=== PATIENT | male | born 1975 | race Caucasian/White ===

== ENCOUNTER 2018-05-11 08:17 | Emergency (ER) | payer MEDICAID, SELFPAY ==
[2018-05-11 08:19] VITALS: BP 164/88; PULSE 85; RESP 14; TEMP 36.4; O2SAT 98; BMI 68.9
--- NOTE | 2018-05-11 08:36 | RAD_ITS ---
STUDY: X-RAY CHEST REASON FOR EXAM: Male, 42 years old. History of pneumonia. TECHNIQUE: AP and lateral views of the chest. COMPARISON: Comparison is made with prior study dated September 08, 2016. FINDINGS: The lungs are clear and expanded. There is no demonstrated pleural abnormality. Normal size heart. Normal mediastinum and truong. Normal visualized pulmonary arteries. Normal visualized aortic arch and descending thoracic aorta. There are degenerative changes of the visualized thoracic spine. Normal visualized ribs, clavicles, and shoulders. There is no demonstrated abnormality of the visualized soft tissue structures of the upper abdomen. RAD/Chest PA and Lateral IMPRESSION: Normal x-ray examination of the chest. Electronically Signed: Parth Yoon, at 9:18 EST , Service support ,
[2018-05-11 08:42] VITALS: PULSE 67; RESP 16
[2018-05-11] MEDS: Ipratropium/Albuterol Sulfate 3 ML AMPUL.NEB INHALATION (08:42)
[2018-05-11 08:44] VITALS: BP 164/88; PULSE 85; RESP 14; TEMP 36.4; O2SAT 98
--- NOTE | 2018-05-11 09:15 | ED.VISSUMM ---
- ER Visit Summary Date of Service: 05/11/18 Chief Complaint: [Cough] History of Present Illness: The patient is a 42 M [presents to the emergency department with complaint of a cough that started 3 weeks ago. Patient states that initially he started with what he thought were flulike symptoms and that he had fever for about 36 hours as well as severe body aches. Patient had a mild cough at that time. Patient states that over the course of the last 3 weeks he is got progressive increase in cough. Patient feels somewhat short of breath with activity and some generalized fatigue. Patient states that the cough is occasionally productive of some clear phlegm currently. Patient's had some faint chills. Patient denies recent travel or surgery. Patient does have a history of pneumonia and he called the nurse line today and was advised to come to the emergency department to get evaluated. Patient does have a history of diabetes, hypertension, and sleep apnea. He does not have a history of asthma or COPD.] Physical Examination: [HEENT-PERRLA, EOMI. Cranial nerves II through XII grossly intact. TMs clear. Mucous membranes moist. No adenopathy. Cardiovascular-regular rate and rhythm without murmur or ectopy Lungs-slightly diminished breath sounds bilaterally. Patient does have some faint expiratory wheezes with cough. No accessory muscle use or retractions. Abdomen-normoactive bowel sounds, soft, nontender, no rebound or rigidity, no peritoneal signs. Extremities-intact ?4, normal range of motion, normal pulses, atraumatic] Test Results: [Chest x-ray of the chest was obtained which was read as normal by radiology.] Emergency Department Course and Treatment: [Patient was given a DuoNeb aerosol. Patient was given a dose of doxycycline.] Treatment Plan: [Patient will be given an inhaler of albuterol for home as well as a prescription for doxycycline and Tessalon Perles.] Disposition: [Discharged home in stable condition. Patient advised to return if increasing shortness of breath or condition should worsen anyway. Patient advised to follow-up with primary care physician within next 5-7 days.] Impression: [Asthmatic bronchitis] This note was generated with [employer] software. It may contain incorrect words, spelling, and punctuation that were not noted in review of the chart prior to signing ED Disposition - Plan for ED Patient: Referrals: Rocky Delgadillo MD [Primary Care Provider] -
--- NOTE | 2018-05-11 09:21 | ED.DEP ---
ED Disposition - Plan for ED Patient: Instructions: ED Bronchitis Asthmatic Prescriptions: Benzonatate [Tessalon Perle] 200 mg PO TID PRN PRN #20 cap PRN Reason: Cough Doxycycline 100 mg PO BID #20 cap Referrals: Rocky Delgadillo MD [Primary Care Provider] -
[2018-05-11] MEDS: Doxycycline 100 MG CAPSULE PO (09:34)
[2018-05-11 09:39] VITALS: O2SAT 98
== END 2018-05-11 09:42 | disposition home or self-care (01) ==
LOC: ED 09:10
PROVIDERS: Emergency Provider Emergency Medicine; Family Provider Family Medicine; PCP Family Medicine
DX: J44.9 Chronic obstructive pulmonary disease, unspecified (principal); E11.9 Type 2 diabetes mellitus without complications; I10 Essential (primary) hypertension; Z87.01 Personal history of pneumonia (recurrent)
CPT/HCPCS: 71046; 94640; 99281

== ENCOUNTER 2018-05-24 05:39 | Observation (INO) | payer MEDICAID, SELFPAY ==
[2018-05-24] VITALS (15 sets, daily range): BP systolic 134–183; BP diastolic 79–143; PULSE 67–79; RESP 18–24; TEMP 36.4–37.7; O2SAT 95–100; BMI 69.8
--- NOTE | 2018-05-24 05:42 | ED.RN ---
CALLED FOR EKG PER RN REQUEST, PULLED OLD EKGS FOR
--- NOTE | 2018-05-24 05:47 | RAD_ITS ---
STUDY: X-RAY CHEST REASON FOR EXAM: Male, 42 years old. Chest pain. TECHNIQUE: Single AP portable view of the chest. COMPARISON: May 11, 2018. FINDINGS: Cardiac monitoring leads are present. The lungs are expanded. There is mild prominence of bronchovascular markings. There is no demonstrated pleural abnormality. There is mild cardiac enlargement. Normal mediastinum and truong. Normal visualized pulmonary arteries. Normal visualized aortic arch and descending thoracic aorta. There are diffuse degenerative changes of the visualized thoracic spine. Normal visualized ribs, clavicles, and shoulders. There is no demonstrated abnormality of the visualized soft tissue structures of the upper abdomen. RAD/Chest 1 View (Portable) IMPRESSION: Mild cardiomegaly without evidence of acute cardiopulmonary disease. Electronically Signed: Jo Mendoza MD at 6:21 EDT , Service support ,
--- NOTE | 2018-05-24 05:47 | EKG12_ITS ---
Test Reason : CP Blood Pressure : / mmHG Vent. Rate : 075 BPM Atrial Rate : 075 BPM P-R Int : 188 ms QRS Dur : 104 ms QT Int : 402 ms P-R-T Axes : 043 047 035 degrees QTc Int : 448 ms Normal sinus rhythm Normal ECG Confirmed by ETIENNE MOELLER, TIARA ([id number]), assistant production editor ANDRESSA BEY ([id number]) on 05/26/2018 11:08:39 AM Referred By: Loree Villalpando Confirmed By:TIARA CLIFTON MD
[2018-05-24 06:03] LABS: Absolute Lymphocyte Count 3.04 X10^3/ul (0.83-4.51); Absolute Neutrophil Count 3.8 X10^3/uL (2.0-7.7); Basophil# 0.07 X10^3/uL; Basophil% 0.8 % (0-1); Eosinophil# 0.87 X10^3/uL; Eosinophils% 10.3 % (0-5); Hematocrit 39.8 % (40-54); Hemoglobin 13.1 g/dl (13.0-16.5); Lymphocyte # 3.04 X10^3/ul (4.0); Lymphocyte % 35.8 % (19-41); Mean Corp Hgb Conc 32.9 g/gl (32-36); Mean Corpuscular Hgb 28.7 pg (27.0-32.0); Mean Corpuscular Volume 87.3 fL (80-94); Mean Platelet Vol. 10.1 fl (6.2-12.0); Monocyte# 0.66 X10^3/uL; Monocyte% 7.8 % (0-10); Neutrophil # 3.81 X10^3/uL (2.7-7.7); Neutrophil % 44.9 % (47-70); Platelet Count 267 K/mm3 (150-450); RBC Distribution Width CV 13.5 % (11.6-14.6); RBC Distribution Width SD 41.8 fl (35.1-43.9); Red Blood Count 4.56 M/mm3 (4.6-6.2); White Blood Count 8.5 K/mm3 (4.4-11.0)
--- NOTE | 2018-05-24 06:05 | ED.VISSUMM ---
- ER Visit Summary Date of Service: 05/24/18 Chief Complaint: Chest pain History of Present Illness: The patient is a 42 M with approximately 3 weeks of chest pressure. Patient states he initially had bronchitis type symptoms associated with this. He was treated with antibiotics and his cough and congestion are better. He states he continues to have chest pressure, worse with exertion or movement, that continues to worsen. He does feel occasionally short of breath. Patient denies any known history of cardiac disease. He had a heart cath performed in June 2012 that did not reveal any blockages. Physical Examination: Blood pressure is 183/89, temperature 97.5, heart rate 75, respiratory rate 24, pulse ox 98% on room air. Patient is obese gentleman sitting upright in bed. He is in no acute distress. Head neck examination normal. Heart is regular rate and rhythm. Lungs sounds are clear. He has no reproducible chest wall tenderness. Abdomen is soft and nontender. Test Results: EKG is sinus at 75 with no sign of acute ischemia. Portable chest x-ray shows mild cardiomegaly without acute disease. CBC and chemistry studies significant only for glucose of 267. Troponin is 0.047. Emergency Department Course and Treatment: Patient was given aspirin on arrival. I did review patient's prior records. Patient was admitted here in 2015 with similar type story. He had atypical chest pain following an upper respiratory infection. He had mildly elevated troponins at that time that were stable. Patient underwent a heart cath in June 2012 which did not show any lesions. Discharge note from 2015 states possibility of hypertension leading to his symptoms. He was started on Imdur at that time but is no longer on Imdur. At this time I only have a single lab value which does not reveal a normal troponin. Patient will be admitted for observation for cycling of enzymes. Treatment Plan: [] Disposition: Admit Impression: 1. Atypical chest pain 2. Elevated troponin This note was generated with [employer] dictation software. It may contain incorrect words, spelling, and punctuation that were not noted in review of the chart prior to signing ED Disposition - Plan for ED Patient: Referrals: Rocky Delgadillo MD [Primary Care Provider] -
[2018-05-24] MEDS: 0.9% Normal Saline 1,000 ML 15 ML IV ×2 (06:18→12:00)
[2018-05-24] MEDS: Aspirin 81 MG TAB.CHEW 324 MG PO (06:18)
[2018-05-24 06:22] LABS: Anion Gap 10 (5-15); BUN 12 mg/dL (7-18); BUN/Creat Ratio 13.7 RATIO (10-20); Calcium,Total 8.6 mg/dL (8.5-10.1); Chloride 103 mmol/L (98-107); Creatinine, Serum 0.88 mg/dL (0.70-1.30); EST Glomerular Filtration Rate 100 mL/min (>60); Est Glom Filt Rate - Afr Amer 121 mL/min (>60); Estimated Creatinine Clearance 117.58 ml/min; Glucose 267 mg/dL (74-106); Potassium 3.9 mmol/L (3.5-5.1); Sodium Level 141 mmol/L (136-145)
[2018-05-24 06:45] LABS: POSITIVE COUNT NO; POSITIVE DIFFERENTIAL NO; POSITIVE MORPHOLOGY NO
[2018-05-24] MEDS: Lisinopril 10 MG Tablet PO (11:21)
[2018-05-24] MEDS: hydroCHLOROthiazide 25 MG Tablet PO (11:21)
[2018-05-24] MEDS: Pantoprazole Sodium 40 MG Tablet PO (11:21)
[2018-05-24] MEDS: Metoprolol(XL)Succ 200 MG Tablet PO (11:22)
[2018-05-24] MEDS: Enoxaparin 40 MG/0.4 ML Syringe SC (11:24)
[2018-05-24] MEDS: Acetaminophen 325 MG Tablet 650 MG PO ×2 (11:26→18:18)
[2018-05-24 13:15] LABS: Bedside Glucose 190 mg/dL (70-110)
[2018-05-24] MEDS: Insulin Lispro 100 UNIT/ML INSULN.PEN 32 UNIT SC ×2 (13:15→19:44)
--- NOTE | 2018-05-24 13:58 | PCM.HP.STD ---
History of Present Illness Date of Admission: 05/24/18 Chief Complaint: chest pain The patient is a 42 year old M with a PMH of hypertension, diabetes was admitted with a complaint of chest pain. Patient states he has had bronchitis for the past few weeks and had chest pain with it. Pain was sharp, episodic, mildly worsened by exertion or movement and states that it has not improved. It was not relieved by sitting up and was not worsened by laying down. He denied any fever or chills and states his cough and congestion had improved since he completed antibiotics. Review of systems otherwise negative. He came into the ED where initial troponin was 0.047. Vitals were otherwise stable apart from markedly elevated blood pressure around 183/89. She has had a heart cath performed in 2013 that was normal. EKG showed no acute ST changes. He is been admitted to be managed for chest pain to rule out ACS. [] Past Medical History Past Medical History (Chronic Problems): Chronic Problems Hypertension (Chronic) Type II diabetes mellitus (Chronic) Hyperlipidemia (Chronic) Depression (Chronic) Super obese (Chronic) Smoker (Chronic) MEGAN (obstructive sleep apnea) (Chronic) Allergies cefadroxil hydrate [From Duricef] Allergy (Verified 05/24/18 05:48) Itching piperacillin [From Zosyn] Allergy (Verified 05/24/18 05:48) Hives tazobactam [From Zosyn] Allergy (Verified 05/24/18 05:48) Hives erythromycin base Adverse Reaction (Verified 05/24/18 05:48) Vomiting Home Medications: Ambulatory Orders Medication Instructions Recorded Aspirin E.C. [Ecotrin] 81 mg PO DAILY@0800 02/28/15 Hydrochlorothiazide [Hctz] 25 mg PO DAILY 02/28/15 Lisinopril [Zestril] 10 mg PO DAILY 02/28/15 Metoprolol Succinate 200 mg PO DAILY 02/28/15 Omeprazole [Prilosec] 40 mg PO DAILY 02/28/15 Simvastatin [Zocor] 40 mg PO DAILY 02/28/15 Lorazepam [Ativan] 1 mg PO DAILY PRN PRN 06/24/15 Acetaminophen [Tylenol Tablet] 650 mg PO Q4H PRN PRN tablet 09/16/16 Gabapentin [Neurontin] 300 mg PO TIDCM #90 capsule 09/16/16 Insulin Aspart [Novolog Flexpen] 20 units SC TIDAC #120 09/16/16 Insulin Detemir [Levemir FlexPen] 50 units SC 1000 #60 09/16/16 Insulin Detemir [Levemir FlexPen] 50 units SC 2200 #60 09/16/16 Meloxicam [Mobic] 7.5 mg PO DAILY #30 tablet 09/16/16 Metformin HCl [Glucophage] 1,000 mg PO TID #120 09/16/16 Benzonatate [Tessalon Perle] 200 mg PO TID PRN PRN #20 cap 05/11/18 Surgical History: noncontributory, tonsillectomy, - - excision of tissue from the right breast....gynecomastia. Orthopedic surgery on the left forearm due to fracture when he was young. Psychiatric History: Depression Lives: With Family Smoking Status: Former smoker Tobacco Use: Cigars - *Family History Maternal History Items: Diabetes, No pertinent history, - - DM Paternal History Items: No pertinent history, - - He does not know his father or the paternal hx Sibling History Items: No pertinent history Offspring History Items: - - dtr has a hypercoagulable disorder Review of Systems Constitutional: Denies: Chills, Fever, Night Sweats, Weight Change Eyes: Denies: Blurred vision HEENT: Denies: Head Aches, Sinus Congestion, Sinus Drainage Cardiovascular: Reports: Chest Pain. Denies: Chest Pressure, Chest Tightness, Edema, Heaviness, Light Headedness, Orthopnea, Palpitations, Paroxysmal Noc. Dyspnea, Syncope Respiratory: Denies: Cough, Shortness of Breath, Shortness of breath at rest, Sputum production Gastrointestinal: Denies: Abdominal Pain, Nausea, Vomiting Genitourinary: Denies: Dysuria Musculoskeletal: Denies: Joint Pain, Joint Tenderness Skin: Denies: Rash, Wounds Neurological: Denies: Numbness, Tingling, Focal weakness Psychiatric: Denies: Anxiety, Depression, Homicidal Ideations, Suicidal Ideations Hematologic/ Lymphatic: Denies: Easy Bruising, Easy Bleeding VTE Information - Inpt Only VTE Present on Admission: No VTE Pharm Prophylaxis ordered?: Yes - Physical Exam General: Alert, Oriented x3, Cooperative, No apparent distress HEENT: Atraumatic, PERRLA, EOMI, Normocephalic Oral: Moist Mucosa Neck: Supple, No JVD, Negative Carotid Bruits Lungs: Clear to auscultation, Normal air movement Cardiovascular: Regular rate, Regular Rhythm, Normal S1, Normal S2, No murmurs Abdomen: Bowel Sounds Present, Soft, Non Tender, Non-Distended, No Hepato-splenomegaly Extremities: No clubbing, No cyanosis, No edema, Capillary Refill Less than 3 Seconds Skin: No rashes, No breakdown Musculoskeletal: No Tenderness to Palpation of Joints or Extremities Lymphatic: No Cervical, Supraclavicular, or Inguinal Adenopathy Neurological: Cranial nerves II-XII grossly intact, Neuro grossly intact, Motor Exam 5/5 strength throughout Psych/Mental Status: Normal Affect, Appropriate, Alert and oriented to time, place, person, mood and affect Vital Signs Temp Pulse Resp BP Pulse Ox 98.9 F 76 24 H 162/102 H 97 05/24/18 10:00 05/24/18 12:00 05/24/18 10:00 05/24/18 11:22 05/24/18 11:15 Oxygen Delivery Method Room Air Weight: 514 lb 12.47 oz Body Mass Index (BMI) 69.8 Finger Stick Blood Glucose 277 Intake and Output for Last 24 Hours 05/22/18 05/23/18 05/24/18 23:59 23:59 23:59 Intake Total 250 / 250 Balance 250 / 250 Laboratory Tests Past 24 Hrs 05/24/18 05/24/18 05/24/18 05:00 05:00 09:55 WBC 8.5 RBC 4.56 L Hgb 13.1 Hct 39.8 L MCV 87.3 MCH 28.7 MCHC 32.9 RDW 13.5 RDW Differential 41.8 Plt Count 267 MPV 10.1 Immature Gran % (Auto) 0.400 Neut % (Auto) 44.9 L Lymph % (Auto) 35.8 [place] % (Auto) 7.8 Eos % (Auto) 10.3 H Baso % (Auto) 0.8 Absolute Neuts (auto) 3.8 Absolute Lymphs (auto) 3.04 Total Counted Not Reportable Sodium 141 Potassium 3.9 Chloride 103 Carbon Dioxide 28.0 Anion Gap 10 BUN 12 Creatinine 0.88 Estim Creat Clear Calc 117.58 Est GFR (MDRD) Af Amer 121 Est GFR (MDRD) Non-Af 100 BUN/Creatinine Ratio 13.7 Glucose 267 H Calcium 8.6 Troponin I 0.047 H 0.057 H 05/24/18 12:05 WBC RBC Hgb Hct MCV MCH MCHC RDW RDW Differential Plt Count MPV Immature Gran % (Auto) Neut % (Auto) Lymph % (Auto) [place] % (Auto) Eos % (Auto) Baso % (Auto) Absolute Neuts (auto) Absolute Lymphs (auto) Total Counted Sodium Potassium Chloride Carbon Dioxide Anion Gap BUN Creatinine Estim Creat Clear Calc Est GFR (MDRD) Af Amer Est GFR (MDRD) Non-Af BUN/Creatinine Ratio Glucose Calcium Troponin I 0.051 H POC Glucose 05/24/18 13:07 POC Glucose 190 H Diagnostic Data Chest X-Ray 05/24/18 05:47 IMPRESSION: Mild cardiomegaly without evidence of acute cardiopulmonary disease. Electronically Signed: Jo Mendoza MD at 6:21 EDT , Service support , Assessment/Plan All Active Problems MSSA (methicillin susceptible Staphylococcus aureus) septicemia (Acute) Sepsis (Acute) Intertrigo (Acute) Hyponatremia (Acute) Radicular pain of right lower extremity (Acute) Atypical chest pain (Resolved) Indeterminate troponin (Resolved) 42 y/o admitted with a complaint of chest pain, to rule out ACS 1. Chest pain r/o ACS Initial troponin mildly elevated at 0.0471 up to 0.057 and came down to 0.051. EKG showed no acute ST changes. Had recent history of bronchitis which resolved with antibiotics. SL nitroglycerin as needed.. Aspirin 81 mg daily. 2. Hypertension: poorly controlled. BP was 183/89 on admission. On hydrochlorothiazide 25 mg daily and lisinopril 10 mg daily. Will monitor blood pressure and adjusted meds as needed 3. Diabetes mellitus: on Lantus 77 units nightly and insulin lispro 32 units 3 times daily with meals. Insulin sliding scale. Accuchecks AC at bedtime. DVT prophylaxis: lovenox Code Visit OBSV E&M: 72530 Initial observation care L3
--- NOTE | 2018-05-24 14:05 | HP.PCM_ITS ---
History of Present Illness Date of Admission: 05/24/18 Chief Complaint: chest pain The patient is a 42 year old M with a PMH of hypertension, diabetes was admitted with a complaint of chest pain. Patient states he has had bronchitis for the past few weeks and had chest pain with it. Pain was sharp, episodic, mildly worsened by exertion or movement and states that it has not improved. It was not relieved by sitting up and was not worsened by laying down. He denied any fever or chills and states his cough and congestion had improved since he completed antibiotics. Review of systems otherwise negative. He came into the ED where initial troponin was 0.047. Vitals were otherwise stable apart from ma rkedly elevated blood pressure around 183/89. She has had a heart cath performed in 2013 that was normal. EKG showed no acute ST changes. He is been admitted to be managed for chest pain to rule out ACS. [] Past Medical History Past Medical History (Chronic Problems): Chronic Problems Hypertension (Chronic) Type II diabetes mellitus (Chronic) Hyperlipidemia (Chronic) Depression (Chronic) Super obese (Chronic) Smoker (Chronic) MEGAN (obstructive sleep apnea) (Chronic) Allergies cefadroxil hydrate [From Duricef] Allergy (Verified 05/24/18 05:48) Itching piperacillin [From Zosyn] Allergy (Verified 05/24/18 05:48) Hives tazobactam [From Zosyn] Allergy (Verified 05/24/18 05:48) Hives erythromycin base Adverse Reaction (Verified 05/24/18 05:48) Vomiting Home Medications: Ambulatory Orders Medication Instructions Recorded Aspirin E.C. [Ecotrin] 81 mg PO DAILY@0800 02/28/15 Hydrochlorothiazide [Hctz] 25 mg PO DAILY 02/28/15 Lisinopril [Zestril] 10 mg PO DAILY 02/28/15 Metoprolol Succinate 200 mg PO DAILY 02/28/15 Omeprazole [Prilosec] 40 mg PO DAILY 02/28/15 Simvastatin [Zocor] 40 mg PO DAILY 02/28/15 Lorazepam [Ativan] 1 mg PO DAILY PRN PRN 06/24/15 Acetaminophen [Tylenol Tablet] 650 mg PO Q4H PRN PRN tablet 09/16/16 Gabapentin [Neurontin] 300 mg PO TIDCM #90 capsule 09/16/16 Insulin Aspart [Novolog Flexpen] 20 units SC TIDAC #120 09/16/16 Insulin Detemir [Levemir FlexPen] 50 units SC 1000 #60 09/16/16 Insulin Detemir [Levemir FlexPen] 50 units SC 2200 #60 09/16/16 Meloxicam [Mobic] 7.5 mg PO DAILY #30 tablet 09/16/16 Metformin HCl [Glucophage] 1,000 mg PO TID #120 09/16/16 Benzonatate [Tessalon Perle] 200 mg PO TID PRN PRN #20 cap 05/11/18 Surgical History: noncontributory, tonsillectomy, - - excision of tissue from the right breast....gynecomastia. Orthopedic surgery on the left forearm due to fracture when he was young. Psychiatric History: Depression Lives: With Family Smoking Status: Former smoker Tobacco Use: Cigars - *Family History Maternal History Items: Diabetes, No pertinent history, - - DM Paternal History Items: No pertinent history, - - He does not know his father or the paternal hx Sibling History Items: No pertinent history Offspring History Items: - - dtr has a hypercoagulable disorder Review of Systems Constitutional: Denies: Chills, Fever, Night Sweats, Weight Change Eyes: Denies: Blurred vision HEENT: Denies: Head Aches, Sinus Congestion, Sinus Drainage Cardiovascular: Reports: Chest Pain. Denies: Chest Pressure, Chest Tightness, Edema, Heaviness, Light Headedness, Orthopnea, Palpitations, Paroxysmal Noc. Dyspnea, Syncope Respiratory: Denies: Cough, Shortness of Breath, Shortness of breath at rest, Sputum production Gastrointestinal: Denies: Abdominal Pain, Nausea, Vomiting Genitourinary: Denies: Dysuria Musculoskeletal: Denies: Joint Pain, Joint Tenderness Skin: Denies: Rash, Wounds Neurological: Denies: Numbness, Tingling, Focal weakness Psychiatric: Denies: Anxiety, Depression, Homicidal Ideations, Suicidal Ideations Hematologic/ Lymphatic: Denies: Easy Bruising, Easy Bleeding VTE Information - Inpt Only VTE Present on Admission: No VTE Pharm Prophylaxis ordered?: Yes - Physical Exam General: Alert, Oriented x3, Cooperative, No apparent distress HEENT: Atraumatic, PERRLA, EOMI, Normocephalic Oral: Moist Mucosa Neck: Supple, No JVD, Negative Carotid Bruits Lungs: Clear to auscultation, Normal air movement Cardiovascular: Regular rate, Regular Rhythm, Normal S1, Normal S2, No murmurs Abdomen: Bowel Sounds Present, Soft, Non Tender, Non-Distended, No Hepato- splenomegaly Extremities: No clubbing, No cyanosis, No edema, Capillary Refill Less than 3 Seconds Skin: No rashes, No breakdown Musculoskeletal: No Tenderness to Palpation of Joints or Extremities Lymphatic: No Cervical, Supraclavicular, or Inguinal Adenopathy Neurological: Cranial nerves II-XII grossly intact, Neuro grossly intact, Motor Exam 5/5 strength throughout Psych/Mental Status: Normal Affect, Appropriate, Alert and oriented to time, place, person, mood and affect Vital Signs Temp Pulse Resp BP Pulse Ox 98.9 F 76 24 H 162/102 H 97 05/24/18 10:00 05/24/18 12:00 05/24/18 10:00 05/24/18 11:22 05/24/18 11:15 Oxygen Delivery Method Room Air Weight: 514 lb 12.47 oz Body Mass Index (BMI) 69.8 Finger Stick Blood Glucose 277 Intake and Output for Last 24 Hours 05/22/18 05/23/18 05/24/18 23:59 23:59 23:59 Intake Total 250 / 250 Balance 250 / 250 Laboratory Tests Past 24 Hrs 05/24/18 05/24/18 05/24/18 05:00 05:00 09:55 WBC 8.5 RBC 4.56 L Hgb 13.1 Hct 39.8 L MCV 87.3 MCH 28.7 MCHC 32.9 RDW 13.5 RDW Differential 41.8 Plt Count 267 MPV 10.1 Immature Gran % (Auto) 0.400 Neut % (Auto) 44.9 L Lymph % (Auto) 35.8 [place] % (Auto) 7.8 Eos % (Auto) 10.3 H Baso % (Auto) 0.8 Absolute Neuts (auto) 3.8 Absolute Lymphs (auto) 3.04 Total Counted Not Reportable Sodium 141 Potassium 3.9 Chloride 103 Carbon Dioxide 28.0 Anion Gap 10 BUN 12 Creatinine 0.88 Estim Creat Clear Calc 117.58 Est GFR (MDRD) Af Amer 121 Est GFR (MDRD) Non-Af 100 BUN/Creatinine Ratio 13.7 Glucose 267 H Calcium 8.6 Troponin I 0.047 H 0.057 H 05/24/18 12:05 WBC RBC Hgb Hct MCV MCH MCHC RDW RDW Differential Plt Count MPV Immature Gran % (Auto) Neut % (Auto) Lymph % (Auto) [place] % (Auto) Eos % (Auto) Baso % (Auto) Absolute Neuts (auto) Absolute Lymphs (auto) Total Counted Sodium Potassium Chloride Carbon Dioxide Anion Gap BUN Creatinine Estim Creat Clear Calc Est GFR (MDRD) Af Amer Est GFR (MDRD) Non-Af BUN/Creatinine Ratio Glucose Calcium Troponin I 0.051 H POC Glucose 05/24/18 13:07 POC Glucose 190 H Diagnostic Data Chest X-Ray 05/24/18 05:47 IMPRESSION: Mild cardiomegaly without evidence of acute cardiopulmonary disease. Electronically Signed: Jo Mendoza MD at 6:21 EDT , Service support , Assessment/Plan All Active Problems MSSA (methicillin susceptible Staphylococcus aureus) septicemia (Acute) Sepsis (Acute) Intertrigo (Acute) Hyponatremia (Acute) Radicular pain of right lower extremity (Acute) Atypical chest pain (Resolved) Indeterminate troponin (Resolved) 42 y/o admitted with a complaint of chest pain, to rule out ACS 1. Chest pain r/o ACS * Initial troponin mildly elevated at 0.0471 up to 0.057 and came down to 0.051. * EKG showed no acute ST changes. * Had recent history of bronchitis which resolved with antibiotics. * SL nitroglycerin as needed.. Aspirin 81 mg daily. * 2. Hypertension: * poorly controlled. BP was 183/89 on admission. * On hydrochlorothiazide 25 mg daily and lisinopril 10 mg daily. * Will monitor blood pressure and adjusted meds as needed * 3. Diabetes mellitus: * on Lantus 77 units nightly and insulin lispro 32 units 3 times daily with meals. Insulin sliding scale. * Accuchecks AC at bedtime. * DVT prophylaxis: lovenox Code Visit OBSV E&M: 73988 Initial observation care L3
[2018-05-24] MEDS: Morphine 2 MG/ML Syringe 1 MG IV (16:19)
--- NOTE | 2018-05-24 16:22 | CASEMGMT ---
WILLOW CM Note. Chart reviewed. Call to Hospitalist to review plan of care. Per physician plan is for stress test and she will enter order. Nurse Rema update. Introduced role of CM to patient in room. Pt is awake, alert and able to participate in assessment. Demographics reviewed. Pt is diabetic, states he has blood glucose monitoring equipment and checks his blood sugars at home. Is on Basaglar Kwikpen and Lispro Kwikpen. States [employer] covers all his diabetic medications. Wire Bender Hand consult is ordered. Presentation: Chest pain. Troponin peak 0.057. PCP: Dr. Delgadillo [facility]: [facility] Insurance: [employer] Prescription coverage: yes through [employer] Living Arrangements: Pt states he lives independently with his daughter and her fiance. States, though difficult due to weight, he is independent in bathing, dressing and other ADL. States he sometimes has difficulty putting his shoes on. Transportation: drives or family drives DME: none HHS: none DC PLAN: anticipate home on discharge. no needs identified @ this time. Bryant QUESADA RN ACM
[2018-05-24 19:10] LABS: Bedside Glucose 130 mg/dL (70-110)
--- NOTE | 2018-05-24 22:45 | NURSING ---
Pt to be transported via bed and on equipment monitor phototypesetting to room 121 on PCU. Pt aware and in agreement with plan of care.
[2018-05-24] MEDS: Atorvastatin Calcium 20 MG Tablet PO (22:50)
--- NOTE | 2018-05-24 22:59 | NURSING ---
Report called to WILLOW Garcia on PCU.
[2018-05-25] VITALS (10 sets, daily range): BP systolic 160–171; BP diastolic 87–110; PULSE 76–90; RESP 16–18; TEMP 36.7–36.9; O2SAT 94–99
[2018-05-25 05:44] LABS: Absolute Lymphocyte Count 2.02 X10^3/ul (0.83-4.51); Absolute Neutrophil Count 6.1 X10^3/uL (2.0-7.7); Basophil# 0.04 X10^3/uL; Basophil% 0.4 % (0-1); Eosinophil# 0.82 X10^3/uL; Eosinophils% 8.5 % (0-5); Hematocrit 38.3 % (40-54); Hemoglobin 12.8 g/dl (13.0-16.5); Lymphocyte # 2.02 X10^3/ul (4.0); Lymphocyte % 20.9 % (19-41); Mean Corp Hgb Conc 33.4 g/gl (32-36); Mean Corpuscular Hgb 29.1 pg (27.0-32.0); Mean Platelet Vol. 10.3 fl (6.2-12.0); Monocyte% 7.2 % (0-10); Neutrophil # 6.06 X10^3/uL (2.7-7.7); Neutrophil % 62.7 % (47-70); POSITIVE COUNT NO; POSITIVE DIFFERENTIAL NO; POSITIVE MORPHOLOGY NO; Platelet Count 254 K/mm3 (150-450); RBC Distribution Width CV 13.5 % (11.6-14.6); RBC Distribution Width SD 41.8 fl (35.1-43.9); White Blood Count 9.7 K/mm3 (4.4-11.0)
[2018-05-25 05:47] LABS: International Normalized Ratio 1.1; Prothrombin Time (Protime)PT. 13.8 SECONDS (11.7-14.9)
[2018-05-25] MEDS: Lisinopril 10 MG Tablet PO (05:47)
[2018-05-25] MEDS: Acetaminophen 325 MG Tablet 650 MG PO ×2 (05:47→14:41)
[2018-05-25] MEDS: Aspirin E.C. 81 MG Tablet PO (05:47)
[2018-05-25] MEDS: Pantoprazole Sodium 40 MG Tablet PO (05:47)
[2018-05-25 05:48] LABS: Anion Gap 8 (5-15); BUN 10 mg/dL (7-18); BUN/Creat Ratio 12.6 RATIO (10-20); Calcium,Total 8.8 mg/dL (8.5-10.1); Chloride 100 mmol/L (98-107); Creatinine, Serum 0.79 mg/dL (0.70-1.30); EST Glomerular Filtration Rate 113 mL/min (>60); Est Glom Filt Rate - Afr Amer 136 mL/min (>60); Estimated Creatinine Clearance 130.97 ml/min; Glucose 144 mg/dL (74-106); Partial Thromboplast Time 28.9 Seconds (24.1-36.2); Potassium 3.7 mmol/L (3.5-5.1); Sodium Level 140 mmol/L (136-145)
[2018-05-25] MEDS: Gabapentin 300 MG Capsule PO (05:48)
--- NOTE | 2018-05-25 05:55 | EKG12_ITS ---
Test Reason : AM EKG Blood Pressure : / mmHG Vent. Rate : 083 BPM Atrial Rate : 083 BPM P-R Int : 164 ms QRS Dur : 102 ms QT Int : 394 ms P-R-T Axes : 021 043 027 degrees QTc Int : 462 ms Normal sinus rhythm Normal ECG When compared with ECG of 24-MAY-2018 05:44, MANUAL COMPARISON REQUIRED, DATA IS UNCONFIRMED Confirmed by KALINA RAMIREZ ([id number]), rewrite editor AYLIN NEELY ([id number]) on 05/30/2018 5:12:50 PM Referred By: Loree Villalpando Confirmed By:KALINA RAMIREZ
[2018-05-25 06:55] LABS: Bedside Glucose 175 mg/dL (70-110)
--- NOTE | 2018-05-25 07:34 | STEWCON_ITS ---
Reason For Study: CHEST PAIN Stress Results Protocol: Dobutamine Maximum Predicted HR: 176 bpm Target HR: 150 bpm % Maximum Predicted HR: 84 % DurationHeart Rate Stage (mm:ss) (bpm) BP Dose Comment BASELINE 81 152/94 2 CC DEFINITY STAGE 1 4:01 94 168/7610.001 CC DEFINITY STAGE 2 3:00 133 162/7020.00INCREASED SOB STAGE 3 3:00 148 160/8430.00SOB STAGE 4 1:24 144 / 40.001 CC DEFINITY, 300 CC BILE EMESIS RECOVERY 100 138/88 1 CC DEFINITY Stress Duration: 11:25 mm:ss Maximum Stress HR: 148 bpm Baseline Echocardiogram Findings The estimated ejection fraction is 65 %. Stress Echo Wall motion Data Resting WM Intermediate WM Stress WM Resting Wall Motion Wall Motion Stress No regional wall motion No regional wall motion abnormalities noted. abnormalities noted. EKG Data Normal intervals are noted. The patient was titrated from 10 mcg to a maximum of 40 mcg of dobutamine during the stress. The maximum heart rate attained was 196 beats per minute. This was 111% of maximum predicted heart rate. During dobutamine infusion, there were no ST or T wave changes noted to suggest ischemia. No clinical angina was noted. Interpretation Summary The estimated ejection fraction is 65 %. Normal, adequate, dobutamine echocardiogram. Negative for ischemia by EKG and echocardiographic anterior. No anginal symptoms noted. Rare PVC noted. Appropriate blood pressure response to dobutamine. Final LVEF is 75%. Decreased sensitivity due to poor echo windows requiring Definity agent. Test terminated due to attainment of target heart rate. No complications. The study was technically difficult. Contrast injection was performed. Ordering Physician: Loree Villalpando Referring Physician: Loree Villalpando Performed By: Krystal Reynoso, MESERET
[2018-05-25] MEDS: Metoprolol(XL)Succ 200 MG Tablet PO (09:51)
[2018-05-25] MEDS: hydroCHLOROthiazide 25 MG Tablet PO (09:51)
[2018-05-25 12:11] LABS: Bedside Glucose 229 mg/dL (70-110)
[2018-05-25] MEDS: Insulin Lispro 100 UNIT/ML INSULN.PEN 32 UNIT SC (14:38)
--- NOTE | 2018-05-25 16:28 | PCM.DC.SUM ---
Discharge Date and Diagnosis Date of Admission: 05/24/18 Date of Discharge: 05/25/18 - Primary Discharge Diagnosis chest pain - Secondary Discharge Diagnosis Chronic Problems Hypertension (Chronic) Type II diabetes mellitus (Chronic) Hyperlipidemia (Chronic) Depression (Chronic) Super obese (Chronic) Smoker (Chronic) MEGAN (obstructive sleep apnea) (Chronic) Hospital Course and Treatment Imaging Results: 05/25/18 07:34 Stress Test Echo W/Contrast [ECHO] Routine Operations: None Procedures: None Summary of Care Provided: The patient is a 42 year old M with a PMH of hypertension and diabetes who was admitted with a complaint of chest pain. Patient stated he had bronchitis for the past few weeks and had chest pain with it. Pain was sharp, episodic, mildly worsened by exertion or movement and states that it has not improved. It was not relieved by sitting up and was not worsened by laying down. He denied any fever or chills and states his cough and congestion had improved since he completed antibiotics. Review of systems otherwise negative. He came into the ED where initial troponin was 0.047. Vitals were otherwise stable apart from markedly elevated blood pressure around 183/89. He has had a heart cath performed in 2012 that was normal. EKG showed no acute ST changes. He was admitted to be managed for chest pain to rule out ACS. Troponins x3 were negative. He had a stress echocardiogram on 06/11/2018 which was negative. Of note, patient's blood pressure remained poorly controlled also on admission and most of the chest pain may have contributed to this. He remained stable and was discharged home on 05/25/2018 with a prescription for sublingual nitroglycerin as needed. He was counseled to be compliant with his blood pressure medications and he is to follow-up with his primary care doctor in 1 week. He is also to check his blood pressure at home for adjustment to be made after he presents a log of his blood pressure checks to the PCP. Patient seen and examined prior to discharge. He had no complaints and felt well. Home medications reviewed and reconciled. Vital Signs Height 6 ft Weight: 500 lb 14.244 oz Weight in Pounds 500.9 lbs Pulse Ox 99 Temperature 98.1 F Pulse Rate 87 Respiratory Rate 16 Blood Pressure 166/90 Blood Pressure Position Semi-Fowlers General: Alert, Oriented x3, Cooperative, No apparent distress HEENT: Atraumatic, PERRLA, EOMI, Normocephalic Oral: Moist Mucosa Neck: Supple, No JVD, Negative Carotid Bruits Lungs: Clear to auscultation, Normal air movement Cardiovascular: Regular rate, Regular Rhythm, Normal S1, Normal S2, No murmurs Abdomen: Bowel Sounds Present, Soft, Non Tender, Non-Distended, No Hepato-splenomegaly Extremities: No clubbing, No cyanosis, No edema, Capillary Refill Less than 3 Seconds Skin: No rashes, No breakdown Musculoskeletal: No Tenderness to Palpation of Joints or Extremities Lymphatic: No Cervical, Supraclavicular, or Inguinal Adenopathy Neurological: Cranial nerves II-XII grossly intact, Neuro grossly intact, Motor Exam 5/5 strength throughout Psych/Mental Status: Normal Affect, Appropriate, Alert and oriented to time, place, person, mood and affect Plan as above. - Physical Exam Vital Signs Temp Pulse Resp BP Pulse Ox 98.1 F 87 16 166/90 H 99 05/25/18 16:14 05/25/18 16:14 05/25/18 16:14 05/25/18 16:14 05/25/18 16:14 Oxygen Delivery Method Room Air Weight: 500 lb 14.244 oz Body Mass Index (BMI) 69.8 Finger Stick Blood Glucose 277 Intake and Output for Last 24 Hours 05/23/18 05/24/18 05/25/18 23:59 23:59 23:59 Intake Total 951 / 951 85 / 85 Output Total 1400 / 1400 Balance -449 / -449 85 / 85 Laboratory Tests Past 24 Hrs 05/25/18 05/25/18 05/25/18 05:05 05:05 05:05 WBC 9.7 RBC 4.40 L Hgb 12.8 L Hct 38.3 L MCV 87.0 MCH 29.1 MCHC 33.4 RDW 13.5 RDW Differential 41.8 Plt Count 254 MPV 10.3 Immature Gran % (Auto) 0.300 Neut % (Auto) 62.7 Lymph % (Auto) 20.9 [place] % (Auto) 7.2 Eos % (Auto) 8.5 H Baso % (Auto) 0.4 Absolute Neuts (auto) 6.1 Absolute Lymphs (auto) 2.02 Total Counted Not Reportable PT 13.8 INR 1.1 APTT 28.9 Sodium 140 Potassium 3.7 Chloride 100 Carbon Dioxide 32.0 Anion Gap 8 BUN 10 Creatinine 0.79 Estim Creat Clear Calc 130.97 Est GFR (MDRD) Af Amer 136 Est GFR (MDRD) Non-Af 113 BUN/Creatinine Ratio 12.6 Glucose 144 H Calcium 8.8 POC Glucose 05/25/18 05/25/18 05/24/18 11:46 06:49 19:05 POC Glucose 229 H 175 H 130 H Discharge Diet: Low fat/ Low Cholesterol Discharge Activity: Return to Normal Activity Weight Bearing Status: Weight bearing as tolerated Call your doctor if you observe: Shortness of breath, Dizziness, Fainting spells, Chest pain Home Medications: Medications to take at Discharge Aspirin E.C. [Ecotrin] 81 mg PO DAILY@0800 02/28/15 Hydrochlorothiazide [Hctz] 25 mg PO DAILY 02/28/15 Lisinopril [Zestril] 10 mg PO DAILY 02/28/15 Metoprolol Succinate 200 mg PO DAILY 02/28/15 Omeprazole [Prilosec] 40 mg PO DAILY 02/28/15 Simvastatin [Zocor] 40 mg PO DAILY 02/28/15 Lorazepam [Ativan] 1 mg PO DAILY PRN PRN 06/24/15 Acetaminophen [Tylenol Tablet] 650 mg PO Q4H PRN PRN tablet 09/16/16 Meloxicam [Mobic] 7.5 mg PO DAILY #30 tablet 09/16/16 Benzonatate [Tessalon Perle] 200 mg PO TID PRN PRN #20 cap 05/11/18 Insulin Glargine,Hum.rec.anlog [Basaglar Kwikpen U-100] 77 unit SQ QHS 05/24/18 Insulin Lispro [Humalog Kwikpen] 32 unit SQ TIDCM 05/24/18 Metformin HCl [Glucophage] 1,000 mg PO BID 05/24/18 Nitroglycerin 0.4 mg SL PRN PRN #30 tab.subl 05/25/18 Following Prescrptions Were Given to Patient: Nitroglycerin 0.4 mg SL PRN PRN #30 tab.subl PRN Reason: Cardiac/Chest Pain Primary Care Physician: Rocky Delgadillo MD [Primary Care Provider] - Please follow up with your Primary Care Physician in: one week Patient Instructions: Discharge Instructions for Angina, Warning Signs of a Heart Attack Disposition: Home Minutes spent on discharge:: 35 Patient Condition:: Stable Medical Necessity - Tobacco Use Smoking Status: Former smoker Tobacco Use: Cigars Meaningful Use Info Meaningful Use Diagnoses (Choose all that apply): None applicable Code Visit Inpatient E&M: 75695 Disch Hosp
--- NOTE | 2018-05-25 16:29 | DCINST_ITS ---
You will use the following diet at home:: Cardiac Your food should be the consistency of: Regular Your liquids should be the consistency of: Regular/Thin Discharge Activity: Return to Normal Activity Weight Bearing Status: Weight bearing as tolerated Call your doctor if you observe: Shortness of breath, Swelling in the ankles, Chest pain Allergies/Adverse Reactions: Allergies cefadroxil hydrate [From Duricef] Allergy (Verified 05/24/18 05:48) Itching piperacillin [From Zosyn] Allergy (Verified 05/24/18 05:48) Hives tazobactam [From Zosyn] Allergy (Verified 05/24/18 05:48) Hives erythromycin base Adverse Reaction (Verified 05/24/18 05:48) Vomiting Medications to take at Discharge Aspirin E.C. [Ecotrin] 81 mg PO DAILY@0800 02/28/15 Hydrochlorothiazide [Hctz] 25 mg PO DAILY 02/28/15 Lisinopril [Zestril] 10 mg PO DAILY 02/28/15 Metoprolol Succinate 200 mg PO DAILY 02/28/15 Omeprazole [Prilosec] 40 mg PO DAILY 02/28/15 Simvastatin [Zocor] 40 mg PO DAILY 02/28/15 Lorazepam [Ativan] 1 mg PO DAILY PRN PRN 06/24/15 Acetaminophen [Tylenol Tablet] 650 mg PO Q4H PRN PRN tablet 09/16/16 Meloxicam [Mobic] 7.5 mg PO DAILY #30 tablet 09/16/16 Benzonatate [Tessalon Perle] 200 mg PO TID PRN PRN #20 cap 05/11/18 Insulin Glargine,Hum.rec.anlog [Basaglar Kwikpen U-100] 77 unit SQ QHS 05/24/18 Insulin Lispro [Humalog Kwikpen] 32 unit SQ TIDCM 05/24/18 Metformin HCl [Glucophage] 1,000 mg PO BID 05/24/18 Nitroglycerin 0.4 mg SL PRN PRN #30 tab.subl 05/25/18 The following prescriptions were given: Nitroglycerin 0.4 mg SL PRN PRN #30 tab.subl PRN Reason: Cardiac/Chest Pain Primary Care Physician: Rocky Delgadillo MD [Primary Care Provider] - Please follow up with your Primary Care Physician in: one week Test Results: Test results from this visit will be discussed in further detail at your follow- up appointment, if applicable. Proposed Discharge Date: 05/25/18
[2018-05-25 17:01] LABS: Bedside Glucose 171 mg/dL (70-110)
== END 2018-05-25 16:30 | disposition home or self-care (01) ==
LOC: ED 06:07 → ICU 07:26 → PCU 23:22
PROVIDERS: Admitting Provider Student in an Organized Health Care Education/Training Program; Emergency Provider Emergency Medicine; Family Provider Family Medicine; PCP Family Medicine; Referring Provider Student in an Organized Health Care Education/Training Program; Visit Provider Student in an Organized Health Care Education/Training Program
DX: R07.89 Other chest pain (principal); R06.02 Shortness of breath; Z23 Encounter for immunization; I10 Essential (primary) hypertension; E11.9 Type 2 diabetes mellitus without complications; G47.33 Obstructive sleep apnea (adult) (pediatric); E78.5 Hyperlipidemia, unspecified; Z79.4 Long term (current) use of insulin; Z79.899 Other long term (current) drug therapy; Z79.82 Long term (current) use of aspirin; F32.9 Major depressive disorder, single episode, unspecified; E66.01 Morbid (severe) obesity due to excess calories; Z68.44 Body mass index [BMI] 60.0-69.9, adult; Z71.3 Dietary counseling and surveillance; Z87.891 Personal history of nicotine dependence
CPT/HCPCS: 36415; 71045; 80048; 82962; 84484; 85025; 85610; 85730; 93005; 93017; 93350; 96372; 96374; 97802; 99218; 99285; 99406; J7030; J7040; Q9957; 90686; A4216; C8928; G0378

== ENCOUNTER → 2018-07-21 14:21 | Outpatient (CLI) | payer MEDICAID, SELFPAY ==
[2018-07-21 10:14] VITALS: BMI 67.1
== END ==
PROVIDERS: Family Provider Family Medicine; PCP Family Medicine; Referring Provider Physician Assistant; Visit Provider Physician Assistant
DX: Z20.818 Contact with and (suspected) exposure to other bacterial communicable diseases (principal)
CPT/HCPCS: 87081

== ENCOUNTER 2019-07-04 02:01 | Emergency (ER) | payer MEDICAID, SELFPAY ==
[2018-07-21 10:14] VITALS: BMI 67.1
[2019-07-04 02:02] VITALS: BP 214/112; PULSE 87; RESP 18; TEMP 36.3; O2SAT 99; BMI 63.1
--- NOTE | 2019-07-04 02:18 | ED.VIS.DENTA ---
History of Present Illness Chief Complaint: Dental Informant: Patient Onset: Days - 3 Context: Gradual Onset Timing: Continuous Quality: Aching Location: Maxillary canine Current Severity: Severe Maximum Severity: Severe Worsened by: Eating, palpation Relieved by: - - Not helped by ibuprofen which is all he has Narrative: Patient had a Follow-up of his tooth 2 or 3 weeks ago, started getting pain several days ago and now it is getting severe to the point where he feels there may be an infection starting. He is a type II diabetic. Denies any fevers, facial or jaw swelling. No purulent discharge. No other acute complaints. States he has been trying to get into dentistry, but he is on a waiting list because of the pandemic. 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 (3) Depression Status: Chronic (4) Essential hypertension Status: Chronic (5) Hyperlipidemia Status: Chronic (6) MEGAN (obstructive sleep apnea) Status: Chronic (7) Type II diabetes mellitus Status: Chronic Past Medical History - Allergies and Home Meds Allergies/Adverse Reactions: Allergies cefadroxil hydrate [From Duricef] Allergy (Verified 07/04/19 02:02) Itching piperacillin [From Zosyn] Allergy (Verified 07/04/19 02:02) Hives tazobactam [From Zosyn] Allergy (Verified 07/04/19 02:02) Hives erythromycin base Adverse Reaction (Verified 07/04/19 02:02) Vomiting Primary Care Physician: Rocky Delgadillo MD [Primary Care Provider] - Surgical History: noncontributory, tonsillectomy, - - excision of tissue from the right breast....gynecomastia. Orthopedic surgery on the left forearm due to fracture when he was young. Smoking Status: Never smoker - Family History Maternal Family History: Family History (Last Updated 07/21/18 @ 10:10 by Kenton Cotter) Grandmother Heart disease Grandfather CVA (cerebral vascular accident) Other Arthritis Cancer Hypertension Family History: Reports: Diabetes, No pertinent history, - - DM Paternal Family History: Family History (Last Updated 07/21/18 @ 10:10 by Kenton Cotter) Grandmother Heart disease Grandfather CVA (cerebral vascular accident) Other Arthritis Cancer Hypertension Family History: Reports: No pertinent history, - - He does not know his father or the paternal hx Sibling Family History: Family History (Last Updated 07/21/18 @ 10:10 by Kenton Cotter) Grandmother Heart disease Grandfather CVA (cerebral vascular accident) Other Arthritis Cancer Hypertension Family History: Reports: No pertinent history Offspring Family History: Family History (Last Updated 07/21/18 @ 10:10 by Kenton Cotter) Grandmother Heart disease Grandfather CVA (cerebral vascular accident) Other Arthritis Cancer Hypertension Family History: Reports: - - dtr has a hypercoagulable disorder Review of Systems General: Denies: Chills, Fever, Sweats ENT: Reports: - - dental pain. Denies: Rhinorrhea, Sore throat Respiratory: Denies: Dyspnea, Cough Gastrointestinal: Denies: Nausea, Vomiting Physical Exam Vital Signs/Narrative: Vital Signs Temp Pulse Resp BP Pulse Ox 07/04/19 02:02 97.4 F L 87 18 214/112 H 99 Inital Vital Signs reviewed: Yes General: Well nourished, Well developed, Obese, - - Well-appearing, no acute distress Head: Normocephalic, Atraumatic ENT: Moist mucous membranes, No rhinorrhea Mouth/Throat: Filling loss - Tooth #7, which is tender. There is a small amount of blood without active bleeding emanating from around that tooth. No subluxation. No abscess or purulent discharge.. Negative for: Focal gum swelling, Gingivitis Neck: Supple, No lymphadenopathy, Nontender Skin: Normal color, No rash, No Trauma Neurological: Alert, Oriented x3, Cranial nerves II-XII grossly intact, Normal Strength, Normal Sensation Psychological: Normal affect, Normal Mood Diagnostic/Tx/Re-eval - Medical Decision Making Patient was started on amoxicillin and tramadol for pain. I suspect his blood pressure is very elevated because it is early in the morning and his blood pressure medicines are taken in a couple hours, and he is in pain. He is advised to take his medications when he gets home, recheck his blood pressure, he does not have any symptoms of hypertensive emergency right now, if he has persistent elevations over 200 he should return to the ER for treatment. He is comfortable with that plan. ED Disposition - Plan for ED Patient: Disposition: Home or Assisted Living Diagnosis: Odontalgia Instructions: ED Tooth Pain Prescriptions: Amoxicillin 500 mg PO TID #30 tab Transmission Status: Pending to [facility] traMADol [Ultram] 50 mg PO Q4H PRN PRN 2 Days #12 tablet PRN Reason: Pain Transmission Status: Received by [facility] Referrals: Dentist,Your [STAFF PHYSICIAN] - As soon as possible
[2019-07-04] MEDS: AMOXICILLIN 500 MG CAPSULE PO (02:31)
[2019-07-04] MEDS: traMADol 50 MG Tablet PO (02:31)
[2019-07-04 02:33] VITALS: BP 189/104; PULSE 78; RESP 17; O2SAT 99
== END 2019-07-04 02:33 | disposition home or self-care (01) ==
LOC: ED 02:24
PROVIDERS: Emergency Provider Emergency Medicine; PCP Family Medicine
DX: K08.89 Other specified disorders of teeth and supporting structures (principal); E11.9 Type 2 diabetes mellitus without complications; I10 Essential (primary) hypertension; F32.9 Major depressive disorder, single episode, unspecified; E78.5 Hyperlipidemia, unspecified; E66.9 Obesity, unspecified; Z79.4 Long term (current) use of insulin; Z79.82 Long term (current) use of aspirin; Z79.899 Other long term (current) drug therapy
CPT/HCPCS: 99283

== ENCOUNTER 2019-11-09 21:50 | Emergency (ER) | payer MEDICAID, SELFPAY ==
[2019-11-09 21:51] VITALS: BP 179/123; PULSE 117; RESP 18; TEMP 36.3; O2SAT 96; BMI 59.6
--- NOTE | 2019-11-09 22:08 | ED.VISSUMM ---
- ER Visit Summary Date of Service: 11/09/19 Chief Complaint: Dental pain History of Present Illness: The patient is a [address] Delgadillo. He uses the [facility] as he does dentist. He reports he has pain in his right maxillary lateral incisor that began 4 days ago. He is on day 2 of clindamycin. He is been using ibuprofen, Tylenol, and aspirin without relief. Describes a sharp, throbbing pain that is 10 of 10 at worst 9-10 currently. Is worsened by eating. Is sensitive to hot temperatures. He denies any constitutional symptoms. Physical Examination: Vitals: Stable. Afebrile. Mouth: No trismus. No edema of the floor of the mouth. Pain with percussion of right maxillary lateral incisor. The top portion of this tooth is discolored. There is no focal abscess surrounding this. General: A&O x 3. NAD. Cardiovascular exam: Regular rate and rhythm, no murmur, rub or gallop. Respiratory exam: Clear to auscultation bilaterally. No wheezes or stridor. Abdominal exam: Soft, nontender, nondistended, normal bowel sounds. No peritoneal signs. Extremity: No clubbing, cyanosis, or edema. Emergency Department Course and Treatment: An [facility] report was obtained which shows he had one prescription for opiates in the past year. He is given a dose of Adel here. Treatment Plan: Patient be discharged with a prescription for 10 Adel. He is instructed to continue his clindamycin. Follow-up with his dentist as soon as possible. States that he has a root canal scheduled in December. Return to the emergency department for any worsening symptoms. Disposition: To home in improved and stable condition. Impression: 1 1. Dental pain. This note was generated with Simbionixation software. It may contain incorrect words, spelling, and punctuation that were not noted in review of the chart prior to signing ED Disposition - Plan for ED Patient: Instructions: ED Tooth Pain Prescriptions: Hydrocodone Bitart/Apap 5-325 [Adel 5MG-325MG] 1 tablet PO Q4H PRN PRN 2 Days #10 tablet PRN Reason: Pain Referrals: Dentist,Your [STAFF PHYSICIAN] - As soon as possible
[2019-11-09] MEDS: HYDROcodone Bitartrate/Apap 5/325 Tablet PO (22:10)
== END 2019-11-09 22:15 | disposition home or self-care (01) ==
LOC: ED 22:05
PROVIDERS: Emergency Provider Emergency Medicine; PCP Family Medicine
DX: K08.89 Other specified disorders of teeth and supporting structures (principal); E11.9 Type 2 diabetes mellitus without complications; I10 Essential (primary) hypertension; Z79.2 Long term (current) use of antibiotics; Z72.0 Tobacco use; Z79.4 Long term (current) use of insulin; Z79.899 Other long term (current) drug therapy
CPT/HCPCS: 99283

== ENCOUNTER → 2020-01-19 10:55 | Outpatient (CLI) | payer MEDICAID, SELFPAY ==
[2020-01-19 12:27] LABS: Color, Urine Yellow (Yellow); Glucose, Dipstick 1000 mg/dl (Normal); Ketone-Dipstick Negative (Negative); Leukocyte Esterase-Dipstick 500 /ul (Negative); Nitrite-Dipstick Negative (Negative); Occult Blood-Urine 10 /ul (Negative); Protein-Dipstick 15 mg/dl (Negative); Specific Gravity, Urine 1.005 (1.002-1.030); Urine Bilirubin Dipstick Negative (Negative); Urine Clarity Clear (Clear); Urine Urobilinogen Normal (Normal)
[2020-01-19 12:35] LABS: Hemoglobin A1c 11.8 % (3.8-5.6)
[2020-01-19 12:45] LABS: ALB/GLOB Ratio 0.8 RATIO (0.9-2.4); AST(SGOT) 32 U/L (15-37); Alanine Aminotransfer ALT/SGPT 52 U/L (16-61); Albumin, Serum 3.3 g/dL (3.2-5.0); Alkaline Phosphatase 54 U/L (45-117); Anion Gap 4 (5-15); BUN 11 mg/dL (7-18); Calcium,Total 9.3 mg/dL (8.5-10.1); Chloride 101 mmol/L (98-107); Cholesterol 155 mg/dL (200); EST Glomerular Filtration Rate 85 mL/min (>60); Est Glom Filt Rate - Afr Amer 103 mL/min (>60); Glucose 299 mg/dL (74-106); High Density Lipoprotein 36 mg/dL; Potassium 4.2 mmol/L (3.5-5.1); Protein, Total 7.3 g/dL (6.4-8.2); Sodium Level 136 mmol/L (136-145); Triglycerides 199 mg/dL; Very Low Density Lipoprotein 40 mg/dL (5-40)
== END ==
PROVIDERS: PCP Family Medicine; Referring Provider Family Medicine; Visit Provider Family Medicine
DX: E11.65 Type 2 diabetes mellitus with hyperglycemia (principal); E78.5 Hyperlipidemia, unspecified
CPT/HCPCS: 36415; 80053; 80061; 81002; 83036

== ENCOUNTER 2020-12-12 11:00 | Outpatient (RCR) | payer MEDICAID, SELFPAY ==
[2020-09-09 09:21] VITALS: BMI 59.6
--- NOTE | 2020-09-27 10:07 | HP.PTEVAL_ITS ---
Patient's Visit Information BUBBA STEVENSON is a 44 year old M referred to Physical Therapy by Dr. Real Owen DO with a diagnosis of IVDD. Date of Evaluation: 09/27/20 Physical Therapist: Franklyn Reynolds, PT, ATC - Visit Plan Frequency: 2-3x /Week Duration: 4-6 Weeks Plan: SKTC/DKTC, core stab ex's in nuetral spine, postural edu, nustep, and HEP - Subjective Pt reports he has had chronic LBP since the age of 14. 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 Pt reports he has had PT in the past as well as spinal injections which have all provided him with temporary relief. Pt reports his major goal is to be able to return to work again without being so limited. No Hx of LB surgery. Pt reports he has had xrays recently which revealed his allyn structure is fine, but he needs an MRI to see the soft tissue structure and has to have PT first for it to be approved. Pt reports he experiences intermittent B LE radiculopathy, but does not have any today. Pt reports sleep difficulty secondary to pain. Pt reports prolonged standing and ambulation all increases his pain. Pt notes sitting helps to decrease his pain. 3/10 pain at rest, 8/10 at worst - Pain LBP Pain Intensity (Out of 10): 3 Pain Intensity Range: 10 - Objective Neuro: B LE sensation is WNL to light touch. B patellar tendon reflex= 2/3. ROM: Pt is moderately limited with flexion, and minimally limited with all other planes. MMT: B LE's are grossly 5/5 throughout. Repeated movements: Prone lying on elbows sig increased LBP. SKTC 10 sec x 3 ea LE decreased LBP. Gait: Pt is able to ambulate approximately 340 feet until having to sit down and rest secondary to pain - Goals Goal 1:: Decrease LBP x 50% to aid with sleep Goal Time Frame: 4-6 Weeks Goal 2:: Increase L/S ROM to WNL to aid with IADL's Goal Time Frame: 4-6 Weeks Goal 3:: Pt will be able to ambulate greater than 1000 feet to aid with community ambulation Goal Time Frame: 4-6 Weeks Goal 4:: I with HEP Goal Time Frame: 4-6 Weeks - Rehabilitation Potential Physical Therapy Diagnosis: Pt has LBP, decreased L/S ROM, and decreased tolerance for ambulation secondary to degenerative changes in L/S Rehabilitation Potential: Good - Anticipated Interventions Patient/Client Instruction: Educate patient on: Condition, Plan of Care For the Purpose of:: To improve self management Therapeutic Exercise to Include: Strength training, Endurance training, Balance training, Flexibilty training, Gait and locomotor training, Dynamic Lumbar Stabilization For the Purpose of:: To decrease pain, To increase ROM, To improve muscle performance and motor function Thermo therapy (hot pack): Yes For the Purpose of:: To decrease pain Thank you for the opportunity to evaluate your patient. For Medicare and Medicare HMO plans, please review the plan of care and approve it. It will need to be FAXED BACK to us at [phone] for Medicare purposes. For Medicare only, by signing this I certify the plan of care. Please let me know if there are questions or concerns regarding this plan of care. Physician Signature: Date:
--- NOTE | 2021-03-31 09:56 | HP.PT.NRP ---
BUBBA STEVENSON was seen in my office for initial evaluation on 09/27/20. The following Plan of Care was established for this patient: Initial Frequency: 2-3x /Week Initial Duration: 4-6 Weeks Patient/Client Instruction: Educate patient on: Condition, Plan of Care For the Purpose of:: To improve self management Therapeutic Exercise to Include: Strength training, Endurance training, Balance training, Flexibilty training, Gait and locomotor training, Dynamic Lumbar Stabilization For the Purpose of:: To decrease pain, To increase ROM, To improve muscle performance and motor function Thermo therapy (hot pack): Yes For the Purpose of:: To decrease pain This patient was last seen in our office . Pertinent comments regarding their Physical therapy will appear below: Pt was treated for 10 PT visits for IVDD through the date of 12/12/20. Pt has not returned today and is therefore discontinued at this time. At this point I will be discontinuing this patient from physical therapy. I would be happy to see this patient again in the future if found appropriate by the physician. Thank you! Franklyn Reynolds, PT, ATC Balance/Gait/Functional tests - Balance/Special Test Scores Oswestry Low Back Score: 26
== END 2020-12-12 19:00 | disposition home or self-care (01) ==
LOC: PT 11:00
PROVIDERS: PCP Family Medicine; Referring Provider Orthopaedic Surgery; Visit Provider Orthopaedic Surgery
DX: M51.26 Other intervertebral disc displacement, lumbar region (principal)
CPT/HCPCS: 97110; 97161

== ENCOUNTER → 2020-12-13 12:28 | Outpatient (CLI) | payer MEDICAID, SELFPAY ==
--- NOTE | 2020-12-13 12:29 | MRI_ITS ---
STUDY: MR Spine Lumbar W/O Contrast 12/13/2020 1:51 PM REASON FOR EXAM: Male, 45 years old. Back pain pain TECHNIQUE: MR Spine Lumbar W/O Contrast Standardized fat and water weighted pulse sequences were obtained. COMPARISON: xr 6.. and ct 6.17 FINDINGS: Normal lumbar lordosis. There is no substantial scoliosis. Normal conus medullaris that terminates at the L1. L1-2: Loss of intervertebral disc height. There is endplate spondylosis of the vertebral body. There is bilateral facet arthropathy. Bilateral neural foraminal stenosis. Compression of exiting nerve roots. There is bilateral ligamentum flavum thickening. Posterior disc bulge. L1 vertebral body hemangioma. L2-3: There is endplate spondylosis of the vertebral body. Normal disc height, hydration and morphology. There is bilateral ligamentum flavum thickening. Normal central canal and bilateral lateral recesses. Normal bilateral intervertebral neural foramina. There is bilateral facet arthropathy. L3-4: Loss of intervertebral disc height. There is endplate spondylosis of the vertebral body. Normal central canal and intervertebral neuroforamina. There is bilateral facet arthropathy. There is bilateral ligamentum flavum thickening. L4-5: Loss of intervertebral disc height. There is endplate spondylosis of the vertebral body. There is bilateral facet arthropathy. Bilateral neural foraminal stenosis. Compression of exiting nerve roots. There is bilateral ligamentum flavum thickening. Disc bulge is causing mild lateral recess stenosis. L5-S1: Loss of intervertebral disc height. There is endplate spondylosis of the vertebral body. There is bilateral facet arthropathy. Bilateral neural foraminal stenosis. Compression of exiting nerve roots. There is bilateral ligamentum flavum thickening. Left paracentral disc herniation. Diffuse narrowing of the left lateral recess. There is impression upon anterior thecal sac. Compression of the descending left S1 nerve root. Normal visualized sacral ala. Normal visualized paraspinous soft tissue structures. MRI/Spine Lumbar (Routine) IMPRESSION: Multilevel degenerative changes, as described above. This is most significant at L5-S1: Bilateral neural foraminal stenosis. Compression of exiting nerve roots. Left paracentral disc herniation. Diffuse narrowing of the left lateral recess. There is impression upon anterior thecal sac. Compression of the descending left S1 nerve root. Electronically Signed: Franklyn Bertrand MD at 14:16 EDT , Service support ,
== END ==
PROVIDERS: PCP Family Medicine; Referring Provider Orthopaedic Surgery; Visit Provider Orthopaedic Surgery
DX: M51.16 Intervertebral disc disorders with radiculopathy, lumbar region (principal)
CPT/HCPCS: 72148

== ENCOUNTER → 2021-03-13 13:36 | Outpatient (CLI) | payer MEDICAID, SELFPAY ==
--- NOTE | 2021-03-13 13:38 | RAD_ITS ---
EXAM: XR THORACIC SPINE, 3 VIEWS CLINICAL INDICATION: BACK PAIN TECHNIQUE: Frontal, lateral and swimmer''s views of the thoracic spine. This report was created using [employer] report [employer] technology. COMPARISON: None. FINDINGS: VERTEBRAE: There is endplate spondylosis of the vertebral body. Loss of intervertebral disc height. Preserved vertebral body height. No fracture. Preservation of the normal thoracic kyphosis. No significant facet arthropathy. DISC SPACES: Unremarkable. Disc spaces are maintained. RAD/Thoracic Spine 3 Views IMPRESSION: Degenerative findings in the thoracic spine. Electronically Signed: Franklyn Bertrand MD at 22:10 EST , Service support ,
== END ==
PROVIDERS: PCP Family Medicine; Referring Provider Anesthesiology Pain Medicine; Visit Provider Anesthesiology Pain Medicine
DX: M54.9 Dorsalgia, unspecified (principal)
CPT/HCPCS: 72072

== ENCOUNTER 2022-04-07 12:10 | Observation (INO) | payer MEDICAID, SELFPAY ==
[2022-04-07] VITALS (9 sets, daily range): BP systolic 126–168; BP diastolic 78–115; PULSE 87–120; RESP 18–20; TEMP 36.2–36.6; O2SAT 96–99; BMI 50.3; BMI 53.1
--- NOTE | 2022-04-07 12:23 | EKG12_ITS ---
Test Reason : CP Blood Pressure : / mmHG Vent. Rate : 111 BPM Atrial Rate : 111 BPM P-R Int : 186 ms QRS Dur : 110 ms QT Int : 336 ms P-R-T Axes : 032 044 018 degrees QTc Int : 456 ms Sinus tachycardia Possible Inferior infarct , age undetermined Abnormal ECG Confirmed by ETIENNE MOELLER, TIARA ([id number]), film or videotape editor ANDRESSA BEY ([id number]) on 04/08/2022 9:15:41 AM Referred By: BB Confirmed By:TIARA CLIFTON MD
--- NOTE | 2022-04-07 12:23 | RAD_ITS ---
STUDY: X-RAY CHEST REASON FOR EXAM: Male, 46 years old. Chest pain TECHNIQUE: Single AP portable view of the chest. COMPARISON: Comparison is made with prior study dated 05/24/2018. FINDINGS: Mild elevation of the right hemidiaphragm. The lungs are clear. There is no demonstrated pleural abnormality. Normal size heart. Normal mediastinum and truong. Normal visualized pulmonary arteries. Normal visualized aortic arch and descending thoracic aorta. There are degenerative changes of the visualized thoracic spine. Normal visualized ribs, clavicles, and shoulders. There is no demonstrated abnormality of the visualized soft tissue structures of the upper abdomen. RAD/Chest 1 View (Portable) IMPRESSION: Normal x-ray examination of the chest. Electronically Signed: Parth Yoon MD at 13:01 EST ,
--- NOTE | 2022-04-07 12:33 | ED.RN ---
OLD EKG GIVEN TO .
--- NOTE | 2022-04-07 12:39 | EDS_ITS ---
HPI History of Present Illness Chief Complaint: Chest Pain Informant: patient Onset/Context/Timing Onset: Days Activity at onset: gradual Timing: Intermittent Quality: Positive for Dull and Heaviness Location: Right Chest and Left Chest Current Severity: Mild Maximum Severity: Mild Worsened By: Nothing Relieved By: Nothing Associated Symptoms: Positive for Dyspnea; Negative for Nausea, Vomiting, Diaphoresis, Cough, Fever, Lightheadedness, Acid Reflux or Palpitations Narrative Narrative: 46-year-old male complaining of a coughing and choking episode 1 to 2 weeks ago when he had food stuck in his throat. Said he threw up about 20 times at that time is going to have to come in to get it removed by scope but he was able to dislodge it. And now he is having upper chest discomfort the last several days. States he has had this multiple times before in the past with aspiration pneumonia and he has a history of aspiration. Also has a history of diabetes, hypertension high cholesterol and prior smoker. Said he had negative stress test 2 years ago negative heart cath about 5 years ago is no underlying cardiac disease that he is aware of. No history of DVT or PE. No recent travel or gibson rgery or hospitalization. Prior Similar Symptoms: Yes Recent Illness/Hospitalization: No CVD Risk Factors: Positive for Hypertension, Diabetes, Hypercholesterolemia and Smoking PE Risk Factors: Negative for Recent Travel/Surgery, Recent Immobilization, Prior DVT or PE, Cancer or OCP + Smoking + >/=35 TAD Risk Factors: Negative for Marfan's Syndrome [facility] Medical History Acute sinusitis, unspecified Arthritis Atrial flutter Chest pain Congenital anomaly of coronary artery Depression Essential hypertension HTN (hypertension) Hyperlipidemia Hypertension Hyponatremia Intertrigo MSSA (methicillin susceptible Staphylococcus aureus) septicemia MEGAN (obstructive sleep apnea) Pharyngitis Radicular pain of right lower extremity Sepsis Smoker Super obese Type II diabetes mellitus URI (upper respiratory infection) Home Medications aspirin 81 mg tablet,delayed release 81 mg PO DAILY@0800 02/28/15 [History Last Taken 09/08/16] metoprolol succinate 200 mg tablet,extended release 24 hr 200 mg PO DAILY 02/28/15 [History Last Taken 09/08/16] omeprazole 40 mg capsule,delayed release 40 mg PO DAILY 02/28/15 [History Last Taken 09/08/16] metformin 1,000 mg tablet 1,000 mg PO BID 05/24/18 [History Last Taken Unknown] trazodone 100 mg tablet 100 mg PO QHS PRN 01/22/20 [History Last Taken Unknown] meloxicam 7.5 mg tablet 15 mg PO DAILY PRN 01/29/20 [History Last Taken Unknown] amlodipine 10 mg tablet 10 mg PO DAILY #90 tabs 01/22/21 [Rx Last Taken Unknown] insulin glargine 100 unit/mL (3 mL) subcutaneous pen 76 unit subcut QHS 01/22/21 [History Last Taken Unknown] pravastatin 40 mg tablet 40 mg PO QHS #90 tabs 01/22/21 [Rx Last Taken Unknown] lisinopril 20 mg tablet See Rx Instructions .Route .COMPLEX #60 tabs 09/10/21 [Rx Last Taken Unknown] Allergy/AdvReac Type Severity Reaction Status Date / Time cefadroxil hydrate Allergy Itching Verified 04/07/22 12:11 [From Duricef] piperacillin [From Zosyn] Allergy Hives Verified 04/07/22 12:11 tazobactam [From Zosyn] Allergy Hives Verified 04/07/22 12:11 erythromycin base AdvReac Vomiting Verified 04/07/22 12:11 Family History Grandmother Heart disease Grandfather CVA (cerebral vascular accident) Other Arthritis Cancer Hypertension Surgical History History of foot surgery History of left heart catheterization (LHC) (~06/23/12) History of tonsillectomy and adenoidectomy Social History Smoking Status: Light Smoker (<10/day) alcohol intake: current alcohol intake frequency: a few times a month Alcohol type: hard liquor ROS ROS ED ROS Narrative Chest discomfort. Shortness of breath. Nausea and vomiting weeks ago due to food bolus. That has resolved. Review of Systems ROS Unobtainable: Denies due to encephalopathy Constitutional Constitutional ED: Denies chills or fever(s) Eyes Eyes: Reports none ENT ENT ED: Denies ear pain, rhinorrhea or sore throat Cardiovascular Cardiovascular: Reports as per HPI and chest pain; Denies palpitations or racing heartbeat Respiratory/Chest Respiratory/Chest: Reports cough and dyspnea Gastrointestinal Gastrointestinal: Denies abdominal pain or constipation Genitourinary Genitourinary ED: Denies dysuria or hematuria Musculoskeletal Musculoskeletal: Denies arthralgias or back pain Integumentary Denies abscess Neurologic Neurologic: Denies headache(s) Psychiatric Psychiatric: Denies anxiety Endocrine Endocrinology: Denies cold intolerance Hematologic/Lymphatic Hematologic/Lymphatic: Denies easy bleeding Allergic/Immunologic Allergic/Immunologic ED: Denies mouth swelling or tongue swelling EXAM Physical Exam Narrative Exam Narrative: 38-year-old male no acute distress vital signs stable. Initial blood pressure elevated 168/115. Pulse ox 90% on room air no signs hypoxia. H EENT exam unremarkable. Moist mucous membranes. Neck nontender no lymphadenopathy. Lungs clear to auscultation bilaterally. Heart tachycardic rate about 110 no murmur. Chest wall nontender. Abdomen soft nontender. Obese. Moving all 4 extremities. Calves are nontender. Neurologically he is awake and alert with no motor deficits. Const Vital Signs: 04/07/22 12:11 04/07/22 12:21 04/07/22 12:22 Temperature 97.2 F L Temperature Source Temporal Pulse Rate 120 H 109 H Respiratory Rate 20 H Respiratory Effort Normal Non-Labored Blood Pressure 168/115 H Blood Pressure Mean 132 Pulse Ox 98 Oxygen Delivery Method Room Air 04/07/22 12:24 04/07/22 14:44 Temperature Temperature Source Pulse Rate 91 Respiratory Rate 19 H Respiratory Effort Blood Pressure 138/85 H Blood Pressure Mean 102 Pulse Ox 98 96 Oxygen Delivery Method Room Air Room Air Positive well nourished, well developed and obese; Negative for cachectic or unkempt General Appearance ED: well developed and NAD; Negative for unkempt, cachectic or pallor Nutritional Appearance: obese; Negative for cachectic HEENT Reports moist mucous membranes normocephalic and atraumatic; Negative for trauma or tenderness Eyes PERRL and EOMs intact bilaterally General Eye ED: Negative for pale conjunctiva or scleral icterus Neck no lymphadenopathy, supple and no JVD General: Negative for tenderness Chest Wall inspection of chest normal and palpation of chest normal Chest: Negative for tenderness Resp normal respiratory effort and clear to auscultation bilaterally Effort and Inspection: Negative for respiratory distress Auscultation: Negative for rales, rhonchi or wheezes Cardio regular rate, regular rhythm, S1 normal heart sound, S2 normal heart sound and no murmurs Rate: Negative for bradycardia Rhythm: Negative for abnormal rhythm Peripheral Pulses: pulses 2+ throughout GI normal to inspection, nondistended, normoactive bowel sounds, soft to palpation, non-tender, non-distended and no masses Auscultation: Negative for hyperactive bowel sounds Palpation: Negative for splenomegaly or mass Back/Spine no CVA tenderness and no thoracic nor lumbar tenderness General Back: Negative for CVA tenderness Cervical Spine: Negative for cervical spine tenderness Extremity normal to inspection Neuro oriented x3 Sensorium / Orientation: awake, alert, oriented to person, oriented to place and oriented to time; Negative for confused, lethargic or stuporous Motor Exam: strength 5/5 throughout Psych mental status grossly normal Appearance: Negative for unkempt Attitude: No agitated Mood & Affect: Negative for depressed, anxious, tearful or other Skin no rashes or lesions noted and no wounds General Skin Exam: Negative for jaundice or pallor Rashes: No rashes noted Trauma: Negative for abrasion or laceration MDM MDM MDM Narrative Medical decision making narrative: 46-year-old male with atypical chest discomfort which he thinks is from recurrent aspiration pneumonia after choking 1 to 2 weeks ago food bolus. Will undergo a cardiac work-up. He has had chest pain intermittently over the last several days. I do not think this is an SD. He has no history of DVT or PE. He has had negative work-ups for cardiac disease in the past. This could be aspiration versus atypical cardiac disease versus other etiologies. Repeat exam patient is doing well. He and I discussed all of his test results. In light of the 2 elevated troponins. Him having atypical chest pain with risk factors including diabetes and hypertension and high cholesterol with also being a smoker him speak to the hospital list about admitting him for further evaluation of atypical chest pain and elevated troponin. Patient also be treated with subcu insulin for his hyperglycemia 451. He is got a normal anion gap. He is not in DKA. Lab Data Attestation: I reviewed the patient's lab results. Lab results narrative: CBC White count 8.8. H&H is 16 and 47. Platelets 337. Sodium 132. Gap 11 normal BUN of 18 creatinine 1.3. He is diabetic his glucose is elevated at 451. His troponin is elevated 140. Chest x-ray is unremarkable. Repeat troponin is 120. Labs: Laboratory Results - last 24 hr 04/07/22 04/07/22 04/07/22 12:16 12:16 14:35 WBC 8.8 RBC 5.69 Hgb 16.8 H Hct 47.3 MCV 83.1 MCH 29.5 MCHC 35.5 RDW Std Deviation 37.8 RDW Coeff of Alysia 12.6 Plt Count 337 MPV 10.5 Immature Gran % (Auto) 0.300 Neut % (Auto) 49.7 Lymph % (Auto) 38.0 [place] % (Auto) 7.3 Eos % (Auto) 3.6 Baso % (Auto) 1.1 H Absolute Neuts (auto) 4.4 Absolute Lymphs (auto) 3.34 Nucleated RBC % 0 Sodium 132 L Potassium 3.8 Chloride 94 L Carbon Dioxide 27.0 Anion Gap 11 BUN 18 Creatinine 1.30 Estim Creat Clear Calc 76.27 Est GFR (MDRD) Af Amer 76 Est GFR (MDRD) Non-Af 63 BUN/Creatinine Ratio 13.8 Glucose 451 H* Calcium 9.6 Troponin I High Sens 140 H* 120 H Radiography Chest X-Ray - ED: 1 View and Read by ED Physician Diagnostic Testing: Clinical Impression(s) from Imaging Studies Chest X-Ray 04/07/22 12:23 IMPRESSION: Normal x-ray examination of the chest. Electronically Signed: Parth Yoon MD at 13:01 EST , Chest x-ray, portable, single view interpreted both by myself and radiologist shows no acute abnormality. Normal cardiac silhouette mediastinum. Rhythm Strip Rhythm Strip: Sinus Tach Rate: 111 Ectopy: None EKG Initial EKG: Attestation: I personally reviewed and interpreted this EKG as follows: Interpretation: Sinus Rhythm, No Acute Injury Pattern and Sinus Tachycardia Comments: Sinus tach cardia rate of 111. No acute signs of SD or ischemia. Unchanged from prior EKG from May 2018. Prior EKG tracings: available for review and not available for review Prior: Unchanged Discharge Plan Triage Chief Complaint: Chest Pain ED Provider: Marco Pope Dx/Rx/DC Orders Prescriptions: No Action meloxicam 7.5 mg tablet 15 mg PO DAILY PRN amlodipine 10 mg tablet 10 mg PO DAILY Qty: 90 3RF pravastatin 40 mg tablet 40 mg PO QHS Qty: 90 3RF metoprolol succinate 200 MG tablet extended release 24 hr 200 mg PO DAILY Label Comments: blood pressure omeprazole 40 MG capsule 40 mg PO DAILY Label Comments: acid reflux aspirin 81 MG tablet 81 mg PO DAILY@0800 Label Comments: heart health metformin 1,000 MG tablet 1,000 mg PO BID insulin glargine 100 unit/mL (3 mL) insulin pen 76 unit subcut QHS trazodone 100 mg tablet 100 mg PO QHS PRN lisinopril 20 mg tablet See Rx Instructions .ROUTE .COMPLEX Qty: 60 11RF Dose Instruction: take 1 tablet by mouth twice a day Rx Instructions: take 1 tablet by mouth twice a day Primary Care Provider: Rocky Delgadillo Referrals: Rocky Delgadillo MD [Primary Care Provider] -
[2022-04-07 12:41] LABS: Absolute Lymphocyte Count 3.34 X10^3/uL (0.83-4.51); Absolute Neutrophil Count 4.4 X10^3/uL (2.0-7.7); Basophil% 1.1 % (0-1); Eosinophil# 0.32 X10^3/uL; Eosinophils% 3.6 % (0-5); Hematocrit 47.3 % (40-54); Hemoglobin 16.8 g/dL (13.0-16.5); Lymphocyte # 3.34 X10^3/ul (0.83-4.51); Mean Corp Hgb Conc 35.5 g/dL (32-36); Mean Corpuscular Hgb 29.5 pg (27.0-32.0); Mean Corpuscular Volume 83.1 fL (80-94); Mean Platelet Vol. 10.5 fl (6.2-12.0); Monocyte# 0.64 X10^3/uL; Monocyte% 7.3 % (0-10); NRBC Flagged by Analyzer 0 % (0-5); Neutrophil # 4.37 X10^3/uL (2.7-7.7); Neutrophil % 49.7 % (47-70); Platelet Count 337 K/mm3 (150-450); RBC Distribution Width CV 12.6 % (11.6-14.6); RBC Distribution Width SD 37.8 fl (35.1-43.9); Red Blood Count 5.69 M/mm3 (4.6-6.2); White Blood Count 8.8 K/mm3 (4.4-11.0)
[2022-04-07 13:09] LABS: Anion Gap 11 (5-15); BUN 18 mg/dL (7-18); BUN/Creat Ratio 13.8 RATIO (10-20); Calcium,Total 9.6 mg/dL (8.5-10.1); Chloride 94 mmol/L (98-107); EST Glomerular Filtration Rate 63 mL/min (>60); Est Glom Filt Rate - Afr Amer 76 mL/min (>60); Estimated Creatinine Clearance 76.27 ml/min; Glucose 451 mg/dL (74-106); Potassium 3.8 mmol/L (3.5-5.1); Sodium Level 132 mmol/L (136-145); Troponin-I HS (w/2H Reflex) 140 pg/mL (3.0-78.0)
[2022-04-07 14:31] LABS: Reflex Troponin-HS? (from REC) Y
[2022-04-07 15:05] LABS: Troponin-I HS 120 pg/mL (3.0-78.0)
--- NOTE | 2022-04-07 15:31 | HP.PCM.HOS_ITS ---
HPI - General General Date of Admission: 04/07/22 Date of Service: 04/07/22 Chief Complaint: chest pain HPI Narrative BUBBA STEVENSON, is a 46 M with a PMh as outlined who presents via the ED on 04/07/2022 with a complaitn of chest pain. HE said he had choking episode 1-2 weeks ago when he had some food stuck in his throat. He said he had several episodes of coughing and vomiting and was able to dislodge the food. He started having the chest pain a few days ago and thought it was aspiration pneumonia as he had had a previous history of aspiration pneumonia. Howevere the chest pain persisted so he came in to the ED. he denied any associated shortness of breath, cough, nausea or vomiting, dizziness or lightheadedness or any other symptoms. He had a stress test 2 years ago and states he also had a negative cardiac cath about 5 years ago and as far as he knows he does not have any heart disease. He denies any long distance travel and denies any history of PE or DVT. Review of systems otherwise negative. Vitals in the ED were blood pressure 138/85, pulse rate of 91, respiratory rate of 19 and oxygen saturation of 96% on room air. CBC showed WBC of 8.8 with hemoglobin of 16.8 and platelets of 337. Chemistry shows sodium of 132 with chloride of 94 and anion gap of 11 as well as creatinine of 1.3. GLucose was 451 and initial troponin of 140; it trended down to 140, which trended down to 120. CXR showed no acute cardiopulmonary process. EKG showed no acute ST changes. He is being admitted to be managed for nonstemi and hyperglycemia in the setting of diabetes mellitus. [facility] Medical History Acute sinusitis, unspecified Arthritis Atrial flutter Chest pain Congenital anomaly of coronary artery Depression Essential hypertension HTN (hypertension) Hyperlipidemia Hypertension Hyponatremia Intertrigo MSSA (methicillin susceptible Staphylococcus aureus) septicemia MEGAN (obstructive sleep apnea) Pharyngitis Radicular pain of right lower extremity Sepsis Smoker Super obese Type II diabetes mellitus URI (upper respiratory infection) Home Medications metoprolol succinate 200 mg tablet,extended release 24 hr 200 mg PO DAILY blood pressure 02/28/15 [History Last Taken 04/06/22] omeprazole 40 mg capsule,delayed release 40 mg PO DAILY GERD 02/28/15 [History Last Taken 04/06/22] metformin 1,000 mg tablet 1,000 mg PO BID DIABETES 05/24/18 [History Last Taken 04/06/22] insulin glargine 100 unit/mL (3 mL) subcutaneous pen (Lantus Solostar U-100 Insulin) 70 unit subcut QHS DIABETES 01/22/21 [History Last Taken 04/06/22] amlodipine 10 mg tablet 10 mg PO DAILY BLOOD PRESSURE 04/07/22 [History Last Taken 04/06/22] aspirin 325 mg tablet 325 mg PO DAILY HEART HEALTH 04/07/22 [History Last Taken 04/06/22] hydrochlorothiazide 25 mg tablet 25 mg PO DAILY BLOOD PRESSURE 04/07/22 [History Last Taken 04/06/22] insulin lispro 100 unit/mL subcutaneous solution (Humalog U-100 Insulin) 20 unit subcut TIDCM DIABETES 04/07/22 [History Last Taken 04/06/22] lisinopril 20 mg tablet 20 mg PO BID BLOOD PRESSURE 04/07/22 [History Last Taken 04/06/22] multivitamin 1 tab PO DAILY HEALTH MAINTENANCE 04/07/22 [History Last Taken 04/06/22] potassium gluconate 595 mg (99 mg) tablet 595 mg PO DAILY SUPPLEMENT 04/07/22 [History Last Taken 04/06/22] pravastatin 40 mg tablet 80 mg PO QHS CHOLESTEROL #60 tabs 04/08/22 [Rx Last Taken Unknown] Allergy/AdvReac Type Severity Reaction Status Date / Time cefadroxil hydrate Allergy Itching Verified 04/07/22 12:11 [From Duricef] piperacillin [From Zosyn] Allergy Hives Verified 04/07/22 12:11 tazobactam [From Zosyn] Allergy Hives Verified 04/07/22 12:11 erythromycin base AdvReac Vomiting Verified 04/07/22 12:11 Family History Grandmother Heart disease Grandfather CVA (cerebral vascular accident) Other Arthritis Cancer Hypertension Surgical History History of foot surgery History of left heart catheterization (LHC) (~06/23/12) History of tonsillectomy and adenoidectomy Social History Smoking Status: Former smoker alcohol intake: current alcohol intake frequency: a few times a month Alcohol type: hard liquor ROS Review of Systems ROS Unobtainable: Denies due to encephalopathy Constitutional Constitutional: Denies anorexia, chills, fatigue, fever(s), malaise or weakness Eyes Eyes: Denies change in vision ENT HEENT: Denies dysphagia, headache(s) or sore throat Cardiovascular Cardiovascular: Reports chest pain; Denies dyspnea on exertion, edema, lightheadedness, orthopnea, palpitations, rapid heart rate or syncope Respiratory/Chest Respiratory/Chest: Denies cough, dyspnea, productive cough, shortness of breath at rest, shortness of breath with exertion or wheezing Gastrointestinal Gastrointestinal: Denies abdominal pain, constipation, diarrhea, nausea or vomiting Genitourinary Genitourinary: Denies burning urination Musculoskeletal Musculoskeletal: Denies arthralgias Neurologic Neurologic: Denies confusion, dizziness or focal weakness Psychiatric Psychiatric: Denies anxiety Endocrine Endocrinology: Denies change in body appearance Hematologic/Lymphatic Hematologic/Lymphatic: Denies anemia Vital Signs Vital Signs Vital Signs: 04/07/22 12:11 04/07/22 12:21 04/07/22 12:22 Temperature 97.2 F L Temperature Source Temporal Pulse Rate 120 H 109 H Respiratory Rate 20 H Respiratory Effort Normal Non-Labored Blood Pressure 168/115 H Blood Pressure Mean 132 Pulse Ox 98 Oxygen Delivery Method Room Air 04/07/22 12:24 04/07/22 14:44 Temperature Temperature Source Pulse Rate 91 Respiratory Rate 19 H Respiratory Effort Blood Pressure 138/85 H Blood Pressure Mean 102 Pulse Ox 98 96 Oxygen Delivery Method Room Air Room Air Weight Weight: 371 lb 7.662 oz Body Mass Index (BMI) 50.3 Physical Exam Const alert, oriented x3 and no apparent distress Constitutional Narrative: super morbid obesity General Appearance: cooperative HEENT normocephalic, head/scalp atraumatic and hearing grossly normal bilaterally Mouth: oral and palatal mucosa normal Eyes PERRL, EOMs intact bilaterally and conjunctivae normal Neck no lymphadenopathy and supple Resp normal respiratory effort, no retractions and no use of accessory muscles Cardio regular rate, regular rhythm, S1 normal heart sound, S2 normal heart sound and no murmurs GI normal to inspection, nondistended, normoactive bowel sounds, soft to palpation and non-tender Extremity normal to inspection, full ROM and no clubbing, cyanosis or edema Neuro oriented x3, CN's II-XII intact bilaterally and moves all extremities Sensorium / Orientation: awake and alert Motor Exam: strength 5/5 throughout Psych affect normal Results Lab / Micro Data Result Diagrams: 04/08/22 08:21 04/08/22 05:33 Labs: Laboratory Results - last 24 hr 04/07/22 12:16: WBC 8.8, RBC 5.69, Hgb 16.8 H, Hct 47.3, MCV 83.1, MCH 29.5, MCHC 35.5, RDW Std Deviation 37.8, RDW Coeff of Alysia 12.6, Plt Count 337, MPV 10.5, Immature Gran % (Auto) 0.300, Neut % (Auto) 49.7, Lymph % (Auto) 38.0, [place] % (Auto) 7.3, Eos % (Auto) 3.6, Baso % (Auto) 1.1 H, Absolute Neuts (auto) 4.4, Absolute Lymphs (auto) 3.34, Nucleated RBC % 0 04/07/22 12:16: Sodium 132 L, Potassium 3.8, Chloride 94 L, Carbon Dioxide 27.0, Anion Gap 11, BUN 18, Creatinine 1.30, Estim Creat Clear Calc 76.27, Est GFR (MDRD) Af Amer 76, Est GFR (MDRD) Non-Af 63, BUN/Creatinine Ratio 13.8, Glucose 451 H*, Calcium 9.6, Troponin I High Sens 140 H* 04/07/22 14:35: Troponin I High Sens 120 H Rhythm Strip Rhythm Strip: Sinus Tach Rate: 111 Ectopy: None Radiology Impression Chest X-Ray 04/07/22 12:23 IMPRESSION: Normal x-ray examination of the chest. Electronically Signed: Parth Yoon MD at 13:01 EST , Assessment & Plan Assessment/Plan (1) NSTEMI, initial episode of care: PLAN: Plan #Nonstemi * admit to PCU * admitted with complaitn of chest pain * initial troponin was 140, trended down to 120 * EKG shoed no acute ST changes * cycle troponins * PO aspirin 81mg daily. High intensity statin * give a dose of therapeutic lovenox * consult cardiology * 2D echo * * #TYpe 2 diabtes mellitus with hyperglycemia * blood sugar is 451. last A1C on record is from 2019 which was 11.8 * check A1C * resume home lantus 76 units nightly. hold metformin * high dose ISS. Accuchecks ACHS * #Hyperlipidemia: on statin #MEGAN: on CPAP qhs #Hypertension: On amlodipine and lisinopril as well as metoprolol. DVT prophylaxis: placed on therapeuytic lovenox Code status: full code * Patient counseled extensively about different types of CODE STATUS including full code, DNR CCA and DNR CCA. Patient elects to be full code Charges/Coding Visit Charges Inpatient E&M: 56498 Init Hosp L3
--- NOTE | 2022-04-07 15:37 | NURSING ---
PCU [facility] CP UNCERTAIN CAUSE, DM, HTN, ELEVATED TROP
[2022-04-07] MEDS: Insulin Lispro 100 UNIT/ML INSULN.PEN 15 UNIT SC (15:54)
--- NOTE | 2022-04-07 15:56 | CT_ITS ---
STUDY: CTA CHEST REASON FOR EXAM: Male, 46 years old. Chest pain. RADIATION DOSAGE (If Supplied By Facility): CTDIvol = ( 18.05 ) mGy, DLP = ( 858.17 ) mGycm TECHNIQUE: The examination was performed with the intravenous administration of IV 100mL Isovue-370. Post-processing of the angiographic images was performed, with multiplanar reformation and 3D reconstruction. Individualized dose optimization techniques were used for this CT. COMPARISON: Chest, April 07, 2022. FINDINGS: Suboptimal opacification of pulmonary arteries. While no obvious pulmonary embolism is visualized the possibility of a incompletely thrombus particularly in peripheral vessels cannot be entirely ruled out. Normal thoracic aorta and visualized great vessels. There is no demonstrated aortic dissection. Normal heart and pericardium. Normal mediastinum. Normal hilar regions. Normal visualized trachea and bronchi. The lungs are well expanded. Normal pulmonary parenchyma. Normal pleura. Normal chest wall structures. Normal osseous structures. Normal visualized upper abdomen. CT/CTA Chest W/WO Contrast IMPRESSION: 1. Suboptimal opacification of pulmonary arteries without obvious pulmonary embolism. 2. Otherwise normal CTA of the chest. Electronically Signed: Leroy Cheema DO at 16:34 EST ,
--- NOTE | 2022-04-07 16:26 | ECHOCS_ITS ---
Reason For Study: CHEST PAIN Procedure This was a 2D Doppler, Color Flow transthoracic echocardiogram. The study was technically difficult. Contrast injection was performed. Exam performed portable in patient room. Left Ventricle Based upon the 2D echocardiographic and contrast enhanced images obtained there appears to be normal left ventricular size, wall motion, and systolic function. The estimated ejection fraction is 65 %. No evidence for diastolic dysfunction. Right Ventricle Normal RV size. Normal systolic function. Atria The left atrium is mildly enlarged. Normal right atrium. No doppler evidence for ASD. Mitral Valve There is no mitral annular calcification. Normal mitral valve. Trivial mitral valve insufficiency. Tricuspid Valve Normal tricuspid valve. Trivial tricuspid valve insufficiency. Right ventricular systolic pressure estimated to be 21 mmHg. Aortic Valve Trisinus/trileaflet aortic valve. Normal aortic valve. Pulmonic Valve The pulmonic valve is not well visualized. Great Vessels Normal sized aortic root. Pericardium/Pleural No pericardial effusion. Medication Diluted definity 2ml given slow IV push to enhance endocardial definition. MMode/2D Measurements & Calculations LVIDd: 3.8 cm IVSd: 1.1 cm Ao root diam: 3.4 cm LVIDs: 2.5 cm LVPWd: 1.3 cm RVDd: 3.4 cm FS: 33.0 % LAV(MOD-bp): 51.0 ml LVAd ap4: 29.9 cm2 SV(MOD-sp4): 59.2 ml LAV(MOD-bp) Indexed: 18.4 ml/m2 LVLd ap4: 7.9 cm LAV(MOD-sp2): 50.8 ml EDV(MOD-sp4): 93.3 ml LAV(MOD-sp4): 51.7 ml EDV(sp4-el): 96.3 ml LVAs ap4: 15.8 cm2 LVLs ap4: 5.9 cm ESV(MOD-sp4): 34.0 ml ESV(sp4-el): 35.5 ml EF(MOD-sp4): 63.5 % EF(sp4-el): 63.1 % SV(sp4-el): 60.8 ml LA A4 area: 20.3 cm2 LA dimension(2D): 4.3 cm RA A4 area: 11.7 cm2 Time Measurements MV dec time: 0.28 sec Doppler Measurements & Calculations MV E max david: 63.2 cm/sec Lat Peak E' David: 15.4 cm/sec Med Peak E' David: 9.8 cm/sec MV A max david: 76.6 cm/sec E/E' lat: 4.1 E/E' med: 6.5 MV E/A: 0.82 Ao V2 max: 111.5 cm/sec LV V1 max: 96.3 cm/sec PA V2 max: 106.0 cm/sec Ao max P.0 mmHg LV V1 max P.7 mmHg TR max david: 211.1 cm/sec TR max P.8 mmHg ECHO/Echo Complete W/ Contrast Interpretation Summary The study was technically difficult. Contrast injection was performed. Based upon the 2D echocardiographic and contrast enhanced images obtained there appears to be normal left ventricular size, wall motion, and systolic function. The estimated ejection fraction is 65 %. The left atrium is mildly enlarged. Trivial mitral valve insufficiency. Trivial tricuspid valve insufficiency. Right ventricular systolic pressure estimated to be 21 mmHg. No evidence for diastolic dysfunction. Ordering Physician: Loree Villalpando Referring Physician: DANIEL LUCERO Performed By: Krystal Reynoso RDCS
[2022-04-07] MEDS: Enoxaparin 150 MG/ML Syringe SC (18:46)
[2022-04-07 18:52] LABS: Cholesterol 178 mg/dL (200); High Density Lipoprotein 27 mg/dL; Triglycerides 274 mg/dL; Very Low Density Lipoprotein 55 mg/dL (5-40)
--- NOTE | 2022-04-07 18:54 | PCM.CONS.C ---
Assessment & Plan Assessment/Plan (1) NSTEMI, initial episode of care: PLAN: The patient does have abnormal cardiac enzymes. The concern at this time is that this may represent a non-STEMI type I as he has had no obvious etiology to explain a non-STEMI type II event. He has not been found to have a history, examination, or electrocardiographic findings to suggest an underlying myopericarditis type scenario to explain his symptoms and/or objective findings He has not been found to have evidence of an underlying CVA, renal insufficiency, or an acute infectious disease related etiology to explain his event. He can be assessed for any obvious evidence of thromboembolic disease with a D-dimer. If this is abnormal would be reasonable to perform a CT scan if possible to assess for any thromboembolic events would explain his symptoms and objective findings. Otherwise he will continue to be monitored. He will continue medical therapy which should include agents such as aspirin, nitrates if needed, beta-blockers, afterload reducing agents, lipid-lowering agents, and antiplatelet/anticoagulant agents as deemed appropriate. The patient will be considered for a transthoracic echocardiogram to evaluate his left ventricular wall motion and systolic function. Also, the patient will be considered for further evaluation with diagnostic cardiac catheterization. The procedure and risk were discussed with him. He was agreeable to this approach. 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 At the time of his previous cardiac catheterization he did not require any type of revascularization therapy. At the present time he will continue evaluation care as noted above. (3) Hyperlipidemia: QUALIFIERS: Hyperlipidemia type: unspecified Qualified Code(s): E78.5 - Hyperlipidemia, unspecified PLAN: The patient can have his lipid labs evaluated. He should continue lipid-lowering therapy. This includes his atorvastatin 40 mg p.o. daily. (4) Essential hypertension: PLAN: The patient's blood pressure will be followed as well. He will continue medical management. This include agents such as his HCTZ 25 mg p.o. daily, lisinopril 20 mg p.o. twice daily, amlodipine 10 mg p.o. daily, superimposed upon his metoprolol XL 200 mg p.o. daily. Addt'l Comments The above was discussed and reviewed with the patient. He was agreeable to this approach. Comment: Time spent in the patient's evaluation including history, examination, review of medical records, review of previous cardiac catheterization images, discussion with the [facility] medical staff, and documentation: 60 minutes HPI Consult Data Date of Consult: 04/07/22 HPI Narrative HPI Narrative: BUBBA STEVENSON, is a 46 year old white male who presents for cardiovascular consultation based upon concerns of chest discomfort and abnormal cardiac enzymes superimposed upon a history of underlying congenital coronary anomaly (LCx from the RCA distribution) hyperlipidemia, and hypertension. He states that recently he had an episode where he felt as if he was choking on food . He states that episode left him with a somewhat uncomfortable sensation in his chest for period of time. He notes when he has done this in the past he would usually end up in the hospital with aspiration pneumonia. However he states thus far that has not happened. He states that he was walking around today and felt a heavy weight sensation on his chest and felt very tired and fatigued. He did not note any acute respiratory change nor did he have any obvious nausea, emesis, or diaphoresis. He denied any obvious palpitations. There was no loss of consciousness. He also denies any orthopnea, PND, or peripheral pitting edema. The patient does state he has been trying to bring his weight under better control. He states he has lost approximately 60 pounds since approximately 1 year ago. He states he went to an urgent care center for evaluation. He was then referred to the emergency department for further evaluation. In the emergency department he had cardiac enzymes performed. His high-sensitivity troponin I level was elevated at 140 with a subsequent repeat of 120. His ECG demonstrated sinus rhythm/sinus tachycardia with an IMI pattern of indeterminate age cannot be excluded. Thus he was placed in the PCU for further evaluation and care. Overall he states he has been very active at home. He states he works on concrete objects. He states he lifts 80 pound bags of materials without any obvious difficulty. He does not recall any other changes in his usual activities. He did undergo diagnostic cardiac catheterization in [place] [address] Tovar. At that time according to the report the left main coronary artery had no significant disease, the LAD had no significant disease, the LCx appeared to arise from the RCA system with no significant disease, and the RCA itself had no significant disease. [facility] Medical History Acute sinusitis, unspecified Arthritis Atrial flutter Chest pain Congenital anomaly of coronary artery Depression Essential hypertension HTN (hypertension) Hyperlipidemia Hypertension Hyponatremia Intertrigo MSSA (methicillin susceptible Staphylococcus aureus) septicemia MEGAN (obstructive sleep apnea) Pharyngitis Radicular pain of right lower extremity Sepsis Smoker Super obese Type II diabetes mellitus URI (upper respiratory infection) Home Medications metoprolol succinate 200 mg tablet,extended release 24 hr 200 mg PO DAILY blood pressure 02/28/15 [History Last Taken 04/06/22] omeprazole 40 mg capsule,delayed release 40 mg PO DAILY GERD 02/28/15 [History Last Taken 04/06/22] metformin 1,000 mg tablet 1,000 mg PO BID DIABETES 05/24/18 [History Last Taken 04/06/22] insulin glargine 100 unit/mL (3 mL) subcutaneous pen (Lantus Solostar U-100 Insulin) 70 unit subcut QHS DIABETES 01/22/21 [History Last Taken 04/06/22] amlodipine 10 mg tablet 10 mg PO DAILY BLOOD PRESSURE 04/07/22 [History Last Taken 04/06/22] aspirin 325 mg tablet 325 mg PO DAILY HEART HEALTH 04/07/22 [History Last Taken 04/06/22] hydrochlorothiazide 25 mg tablet 25 mg PO DAILY BLOOD PRESSURE 04/07/22 [History Last Taken 04/06/22] insulin lispro 100 unit/mL subcutaneous solution (Humalog U-100 Insulin) 20 unit subcut TIDCM DIABETES 04/07/22 [History Last Taken 04/06/22] lisinopril 20 mg tablet 20 mg PO BID BLOOD PRESSURE 04/07/22 [History Last Taken 04/06/22] multivitamin 1 tab PO DAILY HEALTH MAINTENANCE 04/07/22 [History Last Taken 04/06/22] potassium gluconate 595 mg (99 mg) tablet 595 mg PO DAILY SUPPLEMENT 04/07/22 [History Last Taken 04/06/22] pravastatin 40 mg tablet 40 mg PO QHS CHOLESTEROL 04/07/22 [History Last Taken 04/06/22] Allergy/AdvReac Type Severity Reaction Status Date / Time cefadroxil hydrate Allergy Itching Verified 04/07/22 12:11 [From Duricef] piperacillin [From Zosyn] Allergy Hives Verified 04/07/22 12:11 tazobactam [From Zosyn] Allergy Hives Verified 04/07/22 12:11 erythromycin base AdvReac Vomiting Verified 04/07/22 12:11 Family History Grandmother Heart disease Grandfather CVA (cerebral vascular accident) Other Arthritis Cancer Hypertension Surgical History History of foot surgery History of left heart catheterization (LHC) (~06/23/12) History of tonsillectomy and adenoidectomy Social History Smoking Status: Former smoker alcohol intake: current alcohol intake frequency: a few times a month Alcohol type: hard liquor ROS Constitutional Constitutional: Reports fatigue Eyes Eyes: Reports as per HPI ENT HEENT: Reports as per HPI Cardiovascular Cardiovascular: Reports chest pain and fatigue Respiratory/Chest Respiratory/Chest: Reports as per HPI Gastrointestinal Gastrointestinal: Reports as per HPI Genitourinary Genitourinary: Reports as per HPI Musculoskeletal Musculoskeletal: Reports as per HPI Integumentary Integumentary: Reports as per HPI Neurologic Neurologic: Reports as per HPI Physical Exam Const alert, oriented x3 and no apparent distress Orientation / Consciousness: awake HEENT normocephalic, head/scalp atraumatic and hearing grossly normal bilaterally Eyes PERRL, EOMs intact bilaterally, conjunctivae normal and no scleral icterus Neck full ROM, supple, no JVD and no carotid bruits Carotids: normal carotid upstroke Resp normal respiratory effort and clear to auscultation bilaterally Cardio regular rate, regular rhythm, S1 normal heart sound and S2 normal heart sound Cardio Narrative: Distant heart tones GI normal to inspection, nondistended, normoactive bowel sounds Extremity normal to inspection and full ROM Skin no rashes or lesions noted Psych mental status grossly normal Risk Stratification Risk Stratification Applicable: Yes Age >/= 65: No >/= 3 CAD Risk Factors (HTN, HLD, DM, family hx of CAD, or current smoker): Yes Aspirin Use in the Past 7 Days: Yes Severe Angina (>/= episodes in 24 hours): No EKG ST Changes >/= 0.5mm: No Positive Cardiac Marker: Yes WAYNE Risk Stratification Score: 3 WAYNE % Risk: 13% Risk Procedure Criteria Type of Procedure Procedure Type: Elective Elective Risks - COVID COVID Risk Discussion: The surgeon/proceduralist and patient have discussed in detail the risk of exposure to and/or potential harm posed by the COVID-19 virus with having a surgery/procedure at this time versus the risk of delaying the surgery/procedure. It is not possible to know either the risk of delaying the surgery or procedure or chance of getting an infection with perfect accuracy, but a joint decision was made between the patient and the surgeon/proceduralist to proceed at this time with the scheduled surgery/procedure as indicated on the consent form. Objective Data Vital Signs: Vital Signs Temp Pulse Resp BP Pulse Ox O2 Del Method 97.9 F 107 H 20 H 141/95 H 97 Room Air 04/07/22 16:51 04/07/22 16:51 04/07/22 16:51 04/07/22 16:51 04/07/22 17:09 04/07/22 17:45 Oxygen Delivery Method Room Air Weight: 391 lb 6.4 oz Body Mass Index (BMI) 53.1 Intake & Output: Intake and Output for Last 24 Hours 04/05/22 04/06/22 04/07/22 23:59 23:59 23:59 Intake Total 200 / 200 Balance 200 / 200 Lab / Micro Data Result Diagrams: 04/07/22 12:16 04/07/22 12:16 Labs: Laboratory Results - last 24 hr 04/07/22 12:16: WBC 8.8, RBC 5.69, Hgb 16.8 H, Hct 47.3, MCV 83.1, MCH 29.5, MCHC 35.5, RDW Std Deviation 37.8, RDW Coeff of Alysia 12.6, Plt Count 337, MPV 10.5, Immature Gran % (Auto) 0.300, Neut % (Auto) 49.7, Lymph % (Auto) 38.0, [place] % (Auto) 7.3, Eos % (Auto) 3.6, Baso % (Auto) 1.1 H, Absolute Neuts (auto) 4.4, Absolute Lymphs (auto) 3.34, Nucleated RBC % 0 04/07/22 12:16: Sodium 132 L, Potassium 3.8, Chloride 94 L, Carbon Dioxide 27.0, Anion Gap 11, BUN 18, Creatinine 1.30, Estim Creat Clear Calc 76.27, Est GFR (MDRD) Af Amer 76, Est GFR (MDRD) Non-Af 63, BUN/Creatinine Ratio 13.8, Glucose 451 H*, Calcium 9.6, Troponin I High Sens 140 H* 04/07/22 14:35: Troponin I High Sens 120 H 04/07/22 14:35: Triglycerides 274 H, Cholesterol 178, LDL Cholesterol 96, VLDL Cholesterol 55 H, HDL Cholesterol 27 L Rhythm Strip Rhythm Strip: Sinus Tach Rate: 111 Ectopy: None Cardiology Labs/Tests 04/07/22 12:16: WBC 8.8, RBC 5.69, Hgb 16.8 H, Hct 47.3, MCV 83.1, MCH 29.5, MCHC 35.5, Plt Count 337, MPV 10.5, Immature Gran % (Auto) 0.300, Neut % (Auto) 49.7, Lymph % (Auto) 38.0, [place] % (Auto) 7.3, Eos % (Auto) 3.6, Baso % (Auto) 1.1 H, Absolute Neuts (auto) 4.4, Nucleated RBC % 0 04/07/22 12:16: Sodium 132 L, Potassium 3.8, Chloride 94 L, Carbon Dioxide 27.0, Anion Gap 11, BUN 18, Creatinine 1.30, Est GFR (MDRD) Af Amer 76, Est GFR (MDRD) Non-Af 63, BUN/Creatinine Ratio 13.8, Glucose 451 H*, Calcium 9.6 04/07/22 14:35: Triglycerides 274 H, Cholesterol 178, LDL Cholesterol 96, VLDL Cholesterol 55 H, HDL Cholesterol 27 L Rhythm: Sinus rhythm EKG: As noted above Transthoracic echocardiogram: 03-01-15 Interpretation Summary The study was technically difficult. Contrast injection was performed. Mild concentric left ventricular hypertrophy. The estimated ejection fraction is 65 %. Stage 1 diastolic dysfunction. The left atrium is mildly enlarged. The right atrium is mildly enlarged. Right ventricular systolic pressure estimated to be 40 mmHg. Compared to echo report dated 06/23/2012, no appreciable changes noted. Transthoracic Echocardiogram from 09/09/2016: Interpretation Summary The estimated ejection fraction is 65%. Normal diastology for age. Unable to estimate RV systolic pressure/pulmonary artery pressure due to technically difficult study. Compared to echo report dated 03/01/2015, no appreciable changes noted.? Unable to obtain RVSP on today's exam.? The study was technically difficult. Contrast injection was performed. Transesophageal echocardiogram from 09/12/2016: Interpretation summary Hypermobile atrial septum. Normal LV size. Left ventricular systolic function is normal. The estimate ejection fraction is 60%. No valvular regurgitation is seen. Stress echocardiogram from 05/25/2018: Interpretation Summary The estimated ejection fraction is 65 %. Normal, adequate, dobutamine echocardiogram. Negative for ischemia by EKG and echocardiographic anterior. No anginal symptoms noted. Rare PVC noted. Appropriate blood pressure response to dobutamine. Final LVEF is 75%. Decreased sensitivity due to poor echo windows requiring Definity agent. Test terminated due to attainment of target heart rate. No complications. The study was technically difficult. Contrast injection was performed. Cardiac catheterization: June, Right radial artery approach Left main coronary artery no significant disease LAD no significant disease LCx appeared to arise from the RCA system with no significant disease RCA was considered a large dominant vessel with no significant disease Radiography Diagnostic Testing: Radiology Impression Chest X-Ray 04/07/22 12:23 IMPRESSION: Normal x-ray examination of the chest. Electronically Signed: Parth Yoon MD at 13:01 EST , Chest CTA 04/07/22 15:56 IMPRESSION: 1. Suboptimal opacification of pulmonary arteries without obvious pulmonary embolism. 2. Otherwise normal CTA of the chest. Electronically Signed: Leroy Cheema DO at 16:34 EST Reading Location ID and State: [facility] / [place] Tel [phone], Service support ,
[2022-04-07 18:56] LABS: Troponin-I HS 128 pg/mL (3.0-78.0)
[2022-04-07 19:06] LABS: Hemoglobin A1c 11.8 % (3.8-5.6)
[2022-04-07 20:07] LABS: D-Dimer Quantitative (DVT/PE) < 0.27 FEU/ug/m (0.27-0.49)
[2022-04-07 20:10] LABS: Cholesterol 192 mg/dL (200); High Density Lipoprotein 40 mg/dL; Triglycerides 233 mg/dL; Very Low Density Lipoprotein 47 mg/dL (5-40)
[2022-04-07] MEDS: Atorvastatin Calcium 40 MG Tablet PO (21:51)
[2022-04-07] MEDS: Lisinopril 20 MG Tablet PO (21:51)
[2022-04-07] MEDS: Insulin Lispro 100 UNIT/ML INSULN.PEN SC (21:51)
[2022-04-07] MEDS: Insulin Glargine-YFGN 100 UNIT/ML Pen 70 UNIT SC (21:51)
[2022-04-07 22:20] LABS: Bedside Glucose 343 mg/dL (74-106)
[2022-04-08] VITALS (14 sets, daily range): BP systolic 112–144; BP diastolic 66–103; PULSE 77–91; RESP 14–18; TEMP 36.7–36.8; O2SAT 95–99
--- NOTE | 2022-04-08 05:55 | EKG12_ITS ---
Test Reason : AM EKG Blood Pressure : / mmHG Vent. Rate : 097 BPM Atrial Rate : 097 BPM P-R Int : 184 ms QRS Dur : 114 ms QT Int : 386 ms P-R-T Axes : 053 049 048 degrees QTc Int : 490 ms Normal sinus rhythm Prolonged QT Abnormal ECG When compared with ECG of 07-APR-2022 12:18, MANUAL COMPARISON REQUIRED, DATA IS UNCONFIRMED Confirmed by ETIENNE MOELLER, TIARA ([id number]), desk editor ANDRESSA BEY ([id number]) on 04/08/2022 12:57:03 PM Referred By: Confirmed By:TIARA CLIFTON MD
[2022-04-08 06:00] LABS: Absolute Lymphocyte Count 1.28 X10^3/uL (0.83-4.51); Absolute Neutrophil Count 4.4 X10^3/uL (2.0-7.7); Basophil# 0.04 X10^3/uL; Basophil% 0.6 % (0-1); Eosinophils% 3.1 % (0-5); Hematocrit 30.3 % (40-54); Lymphocyte # 1.28 X10^3/ul (0.83-4.51); Lymphocyte % 19.9 % (19-41); Mean Corp Hgb Conc 29.7 g/dL (32-36); Mean Corpuscular Volume 87.6 fL (80-94); Mean Platelet Vol. 9.8 fl (6.2-12.0); Monocyte# 0.48 X10^3/uL; Monocyte% 7.5 % (0-10); NRBC Flagged by Analyzer 0 % (0-5); Neutrophil % 68.6 % (47-70); Platelet Count 264 K/mm3 (150-450); RBC Distribution Width CV 14.2 % (11.6-14.6); RBC Distribution Width SD 45.2 fl (35.1-43.9); Red Blood Count 3.46 M/mm3 (4.6-6.2); White Blood Count 6.4 K/mm3 (4.4-11.0)
[2022-04-08] MEDS: 0.9% Normal Saline 1,000 ML 15 ML IV (06:02)
[2022-04-08] MEDS: Aspirin 325 MG Tablet PO (06:03)
[2022-04-08] MEDS: Pantoprazole Sodium 40 MG Tablet PO (06:03)
[2022-04-08] MEDS: amLODIPine 10 MG Tablet PO (06:03)
[2022-04-08] MEDS: Metoprolol(XL)Succ 200 MG Tablet PO (06:03)
[2022-04-08] MEDS: Lisinopril 20 MG Tablet PO (06:04)
[2022-04-08] MEDS: Insulin Lispro 100 UNIT/ML INSULN.PEN SC ×2 (06:08→12:15)
[2022-04-08 06:43] LABS: Anion Gap 8 (5-15); BUN 15 mg/dL (7-18); BUN/Creat Ratio 12.6 RATIO (10-20); Calcium,Total 8.6 mg/dL (8.5-10.1); Chloride 108 mmol/L (98-107); Creatinine, Serum 1.19 mg/dL (0.70-1.30); EST Glomerular Filtration Rate 69 mL/min (>60); Est Glom Filt Rate - Afr Amer 84 mL/min (>60); Estimated Creatinine Clearance 83.32 ml/min; Glucose 97 mg/dL (74-106); Sodium Level 140 mmol/L (136-145)
[2022-04-08 06:50] LABS: Bedside Glucose 320 mg/dL (74-106)
[2022-04-08 08:40] LABS: Hematocrit 44.8 % (40-54); Hemoglobin 15.7 g/dL (13.0-16.5)
--- NOTE | 2022-04-08 09:52 | CASEMGMT ---
Tertiary facilities in-network with patient's insurance: [facility], [facility], , [facility], [facility], [facility], [facility], [facility].
--- NOTE | 2022-04-08 12:11 | PCM.DC.SUM ---
Providers Date of Admission: 04/07/22 Date of Discharge: 04/08/22 Primary Care Physician: Dr. 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 Code(s): Q24.5 - Malformation of coronary vessels (2) Hyperlipidemia: Status: Chronic Code(s): E78.5 - Hyperlipidemia, unspecified Qualifiers: Hyperlipidemia type: unspecified Qualified Code(s): E78.5 - Hyperlipidemia, unspecified (3) Essential hypertension: Status: Chronic Code(s): I10 - Essential (primary) hypertension (4) Elevated troponin: Status: Acute Code(s): R77.8 - Other specified abnormalities of plasma proteins Medications at Discharge Home Medications metoprolol succinate 200 mg tablet,extended release 24 hr 200 mg PO DAILY blood pressure 02/28/15 omeprazole 40 mg capsule,delayed release 40 mg PO DAILY GERD 02/28/15 metformin 1,000 mg tablet 1,000 mg PO BID DIABETES 05/24/18 insulin glargine 100 unit/mL (3 mL) subcutaneous pen (Lantus Solostar U-100 Insulin) 70 unit subcut QHS DIABETES 01/22/21 amlodipine 10 mg tablet 10 mg PO DAILY BLOOD PRESSURE 04/07/22 aspirin 325 mg tablet 325 mg PO DAILY HEART HEALTH 04/07/22 hydrochlorothiazide 25 mg tablet 25 mg PO DAILY BLOOD PRESSURE 04/07/22 insulin lispro 100 unit/mL subcutaneous solution (Humalog U-100 Insulin) 20 unit subcut TIDCM DIABETES 04/07/22 lisinopril 20 mg tablet 20 mg PO BID BLOOD PRESSURE 04/07/22 multivitamin 1 tab PO DAILY HEALTH MAINTENANCE 04/07/22 potassium gluconate 595 mg (99 mg) tablet 595 mg PO DAILY SUPPLEMENT 04/07/22 pravastatin 40 mg tablet 80 mg PO QHS CHOLESTEROL #60 tabs 04/08/22 Hospital Course Procedures 2-D Echocardiogram Summary of Care Provided Minutes Spent on Discharge: 33 Hospital Course: Mr. Colby is a 46-year-old white male who presented to the emergency department at [facility] on 04/07/2022 with a chief complaint of chest pain. He reported on admission that he had a choking episode approximately 1 to 2 weeks ago where he had some food stuck in his throat and had several episodes of coughing and vomiting at that time to dislodge the food. He started having chest pain a few days ago and thought it was related to that however the chest pain persisted so he came to the emergency department. He denied any associated shortness of breath, cough, nausea or vomiting, light headedness or other symptoms. He indicated he has stress test 2 years ago and it was negative he also had a cardiac catheterization about 5 years ago and had no heart disease at that time. He had no recent travel and denies any risk factors for PE or DVT. Vital signs emergency department were unremarkable. His labs were overall unremarkable other than an initial troponin of 140. Chest x-ray showed no acute cardiopulmonary process and his EKG showed normal sinus rhythm without any interval abnormalities and no ST-T wave changes consistent with acute ischemia. A CTA of his chest was done emergency department and showed no obvious pulmonary embolism and was otherwise normal. Timing was somewhat suboptimal for his contrast. Cardiac enzymes were cycled with his initial as noted above at 140 and subsequent one at 120 and then his repeat at 128. An echocardiogram was performed and showed an EF of 65% with mild left atrial enlargement and right ventricular systolic pressure of 21 mmHg with no evidence of diastolic dysfunction. He was evaluated by cardiology and based on his troponin elevation history was taken for cardiac catheterization which revealed no obstructive coronary artery disease requiring any intervention. Cholesterol was as follows total cholesterol 192/LDL 105/HDL 40/triglycerides 233. Based on this with his medical history we did increase his pravastatin from 40 to 80 mg trying to achieve a goal of LDL less than 100. Prescription for this was sent to his pharmacy. We did assess his hemoglobin A1c which was found to be 11.8. He overall has poor glycemic control and is on considerable home with Lantus 70 units at 8's and log 20 unit ID as well as oral metformin 1000 mg twice daily. I do feel he would benefit from follow-up with endocrinology and this referral was made at discharge. Patient has recently decided to switch primary care physicians as his primary care physician is leaving the area. He intends to follow-up with them soon I have recommended that he see them within the next 2 weeks. I also recommended that he see Dr. Mancini from endocrinology within the next month for assistance with his glycemic control. Discharge diagnoses: Chest pain-resolved Mild troponin elevation without NSTEMI Uncontrolled DM-2 Hyperlipidemia GERD Hypertension Morbid obesity History of atrial flutter Congenital anomaly of coronary artery MEGAN Tobacco abuse Physical Exam Const alert, oriented x3, no apparent distress and well nourished Constitutional Narrative: Morbidly obese white male sitting on the edge of the bed, appears comfortable nontoxic, on cell phone playing a game General Appearance: cooperative, comfortable, well kempt and well developed Orientation / Consciousness: awake, oriented to person, oriented to place and oriented to time Exam Limitations: no limitations Nutritional Appearance: morbidly obese HEENT normocephalic, head/scalp atraumatic, hearing grossly normal bilaterally and moist oral mucous membranes HEENT Narrative: Mallampati 4, no thrush Resp normal respiratory effort, no retractions, no use of accessory muscles and clear to auscultation bilaterally Auscultation: Negative for crackles, rhonchi or wheezes Cardio regular rate, regular rhythm, S1 normal heart sound, S2 normal heart sound, no murmurs, no rub, no gallops and no clicks GI normal to inspection, nondistended, normoactive bowel sounds, soft to palpation and non-tender GI Narrative: Large protuberant abdomen Extremity no clubbing, cyanosis or edema Extremity Narrative: 2+ pedal pulses, radial pulse with compression device on post cardiac catheterization with good cap refill at fingertips Neuro oriented x3, CN's II-XII intact bilaterally, moves all extremities and no focal motor deficits Speech: speech normal Psych affect normal Psych Narrative: Appropriately interactive Weight / BMI Weight Weight: 177.536 kg Body Mass Index (BMI) 53.1 ABG / Lab / Microbiology Data Result Diagrams: 04/08/22 08:21 04/08/22 05:33 Laboratory: Laboratory Results - last 24 hr 04/07/22 12:16: WBC 8.8, RBC 5.69, Hgb 16.8 H, Hct 47.3, MCV 83.1, MCH 29.5, MCHC 35.5, RDW Std Deviation 37.8, RDW Coeff of Alysia 12.6, Plt Count 337, MPV 10.5, Immature Gran % (Auto) 0.300, Neut % (Auto) 49.7, Lymph % (Auto) 38.0, Beadle % (Auto) 7.3, Eos % (Auto) 3.6, Baso % (Auto) 1.1 H, Absolute Neuts (auto) 4.4, Absolute Lymphs (auto) 3.34, Nucleated RBC % 0 04/07/22 12:16: Sodium 132 L, Potassium 3.8, Chloride 94 L, Carbon Dioxide 27.0, Anion Gap 11, BUN 18, Creatinine 1.30, Estim Creat Clear Calc 76.27, Est GFR (MDRD) Af Amer 76, Est GFR (MDRD) Non-Af 63, BUN/Creatinine Ratio 13.8, Glucose 451 H*, Calcium 9.6, Troponin I High Sens 140 H* 04/07/22 12:16: B-Natriuretic Peptide 4.0 04/07/22 12:16: Hemoglobin A1c 11.8 H 04/07/22 12:16: D-Dimer Quant (PE/DVT) < 0.27 L 04/07/22 14:35: Troponin I High Sens 120 H 04/07/22 14:35: Triglycerides 274 H, Cholesterol 178, LDL Cholesterol 96, VLDL Cholesterol 55 H, HDL Cholesterol 27 L 04/07/22 18:08: Troponin I High Sens 128 H* 04/07/22 18:08: Triglycerides 233 H, Cholesterol 192, LDL Cholesterol 105, VLDL Cholesterol 47 H, HDL Cholesterol 40 04/07/22 21:46: POC Glucose 343 H 04/08/22 05:33: WBC 6.4, RBC 3.46 L, Hgb 9.0 L, Hct 30.3 L, MCV 87.6 D, MCH 26.0 L, MCHC 29.7 L D, RDW Std Deviation 45.2 H, RDW Coeff of Alysia 14.2, Plt Count 264, MPV 9.8, Immature Gran % (Auto) 0.300, Neut % (Auto) 68.6, Lymph % (Auto) 19.9, Beadle % (Auto) 7.5, Eos % (Auto) 3.1, Baso % (Auto) 0.6, Absolute Neuts (auto) 4.4, Absolute Lymphs (auto) 1.28, Nucleated RBC % 0 04/08/22 05:33: Sodium 140, Potassium 4.0, Chloride 108 H, Carbon Dioxide 24.0, Anion Gap 8, BUN 15, Creatinine 1.19, Estim Creat Clear Calc 83.32, Est GFR (MDRD) Af Amer 84, Est GFR (MDRD) Non-Af 69, BUN/Creatinine Ratio 12.6, Glucose 97, Calcium 8.6 04/08/22 06:07: POC Glucose 320 H 04/08/22 08:21: Hgb 15.7, Hct 44.8 Radiography Diagnostic Testing: Radiology Impression Chest X-Ray 04/07/22 12:23 IMPRESSION: Normal x-ray examination of the chest. Electronically Signed: Parth Yoon MD at 13:01 EST , Chest CTA 04/07/22 15:56 IMPRESSION: 1. Suboptimal opacification of pulmonary arteries without obvious pulmonary embolism. 2. Otherwise normal CTA of the chest. Electronically Signed: Leroy Cheema DO at 16:34 EST Reading Location ID and State: [facility] / [place] Tel [phone], Service support , Echocardiogram 04/07/22 16:26 Interpretation Summary The study was technically difficult. Contrast injection was performed. Based upon the 2D echocardiographic and contrast enhanced images obtained there appears to be normal left ventricular size, wall motion, and systolic function. The estimated ejection fraction is 65 %. The left atrium is mildly enlarged. Trivial mitral valve insufficiency. Trivial tricuspid valve insufficiency. Right ventricular systolic pressure estimated to be 21 mmHg. No evidence for diastolic dysfunction. Ordering Physician: Loree Villalpando Referring Physician: DANIEL LUCERO Performed By: Krystal Reynoso, MESERET D/C Instructions Discharge Diet: Low fat / Low cholesterol and 1800 Calorie Control Diet Discharge Activity: Return to Normal Activity Return to work on: 04/09/22 Meaningful Use Info Meaningful Use Diagnoses (Choose all that apply): None applicable Discharge Plan Admission Admit Date/Time: 04/07/22 15:45 Primary Reason for Your Visit: Chest pain Attending Provider: Heather Ward Primary Care Provider: Daniel Lucero Consulting Providers: Chencho Cueva ; Loree Villalpando Instructions Additional Instructions / Restrictions: 1. Please follow-up with your new primary care physician within the next 30 days Discharge Orders/Prescriptions Prescriptions: Changed pravastatin 40 mg tablet 80 mg PO QHS Qty: 60 2RF No Action metoprolol succinate 200 MG tablet extended release 24 hr 200 mg PO DAILY omeprazole 40 MG capsule 40 mg PO DAILY metformin 1,000 MG tablet 1,000 mg PO BID insulin glargine [Lantus Solostar U-100 Insulin] 100 unit/mL (3 mL) insulin pen 70 unit subcut QHS multivitamin Tablet 1 tab PO DAILY aspirin 325 mg Tablet 325 mg PO DAILY lisinopril 20 mg tablet 20 mg PO BID hydrochlorothiazide 25 mg tablet 25 mg PO DAILY insulin lispro [Humalog U-100 Insulin] 100 unit/mL solution 20 unit subcut TIDCM potassium gluconate 595 mg (99 mg) Tablet 595 mg PO DAILY amlodipine 10 mg tablet 10 mg PO DAILY Referrals / Follow Up: Daniel Lucero MD [Primary Care Provider] - Pedro Mancini MD [Med Staff - Courtesy Staff] - Within 1 Month (To help with diabetes) Disposition Disposition (needs filled in before D/C Order can be placed): Home, Self Care Charges/Coding Visit Charges Inpatient E&M: 41412 Disch Hosp
[2022-04-08] MEDS: Multivitamins,Therapeutic Tablet 1 TABLET PO (12:16)
[2022-04-08] MEDS: hydroCHLOROthiazide 25 MG Tablet PO (12:16)
--- NOTE | 2022-04-08 13:30 | CASEMGMT ---
Addendum entered by Mari Kiran 04/08/22 14:42: 1350: REPAIR WELDER CM, Janet, made aware pt woud like AD packet to take home w/him. Original Note: RN?CM?BELL CAPTAIN?CM?placed call to pt's room for initial transition planning/care coordination?assessment.?RN?CM?introduced self and role at [facility].? Pt voices understanding and consents to?assessment?at this time.? Pt is A/O at this time and answers all questions appropriately.?? Care providers, pharmacy, and demographics verified/updated at this time.? PCP:?Dr Delgadillo. Pt states plans to switch to physician @ [facility], but does not remember name. Specialists:?[facility]/cardiology, Dr Rivas-alana florentino Preferred Pharmacy:?[facility] Insurance:? [employer] Prescription Benefit:?Yes? Living Will/HPOA:??States has done AD and his dtr, Cristine, is his POA. Pt made aware this is not on file @ [facility]. He states he does not know where the documents are and would like a AD packet to take home w/him to complete again @ a later time. LNOK:? Dtr, Cristine. Has 2 other children also Living Arrangements:?Lives w/daughter, son-in-law, and grandchildren in 2-story home w/2-5 steps to enter. Denies difficulty w/stairs. Independent w/ADL's and IADL's, Transportation:?Pt states drives self and states no transportation concerns at this time.?? DME: Pt states he is in the process of getting a Free-style [employer] system. He states insurance has authorized it and it is supposed to be delivered to him. Pt does not have another glucometer. Pt made aware of OTC Reli-on brand glucometer @ [facility], should he need to get one before the Myn[employer] system arrives in the mail. He voices appreciation for the information. HHC/SNF:?No hx of either and no needs identified. Has done OP therapy @ [facility] in the past. Pt wishes to return home and states has no concerns with going home. Pt voices no further concerns/needs at this time.? PLAN:??Home Bonnie BSN?RN?CHILO
--- NOTE | 2022-04-08 14:31 | PHA.DC.MR ---
Pharmacy Service has performed discharge medication reconciliation for this patient. The patient's discharge medication list was reviewed for discrepancies and discrepancies were resolved. Home Medications metoprolol succinate 200 mg tablet,extended release 24 hr 200 mg PO DAILY blood pressure 02/28/15 omeprazole 40 mg capsule,delayed release 40 mg PO DAILY GERD 02/28/15 metformin 1,000 mg tablet 1,000 mg PO BID DIABETES 05/24/18 insulin glargine 100 unit/mL (3 mL) subcutaneous pen (Lantus Solostar U-100 Insulin) 70 unit subcut QHS DIABETES 01/22/21 amlodipine 10 mg tablet 10 mg PO DAILY BLOOD PRESSURE 04/07/22 aspirin 325 mg tablet 325 mg PO DAILY HEART HEALTH 04/07/22 hydrochlorothiazide 25 mg tablet 25 mg PO DAILY BLOOD PRESSURE 04/07/22 insulin lispro 100 unit/mL subcutaneous solution (Humalog U-100 Insulin) 20 unit subcut TIDCM DIABETES 04/07/22 lisinopril 20 mg tablet 20 mg PO BID BLOOD PRESSURE 04/07/22 multivitamin 1 tab PO DAILY HEALTH MAINTENANCE 04/07/22 potassium gluconate 595 mg (99 mg) tablet 595 mg PO DAILY SUPPLEMENT 04/07/22 pravastatin 40 mg tablet 80 mg PO QHS CHOLESTEROL #60 tabs 04/08/22
--- NOTE | 2022-04-08 15:26 | PCM.PN.CARD ---
Subjective Subjective The patient is status post diagnostic cardiac catheterization. He had no new acute complaints. Objective Data Vital Signs: Vital Signs Temp Pulse Resp BP Pulse Ox O2 Del Method 98.1 F 82 18 114/103 H 98 Room Air 04/08/22 11:45 04/08/22 13:45 04/08/22 13:45 04/08/22 13:45 04/08/22 13:45 04/08/22 13:45 Oxygen Delivery Method Room Air Weight: 391 lb 6.4 oz Body Mass Index (BMI) 53.1 Intake & Output: Intake and Output for Last 24 Hours 04/06/22 04/07/22 04/08/22 23:59 23:59 23:59 Intake Total 440 / 440 0 / 0 Balance 440 / 440 0 / 0 Lab / Micro Data Result Diagrams: 04/08/22 08:21 04/08/22 05:33 Labs: Laboratory Results - last 24 hr 04/07/22 12:16: B-Natriuretic Peptide 4.0 04/07/22 12:16: Hemoglobin A1c 11.8 H 04/07/22 12:16: D-Dimer Quant (PE/DVT) < 0.27 L 04/07/22 14:35: Triglycerides 274 H, Cholesterol 178, LDL Cholesterol 96, VLDL Cholesterol 55 H, HDL Cholesterol 27 L 04/07/22 18:08: Troponin I High Sens 128 H* 04/07/22 18:08: Triglycerides 233 H, Cholesterol 192, LDL Cholesterol 105, VLDL Cholesterol 47 H, HDL Cholesterol 40 04/07/22 21:46: POC Glucose 343 H 04/08/22 05:33: WBC 6.4, RBC 3.46 L, Hgb 9.0 L, Hct 30.3 L, MCV 87.6 D, MCH 26.0 L, MCHC 29.7 L D, RDW Std Deviation 45.2 H, RDW Coeff of Alysia 14.2, Plt Count 264, MPV 9.8, Immature Gran % (Auto) 0.300, Neut % (Auto) 68.6, Lymph % (Auto) 19.9, Webster % (Auto) 7.5, Eos % (Auto) 3.1, Baso % (Auto) 0.6, Absolute Neuts (auto) 4.4, Absolute Lymphs (auto) 1.28, Nucleated RBC % 0 04/08/22 05:33: Sodium 140, Potassium 4.0, Chloride 108 H, Carbon Dioxide 24.0, Anion Gap 8, BUN 15, Creatinine 1.19, Estim Creat Clear Calc 83.32, Est GFR (MDRD) Af Amer 84, Est GFR (MDRD) Non-Af 69, BUN/Creatinine Ratio 12.6, Glucose 97, Calcium 8.6 04/08/22 06:07: POC Glucose 320 H 04/08/22 08:21: Hgb 15.7, Hct 44.8 Rhythm Strip Rhythm Strip: Sinus Tach Rate: 111 Ectopy: None Cardiology Labs/Tests 04/07/22 12:16: B-Natriuretic Peptide 4.0 04/07/22 12:16: Hemoglobin A1c 11.8 H 04/07/22 12:16: D-Dimer Quant (PE/DVT) < 0.27 L 04/07/22 14:35: Triglycerides 274 H, Cholesterol 178, LDL Cholesterol 96, VLDL Cholesterol 55 H, HDL Cholesterol 27 L 04/07/22 18:08: Triglycerides 233 H, Cholesterol 192, LDL Cholesterol 105, VLDL Cholesterol 47 H, HDL Cholesterol 40 04/08/22 05:33: WBC 6.4, RBC 3.46 L, Hgb 9.0 L, Hct 30.3 L, MCV 87.6 D, MCH 26.0 L, MCHC 29.7 L D, Plt Count 264, MPV 9.8, Immature Gran % (Auto) 0.300, Neut % (Auto) 68.6, Lymph % (Auto) 19.9, Webster % (Auto) 7.5, Eos % (Auto) 3.1, Baso % (Auto) 0.6, Absolute Neuts (auto) 4.4, Nucleated RBC % 0 04/08/22 05:33: Sodium 140, Potassium 4.0, Chloride 108 H, Carbon Dioxide 24.0, Anion Gap 8, BUN 15, Creatinine 1.19, Est GFR (MDRD) Af Amer 84, Est GFR (MDRD) Non-Af 69, BUN/Creatinine Ratio 12.6, Glucose 97, Calcium 8.6 04/08/22 08:21: Hgb 15.7, Hct 44.8 Rhythm: Sinus rhythm ECHO: See below Radiography Diagnostic Testing: Radiology Impression Chest CTA 04/07/22 15:56 IMPRESSION: 1. Suboptimal opacification of pulmonary arteries without obvious pulmonary embolism. 2. Otherwise normal CTA of the chest. Electronically Signed: Leroy Cheema at 16:34 EST Reading Location ID and State: [address] [place] [address] Tel [phone], Service support , Echocardiogram 04/07/22 16:26 Interpretation Summary The study was technically difficult. Contrast injection was performed. Based upon the 2D echocardiographic and contrast enhanced images obtained there appears to be normal left ventricular size, wall motion, and systolic function. The estimated ejection fraction is 65 %. The left atrium is mildly enlarged. Trivial mitral valve insufficiency. Trivial tricuspid valve insufficiency. Right ventricular systolic pressure estimated to be 21 mmHg. No evidence for diastolic dysfunction. Ordering Physician: Loree Villalpando Referring Physician: DANIEL LUCERO Performed By: Krystal Reynoso RDCS Physical Exam Const alert, oriented x3, no apparent distress and well nourished Constitutional Narrative: Morbidly obese white male sitting on the edge of the bed, appears comfortable nontoxic, on cell phone playing a game General Appearance: cooperative, comfortable, well kempt and well developed Orientation / Consciousness: awake, oriented to person, oriented to place and oriented to time Exam Limitations: no limitations Nutritional Appearance: morbidly obese HEENT normocephalic, head/scalp atraumatic, hearing grossly normal bilaterally and moist oral mucous membranes HEENT Narrative: Mallampati 4, no thrush Resp normal respiratory effort, no retractions, no use of accessory muscles and clear to auscultation bilaterally Auscultation: Negative for crackles, rhonchi or wheezes Cardio regular rate, regular rhythm, S1 normal heart sound, S2 normal heart sound, no murmurs, no rub, no gallops and no clicks GI normal to inspection, nondistended, normoactive bowel sounds, soft to palpation and non-tender GI Narrative: Large protuberant abdomen Extremity no clubbing, cyanosis or edema Extremity Narrative: Right radial artery area: Pulse 2+/4+: No obvious bruit or hematoma Neuro oriented x3, moves all extremities and no focal motor deficits Speech: speech normal Psych mental status grossly normal and affect normal Psych Narrative: Appropriately interactive Assessment & Plan Assessment/Plan (1) NSTEMI, initial episode of care: PLAN: The patient does have abnormal cardiac enzymes. The concern at this time is that this may represent a non-STEMI type I as he has had no obvious etiology to explain a non-STEMI type II event. He has not been found to have a history, examination, or electrocardiographic findings to suggest an underlying myopericarditis type scenario to explain his symptoms and/or objective findings He has not been found to have evidence of an underlying CVA, renal insufficiency, or an acute infectious disease related etiology to explain his event. His D-dimer level was negative. He has undergone noninvasive valuation with a transthoracic echocardiogram. The results are as noted. He is also undergone evaluation with a diagnostic cardiac catheterization. He had no angiographically significant appearing CAD warranting cardiovascular intervention. At the present time he will continue risk factor modification and medical management which includes medicine such as his aspirin, metoprolol, lisinopril, and pravastatin. 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 At the time of his previous cardiac catheterization he did not require any type of revascularization therapy. Based upon today's cardiac catheterization he did not require PCI. (3) Hyperlipidemia: QUALIFIERS: Hyperlipidemia type: unspecified Qualified Code(s): E78.5 - Hyperlipidemia, unspecified PLAN: He should continue lipid-lowering therapy. This includes his atorvastatin 40 mg p.o. daily. (4) Essential hypertension: PLAN: The patient's blood pressure will be followed as well. He will continue medical management. This include agents such as his HCTZ 25 mg p.o. daily, lisinopril 20 mg p.o. twice daily, amlodipine 10 mg p.o. daily, superimposed upon his metoprolol XL 200 mg p.o. daily. Addt'l Comments The patient's case was discussed and reviewed with the patient and Dr. Ward of the [facility] hospitalist group. Comment: Time spent in the patient's overall evaluation, review of medical records, review of echocardiogram, review of cardiac catheterization, discussion with medical staff, and documentation: 50 minutes.
[2022-04-08 17:05] LABS: Bedside Glucose 347 mg/dL (74-106)
--- NOTE | 2022-04-09 13:49 | CL.D_ITS ---
Patient Name: BUBBA STEVENSON Study Date: 04/08/2022 Performing: Chencho Cueva MD Ht: 72 inches 182.88 cm : 1975 Wt: 391.9 lbs 177.54 kg Age: 46 Gender: male BSA: 2.83 PROCEDURE(S) PERFORMED [id number])[facility] CLINICAL PROFILE AND INDICATIONS Indications: Suspected CAD Heart Failure: None Stress/Imaging Stress/Image Study Performed: No Angina Classification Anginal Classification w/in 2 Weeks: CCS II CAD Presentations: Non-STEMI. CONCLUSIONS Congential coronary anomaly: LCX appears to demonstrate a small rudimentary LCX arising from the proximal RCA system with no angiographically significant appearing disease and a large OM1 arising from the LCA system which appears angiographically normal Single vessel CAD of the of the RCA: mild luminal irregularities: non obstructive RECOMMENDATIONS Risk factor modification Medical therapy DESCRIPTION OF PROCEDURE The patient arrived to the procedure lab. The risks and benefits of the procedure as well as a full description of our services here and current unavailability of surgical backup were fully explained to the patient and/or their significant other prior to the catheterization. The Timeout was completed, verifying the correct patient and procedure. The patient's procedural site was prepped and draped in the usual fashion. Local anesthetic was given subcutaneously to right radial region with Lidocaine 2%. Using a modified Seldinger technique, arterial access was obtained via the right radial artery, a 6Fr sheath was inserted. Left Coronary Artery selective angiography was performed in multiple views using a 5 Fr. 4.0 [place] catheter. Right Coronary Artery selective angiography was then performed in multiple views using a 5 Fr. 4.0 [place] catheter. Right Coronary Artery selective angiography was then performed in multiple views using a 6 Fr. JR 4 catheter.The arterial sheath was pulled and a TR Band was applied for hemostasis. 10cc of air CORONARY ANGIOGRAPHY DOMINANCE: Right Dominant LEFT HEART ASSESSMENT Left Ventricular Ejection Fraction: Not assessed LEFT MAIN: Angiographically normal LEFT ANTERIOR DESCENDING ARTERY: Angiographically normal CIRCUMFLEX ARTERY: LCX: appears to demonstrate a small rudimentary LCX arising from the proximal RCA system with no angiographically significant appearing disease and a large OM1 system arising from the LCA system which appears angiographically normal RIGHT CORONARY ARTERY: MID RCA: Mild luminal irregularities COMPLICATIONS No Complications PROCEDURE MEDICATIONS Fentanyl 50 mcg IV Versed 1 mg IV Oxygen: 2 L/min via nasal cannula Heparin given IA 04/08/2022 10:53:17 Verapamil 2.5mg, Ntg 100mcgs, 3000 units of Heparin given IA 04/08/2022 10:53:17 SUMMARY OF HEMODYNAMIC DATA Time AIR REST ECG 10:26:46 AO 69/51 (58) SA 10:54:24 AO 93/54 (72) 11:06:54 AO 99/65 (80) 11:17:03 Signed By Chencho Cueva MD On 04/08/2022 11:56:37 Chencho Cueva MD
== END 2022-04-08 15:49 | disposition home or self-care (01) | DRG 192 ==
LOC: ED 12:47 → PCU 04-08 06:51
PROVIDERS: Internal Medicine Cardiovascular Disease; Admitting Provider Student in an Organized Health Care Education/Training Program; Emergency Provider Emergency Medicine; PCP Family Medicine; Visit Provider Internal Medicine
DX: R07.9 Chest pain, unspecified (principal); E11.65 Type 2 diabetes mellitus with hyperglycemia; Z68.43 Body mass index [BMI] 50.0-59.9, adult; E66.01 Morbid (severe) obesity due to excess calories; Z79.4 Long term (current) use of insulin; Q24.5 Malformation of coronary vessels; I25.10 Atherosclerotic heart disease of native coronary artery without angina pectoris; E78.00 Pure hypercholesterolemia, unspecified; G47.33 Obstructive sleep apnea (adult) (pediatric); I10 Essential (primary) hypertension; K21.9 Gastro-esophageal reflux disease without esophagitis; Z79.82 Long term (current) use of aspirin; Z79.899 Other long term (current) drug therapy; Z87.891 Personal history of nicotine dependence
CPT/HCPCS: C1769; C1894; 36415; 71045; 71275; 80048; 80061; 82962; 83036; 83880; 84484; 85014; 85018; 85025; 85379; 93005; 93306; 93454; 99152; 99153; 99221; 99285; 99406; J7030; Q9957; Q9967; A4216; C8929; G0378

== ENCOUNTER 2022-08-07 12:57 | Emergency (ER) | payer MEDICAID, SELFPAY ==
[2022-08-07 12:58] VITALS: BP 170/112; PULSE 123; RESP 24; TEMP 36.6; O2SAT 99
--- NOTE | 2022-08-07 13:07 | RAD_ITS ---
STUDY: X-RAY - LEFT HAND REASON FOR EXAM: Male, 46 years old. Chainsaw injury. TECHNIQUE: 3 view(s) of the hand. COMPARISON: None. FINDINGS: Mild diffuse osteoarthritic changes, most marked at the first CMC joint. Separate ossification center for the ulnar styloid. Soft tissue swelling of the thenar eminence. RAD/Hand Min 3 Views IMPRESSION: Osteoarthritic changes with soft tissue swelling. No acute osseous abnormality. Electronically Signed: Kaushal Myers MD at 13:30 EDT ,
--- NOTE | 2022-08-07 13:13 | EDS_ITS ---
HPI History of Present Illness Chief Complaint: Upper Extremity Injury Narrative Narrative: Patient is a 46-year-old male who is presenting to the ER after he had cut his hand with a chainsaw. Patient was cutting a branch that had more tension on it that he thought, and patient has cut his left hand with a chainsaw. Patient is right-hand dominant. Patient is diabetic. Patient has no other acute injury, patient's 2 grandchildren are with him at this time. Patient states his last tetanus shot was over 7 years ago. Patient has a loss of function to the left wrist, hand, or the 5 fingers left hand. Patient has 2 lacerations to the medial aspect of his left hand, approximately 3 and 3 cm, approximately 0.5 cm deep. Please see laceration procedure note for more further details. Patient has no loss of function to any of his fingers of his left hand. Patient is right-hand dominant. Patient has had multiple times during initial HPI I got solo patient says has been using a chainsaw for 30+ years and has never done this before. [facility] Medical History Acute sinusitis, unspecified Arthritis Atrial flutter Chest pain Congenital anomaly of coronary artery Depression Essential hypertension HTN (hypertension) Hyperlipidemia Hypertension Hyponatremia Intertrigo MSSA (methicillin susceptible Staphylococcus aureus) septicemia MEGAN (obstructive sleep apnea) Pharyngitis Radicular pain of right lower extremity Sepsis Smoker Super obese Type II diabetes mellitus URI (upper respiratory infection) Home Medications metoprolol succinate 200 mg tablet,extended release 24 hr 200 mg PO DAILY blood pressure 02/28/15 [History Last Taken 04/06/22] omeprazole 40 mg capsule,delayed release 40 mg PO DAILY GERD 02/28/15 [History Last Taken 04/06/22] metformin 1,000 mg tablet 1,000 mg PO BID DIABETES 05/24/18 [History Last Taken 04/06/22] insulin glargine 100 unit/mL (3 mL) subcutaneous pen (Lantus Solostar U-100 Insulin) 70 unit subcut QHS DIABETES 01/22/21 [History Last Taken 04/06/22] amlodipine 10 mg tablet 10 mg PO DAILY BLOOD PRESSURE 04/07/22 [History Last Taken 04/06/22] aspirin 325 mg tablet 325 mg PO DAILY HEART HEALTH 04/07/22 [History Last Taken 04/06/22] hydrochlorothiazide 25 mg tablet 25 mg PO DAILY BLOOD PRESSURE 04/07/22 [History Last Taken 04/06/22] insulin lispro 100 unit/mL subcutaneous solution (Humalog U-100 Insulin) 20 unit subcut TIDCM DIABETES 04/07/22 [History Last Taken 04/06/22] lisinopril 20 mg tablet 20 mg PO BID BLOOD PRESSURE 04/07/22 [History Last Taken 04/06/22] multivitamin 1 tab PO DAILY HEALTH MAINTENANCE 04/07/22 [History Last Taken 04/06/22] potassium gluconate 595 mg (99 mg) tablet 595 mg PO DAILY SUPPLEMENT 04/07/22 [History Last Taken 04/06/22] pravastatin 40 mg tablet 80 mg PO QHS CHOLESTEROL #60 tabs 04/08/22 [Rx Last Taken Unknown] sulfamethoxazole 800 mg-trimethoprim 160 mg tablet 1 tab PO BID #14 TABLETS 08/07/22 [Rx Last Taken Unknown] Allergy/AdvReac Type Severity Reaction Status Date / Time cefadroxil hydrate Allergy Itching Verified 08/07/22 12:57 [From Duricef] piperacillin [From Zosyn] Allergy Hives Verified 08/07/22 12:57 tazobactam [From Zosyn] Allergy Hives Verified 08/07/22 12:57 erythromycin base AdvReac Vomiting Verified 08/07/22 12:57 Family History Grandmother Heart disease Grandfather CVA (cerebral vascular accident) Other Arthritis Cancer Hypertension Surgical History History of foot surgery History of left heart catheterization (LHC) (~06/23/12) History of tonsillectomy and adenoidectomy Social History Smoking Status: Former smoker alcohol intake: current alcohol intake frequency: a few times a month Alcohol type: hard liquor ROS ROS ED ROS Narrative REVIEW OF SYSTEMS: Unless otherwise stated in this report the patient's positive and negative responses for review of systems for constitutional, eyes, ENT, cardiovascular, respiratory, gastrointestinal, neurological, , musculoskeletal, and integument systems and related systems to the presenting problem are either stated in the history of present illness or were not pertinent or were negative for the symptoms and/or complaints related to the presenting medical problem. EXAM Physical Exam Narrative Exam Narrative: Vital signs reviewed and patient is not hypoxic. General: The patient appears well and in no apparent distress. Patient is resting comfortably on cart. Not toxic, lethargic, or listless. Skin: Warm, dry, no pallor noted. There is no rash noted. Patient has approxima tely a 3 cm and a 4 cm laceration to the medial aspect of his left hand, lateral to the left fifth metacarpal. CT procedure note for more exact measurements. Head: Normocephalic, atraumatic Eye: Normal conjunctiva, no drainage, EOMI. PERRL. Ears, Nose, Mouth, and Throat: oral mucosa is moist. Nares patent. Mouth without vesicles. Cardiovascular: Regular Rate and Rhythm, no murmurs, gallops, or rubs Respiratory: Patient is in no distress, no accessory muscle use, lungs are clear to auscultation, no wheezing, rales or rhonchi Back: non-tender, GI: Soft, no tenderness to palpation, no masses appreciated. No rebound, guarding, or rigidity noted. Musculoskeletal: The patient has full range of motion of all extremities and joints with no difficulty. Patient has no motor, no sensory deficits. Patient has superficial and deep flexor tendons intact of the left hand to his left fourth and fifth finger Neurological: A&O x4, normal speech, no focal neurological deficits. Psychiatric: Cooperative Const Vital Signs: 08/07/22 12:58 Temperature 98 F Temperature Source Temporal Pulse Rate 123 H Respiratory Rate 24 H Blood Pressure 170/112 H Blood Pressure Mean 131 Pulse Ox 99 Oxygen Delivery Method Room Air MDM MDM Radiography Chest X-Ray - ED: 2 View and Read by ED Physician (X-ray shows no foreign body, no fracture, no acute abnormality of the left hand.) Procedures Other Procedures Procedure(s): Laceration repair: Patient has 2 separate lacerations, each 3 cm, each approximately 0.5 cm deep. No foreign bodies noted. Done under sterile conditions. The use of Shur-Clens prep the area. Local injection with lidocaine 1% with epinephrine was used, approximately 7 cc. The wound was irrigated copiously with normal saline. The wound was explored there was no evidence of foreign material. The laceration was approximated with 4-0 nylon. Four simple interrupted sutures were placed into each laceration. Patient tolerated the procedure well. The patient was neurovascularly intact post. the patient had bacitracin applied to the laceration and a dry sterile dressing was place. The patient will need to follow-up in the next 7-10 days for removal. Discharge Plan Triage Chief Complaint: Upper Extremity Injury ED Provider: Marcos Orellana Dx/Rx/DC Orders Clinical Impression: Laceration of left hand without foreign body, Tetanus, diphtheria vaccination with 5 years in past Instructions: ED Laceration, Hand: All Closures, ED Wound Check (No Infection), ED Laceration Hand with ... Prescriptions: New sulfamethoxazole-trimethoprim [sulfamethoxazole-trimethoprim] 800-160 mg tablet 1 tab PO BID Qty: 14 0RF No Action metoprolol succinate 200 MG tablet extended release 24 hr 200 mg PO DAILY omeprazole 40 MG capsule 40 mg PO DAILY metformin 1,000 MG tablet 1,000 mg PO BID insulin glargine [Lantus Solostar U-100 Insulin] 100 unit/mL (3 mL) insulin pen 70 unit subcut QHS multivitamin Tablet 1 tab PO DAILY aspirin 325 mg Tablet 325 mg PO DAILY lisinopril 20 mg tablet 20 mg PO BID hydrochlorothiazide 25 mg tablet 25 mg PO DAILY insulin lispro [Humalog U-100 Insulin] 100 unit/mL solution 20 unit subcut TIDCM potassium gluconate 595 mg (99 mg) Tablet 595 mg PO DAILY amlodipine 10 mg tablet 10 mg PO DAILY pravastatin 40 mg tablet 80 mg PO QHS Qty: 60 2RF Primary Care Provider: Rocky Delgadillo Referrals: Rocky Delgadillo MD [Primary Care Provider] - Activity Restrictions/Additional Instructions: Use topical antibiotic ointment 2-3 times a day to help promote wound healing and help decrease risk of infection. Take antibiotics to help prevent infection. Your tetanus has been updated today. Follow-up with PCP on Wednesday or Wednesday for wound check. Sutures are out in 9 to 10 days. Tomorrow you can wash your hands, take a shower, but do not have your hand submerged underwater for an extensive amount of time until after 2 to 3 weeks.
[2022-08-07] MEDS: Smz/Tmp Ds Tablet 1 TABLET PO (13:25)
[2022-08-07] MEDS: Diphth,Pertuss(Acell),Tet Vac 0.5 ML Vial IM (13:25)
== END 2022-08-07 16:25 | disposition home or self-care (01) ==
PROVIDERS: Emergency Provider Emergency Medicine; PCP Family Medicine; Visit Provider Emergency Medicine
DX: S61.412A Laceration without foreign body of left hand, initial encounter (principal); E11.9 Type 2 diabetes mellitus without complications; I10 Essential (primary) hypertension; E78.5 Hyperlipidemia, unspecified; Z87.891 Personal history of nicotine dependence; W29.3XXA Contact with powered garden and outdoor hand tools and machinery, initial encounter; Z23 Encounter for immunization
CPT/HCPCS: 12002; 73130; 90471; 90715; 99282

== ENCOUNTER 2023-12-27 09:09 | Inpatient (IN) | payer MEDICAID, SELFPAY ==
[2023-12-27] VITALS (14 sets, daily range): BP systolic 128–189; BP diastolic 80–110; PULSE 90–110; RESP 15–98; TEMP 36.5–36.9; O2SAT 94–98; BMI 41.5; BMI 42.7
--- NOTE | 2023-12-27 09:11 | CT_ITS ---
INDICATION: Neuro deficit, acute, stroke suspected EXAMINATION: CT BRAIN - CT Head Stroke Protocol W/O Contrast Injection TECHNIQUE: Multiple axial images were obtained of the head without intravenous contrast. The protocol utilizes one or more of the following dose reduction techniques: automated exposure control, adjustment of mA and/or kV according to patient size,and/or use of iterative reconstruction technique. IV Contrast dosage and agent: None. RADIATION DOSAGE (If Supplied By Facility): CTDIvol = ( ) mGy, DLP = ( ) mGycm COMPARISON: FINDINGS: BRAIN PARENCHYMA: No intra- or extra-axial hemorrhage. No evidence of acute infarct. No intracranial mass or mass effect. There is preservation of the scott/white matter interface. Posterior fossa structures are unremarkable. CSF SPACES: Appropriate for age. No hydrocephalus. Basal cisterns are patent. CALVARIUM, SKULL BASE, PARANASAL SINUSES AND MASTOID AIR CELLS: Clear. No discrete lytic or blastic abnormalities. ORBITS: Both globes, extraocular muscles, optic nerves and retrobulbar fat appear unremarkable. ASPECTS Score for Acute Strokes: 10 CT/STROKE Brain/Head without Cont IMPRESSION: Negative Brain CT without contrast. N.B. : The above Results were Read Back by Manuel Chino MD to Sukhdev Rangel MD, and understanding confirmed on 12/27/2023 10:07:28 (ET). Electronically Signed: Manuel Chino MD at 10:08 EDT ,
--- NOTE | 2023-12-27 09:11 | RAD_ITS ---
STUDY: X-RAY CHEST REASON FOR EXAM: Male, 48 years old. Neuro deficit, acute, stroke suspected TECHNIQUE: Single AP portable view of the chest. COMPARISON: 04/07/2022 FINDINGS: The lungs are clear and expanded. There is no demonstrated pleural abnormality. Normal size heart. Normal mediastinum and truong. Normal visualized pulmonary arteries. Normal visualized aortic arch and descending thoracic aorta. Normal visualized thoracic spine. Normal visualized ribs, clavicles, and shoulders. There is no demonstrated abnormality of the visualized soft tissue structures of the upper abdomen. RAD/Chest 1 View IMPRESSION: Normal x-ray examination of the chest. Electronically Signed: Manuel Chino MD at 10:13 EDT ,
--- NOTE | 2023-12-27 09:11 | EKG12_ITS ---
Test Reason : STROKE ALERT Blood Pressure : / mmHG Vent. Rate : 094 BPM Atrial Rate : 094 BPM P-R Int : 190 ms QRS Dur : 106 ms QT Int : 364 ms P-R-T Axes : 041 045 033 degrees QTc Int : 455 ms Normal sinus rhythm Normal ECG Confirmed by Arthur Jarrett ([id number]), development editor MISSY NIEVES ([id number]) on 12/28/2023 8:28:45 AM Referred By: Confirmed By:Arthur Jarrett
--- NOTE | 2023-12-27 09:12 | CT_ITS ---
We are attempting to reach an attending provider to discuss findings. An addendum with communication details will be sent when the communication is complete. STUDY: CTA HEAD AND NECK WITH CONTRAST REASON FOR EXAM: Male, 48 years old. right sided deficits RADIATION DOSAGE (If Supplied By Facility): CTDIvol = ( 20.94 ) mGy, DLP = ( 825.06 ) mGycm TECHNIQUE: CT angiography was performed with a multi-detector CT scanner. Data acquisition was obtained from the skull base through the vertex following intravenous administration of IV 100mL [id number]-[id number]. MIP images were reconstructed from the axial data set. Post-processing of the angiographic images was performed, with multiplanar reformation and 3D reconstruction. Individualized dose optimization techniques were used for this CT. COMPARISON: No relevant priors. FINDINGS: Normal bilateral petrous carotid arteries. There is calcified plaque formation of the right cavernous carotid artery, without a cross-sectional luminal stenosis. There is calcified plaque formation of the left cavernous carotid artery, without a cross-sectional luminal stenosis. Normal right A1 segments of the anterior cerebral artery. Normal left A1 segments of the anterior cerebral artery. Normal intact anterior communicating artery (ACOM). Normal bilateral A2 segments of the anterior cerebral arteries. Normal right M1 and M2 segments of the middle cerebral arteries, with a normal M1 bifurcation. Normal left M1 and M2 segments of the middle cerebral arteries, with a normal M1 bifurcation. There is a persistent origin of the right posterior cerebral artery with absence of the posterior communicating artery (PCOM). Normal left posterior communicating artery (PCOM). Normal bilateral vertebral arteries. Normal basilar artery with a normal basilar bifurcation. The visualized bilateral superior cerebellar (SCA) arteries are normal. Normal bilateral P1, P2 and visualized P3 segments of the posterior cerebral arteries. There is no demonstrated aneurysm of the [place] of [place]. There is no demonstrated abnormality of the visualized brain. AORTIC ARCH: Normal visualized aortic arch. Normal origins of the brachiocephalic, left common carotid, and left subclavian arteries. RIGHT CAROTID ARTERIES: Normal right common carotid artery (CCA). There is moderate atherosclerotic plaque formation with moderate narrowing of the right carotid bulb. There is moderate atherosclerotic plaque formation of the origin of the right internal carotid artery with an estimated stenosis of 50-69% stenosis. Normal visualized cervical portion of the right internal carotid artery. Normal origin of the right external carotid artery (ECA). LEFT CAROTID ARTERIES: Normal left common carotid artery (CCA). There is moderate atherosclerotic plaque formation with moderate narrowing of the carotid bulb. There is mild atherosclerotic plaque formation of the origin of the left internal carotid artery with less than 50% cross sectional diameter stenosis. Normal visualized cervical portion of the left internal carotid artery. Normal origin of the left external carotid artery (ECA). VERTEBRAL ARTERIES: Normal bilateral vertebral arteries. CT/STROKE CTA Head AND Neck W/Con IMPRESSION: Normal CTA Head with contrast. Moderate (60%) stenosis right carotid stenosis. Mild (40%) left carotid stenosis. Patent vertebral arteries bilaterally. Electronically Signed: Manuel Chino MD at 10:49 EDT ,
--- NOTE | 2023-12-27 09:12 | EX.ED.DYSGE1 ---
HPI History of Present Illness Chief Complaint: Stroke Alert [facility] Medical History Acute sinusitis, unspecified Arthritis Atrial flutter Chest pain Congenital anomaly of coronary artery Depression Essential hypertension HTN (hypertension) Hyperlipidemia Hypertension Hyponatremia Intertrigo MSSA (methicillin susceptible Staphylococcus aureus) septicemia MEGAN (obstructive sleep apnea) Pharyngitis Radicular pain of right lower extremity Sepsis Smoker Super obese Type II diabetes mellitus URI (upper respiratory infection) Home Medications ?Medication ?Instructions ?Recorded ?Last Taken ?Type aspirin 325 mg tablet 325 mg PO DAILY HEART HEALTH 04/07/22 04/06/22 History Allergy/AdvReac Type Severity Reaction Status Date / Time cefadroxil hydrate (From Allergy Itching Verified 08/07/22 12:57 Duricef) piperacillin (From Zosyn) Allergy Hives Verified 08/07/22 12:57 tazobactam (From Zosyn) Allergy Hives Verified 08/07/22 12:57 erythromycin base AdvReac Vomiting Verified 08/07/22 12:57 Family History Grandmother Heart disease Grandfather CVA (cerebral vascular accident) Other Arthritis Cancer Hypertension Surgical History History of foot surgery History of left heart catheterization (LHC) (~06/23/12) History of tonsillectomy and adenoidectomy Social History Smoking Status: Former smoker alcohol intake: current alcohol intake frequency: a few times a month Alcohol type: hard liquor EXAM Physical Exam Const Vital Signs: 12/27/23 09:11 12/27/23 09:11 12/27/23 09:16 Temperature 98.2 F Temperature Source Oral Pulse Rate 110 H Respiratory Rate 18 Blood Pressure 147/89 H Blood Pressure Mean 108 Pulse Ox 98 Oxygen Delivery Method Room Air Room Air 12/27/23 09:41 12/27/23 10:09 12/27/23 10:11 Temperature 97.7 F L 97.8 F Temperature Source Oral Pulse Rate 95 97 96 Respiratory Rate 15 98 H 19 H Blood Pressure 143/80 H 128/83 H 128/83 H Blood Pressure Mean 101 98 98 Pulse Ox 98 94 95 Oxygen Delivery Method Room Air Room Air 12/27/23 11:00 12/27/23 11:10 Temperature Temperature Source Pulse Rate 91 96 Respiratory Rate 18 24 H Blood Pressure 153/85 H 153/85 H Blood Pressure Mean 107 107 Pulse Ox 95 96 Oxygen Delivery Method Room Air Room Air [facility] Narrative Medical decision making narrative: HISTORY OF PRESENT ILLNESS: 48-year-old male presents with concern for altered mental status and right-sided deficits. Per EMS via patient's family his last known well was 1 AM on 12/27/2023 approximately 7 hours prior to arrival. They state the patient was normal at 1 AM he woke up confused. They noted right-sided weakness as well as right-sided facial droop and difficulty speaking. They called EMS immediately. They endorse further history of the patient being noncompliant with home medications specifically insulin in the setting of type 2 diabetes given he has not had access to health insurance REVIEW OF SYSTEMS: Cannot obtain reliable review of systems from the patient as he has not alteration mental status. PHYSICAL EXAM: Nursing triage notes reviewed, Vital signs reviewed Constitutional: please see mdm HENT: MMM Eyes: Pupils equal round and reactive to light, Extraocular muscles intact Neck: No stridor, no JVD, full neck ROM Lungs: Clear to auscultation, No wheezing or rales. No increased work of breathing, no conversational dyspnea, no accessory muscle use, no nasal flaring. No respiratory distress noted Heart: Regular rate and rhythm, No murmurs, No rubs and No gallops, 2+ distal pulses (radial, femoral, posterior tibial) in all extremities Abdomen: Soft, there is no tenderness, rigidity, rebound or guarding, no obvious peritoneal signs, no palpable pulsatile abdominal masses, no auscultated abdominal bruit : No CVAT Extremities: No edema Neuro: Alert, oriented to person place and time. Sensation intact in the face, bilateral extremities decreased on the right. Strength . Noted right-sided facial drooping. NIH of 7 (dysarthria, aphasia, right-sided facial droop, right-sided upper and lower extremity weakness) Skin: No rash or lesions noted MEDICAL DECISION MAKING: Chief Complaint: Right-sided facial droop, speech difficulty, right-sided weakness Factors affecting care: type 2 diabetes, MEGAN, depression Social determinants of health: none History obtained from others: none Consults: Radiology, stroke neurology (Dr. Flowers), hospitalist (Dr. Villalpando) MDM Narrative: Patient was initially hemodynamically stable, tachycardic afebrile. Initial exam with right-sided deficits NIH of 7, concern for left MCA syndrome I considered the following differential diagnosis: LVO, CVA, ICH, Yoseph's paralysis, focal seizure Given patient's last well was in 24 hours he was taken emergently to CT scanner to obtain a Noncon CT of the head as well as a CTA. Although patient's last known well was greater than 4.5 hours. He was still a thrombectomy candidate. Dr. Flowers (stroke neurologist) recommended getting a stat MRI. If possible, if we could get a stat MRI then we could potentially consider thrombolytic. If we cannot get emergent MRI he recommended loading with aspirin and Plavix and admitting to the floor here at [facility] for risk factor modification and urgent MRI. ALL IMAGES (IF OBTAINED) HAVE BEEN PERSONALLY REVIEWED AND INTERPRETED BY MYSELF. CTA of the head neck, Noncon CT of the head showed no evidence of ICH or large vessel occlusion CBC without leukocytosis, severe anemia, no thrombocytopenia. Initial troponin elevated consistent with myocardial ischemia No coagulopathy BMP without evidence of significant electrolyte abnormalities, no anion gap, no acute kidney injury. I have personally reviewed the patient's chest x-ray. Chest x-ray is unremarkable for pulmonary edema, pneumothorax, pneumonia or focal cardiopulmonary abnormality. Spoke with recommended obtaining a stat MRI if possible. Depending on the MRI results he could recommend TNK possibly given a new trial called the awake trial. He noted if cannot get a stat MRI to admit the patient to the hospitalist and load with aspirin and Plavix. Called MRI at 948am. MRI department noted they would not be able to do an emergent MRI within the next hour. Given the patient cannot receive a stat MRI there is no indication for TNK. There is no large vessel occlusion noted on CTA to warrant a thrombectomy or transfer. Ordered aspirin and Plavix. Patient did not pass swallow screen so cannot receive Plavix in the emergency department. Patient will be admitted to PCU to undergo further stroke evaluation with MRI and risk factor modification. Discussed with hospitalist. The patient and/or family, caregivers express understanding. The patient and/or family, caregivers agrees with the plan. Shared decision making: I will have a discussion with the patient and or visitors regarding risk/benefits of further testing or admission. They will be made aware of of the risk/benefits inherent in this decision they will be given the opportunity to voice understanding. Total critical care time today provided was at least 0 minutes. This excludes separately billable procedures. Critical care time (if documented) is secondary to the patient having high probability of clinically significant/life threatening deterioration in the patient's condition which required my urgent intervention. Impression: 1. Acute CVA 2. History of hypertension 3. History of type 2 diabetes Dispo: Admit to PCU This note was generated with [employer] dictation software. It may contain incorrect words, spelling, and punctuation that were not noted in review of the chart prior to signing. Lab Data Labs: Laboratory Results - last 24 hr 12/27/23 09:15 WBC 7.8 RBC 5.49 Hgb 16.4 Hct 46.3 MCV 84.3 MCH 29.9 MCHC 35.4 RDW Std Deviation 36.2 RDW Coeff of Alysia 11.9 Plt Count 323 MPV 9.8 Immature Gran % (Auto) 0.300 Neut % (Auto) 66.2 Lymph % (Auto) 24.2 [place] % (Auto) 6.1 Eos % (Auto) 1.9 Baso % (Auto) 1.3 H Absolute Neuts (auto) 5.2 Absolute Lymphs (auto) 1.90 Nucleated RBC % 0 PT 13.2 INR 1.0 APTT 24.6 Sodium 138 Potassium 3.8 Chloride 100 Carbon Dioxide 25.0 Anion Gap 13 BUN 15 Creatinine 1.05 Estim Creat Clear Calc 121.62 Est GFR (MDRD) Af Amer 96 Est GFR (MDRD) Non-Af 79 BUN/Creatinine Ratio 14.3 Glucose 378 H Calcium 9.6 Troponin I High Sens 183 H* Radiography Diagnostic Testing: Clinical Impression(s) from Imaging Studies Brain CT 12/27/23 09:11 IMPRESSION: Negative Brain CT without contrast. N.B. : The above Results were Read Back by Manuel Chino MD to Sukhdev Rangel MD, and understanding confirmed on 12/27/2023 10:07:28 (ET). Electronically Signed: Manuel Chino MD at 10:08 EDT Reading Location ID and State: [id number] / [employer] , Service support , ADDENDUM: 12/27/23 1015 IMPRESSION: Negative Brain CT without contrast. N.B. : The above Results were Read Back by Manuel Chino MD to Sukhdev Rangel MD, and understanding confirmed on 12/27/2023 10:07:28 (ET). Electronically Signed: Manuel Chino MD at 10:08 EDT Reading Location ID and State: [id number] / [employer] , Service support , Chest X-Ray 12/27/23 09:11 IMPRESSION: Normal x-ray examination of the chest. Electronically Signed: Manuel Chino MD at 10:13 EDT Reading Location ID and State: [id number] / [employer] , Service support , Head/Neck CTA 12/27/23 09:12 IMPRESSION: Normal CTA Head with contrast. Moderate (60%) stenosis right carotid stenosis. Mild (40%) left carotid stenosis. Patent vertebral arteries bilaterally. Electronically Signed: Manuel Chino MD at 10:49 EDT Reading Location ID and State: [id number] / [employer] , Service support , ADDENDUM: 12/27/23 1100 IMPRESSION: Normal CTA Head with contrast. Moderate (60%) stenosis right carotid stenosis. Mild (40%) left carotid stenosis. Patent vertebral arteries bilaterally. N.B. : The above Results were Read Back by Manuel Chino MD to Sukhdev Rangel DO, and understanding confirmed on 12/27/2023 10:53:30 (ET). Electronically Signed: Manuel Chino MD at 10:49 EDT Reading Location ID and State: [id number] / [employer] , Service support , Discharge Plan Triage Chief Complaint: Stroke Alert ED Provider: Sukhdev Rangel Dx/Rx/DC Orders Primary Care Provider: Rocky Delgadillo
--- NOTE | 2023-12-27 09:20 | NURSING ---
[id number] CALLED STROKE ALERT PRIOR TO ARRIVAL
[2023-12-27 09:27] LABS: Absolute Neutrophil Count 5.2 X10^3/uL (2.0-7.7); Basophil% 1.3 % (0-1); Eosinophil# 0.15 X10^3/uL; Eosinophils% 1.9 % (0-5); Hematocrit 46.3 % (40-54); Hemoglobin 16.4 g/dL (13.0-16.5); Lymphocyte % 24.2 % (19-41); Mean Corp Hgb Conc 35.4 g/dL (32-36); Mean Corpuscular Hgb 29.9 pg (27.0-32.0); Mean Corpuscular Volume 84.3 fL (80-94); Mean Platelet Vol. 9.8 fl (6.2-12.0); Monocyte# 0.48 X10^3/uL; Monocyte% 6.1 % (0-10); NRBC Flagged by Analyzer 0 % (0-5); Neutrophil # 5.19 X10^3/uL (2.7-7.7); Neutrophil % 66.2 % (47-70); Platelet Count 323 K/mm3 (150-450); RBC Distribution Width CV 11.9 % (11.6-14.6); RBC Distribution Width SD 36.2 fl (35.1-43.9); Red Blood Count 5.49 M/mm3 (4.6-6.2); White Blood Count 7.8 K/mm3 (4.4-11.0)
[2023-12-27 09:43] LABS: Prothrombin Time (Protime)PT. 13.2 SECONDS (11.7-14.9)
[2023-12-27 09:44] LABS: Partial Thromboplast Time 24.6 Seconds (24.1-36.2)
--- NOTE | 2023-12-27 09:44 | MRI_ITS ---
We are attempting to reach an attending provider to discuss findings. An addendum with communication details will be sent when the communication is complete. EXAM: MR HEAD WITHOUT INTRAVENOUS CONTRAST CLINICAL INDICATION: CVA TECHNIQUE: Multiplanar and multisequence MR images of the brain were obtained without intravenous contrast. COMPARISON: CT head and CT angiogram head and neck on the same date. FINDINGS: LIMITATIONS: The examination is limited in part due to motion related artifacts. BRAIN AND EXTRA-AXIAL SPACES: There is an acute infarct involving the anterior lateral left thalamus and the posterior limb of the left internal capsule measuring up to approximately 2.4 cm. Punctate, 2 to 3 mm foci of restricted diffusion within the left caudate nucleus and left back radiata are present also consistent with acute infarcts. These infarcts are at least 8 hours of age characterized by T2 and T2 FLAIR hyperintensity. Chronic lacunar infarct in the right thalamus. Periventricular and subcortical T2 and T2 FLAIR hyperintensities are nonspecific although most commonly due to chronic microvascular ischemic changes in a patient of this age. No intracranial mass or mass effect. No shift in midline structures. No hydrocephalus. Patent basal cisterns. Posterior fossa structures are unremarkable. No acute intracranial hemorrhage is present. SELLA: No significant abnormality. Normal sella turcica, pituitary gland, infundibular stalk, optic chiasm and hypothalamus. AUDITORY SYSTEM: No significant abnormality. The internal auditory canals are patent. BONES/JOINTS: No significant abnormality. No discrete lytic or blastic abnormalities. SINUSES: Trace mucosal thickening in the paranasal sinuses. MASTOID AIR CELLS: Normal as visualized. Clear. ORBITS: Normal as visualized. Both globes, extraocular muscles, optic nerves and retrobulbar fat appear unremarkable. VASCULATURE: Normal as visualized. Normal flow voids in the major intracranial circulation. MRI/Brain without Contrast IMPRESSION: 1. There is an acute infarct involving the anterior lateral left thalamus and the posterior limb of the left internal capsule measuring up to approximately 2.4 cm. Punctate, 2 to 3 mm foci of restricted diffusion within the left caudate nucleus and left back radiata are present also consistent with acute infarcts. 2. Additional chronic ischemic changes. Electronically Signed: Graham Bradford DO at 20:45 EDT ,
[2023-12-27 09:51] LABS: Anion Gap 13 (5-15); BUN 15 mg/dL (7-18); BUN/Creat Ratio 14.3 RATIO (10-20); Calcium,Total 9.6 mg/dL (8.5-10.1); Chloride 100 mmol/L (98-107); Creatinine, Serum 1.05 mg/dL (0.70-1.30); EST Glomerular Filtration Rate 79 mL/min (>60); Est Glom Filt Rate - Afr Amer 96 mL/min (>60); Estimated Creatinine Clearance 121.62 ml/min; Glucose 378 mg/dL (74-106); Potassium 3.8 mmol/L (3.5-5.1); Sodium Level 138 mmol/L (136-145); Troponin-I HS 183 pg/mL (3.0-78.0)
--- NOTE | 2023-12-27 11:12 | HP.PCM.HOS_ITS ---
HPI - General General Date of Admission: 12/27/23 Date of Service: 12/27/23 Chief Complaint: altered mental status, right sided deficits HPI Narrative BUBBA STEVENSON, is a 48 M with a PMH as outlined who presents via the ED on 12/27/2023 with a complaint of altered mental status and right sided weakness. His last known was well ~ 7 hours prior to him coming in to the ED, at ~ 1am on 01/01/2024. He woke up confused on the day of presentation, with right sided weakness and a right sided facial droop. History was mainly taken from his daugther and his ex as patient was confused and had garbled speech. According to his ex-, she found him this morning confused. He said nothing he was saying was making sense. He also noted that he could not move his right arm and had some slight movement in his right leg. He therefore called the EMS due to concerns about a stroke and he was brought into the ED. His ex- and daughter had not noticed any shortness of breath, cough, chest pain, palpitations, dizziness, nausea vomiting or any other symptoms. He has a history of hypertension and type 2 diabetes mellitus. According to his ex- and daughter, he lost his insurance about a year ago and so had not been on any medications for his blood pressure and diabetes for the whole year. Review of systems otherwise negative. Vitals in the ED were BP of 153/85, CO of 96, RR of 24 and oxygen sats of 96% on room air. CBC was unremarkable. INR was 1. Chemistry was significant for glucose of 378 and initial troponin of 183. CXR showed no acute cardiopulmonary pathology. CTA head and neck showed moderate (60%) stenosis of the right carotid artery and mild (40%) stenosis of the left carotid artery, with patent vertebral arteries bilaterally. CT of the brain showed no acute intracranial pathology. [facility] telestroke neurologist reviewed patient and did not think he was a candidate for stroke. The neurologist had requested for stat MRI but this could not be done [facility]. He has been admitted to be managed for probable acute stroke. [facility], [facility] Medical History Acute sinusitis, unspecified Arthritis Atrial flutter Chest pain Congenital anomaly of coronary artery Depression Essential hypertension HTN (hypertension) Hyperlipidemia Hypertension Hyponatremia Intertrigo MSSA (methicillin susceptible Staphylococcus aureus) septicemia MEGAN (obstructive sleep apnea) Pharyngitis Radicular pain of right lower extremity Sepsis Smoker Super obese Type II diabetes mellitus URI (upper respiratory infection) Home Medications ?Medication ?Instructions ?Recorded ?Last Taken ?Type aspirin 325 mg tablet 325 mg PO DAILY HEART HEALTH 04/07/22 04/06/22 History multivitamin (Daily Multi-Vitamin 1 tab PO DAILY suppplementation 12/27/23 12/26/23 History tablet) Allergy/AdvReac Type Severity Reaction Status Date / Time cefadroxil hydrate (From Allergy Itching Verified 08/07/22 12:57 Duricef) piperacillin (From Zosyn) Allergy Hives Verified 08/07/22 12:57 tazobactam (From Zosyn) Allergy Hives Verified 08/07/22 12:57 erythromycin base AdvReac Vomiting Verified 08/07/22 12:57 Family History Grandmother Heart disease Grandfather CVA (cerebral vascular accident) Other Arthritis Cancer Hypertension Surgical History History of foot surgery History of left heart catheterization (LHC) (~06/23/12) History of tonsillectomy and adenoidectomy Social History Smoking Status: Former smoker alcohol intake: current alcohol intake frequency: a few times a month Alcohol type: hard liquor ROS ROS Narrative unable to get review of systems from patient due to his confusion and garbled speech. Mainly obtained from his ex and daughter. Constitutional Constitutional: Reports weakness; Denies anorexia, chills, fatigue or night sweats Eyes Eyes: Denies blurry vision or change in vision ENT HEENT: Denies dysphagia, headache(s) or sore throat Cardiovascular Cardiovascular: Reports chest pain; Denies dyspnea on exertion, edema, lightheadedness, orthopnea or palpitations Respiratory/Chest Respiratory/Chest: Denies cough, dyspnea, productive cough, shortness of breath at rest or shortness of breath with exertion Gastrointestinal Gastrointestinal: Denies abdominal pain, constipation or diarrhea Genitourinary Genitourinary: Denies burning urination or dysuria Musculoskeletal Musculoskeletal: Denies arthralgias or joint pain Neurologic Neurologic: Reports abnormal speech, confusion and focal weakness; Denies disequilibrium, dizziness, headache(s), numbness, paresthesias, seizure-like activity, seizures, syncope, tingling or tremor(s) Psychiatric Psychiatric: Denies anxiety or depression Endocrine Endocrinology: Denies change in body appearance Hematologic/Lymphatic Hematologic/Lymphatic: Denies anemia Vital Signs Vital Signs Vital Signs: 12/27/23 09:11 12/27/23 09:11 12/27/23 09:16 Temperature 98.2 F Temperature Source Oral Pulse Rate 110 H Respiratory Rate 18 Blood Pressure 147/89 H Blood Pressure Mean 108 Pulse Ox 98 Oxygen Delivery Method Room Air Room Air 12/27/23 09:41 12/27/23 10:09 12/27/23 10:11 Temperature 97.7 F L 97.8 F Temperature Source Oral Pulse Rate 95 97 96 Respiratory Rate 15 98 H 19 H Blood Pressure 143/80 H 128/83 H 128/83 H Blood Pressure Mean 101 98 98 Pulse Ox 98 94 95 Oxygen Delivery Method Room Air Room Air 12/27/23 11:00 12/27/23 11:10 Temperature Temperature Source Pulse Rate 91 96 Respiratory Rate 18 24 H Blood Pressure 153/85 H 153/85 H Blood Pressure Mean 107 107 Pulse Ox 95 96 Oxygen Delivery Method Room Air Room Air Weight Weight: 306 lb 7.08 oz Body Mass Index (BMI) 41.5 Physical Exam Const alert Constitutional Narrative: confused, speech is slurred and confused. Obese General Appearance: cooperative Orientation / Consciousness: confused HEENT normocephalic, head/scalp atraumatic and hearing grossly normal bilaterally Mouth: oral and palatal mucosa normal Eyes PERRL, EOMs intact bilaterally and conjunctivae normal Neck no lymphadenopathy and supple Resp normal respiratory effort, no retractions, no use of accessory muscles and clear to auscultation bilaterally Cardio regular rate, regular rhythm, S1 normal heart sound, S2 normal heart sound and no murmurs GI normal to inspection, nondistended, normoactive bowel sounds, soft to palpation, non-tender and non-distended Extremity normal to inspection Extremity Narrative: RLE power is 3+/5; power in RUE is 2/5 Neuro Neuro Narrative: confused, lethargic, has expressive aphasia and dysarthria, power in RLE is 3+/5, and power in RUE is 2/5; initact sensation. rest of CN II-XII intact NIHSS was 14 at time of review. Results Lab / Micro Data 12/27/23 09:15 12/27/23 09:15 Labs: Laboratory Results - last 24 hr 12/27/23 09:15: WBC 7.8, RBC 5.49, Hgb 16.4, Hct 46.3, MCV 84.3, MCH 29.9, MCHC 35.4, RDW Std Deviation 36.2, RDW Coeff of Alysia 11.9, Plt Count 323, MPV 9.8, Immature Gran % (Auto) 0.300, Neut % (Auto) 66.2, Lymph % (Auto) 24.2, Casey % (Auto) 6.1, Eos % (Auto) 1.9, Baso % (Auto) 1.3 H, Absolute Neuts (auto) 5.2, Absolute Lymphs (auto) 1.90, Nucleated RBC % 0, PT 13.2, INR 1.0, APTT 24.6, Sodium 138, Potassium 3.8, Chloride 100, Carbon Dioxide 25.0, Anion Gap 13, BUN 15, Creatinine 1.05, Estim Creat Clear Calc 121.62, Est GFR (MDRD) Af Amer 96, Est GFR (MDRD) Non-Af 79, BUN/Creatinine Ratio 14.3, Glucose 378 H, Calcium 9.6, Troponin I High Sens 183 H* Imaging Radiology Impression Brain CT 12/27/23 09:11 IMPRESSION: Negative Brain CT without contrast. N.B. : The above Results were Read Back by Manuel Chino MD to Sukhdev Rangel MD, and understanding confirmed on 12/27/2023 10:07:28 (ET). Electronically Signed: Manuel Chino MD at 10:08 EDT , ADDENDUM: 12/27/23 1015 IMPRESSION: Negative Brain CT without contrast. N.B. : The above Results were Read Back by Manuel Chino MD to Sukhdev Rangel MD, and understanding confirmed on 12/27/2023 10:07:28 (ET). Electronically Signed: Manuel Chino MD at 10:08 EDT Reading Location ID and State: [email or web address] / [facility] Tel , Service support , Chest X-Ray 12/27/23 09:11 IMPRESSION: Normal x-ray examination of the chest. Electronically Signed: Manuel Chino MD at 10:13 EDT Reading Location ID and State: [employer] / [facility] , Service support , Head/Neck CTA 12/27/23 09:12 IMPRESSION: Normal CTA Head with contrast. Moderate (60%) stenosis right carotid stenosis. Mild (40%) left carotid stenosis. Patent vertebral arteries bilaterally. Electronically Signed: Manuel Chino MD at 10:49 EDT Reading Location ID and State: [employer] / [facility] , Service support , ADDENDUM: 12/27/23 1100 IMPRESSION: Normal CTA Head with contrast. Moderate (60%) stenosis right carotid stenosis. Mild (40%) left carotid stenosis. Patent vertebral arteries bilaterally. N.B. : The above Results were Read Back by Manuel Chino MD to Sukhdev Rangel DO, and understanding confirmed on 12/27/2023 10:53:30 (ET). Electronically Signed: Manuel Chino MD at 10:49 EDT Reading Location ID and State: [id number] / [facility] , Service support , Assessment & Plan Assessment/Plan (1) Elevated troponin: (2) Stroke-like symptoms: PLAN: Plan #Altered mental status and right sided weakness with right facial droop * concerning for acute CVA * admit to PCU * CT of the brain showed no acute intracranial pathology * MRI of the brain ordered and pending * CTA head and neck showed moderate 60% stenosis of hte right carotid artery and mild 40% stenosis of the left carotid artery, with patent vertebral arteries bilaterally. * NIHSS is 14 * PO aspirin 81mg daily, PO plavix. * give high intensity statin * order MRI of the brain. * 2D echo * PT/OT consult. * hold BP meds to allow for permissive hypertension * keep NPO until patient passes swallow evaluation. * Fall precautions. * consult [facility] neurology * #Elevated troponin * Patient denies any chest pain. EKG showed no acute ST changes * cycle troponins. * already started on PO aspirin and statin and 2D echo ordered * Initial troponin was 183 and trended downwards to 160. He does have a history of chronically elevated troponin from 2022. 2D echo ordered. He does admit to some mild chest pain but that has subsequently resolved. * Will consult cardiology to get their recommendations, with the patient will benefit from cardiac catheter otherwise. * EKG showed no acute ST changes. * Will check D-dimer to see if it is elevated. * #Type 2 diabetes mellitus * poorly controlled. Glucose is 378 on admission * has not been compliant with his meds in 1 year due to insurance issues * High-dose insulin sliding scale. * Check A1c * Last A1c on 03/18/2022 per records was 11.8. * #Hypertension: * Has not been taking his meds for over a year because of loss of insurance. He does not remember which medications he takes. * Allow for permissive hypertension now so will not start any long-term BP meds. IV labetalol as needed per stroke protocol. * Will start oral BP meds tomorrow if blood pressure remains elevated. * 2D echo ordered * #Morbid obesity: BMI is 41.6. Complicates acute care, expected recovery and prognosis. #MEGAN: not compliant with his CPAP. Daughter says usually gets chest pain if he does not wear his CPAP. DVT prophylaxis: lovenox Code status: full code * Patient's daughter who is his next of kin counseled extensively about different types of CODE STATUS including full code, DNR CCA and DNR CCA. * Patient's daughter who is his next of kin wants him to be full code. * Patient still confused to be able to have CODE STATUS discussion * total [id number] time 19 minutes. Charges/Coding Visit Charges Inpatient E&M: 08416 Init Hosp L3 Procedures Hospitalists Procedures: 43636 Advncd Care Plan 30 Min
--- NOTE | 2023-12-27 11:14 | NURSING ---
DR JASMYNE LUCERO
--- NOTE | 2023-12-27 11:50 | CM.ED ---
Social Work Presented to patient's room after stroke alert. Patient's daughter present and another woman present in room. Patient laying in bed, dozing in and out of sleep. Attempted to engage patient in conversation, but patient sleepy and having a difficult time staying awake; speech garbled. Daughter reports this is not usual for patient. Emotional support offered and got patient's daughter some water at her request. Patient to be admitted to acute medical floor. Care Management team available on medical floors for any discharge planning needs or support that may arise. -GRANT Longoria
--- NOTE | 2023-12-27 13:27 | ECHOCS_ITS ---
Reason For Study: TIA/CVA Procedure This was a 2D Doppler, Color Flow transthoracic echocardiogram. Contrast injection was performed. The study was technically difficult. Exam performed portable in patient room. Left Ventricle Normal LV size. The estimated ejection fraction is 65 %. No evidence for diastolic dysfunction. No regional wall motion abnormalities noted. Right Ventricle Normal RV size. Normal systolic function. Atria The left and right atria are normal. No doppler evidence for ASD. Mitral Valve There is no mitral valve stenosis. No mitral valve insufficiency. Tricuspid Valve There is no tricuspid stenosis. No tricuspid valve insufficiency. Aortic Valve Trisinus/trileaflet aortic valve. There is no aortic stenosis. No aortic valve insufficiency. Pulmonic Valve There is no pulmonic valvular stenosis. No pulmonic valve insufficiency. Great Vessels Normal aortic root. Pericardium/Pleural No pericardial effusion. Medication Diluted definity 4.5ml given slow IV push to enhance endocardial definition. IV malfunctioning- limited Definity images. MMode/2D Measurements & Calculations LVIDd: 3.8 cm IVSd: 1.6 cm LVOT diam: 2.4 cm LVIDs: 2.0 cm LVPWd: 1.2 cm RVDd: 3.7 cm FS: 48.1 % LVOT area: 4.5 cm2 asc Aorta Diam: 3.9 cm LAV(MOD-bp): 51.5 ml LVAd ap4: 44.2 cm2 LAV(MOD-bp) Indexed: 20.2 ml/m2 LVLd ap4: 10.0 cm LAV(MOD-sp2): 51.8 ml EDV(MOD-sp4): 158.3 ml LAV(MOD-sp4): 50.9 ml EDV(sp4-el): 165.9 ml LVAs ap4: 23.4 cm2 LVLs ap4: 7.4 cm ESV(MOD-sp4): 59.0 ml ESV(sp4-el): 62.5 ml EF(MOD-sp4): 62.7 % EF(sp4-el): 62.3 % LVAd ap2: 35.5 cm2 SV(MOD-sp4): 99.3 ml SV(MOD-sp2): 62.6 ml LVLd ap2: 9.6 cm EDV(MOD-sp2): 106.8 ml EDV(sp2-el): 111.3 ml LVAs ap2: 21.4 cm2 LVLs ap2: 8.3 cm ESV(MOD-sp2): 44.1 ml ESV(sp2-el): 46.5 ml EF(MOD-sp2): 58.7 % SV(sp4-el): 103.4 ml Ao sinus diam: 3.[address] Junction: 2.9 cm LA dimension(2D): 3.8 cm LA A4 area: 18.7 cm2 RA A4 area: 11.8 cm2 TAPSE: 2.6 cm Time Measurements MV dec time: 0.32 sec Doppler Measurements & Calculations MV E max david: 63.1 cm/sec Lat Peak E' David: 10.3 cm/sec Med Peak E' David: 7.2 cm/sec MV A max david: 97.4 cm/sec E/E' lat: 6.2 E/E' med: 8.8 MV E/A: 0.65 MV dec slope: 197.0 cm/sec2 Ao V2 max: 122.5 cm/sec LV V1 max: 111.8 cm/sec Ao max P.0 mmHg LV V1 max P.0 mmHg Ao V2 mean: 89.3 cm/sec LV V1 mean P.2 mmHg Ao mean P.4 mmHg LV V1 mean: 87.2 cm/sec Ao V2 VTI: 19.1 cm LV V1 VTI: 20.4 cm AV (velocity ratio): 1.1 TIP(I,D): 4.8 cm2 TIP(V,D): 4.1 cm2 SV(LVOT): 92.3 ml PA V2 max: 102.4 cm/sec PA max PG (full): 1.7 mmHg ECHO/Echo Complete W/ Contrast Interpretation Summary The estimated ejection fraction is 65 %. No evidence for diastolic dysfunction. Ordering Physician: Loree Villalpando Performed By: Nely iFgueroa RDCS
[2023-12-27 14:54] LABS: Troponin-I HS 160 pg/mL (3.0-78.0)
[2023-12-27] MEDS: Aspirin 300 MG Suppository RC (16:02)
[2023-12-27 16:24] LABS: Bedside Glucose 293 mg/dL (74-106)
[2023-12-27 17:01] LABS: Troponin-I HS 158 pg/mL (3.0-78.0)
--- NOTE | 2023-12-27 17:44 | PCM.CONS.C ---
Assessment & Plan Assessment/Plan (1) Stroke-like symptoms: PLAN: Patient has presented with right-sided weakness consistent with a CVA outside the window for thrombolytic therapy. He does have some limited movement in his right lower extremity and right upper extremity. Further treatment including decision on anticoagulation be deferred to the primary service and neurology. The patient does not have any indication at this time for oral long-term anticoagulation based on his cardiac status. The patient is on antiplatelet therapy in his home environment with an aspirin daily. Will obtain complete echocardiogram with bubble study. (2) Elevated troponin: PLAN: Patient's troponins are minimally elevated most probably related to stress induced issues from his stroke. He had minimal coronary disease on catheterization 2 years ago. He does have significant risk factors for coronary disease. At this point time I would not recommend any further invasive evaluation for an ischemic event. The patient should have an echocardiogram to evaluate his LV function and due to his CVA. (3) Type II diabetes mellitus: QUALIFIERS: Diabetes mellitus manager long term care insulin use: without manager long term care use Diabetes mellitus complication status: with circulatory complication Diabetes mellitus complication detail: with other circulatory complications Qualified Code(s): E11.59 - Type 2 diabetes mellitus with other circulatory complications PLAN: Patient's diabetes is managed to the primary service. We need to find therapies that he can afford and assist him with obtaining medical therapy. (4) MEGAN (obstructive sleep apnea): PLAN: Patient will continue utilizing his CPAP machine. PLAN: Plan 1. Obtain 2D echocardiogram with bubble study. 2. Monitor for future ischemic events. 3. Will follow-up in the [facility] once he is discharged. HPI Consult Data Date of Consult: 12/27/23 HPI Narrative HPI Narrative: BUBBA STEVENSON, is a 48 M who presents CVA today. The patient was outside the window for thrombolytic therapy on presentation. His EKG revealed normal sinus rhythm at 94 bpm and was normal. This was at 10:29 AM. The patient's troponin was minimally elevated at 164 and dropped to 158 on the second enzyme check. The patient denies any chest pain. It is difficult to communicate with him episodically he has normal speech other times it is difficult to understand. He has noted some minimal recovery he can move his right lower extremity he can squeeze his right hand but he cannot lift his arm much at all. The patient's telemetry shows normal sinus rhythm at 90 bpm there is no evidence of atrial fibrillation since his admission. 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 The patient actually lost his insurance coverage and has been off all of his diabetic and hypertensive medications for about a year. His blood pressure is elevated on admission. The patient was only taking an aspirin and a multivitamin a day at home. The patient does have a history of obstructive sleep apnea and he is on CPAP in his home environment. He did bring his CPAP machine with him to the hospital. [facility] Medical History Acute sinusitis, unspecified Arthritis Atrial flutter Chest pain Congenital anomaly of coronary artery Depression Essential hypertension HTN (hypertension) Hyperlipidemia Hypertension Hyponatremia Intertrigo MSSA (methicillin susceptible Staphylococcus aureus) septicemia MEGAN (obstructive sleep apnea) Pharyngitis Radicular pain of right lower extremity Sepsis Smoker Super obese Type II diabetes mellitus URI (upper respiratory infection) Home Medications ?Medication ?Instructions ?Recorded ?Last Taken ?Type aspirin 325 mg tablet 325 mg PO DAILY [facility] 04/07/22 04/06/22 History multivitamin (Daily Multi-Vitamin 1 tab PO DAILY suppplementation 12/27/23 12/26/23 History tablet) Allergy/AdvReac Type Severity Reaction Status Date / Time cefadroxil hydrate (From Allergy Itching Verified 08/07/22 12:57 Duricef) piperacillin (From Zosyn) Allergy Hives Verified 08/07/22 12:57 tazobactam (From Zosyn) Allergy Hives Verified 08/07/22 12:57 erythromycin base AdvReac Vomiting Verified 08/07/22 12:57 Family History Grandmother Heart disease Grandfather CVA (cerebral vascular accident) Other Arthritis Cancer Hypertension Surgical History History of foot surgery History of tonsillectomy and adenoidectomy History of left heart catheterization (LHC) (~06/23/12) Social History Smoking Status: Former smoker alcohol intake: current alcohol intake frequency: a few times a month Alcohol type: hard liquor ROS Review of Systems ROS Unobtainable: due to mental status and other Details: Reviewed with the patient's daughter and son. Constitutional Constitutional: Reports systems reviewed and no addt'l complaints, except as documented Eyes Eyes: Reports systems reviewed and no addt'l complaints, except as documented ENT HEENT: Reports systems reviewed and no addt'l complaints, except as documented Cardiovascular Cardiovascular: Reports as per HPI Respiratory/Chest Respiratory/Chest: Reports as per HPI Gastrointestinal Gastrointestinal: Reports systems reviewed and no addt'l complaints, except as documented Genitourinary Genitourinary: Reports systems reviewed and no addt'l complaints, except as documented Musculoskeletal Musculoskeletal: Reports as per HPI Integumentary Integumentary: Reports systems reviewed and no addt'l complaints, except as documented Neurologic Neurologic: Reports as per HPI Psychiatric Psychiatric: Reports systems reviewed and no addt'l complaints, except as documented Endocrine Endocrinology: Reports as per HPI Hematologic/Lymphatic Hematologic/Lymphatic: Reports systems reviewed and no addt'l complaints, except as documented Allergic/Immunologic Allergic/Immunologic: Reports systems reviewed and no addt'l complaints, except as documented Physical Exam Const Constitutional Narrative: Patient is lethargic with obvious favoring weakness of his right side. HEENT normocephalic Eyes EOMs intact bilaterally Neck no carotid bruits Resp normal respiratory effort Auscultation: crackles bilateral base Cardio Cardio Narrative: Distant heart tones due to body habitus. Rate: regular rate Rhythm: regular rhythm Heart Sounds: S1 normal and S2 normal; Negative for click, gallop or murmur GI soft to palpation and no bruits Extremity no pedal edema Neuro Neuro Narrative: The patient is obviously weak on the right side right upper extremity more impacted than the right lower extremity. Risk Stratification Risk Stratification Applicable: Yes Age >/= 65: No >/= 3 CAD Risk Factors (HTN, HLD, DM, family hx of CAD, or current smoker): Yes Aspirin Use in the Past 7 Days: Yes Severe Angina (>/= episodes in 24 hours): No EKG ST Changes >/= 0.5mm: No Positive Cardiac Marker: Yes WAYNE Risk Stratification Score: 3 WAYNE % Risk: 13% Risk Charges/Coding Visit Charges Inpatient E&M: 02652 Init Hosp L2 Objective Data Vital Signs: Vital Signs Temp Pulse Resp BP Pulse Ox O2 Del Method 98.4 F 91 16 189/110 H 96 Room Air 12/27/23 17:10 12/27/23 17:10 12/27/23 17:10 12/27/23 17:10 12/27/23 17:10 12/27/23 17:10 Oxygen Delivery Method Room Air Weight: 315 lb 4.176 oz Body Mass Index (BMI) 42.7 Intake & Output: Intake and Output for Last 24 Hours 12/25/23 12/26/23 12/27/23 23:59 23:59 23:59 Intake Total 0 / 0 Balance 0 / 0 Lab / Micro Data Attestation: I reviewed the patient's lab results. 12/27/23 09:15 12/27/23 09:15 Labs: Laboratory Results - last 24 hr 12/27/23 09:15: WBC 7.8, RBC 5.49, Hgb 16.4, Hct 46.3, MCV 84.3, MCH 29.9, MCHC 35.4, RDW Std Deviation 36.2, RDW Coeff of Alysia 11.9, Plt Count 323, MPV 9.8, Immature Gran % (Auto) 0.300, Neut % (Auto) 66.2, Lymph % (Auto) 24.2, [place] % (Auto) 6.1, Eos % (Auto) 1.9, Baso % (Auto) 1.3 H, Absolute Neuts (auto) 5.2, Absolute Lymphs (auto) 1.90, Nucleated RBC % 0, PT 13.2, INR 1.0, APTT 24.6, Sodium 138, Potassium 3.8, Chloride 100, Carbon Dioxide 25.0, Anion Gap 13, BUN 15, Creatinine 1.05, Estim Creat Clear Calc 121.62, Est GFR (MDRD) Af Amer 96, Est GFR (MDRD) Non-Af 79, BUN/Creatinine Ratio 14.3, Glucose 378 H, Calcium 9.6, Troponin I High Sens 183 H* 12/27/23 14:15: Troponin I High Sens 160 H* 12/27/23 16:01: POC Glucose 293 H 12/27/23 16:15: Troponin I High Sens 158 H* Rhythm Strip Rhythm Strip: Sinus Rhythm Rate: 90 Cardiology Labs/Tests 12/27/23 09:15: WBC 7.8, RBC 5.49, Hgb 16.4, Hct 46.3, MCV 84.3, MCH 29.9, MCHC 35.4, Plt Count 323, MPV 9.8, Immature Gran % (Auto) 0.300, Neut % (Auto) 66.2, Lymph % (Auto) 24.2, [place] % (Auto) 6.1, Eos % (Auto) 1.9, Baso % (Auto) 1.3 H, Absolute Neuts (auto) 5.2, Nucleated RBC % 0, PT 13.2, INR 1.0, APTT 24.6, Sodium 138, Potassium 3.8, Chloride 100, Carbon Dioxide 25.0, Anion Gap 13, BUN 15, Creatinine 1.05, Est GFR (MDRD) Af Amer 96, Est GFR (MDRD) Non-Af 79, BUN/Creatinine Ratio 14.3, Glucose 378 H, Calcium 9.6 Rhythm: EKG: ECHO: Stress Test: Cardiac Cath: PCI: CT Surgery: Holter monitor: EPS: PPM: CXR: Chest CT Scan: Radiography Diagnostic Testing: Radiology Impression Brain CT 12/27/23 09:11 IMPRESSION: Negative Brain CT without contrast. N.B. : The above Results were Read Back by Manuel Chino MD to Sukhdev Rangel MD, and understanding confirmed on 12/27/2023 10:07:28 (ET). Electronically Signed: Manuel Chino MD at 10:08 EDT , ADDENDUM: 12/27/23 1015 IMPRESSION: Negative Brain CT without contrast. N.B. : The above Results were Read Back by Manuel Chino MD to Sukhdev Rangel MD, and understanding confirmed on 12/27/2023 10:07:28 (ET). Electronically Signed: Manuel Chino MD at 10:08 EDT , Chest X-Ray 12/27/23 09:11 IMPRESSION: Normal x-ray examination of the chest. Electronically Signed: Manuel Chino MD at 10:13 EDT Reading Location ID and State: [phone] / [employer] Tel , Service support , Head/Neck CTA 12/27/23 09:12 IMPRESSION: Normal CTA Head with contrast. Moderate (60%) stenosis right carotid stenosis. Mild (40%) left carotid stenosis. Patent vertebral arteries bilaterally. Electronically Signed: Manuel Chino MD at 10:49 EDT Reading Location ID and State: [phone] / [employer] Tel , Service support , ADDENDUM: 12/27/23 1100 IMPRESSION: Normal CTA Head with contrast. Moderate (60%) stenosis right carotid stenosis. Mild (40%) left carotid stenosis. Patent vertebral arteries bilaterally. N.B. : The above Results were Read Back by Manuel Chino MD to Sukhdev Rangel DO, and understanding confirmed on 12/27/2023 10:53:30 (ET). Electronically Signed: Manuel Chino MD at 10:49 EDT Reading Location ID and State: [phone] / [employer] Tel , Service support ,
[2023-12-27 20:34] LABS: Troponin-I HS 164 pg/mL (3.0-78.0)
--- NOTE | 2023-12-27 21:24 | PCM.PN.HOSP ---
Reason for Visit Reason for Visit: Diagnoses Type 2 diabetes mellitus with other circulatory complications (12/27/23) Obstructive sleep apnea (adult) (pediatric) (12/27/23) Unspecified symptoms and signs involving the nervous system (12/27/23) Other specified abnormalities of plasma proteins (12/27/23) Subjective Subjective notified by radiologist pt is outside the window for thrombolytic therapy There is an acute infarct involving the anterior lateral left thalamus and the posterior limb of the left internal capsule measuring up to approximately 2.4 cm. Punctate, 2 to 3 mm foci of restricted diffusion within the left caudate nucleus and left back radiata are present also consistent with acute infarcts. Objective Data Objective Data Vital Signs: Vital Signs Temp Pulse Resp BP Pulse Ox O2 Del Method 98.4 F 91 16 189/110 H 96 Room Air 12/27/23 17:10 12/27/23 17:10 12/27/23 17:10 12/27/23 17:10 12/27/23 17:10 12/27/23 17:10 Oxygen Delivery Method Room Air Weight: 315 lb 4.176 oz Body Mass Index (BMI) 42.7 Intake & Output: Intake and Output for Last 24 Hours 12/25/23 12/26/23 12/27/23 23:59 23:59 23:59 Intake Total 0 / 0 Balance 0 / 0 Lab / Micro Data 12/27/23 09:15 12/27/23 09:15 Labs: Laboratory Results - last 24 hr 12/27/23 09:15: WBC 7.8, RBC 5.49, Hgb 16.4, Hct 46.3, MCV 84.3, MCH 29.9, MCHC 35.4, RDW Std Deviation 36.2, RDW Coeff of Alysia 11.9, Plt Count 323, MPV 9.8, Immature Gran % (Auto) 0.300, Neut % (Auto) 66.2, Lymph % (Auto) 24.2, [place] % (Auto) 6.1, Eos % (Auto) 1.9, Baso % (Auto) 1.3 H, Absolute Neuts (auto) 5.2, Absolute Lymphs (auto) 1.90, Nucleated RBC % 0, PT 13.2, INR 1.0, APTT 24.6, Sodium 138, Potassium 3.8, Chloride 100, Carbon Dioxide 25.0, Anion Gap 13, BUN 15, Creatinine 1.05, Estim Creat Clear Calc 121.62, Est GFR (MDRD) Af Amer 96, Est GFR (MDRD) Non-Af 79, BUN/Creatinine Ratio 14.3, Glucose 378 H, Calcium 9.6, Troponin I High Sens 183 H* 12/27/23 14:15: Troponin I High Sens 160 H* 12/27/23 16:01: POC Glucose 293 H 12/27/23 16:15: Troponin I High Sens 158 H* 12/27/23 20:00: Troponin I High Sens 164 H* Radiography Diagnostic Testing: Radiology Impression Brain CT 12/27/23 09:11 IMPRESSION: Negative Brain CT without contrast. N.B. : The above Results were Read Back by Manuel Chino MD to Sukhdev Rangel MD, and understanding confirmed on 12/27/2023 10:07:28 (ET). Electronically Signed: Manuel Chino MD at 10:08 EDT Reading Location ID and State: [phone] / [employer] , Service support , ADDENDUM: 12/27/23 1015 IMPRESSION: Negative Brain CT without contrast. N.B. : The above Results were Read Back by Manuel Chino MD to Sukhdev Rangel MD, and understanding confirmed on 12/27/2023 10:07:28 (ET). Electronically Signed: Manuel Chino MD at 10:08 EDT Reading Location ID and State: [phone] / [employer] , Service support , Chest X-Ray 12/27/23 09:11 IMPRESSION: Normal x-ray examination of the chest. Electronically Signed: Manuel Cihno MD at 10:13 EDT Reading Location ID and State: [phone] / [employer] , Service support , Head/Neck CTA 12/27/23 09:12 IMPRESSION: Normal CTA Head with contrast. Moderate (60%) stenosis right carotid stenosis. Mild (40%) left carotid stenosis. Patent vertebral arteries bilaterally. Electronically Signed: Manuel Chino MD at 10:49 EDT , ADDENDUM: 12/27/23 1100 IMPRESSION: Normal CTA Head with contrast. Moderate (60%) stenosis right carotid stenosis. Mild (40%) left carotid stenosis. Patent vertebral arteries bilaterally. N.B. : The above Results were Read Back by Manuel Chino MD to Sukhdev Rangel DO, and understanding confirmed on 12/27/2023 10:53:30 (ET). Electronically Signed: Manuel Chino MD at 10:49 EDT , Brain MRI 12/27/23 09:44 IMPRESSION: 1. There is an acute infarct involving the anterior lateral left thalamus and the posterior limb of the left internal capsule measuring up to approximately 2.4 cm. Punctate, 2 to 3 mm foci of restricted diffusion within the left caudate nucleus and left back radiata are present also consistent with acute infarcts. 2. Additional chronic ischemic changes. Electronically Signed: Graham Bradford DO at 20:45 EDT , Rhythm Strip Rhythm Strip: Sinus Rhythm Rate: 90
[2023-12-27] MEDS: Atorvastatin Calcium 80 MG Tablet PO (22:11)
[2023-12-27 22:25] LABS: Bedside Glucose 271 mg/dL (74-106)
[2023-12-28] VITALS (9 sets, daily range): BP systolic 151–188; BP diastolic 91–113; PULSE 80–95; RESP 14–18; TEMP 36.3–36.8; O2SAT 94–98; BMI 42.7
[2023-12-28] MEDS: Insulin Lispro 100 UNIT/ML INSULN.PEN SC ×4 (06:11→22:12)
[2023-12-28 06:33] LABS: Absolute Lymphocyte Count 2.64 X10^3/uL (0.83-4.51); Absolute Neutrophil Count 5.2 X10^3/uL (2.0-7.7); Basophil% 1.1 % (0-1); Eosinophil# 0.18 X10^3/uL; Eosinophils% 2.1 % (0-5); Hematocrit 44.9 % (40-54); Hemoglobin 15.9 g/dL (13.0-16.5); Lymphocyte # 2.64 X10^3/ul (0.83-4.51); Lymphocyte % 30.1 % (19-41); Mean Corp Hgb Conc 35.4 g/dL (32-36); Mean Corpuscular Hgb 30.6 pg (27.0-32.0); Mean Corpuscular Volume 86.3 fL (80-94); Mean Platelet Vol. 9.8 fl (6.2-12.0); Monocyte# 0.62 X10^3/uL; Monocyte% 7.1 % (0-10); NRBC Flagged by Analyzer 0 % (0-5); Neutrophil # 5.19 X10^3/uL (2.7-7.7); Neutrophil % 59.1 % (47-70); Platelet Count 300 K/mm3 (150-450); RBC Distribution Width SD 38.1 fl (35.1-43.9); White Blood Count 8.8 K/mm3 (4.4-11.0)
[2023-12-28 06:48] LABS: Bedside Glucose 264 mg/dL (74-106)
[2023-12-28 06:49] LABS: Anion Gap 11 (5-15); BUN 16 mg/dL (7-18); BUN/Creat Ratio 20.8 RATIO (10-20); Calcium,Total 9.5 mg/dL (8.5-10.1); Chloride 104 mmol/L (98-107); Cholesterol 225 mg/dL (200); Creatinine, Serum 0.77 mg/dL (0.70-1.30); EST Glomerular Filtration Rate 113 mL/min (>60); Est Glom Filt Rate - Afr Amer 137 mL/min (>60); Estimated Creatinine Clearance 168.44 ml/min; Glucose 275 mg/dL (74-106); High Density Lipoprotein 38 mg/dL; Potassium 3.9 mmol/L (3.5-5.1); Sodium Level 139 mmol/L (136-145); Triglycerides 161 mg/dL; Very Low Density Lipoprotein 32 mg/dL (5-40)
[2023-12-28 08:44] LABS: Hemoglobin A1c 11.2 % (3.8-5.6)
[2023-12-28] MEDS: Clopidogrel Bisulfate 75 MG Tablet PO (09:38)
[2023-12-28] MEDS: Aspirin 81 MG TAB.CHEW PO (09:38)
--- NOTE | 2023-12-28 10:14 | NS ---
Rema RAINEY, informed RD that pt's diet was updated to reflect their consistency/texture recommendation, 1:1 supervision, cut food into small pieces. Will adjust therapeutic diet order to cardiac, 2000 calorie controlled to better manage current medical conditions. Reviewed and approved by Mary Curry, MS, RD, LD.
--- NOTE | 2023-12-28 10:43 | CASEMGMT ---
Social Work PHQ-9 completed, pt scored a 5. Pt attributes the symptoms more to what is going on medically. However pt has had some depression, has tried depression meds but states it has not helped. Pt open to resources for mental health services, resources given. ARIEL Quevedo
--- NOTE | 2023-12-28 10:53 | PCM.PN.CARD ---
Subjective Subjective The patient is resting comfortably in bed. He has regained some movement of his right arm he is now able to raise it up above his shoulder level he does he is able to cloth bleaching range back tender with his right hand and he can raise his right leg off the bed. He continues to have some issues with speech. The family member in the room reported that speech therapy had been there today. The patient's echocardiogram was done this morning results are pending at this time. Objective Data Vital Signs: Vital Signs Temp Pulse Resp BP Pulse Ox O2 Del Method 97.4 F L 89 14 162/99 H 96 Room Air 12/28/23 09:27 12/28/23 09:27 12/28/23 09:27 12/28/23 09:27 12/28/23 08:12 12/28/23 09:30 Oxygen Delivery Method Room Air Weight: 315 lb 4.176 oz Body Mass Index (BMI) 42.7 Intake & Output: Intake and Output for Last 24 Hours 12/26/23 12/27/23 12/28/23 23:59 23:59 23:59 Intake Total 0 / 0 Balance 0 / 0 Lab / Micro Data Attestation: I reviewed the patient's lab results. 12/28/23 05:43 12/28/23 05:43 Labs: Laboratory Results - last 24 hr 12/27/23 14:15: Troponin I High Sens 160 H* 12/27/23 16:01: POC Glucose 293 H 12/27/23 16:15: Troponin I High Sens 158 H* 12/27/23 20:00: Troponin I High Sens 164 H* 12/27/23 22:04: POC Glucose 271 H 12/28/23 05:43: WBC 8.8, RBC 5.20, Hgb 15.9, Hct 44.9, MCV 86.3, MCH 30.6, MCHC 35.4, RDW Std Deviation 38.1, RDW Coeff of Alysia 12.0, Plt Count 300, MPV 9.8, Immature Gran % (Auto) 0.500, Neut % (Auto) 59.1, Lymph % (Auto) 30.1, [place] % (Auto) 7.1, Eos % (Auto) 2.1, Baso % (Auto) 1.1 H, Absolute Neuts (auto) 5.2, Absolute Lymphs (auto) 2.64, Nucleated RBC % 0, Sodium 139, Potassium 3.9, Chloride 104, Carbon Dioxide 24.0, Anion Gap 11, BUN 16, Creatinine 0.77, Estim Creat Clear Calc 168.44, Est GFR (MDRD) Af Amer 137, Est GFR (MDRD) Non-Af 113, BUN/Creatinine Ratio 20.8 H, Glucose 275 H, Hemoglobin A1c 11.2 H, Calcium 9.5, Triglycerides 161, Cholesterol 225 H, LDL Cholesterol 155 H, VLDL Cholesterol 32, HDL Cholesterol 38 L 12/28/23 06:10: POC Glucose 264 H Rhythm Strip Rhythm Strip: Sinus Rhythm Rate: 88 Cardiology Labs/Tests 12/28/23 05:43: WBC 8.8, RBC 5.20, Hgb 15.9, Hct 44.9, MCV 86.3, MCH 30.6, MCHC 35.4, Plt Count 300, MPV 9.8, Immature Gran % (Auto) 0.500, Neut % (Auto) 59.1, Lymph % (Auto) 30.1, [place] % (Auto) 7.1, Eos % (Auto) 2.1, Baso % (Auto) 1.1 H, Absolute Neuts (auto) 5.2, Nucleated RBC % 0, Sodium 139, Potassium 3.9, Chloride 104, Carbon Dioxide 24.0, Anion Gap 11, BUN 16, Creatinine 0.77, Est GFR (MDRD) Af Amer 137, Est GFR (MDRD) Non-Af 113, BUN/Creatinine Ratio 20.8 H, Glucose 275 H, Hemoglobin A1c 11.2 H, Calcium 9.5, Triglycerides 161, Cholesterol 225 H, LDL Cholesterol 155 H, VLDL Cholesterol 32, HDL Cholesterol 38 L Rhythm: EKG: ECHO: Stress Test: Cardiac Cath: PCI: CT Surgery: Holter monitor: EPS: PPM: CXR: Chest CT Scan: Radiography Diagnostic Testing: Radiology Impression Head/Neck CTA 12/27/23 09:12 IMPRESSION: Normal CTA Head with contrast. Moderate (60%) stenosis right carotid stenosis. Mild (40%) left carotid stenosis. Patent vertebral arteries bilaterally. Electronically Signed: Manuel Chino MD at 10:49 EDT , ADDENDUM: 12/27/23 1100 IMPRESSION: Normal CTA Head with contrast. Moderate (60%) stenosis right carotid stenosis. Mild (40%) left carotid stenosis. Patent vertebral arteries bilaterally. N.B. : The above Results were Read Back by Manuel Chino MD to Sukhdev Rangel DO, and understanding confirmed on 12/27/2023 10:53:30 (ET). Electronically Signed: Manuel Chino MD at 10:49 EDT , Brain MRI 12/27/23 09:44 IMPRESSION: 1. There is an acute infarct involving the anterior lateral left thalamus and the posterior limb of the left internal capsule measuring up to approximately 2.4 cm. Punctate, 2 to 3 mm foci of restricted diffusion within the left caudate nucleus and left back radiata are present also consistent with acute infarcts. 2. Additional chronic ischemic changes. Electronically Signed: Graham Bradford DO at 20:45 EDT , ADDENDUM: 12/27/238 IMPRESSION: 1. There is an acute infarct involving the anterior lateral left thalamus and the posterior limb of the left internal capsule measuring up to approximately 2.4 cm. Punctate, 2 to 3 mm foci of restricted diffusion within the left caudate nucleus and left back radiata are present also consistent with acute infarcts. 2. Additional chronic ischemic changes. N.B. : The above Results were Read Back by Graham Bradford DO to Chencho Cortse MD, and understanding confirmed on 12/27/2023 21:21:16 (ET). Electronically Signed: Graham Bradford DO at 20:45 EDT , Physical Exam Const alert Constitutional Narrative: Expressive aphasia noted HEENT normocephalic Eyes EOMs intact bilaterally Neck no JVD Chest inspection of chest normal Cardio regular rate and regular rhythm Extremity Extremity Narrative: Patient able to raise his right arm and right leg. Neuro Neuro Narrative: Patient able to raise his right arm and right leg today. Assessment & Plan Assessment/Plan (1) Elevated troponin: PLAN: Patient's troponins were minimally elevated. He denies any chest pain denied having any chest pain upon presentation. The echocardiogram is pending at this time to evaluate his LV function. The echocardiogram done today showed an ejection fraction of 65% with no significant valvular heart disease and no evidence of ASD/PFO. The patient had a previous transesophageal echocardiogram in 2017 with a bubble study that showed no evidence of a PFO. Both atria are of normal size. (2) Stroke-like symptoms: PLAN: Patient continues to show some improvement in his motor situation with range being able to raise his right arm and right leg today. Further treatment physical therapy and workup at the discretion of the primary service. PLAN: Plan 1. No further cardiac evaluation is indicated at this time. 2. The patient should follow-up in the [facility] on a as needed basis. Charges/Coding Visit Charges Inpatient E&M: 96214 Subs Hosp L2
--- NOTE | 2023-12-28 11:30 | CASEMGMT ---
WILLOW WOO Assessment: Face to Face with pt for initial transition planning/care coordination assessment. RN CHILO introduced self and role at [facility], pt voices understanding and consents to assessment. Pt is A&O x4 and answers all questions appropriately at this time. Pt lying in bed in no distress, ex- sitting in chair next to pt. Pt agreeable to answering questions with ex- present. Care providers, pharmacy, and demographics verified/updated. Strata: 2 Admitting Dx: Acute CVA PCP: Elie Specialists: EVELIN Preferred Pharmacy: [facility] Insurance: No insurance coverage, applied for JO ANN - Pending. Prescription Benefit: yes LNOK: Mother, Amber; Daughter, Cristine. Living Arrangements: Pt lives with ex-, daughter, ELENA and 2 grand kids in a 2 story home with a few steps to enter. ADLs: I at baseline with ADLs and IADLs. Transportation: Pt drives self and denies concerns with transportation. DME: BiPap, cane, glucometer and supplies, walker, shower chair. HHC/SNF: Denies hx of. Pt would like OP PT and OT. Pt states no further concerns/needs. CM to follow. Advised pt to ask CM if any further question/concerns/needs arise, voices understanding. Pt Goal: Home with OP therapy Plan: Home with OP therapy, follow plan of care. Bruno DAUGHERTY CM
[2023-12-28 11:49] LABS: Bedside Glucose 369 mg/dL (74-106)
--- NOTE | 2023-12-28 12:32 | PN_ITS ---
Subjective Subjective Patient seen and examined. His daughter and ex- were by his bedside. Patient speech is clear and he is more alert today but he still remains confused. Even though he was able to answer questions related to review of systems, he could not tell me where he was and thought his ex- was his mother was stopped. He did know who his daughter was. The weakness in his right upper extremity is improving he is able to move it much better. Review of systems otherwise negative. Objective Data Objective Data Vital Signs: Vital Signs Temp Pulse Resp BP Pulse Ox O2 Del Method 97.4 F L 89 14 162/99 H 96 Room Air 12/28/23 09:27 12/28/23 09:27 12/28/23 09:27 12/28/23 09:27 12/28/23 08:12 12/28/23 09:30 Oxygen Delivery Method Room Air Weight: 315 lb 4.176 oz Body Mass Index (BMI) 42.7 Intake & Output: Intake and Output for Last 24 Hours 12/26/23 12/27/23 12/28/23 23:59 23:59 23:59 Intake Total 0 / 0 Balance 0 / 0 Lab / Micro Data 12/28/23 05:43 12/28/23 05:43 Labs: Laboratory Results - last 24 hr 12/27/23 14:15: Troponin I High Sens 160 H* 12/27/23 16:01: POC Glucose 293 H 12/27/23 16:15: Troponin I High Sens 158 H* 12/27/23 20:00: Troponin I High Sens 164 H* 12/27/23 22:04: POC Glucose 271 H 12/28/23 05:43: WBC 8.8, RBC 5.20, Hgb 15.9, Hct 44.9, MCV 86.3, MCH 30.6, MCHC 35.4, RDW Std Deviation 38.1, RDW Coeff of Alysia 12.0, Plt Count 300, MPV 9.8, Immature Gran % (Auto) 0.500, Neut % (Auto) 59.1, Lymph % (Auto) 30.1, [place] % (Auto) 7.1, Eos % (Auto) 2.1, Baso % (Auto) 1.1 H, Absolute Neuts (auto) 5.2, Absolute Lymphs (auto) 2.64, Nucleated RBC % 0, Sodium 139, Potassium 3.9, Chloride 104, Carbon Dioxide 24.0, Anion Gap 11, BUN 16, Creatinine 0.77, Estim Creat Clear Calc 168.44, Est GFR (MDRD) Af Amer 137, Est GFR (MDRD) Non-Af 113, BUN/Creatinine Ratio 20.8 H, Glucose 275 H, Hemoglobin A1c 11.2 H, Calcium 9.5, Triglycerides 161, Cholesterol 225 H, LDL Cholesterol 155 H, VLDL Cholesterol 32, HDL Cholesterol 38 L 12/28/23 06:10: POC Glucose 264 H 12/28/23 11:19: POC Glucose 369 H Radiography Diagnostic Testing: Radiology Impression Brain MRI 12/27/23 09:44 IMPRESSION: 1. There is an acute infarct involving the anterior lateral left thalamus and the posterior limb of the left internal capsule measuring up to approximately 2.4 cm. Punctate, 2 to 3 mm foci of restricted diffusion within the left caudate nucleus and left back radiata are present also consistent with acute infarcts. 2. Additional chronic ischemic changes. Electronically Signed: Graham Bradford DO at 20:45 EDT , ADDENDUM: 12/27/232127 IMPRESSION: 1. There is an acute infarct involving the anterior lateral left thalamus and the posterior limb of the left internal capsule measuring up to approximately 2.4 cm. Punctate, 2 to 3 mm foci of restricted diffusion within the left caudate nucleus and left back radiata are present also consistent with acute infarcts. 2. Additional chronic ischemic changes. N.B. : The above Results were Read Back by Graham Bradford DO to Chencho Cortes MD, and understanding confirmed on 12/27/2023 21:21:16 (ET). Electronically Signed: Graham Bradford DO at 20:45 EDT , Echocardiogram 12/27/23 13:27 Interpretation Summary The estimated ejection fraction is 65 %. No evidence for diastolic dysfunction. Ordering Physician: Loree Villalpando Performed By: Nely Figueroa RDCS Rhythm Strip Rhythm Strip: Sinus Rhythm Rate: 88 Physical Exam Const alert Constitutional Narrative: Remains confused. Speech is much better and he still has some occasional expressive aphasia. Obese General Appearance: cooperative Orientation / Consciousness: confused HEENT normocephalic, head/scalp atraumatic and hearing grossly normal bilaterally Eyes PERRL, EOMs intact bilaterally and conjunctivae normal Neck no lymphadenopathy and supple Resp normal respiratory effort, no retractions, no use of accessory muscles and clear to auscultation bilaterally Cardio regular rate, regular rhythm, S1 normal heart sound, S2 normal heart sound and no murmurs GI normal to inspection, nondistended, normoactive bowel sounds, soft to palpation, non-tender and non-distended Extremity normal to inspection Extremity Narrative: Power in right upper and right lower extremity is 4/5 General Extremity: no tenderness to palpation of joints or extremities Skin General Skin Exam: no breakdown Neuro Neuro Narrative: Confused, expressive aphasia and dysarthria has improved significantly. Power in right upper and right lower extremity is 4/5. Sensation is intact. Psych Psych Narrative: confused. Assessment & Plan Assessment/Plan (1) Elevated troponin: (2) Stroke-like symptoms: PLAN: Plan #Altered mental status and right sided weakness with right facial droop due to acute CVA * CT of the brain showed no acute intracranial pathology * MRI of the brain showed an acute infarct of the anterior left lateral thalamus and posterior limb of the left internal capsule measuring about 2.4 cm and punctate 2 to 3 mm foci of restricted diffusion within the left caudate nucleus and left back radiata also concerning for acute infarcts. He had a chronic lacunar infarct in the right thalamus * CTA head and neck showed moderate 60% stenosis of the right carotid artery and mild 40% stenosis of the left carotid artery, with patent vertebral arteries bilaterally. * PO aspirin 81mg daily, PO plavix. * On high intensity statin. 2D echo done and pending. * Will resume BP meds. Patient has not been compliant with his medications for a year because he lost his insurance. * [facility] neurology consulted. PT OT on board. * Speech therapy also on board. He did fail swallow evaluation yesterday but per speech she did better today and so he has been put on a diet. * * #Elevated troponin * Patient denies any chest pain. EKG showed no acute ST changes * cycle troponins. * already started on PO aspirin and statin and 2D echo ordered * Initial troponin was 183 and trended downwards to 160. He does have a history of chronically elevated troponin from 2022. 2D echo ordered. He does admit to some mild chest pain but that has subsequently resolved. * Cardiology reviewed patient and thought this might be a peak troponin leak from his stroke. 2D echo pending and no further evaluation ordered per cardiology. * 2D echo showed EF of 65% with no evidence of diastolic dysfunction and no regional wall abnormalities noted. * #Type 2 diabetes mellitus * poorly controlled. Glucose is 378 on admission * has not been compliant with his meds in 1 year due to insurance issues * High-dose insulin sliding scale. * A1c is 11.2. Patient started on a diet today so we will place patient on Lantus 10 units twice daily. * Last A1c on 03/18/2022 per records was 11.8. * #Hypertension: * Has not been taking his meds for over a year because of loss of insurance. He does not remember which medications he takes. * BP remains elevated with systolic in the 1 150s to 170s systolic * Start patient on p.o. lisinopril 20 mg daily as well as p.o. metoprolol 25 mg twice daily. Will monitor BP and adjust meds as needed. IV hydralazine as needed * 2D echo as above * #Morbid obesity: BMI is 41.6. Complicates acute care, expected recovery and prognosis. #MEGAN: not compliant with his CPAP. CPAP qhs DVT prophylaxis: lovenox Code status: full code * P Charges/Coding Visit Charges Inpatient E&M: 65690 Subs Hosp L3
--- NOTE | 2023-12-28 15:06 | CASEMGMT ---
SW went to patient's room to provide self pay resources. Patient was sleeping, but patient's mom was present. SW left the self pay resources and also explained that SW/CM will watch for his d/c medications and check the cost. SW explained if the cost is too much [facility] may be able to assist. Patient's mom said she will pass along this information. Lorena Almanzar MORTUARY OPERATIONS MANAGER [employer]FFANIE
[2023-12-28 16:13] LABS: Bedside Glucose 304 mg/dL (74-106)
[2023-12-28] MEDS: Metoprolol Tartrate 25 MG Tablet PO (22:11)
[2023-12-28] MEDS: Atorvastatin Calcium 80 MG Tablet PO (22:12)
[2023-12-28 22:38] LABS: Bedside Glucose 279 mg/dL (74-106)
[2023-12-29] VITALS (7 sets, daily range): BP systolic 132–182; BP diastolic 78–103; PULSE 74–98; RESP 18; TEMP 35.9–36.9; O2SAT 95–98; BMI 42.7
--- NOTE | 2023-12-29 00:57 | CON.PCM.NE_ITS ---
Assessment and Plan: Stroke Assessment/Plan BUBBA STEVENSON is a 48 M with a history of noncompliance, sleep apnea morbid obesity who presents for evaluation of weakness. Neurological examination shows BIH 0. Neuroimaging shows L thalamic infarct. Cryptogenic. Stroke in young workup. Hypercoag panel. Elevated A1c - endo c/s goal <7 LDL <70 DAPT x 21 days then plavix Follow up with sleep. CPAP Smoking cessation - Anti-platelet medication: Aspirin 81 mg daily - Occupational/ Physical therapy consults - DVT prophylaxis with SCDs and heparin SQ - Vascular risk factor modification. 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 BP management should aim to achieve nursing home contorl in a reasonable amount of time, taking into consideration the individual patient's requirements and characteristics. Weight Management: Goal for BMI is 18.5 -24.9 kg/m2 Alcohol: No more than 2 drinks/day for men or 1 drink/day for non- women - Promote lifestyle modification: weight control, physical activity, moderation of alcohol intake, moderate sodium intake. Followup with PCP in 1-2 weeks, and in Neurology clinic in 6-12 weeks HPI Consult Data Date of Consult: 12/29/23 HPI Narrative HPI Narrative: BUBBA STEVENSON, is a 48 M who presents [facility] Medical History Acute sinusitis, unspecified Arthritis Atrial flutter Chest pain Congenital anomaly of coronary artery Depression Essential hypertension HTN (hypertension) Hyperlipidemia Hypertension Hyponatremia Intertrigo MSSA (methicillin susceptible Staphylococcus aureus) septicemia MEGAN (obstructive sleep apnea) Pharyngitis Radicular pain of right lower extremity Sepsis Smoker Super obese Type II diabetes mellitus URI (upper respiratory infection) Home Medications ?Medication ?Instructions ?Recorded ?Last Taken ?Type aspirin 325 mg tablet 325 mg PO DAILY HEART HEALTH 04/07/22 04/06/22 History multivitamin (Daily Multi-Vitamin 1 tab PO DAILY suppplementation 12/27/23 12/26/23 History tablet) Allergy/AdvReac Type Severity Reaction Status Date / Time cefadroxil hydrate (From Allergy Itching Verified 08/07/22 12:57 Duricef) piperacillin (From Zosyn) Allergy Hives Verified 08/07/22 12:57 tazobactam (From Zosyn) Allergy Hives Verified 08/07/22 12:57 erythromycin base AdvReac Vomiting Verified 08/07/22 12:57 Family History Grandmother Heart disease Grandfather CVA (cerebral vascular accident) Other Arthritis Cancer Hypertension Surgical History History of foot surgery History of tonsillectomy and adenoidectomy History of left heart catheterization (LHC) (~06/23/12) Social History Smoking Status: Former smoker alcohol intake: current alcohol intake frequency: a few times a month Alcohol type: hard liquor Vital Signs Vital Signs Vital Signs: 12/28/23 01:10 12/28/23 03:04 12/28/23 05:10 Temperature 98.2 F 98.1 F Temperature Source Oral Oral Pulse Rate 95 90 Pulse Strength Respiratory Rate 17 18 Respiratory Effort Normal Non-Labored Respiratory Depth Normal Respiratory Pattern Normal Blood Pressure 173/107 H 152/91 H Blood Pressure Mean 129 111 Blood Pressure Source Monitor Monitor Blood Pressure Position Semi-Fowlers Semi-Fowlers Blood Pressure Location Left Arm Left Arm Pulse Ox 97 98 Oxygen Delivery Method Room Air Room Air Room Air 12/28/23 08:12 12/28/23 09:27 12/28/23 09:30 Temperature 97.4 F L Temperature Source Temporal Pulse Rate 89 Pulse Strength Respiratory Rate 14 Respiratory Effort Respiratory Depth Respiratory Pattern Blood Pressure 162/99 H Blood Pressure Mean 120 Blood Pressure Source Monitor Blood Pressure Position Sitting Blood Pressure Location Right Arm Pulse Ox 96 Oxygen Delivery Method Room Air Room Air Room Air 12/28/23 13:55 12/28/23 14:00 12/28/23 18:02 Temperature 97.6 F L 97.8 F Temperature Source Temporal Oral Pulse Rate 91 88 Pulse Strength Respiratory Rate 14 16 Respiratory Effort Respiratory Depth Respiratory Pattern Blood Pressure 188/113 H 151/102 H Blood Pressure Mean 138 118 Blood Pressure Source Monitor Monitor Blood Pressure Position Supine Sitting Blood Pressure Location Right Forearm Right Forearm Pulse Ox 97 96 Oxygen Delivery Method Room Air Room Air Room Air 12/28/23 22:00 12/28/23 22:00 12/28/23 22:00 Temperature 97.6 F L Temperature Source Temporal Pulse Rate 81 Pulse Strength Normal (2+) Respiratory Rate 17 Respiratory Effort Normal Non-Labored Respiratory Depth Normal Respiratory Pattern Normal Blood Pressure 168/96 H Blood Pressure Mean 120 Blood Pressure Source Monitor Blood Pressure Position Sitting Blood Pressure Location Right Forearm Pulse Ox 98 Oxygen Delivery Method Room Air Room Air 12/28/23 22:11 Temperature Temperature Source Pulse Rate 80 Pulse Strength Respiratory Rate Respiratory Effort Respiratory Depth Respiratory Pattern Blood Pressure 168/96 H Blood Pressure Mean Blood Pressure Source Blood Pressure Position Blood Pressure Location Pulse Ox Oxygen Delivery Method Weight Weight: 143 kg Body Mass Index (BMI) 42.7 EEG Results Procedure Details EEG Procedure Details: BUBBA STEVENSON is a 48 year old M with a past medical history of , who presents for evaluation of Electroencephalogram on DATE at TIME NIHSS NIHSS Nursing Documentation NIHSS Nursing Documentation: NIHSS: Ischemic Stroke/TIA Start: 12/27/23 13:27 Text: For PCU Patients: NIH and Neuro Check every 4 Status: Active hours, PRN and with change in RN caregiver. Freq: [id number] Protocol: Activity Type Activity Date Activity User E-sign Co-sign Detail Recorded Client Recorded Date Recorded By Document 12/28/23 22:00 KW [id number] 12/28/23 22:21 KW 12/28/23 22:00 NIH Stroke Scale [NIHSS] A score of 0 is normal or asymptomatic . Total possible score is 42. Inpatient: RN or Physician to activate a stroke alert for onset of new stroke symptoms or with NIHSS increase >/= 3 points. Following change in neurological status, NIHSS will be performed per physician order or more frequently PRN. -1a. Level of Consciousness Alert; keenly responsive -1b. LOC Questions Answers one question correctly. -1c. LOC Commands Performs both tasks correctly . -2. Best Gaze Normal -3. Visual Partial hemianopia -4. Facial Palsy Normal symmetrical movements -5a. Left Arm No drift; arm holds 90 (or 45 ) degrees for full 10 seconds -5b. Right Arm No drift; arm holds 90 (or 45 ) degrees for full 10 seconds -6a. Left Leg No drift; leg holds 30-degree position for full 5 seconds -6b. Right Leg No drift; leg holds 30-degree position for full 5 seconds -7. Limb Ataxia Present in 1 limb -8. Sensory Normal; no sensory loss -9. Best Language Mild-to- moderate aphasia; -10. Dysarthria Mild-to- moderate dysarthria; -11. Extinction and Inattention No abnormality -Total 5 Query Text:A score of 0 is normal or asymptomatic. Total possible score is 42 . ED: Notify Physician for NIHSS increase by > / = 3 points. Inpatient: RN or Physician to activate a stroke alert for NIHSS increase of > / = 3 points. Lab / Micro Data 12/28/23 05:43 12/28/23 05:43 Labs: Laboratory Results - last 24 hr 12/28/23 05:43: WBC 8.8, RBC 5.20, Hgb 15.9, Hct 44.9, MCV 86.3, MCH 30.6, MCHC 35.4, RDW Std Deviation 38.1, RDW Coeff of Alysia 12.0, Plt Count 300, MPV 9.8, Immature Gran % (Auto) 0.500, Neut % (Auto) 59.1, Lymph % (Auto) 30.1, [place] % (Auto) 7.1, Eos % (Auto) 2.1, Baso % (Auto) 1.1 H, Absolute Neuts (auto) 5.2, Absolute Lymphs (auto) 2.64, Nucleated RBC % 0, Sodium 139, Potassium 3.9, Chloride 104, Carbon Dioxide 24.0, Anion Gap 11, BUN 16, Creatinine 0.77, Estim Creat Clear Calc 168.44, Est GFR (MDRD) Af Amer 137, Est GFR (MDRD) Non-Af 113, BUN/Creatinine Ratio 20.8 H, Glucose 275 H, Hemoglobin A1c 11.2 H, Calcium 9.5, Triglycerides 161, Cholesterol 225 H, LDL Cholesterol 155 H, VLDL Cholesterol 32, HDL Cholesterol 38 L 12/28/23 06:10: POC Glucose 264 H 12/28/23 11:19: POC Glucose 369 H 12/28/23 15:43: POC Glucose 304 H 12/28/23 22:09: POC Glucose 279 H Rhythm Strip Rhythm Strip: Sinus Rhythm Rate: 88 Imaging Radiology Impression Echocardiogram 12/27/23 13:27 Interpretation Summary The estimated ejection fraction is 65 %. No evidence for diastolic dysfunction. Ordering Physician: Loree Villalpando Performed By: Nely Figueroa RDCS Active Medications Active Medications Active Medications: Current Medications Generic Name Dose Route Start Last Admin Trade Name Freq PRN Reason Stop Dose Admin Acetaminophen 650 mg 12/27/23 13:27 Acetaminophen 325 Mg Tablet PO Q6H PRN PRN Pain 1-10 Or Fever >100.7 Aspirin 81 mg 12/28/23 08:00 12/28/23 09:38 Aspirin 81 Mg Tab.Chew PO 81 mg BREAKFAST FRANK Administration Atorvastatin Calcium 80 mg 12/27/23 22:00 12/28/23 22:12 Atorvastatin Calcium 80 Mg Tablet PO 80 mg QHS FRANK Administration Clopidogrel Bisulfate 75 mg 12/28/23 10:00 12/28/23 09:38 Clopidogrel Bisulfate 75 Mg Tablet PO 75 mg DAILY FRANK Administration Glucagon 1 mg 12/27/23 13:27 Glucagon 1 Mg/Ml Syringe IM X1 PRN HYPOGLYCEMIA Protocol Dextrose 250 mls @ 0 mls/hr 12/27/23 13:27 Dextrose 10%-Water IV .Q0M PRN HYPOGLYCEMIA Protocol As Directed Insulin Human Lispro 0 unit 12/27/23 16:00 12/28/23 22:12 Insulin Lispro 100 Unit/Ml Insuln.Pen SC 9 unit ACHS FRANK Administration Protocol Lisinopril 20 mg 12/29/23 10:00 Lisinopril 20 Mg Tablet PO DAILY FRANK Protocol Metoprolol Tartrate 25 mg 12/28/23 22:00 12/28/23 22:11 Metoprolol Tartrate 25 Mg Tablet PO 25 mg BID FRANK Administration Protocol Nitroglycerin 0.4 mg 12/27/23 13:27 Nitroglycerin (Inpatient Use) 0.4 Mg Tab.Subl SL Q5M PRN CARDIAC/CHEST PAIN Ondansetron HCl 4 mg 12/27/23 13:27 Ondansetron 4 Mg/2 Ml Vial IV Q8H PRN PRN NAUSEA/VOMITING Oxycodone HCl 5 mg 12/27/23 13:27 Oxycodone 5 Mg Tablet PO Q4H PRN PRN Pain Score 4-10 Sodium Chloride 10 - 40 ml 12/27/23 13:40 0.9% Saline Lock 10 Ml Syringe IV UD PRN SALINE FLUSH
[2023-12-29] MEDS: Insulin Lispro 100 UNIT/ML INSULN.PEN SC ×4 (06:44→20:41)
[2023-12-29 06:50] LABS: Absolute Lymphocyte Count 3.23 X10^3/uL (0.83-4.51); Absolute Neutrophil Count 3.3 X10^3/uL (2.0-7.7); Basophil# 0.08 X10^3/uL; Basophil% 1.1 % (0-1); Eosinophil# 0.32 X10^3/uL; Eosinophils% 4.3 % (0-5); Hemoglobin 15.2 g/dL (13.0-16.5); Lymphocyte # 3.23 X10^3/ul (0.83-4.51); Lymphocyte % 43.4 % (19-41); Mean Corp Hgb Conc 34.5 g/dL (32-36); Mean Corpuscular Hgb 29.8 pg (27.0-32.0); Mean Corpuscular Volume 86.3 fL (80-94); Monocyte# 0.54 X10^3/uL; Monocyte% 7.2 % (0-10); NRBC Flagged by Analyzer 0 % (0-5); Neutrophil # 3.26 X10^3/uL (2.7-7.7); Neutrophil % 43.7 % (47-70); Platelet Count 280 K/mm3 (150-450); RBC Distribution Width SD 38.3 fl (35.1-43.9); White Blood Count 7.5 K/mm3 (4.4-11.0)
[2023-12-29 07:04] LABS: Bedside Glucose 260 mg/dL (74-106)
[2023-12-29 07:05] LABS: Anion Gap 8 (5-15); BUN 16 mg/dL (7-18); BUN/Creat Ratio 18.1 RATIO (10-20); Chloride 102 mmol/L (98-107); Creatinine, Serum 0.88 mg/dL (0.70-1.30); EST Glomerular Filtration Rate 97 mL/min (>60); Est Glom Filt Rate - Afr Amer 117 mL/min (>60); Estimated Creatinine Clearance 147.39 ml/min; Glucose 250 mg/dL (74-106); Potassium 3.8 mmol/L (3.5-5.1); Sodium Level 137 mmol/L (136-145)
[2023-12-29] MEDS: Lisinopril 20 MG Tablet PO (10:07)
[2023-12-29] MEDS: Aspirin 81 MG TAB.CHEW PO (10:07)
[2023-12-29] MEDS: Clopidogrel Bisulfate 75 MG Tablet PO (10:07)
[2023-12-29] MEDS: Metoprolol Tartrate 25 MG Tablet PO ×2 (10:08→20:35)
[2023-12-29 11:34] LABS: Bedside Glucose 290 mg/dL (74-106)
--- NOTE | 2023-12-29 13:34 | PN_ITS ---
Subjective Subjective Patient seen and examined. He had no active complaints. He sounds a bit more coherent today, but still has some episodic confusion and mild expressive aphasia. Review of systems is otherwise negative. Objective Data Objective Data Vital Signs: Vital Signs Temp Pulse Resp BP Pulse Ox O2 Del Method 97.9 F 83 18 144/102 H 98 CPAP 12/29/23 10:07 12/29/23 10:08 12/29/23 10:07 12/29/23 10:07 12/29/23 10:07 12/29/23 10:15 Oxygen Delivery Method CPAP Weight: 315 lb 4.176 oz Body Mass Index (BMI) 42.7 Intake & Output: Intake and Output for Last 24 Hours 12/27/23 12/28/23 12/29/23 23:59 23:59 23:59 Intake Total 0 / 0 480 / 480 Balance 0 / 0 480 / 480 Lab / Micro Data 12/29/23 05:46 12/29/23 05:46 Labs: Laboratory Results - last 24 hr 12/28/23 15:43: POC Glucose 304 H 12/28/23 22:09: POC Glucose 279 H 12/29/23 05:46: WBC 7.5, RBC 5.10, Hgb 15.2, Hct 44.0, MCV 86.3, MCH 29.8, MCHC 34.5, RDW Std Deviation 38.3, RDW Coeff of Alysia 12.0, Plt Count 280, MPV 10.0, Immature Gran % (Auto) 0.300, Neut % (Auto) 43.7 L, Lymph % (Auto) 43.4 H, [place] % (Auto) 7.2, Eos % (Auto) 4.3, Baso % (Auto) 1.1 H, Absolute Neuts (auto) 3.3, Absolute Lymphs (auto) 3.23, Nucleated RBC % 0, Sodium 137, Potassium 3.8, Chloride 102, Carbon Dioxide 27.0, Anion Gap 8, BUN 16, Creatinine 0.88, Estim Creat Clear Calc 147.39, Est GFR (MDRD) Af Amer 117, Est GFR (MDRD) Non-Af 97, BUN/Creatinine Ratio 18.1, Glucose 250 H, Calcium 9.0 12/29/23 06:43: POC Glucose 260 H 12/29/23 11:09: POC Glucose 290 H Rhythm Strip Rhythm Strip: Sinus Rhythm Rate: 88 Physical Exam Const alert Constitutional Narrative: has episodic mild confusion. Speech is much better and he still has some occasional expressive aphasia. Obese General Appearance: cooperative Orientation / Consciousness: confused HEENT normocephalic, head/scalp atraumatic and hearing grossly normal bilaterally Eyes PERRL, EOMs intact bilaterally and conjunctivae normal Neck no lymphadenopathy and supple Resp normal respiratory effort, no retractions, no use of accessory muscles and clear to auscultation bilaterally Cardio regular rate, regular rhythm, S1 normal heart sound, S2 normal heart sound and no murmurs GI normal to inspection, nondistended, normoactive bowel sounds, soft to palpation, non-tender and non-distended Extremity normal to inspection Extremity Narrative: Power in right upper and right lower extremity is 4/5 General Extremity: no tenderness to palpation of joints or extremities Skin General Skin Exam: no breakdown Neuro Neuro Narrative: has minimal episodic expressive aphasia Psych Psych Narrative: episodic confusion Mood & Affect: flat affect Assessment & Plan Assessment/Plan (1) Elevated troponin: (2) Stroke-like symptoms: PLAN: Plan #Altered mental status and right sided weakness with right facial droop due to acute CVA * CT of the brain showed no acute intracranial pathology * MRI of the brain showed an acute infarct of the anterior left lateral thalamus and posterior limb of the left internal capsule measuring about 2.4 cm and punctate 2 to 3 mm foci of restricted diffusion within the left caudate nucleus and left back radiata also concerning for acute infarcts. He had a chronic lacunar infarct in the right thalamus * CTA head and neck showed moderate 60% stenosis of the right carotid artery and mild 40% stenosis of the left carotid artery, with patent vertebral arteries bilaterally. * PO aspirin 81mg daily, PO plavix. * On high intensity statin. 2D echo done and pending. * Will resume BP meds. Patient has not been compliant with his medications for a year because he lost his insurance. * [facility] neurology on board. PT OT on board. * Speech therapy also on board. * initially failed swallow eval, but subsequently passed. NOw tolerating a diet. * #Elevated troponin * Patient denies any chest pain. EKG showed no acute ST changes * Initial troponin was 183 and trended downwards to 160. He does have a history of chronically elevated troponin from 2022. 2D echo ordered. He does admit to some mild chest pain but that has subsequently resolved. * Cardiology reviewed patient and thought this might be a peak troponin leak from his stroke. * 2D echo showed EF of 65% with no evidence of diastolic dysfunction and no regional wall abnormalities noted. * per cardiology, no need for further workup * #Type 2 diabetes mellitus * poorly controlled. Glucose is 378 on admission * has not been compliant with his meds in 1 year due to insurance issues * High-dose insulin sliding scale. * A1c is 11.2. Patient started on a diet today so we will place patient on Lantus 10 units twice daily. * Last A1c on 03/18/2022 per records was 11.8. * #Hypertension: * Has not been taking his meds for over a year because of loss of insurance. He does not remember which medications he takes. * Started on p.o. lisinopril 20 mg daily as well as p.o. metoprolol 25 mg twice daily. Will monitor BP and adjust meds as needed. IV hydralazine as needed * 2D echo as above * #Morbid obesity: BMI is 41.6. Complicates acute care, expected recovery and prognosis. #MEGAN: not compliant with his CPAP. CPAP qhs DVT prophylaxis: lovenox Code status: full code Disposition: Family stated wish for 1 more day to get things ready for him at home and make the house more accessible. Plan is for discharge tomorrow. Charges/Coding Visit Charges Inpatient E&M: 91942 Subs Hosp L2
--- NOTE | 2023-12-29 15:18 | CASEMGMT ---
[facility] has applied for Medicaid for patient. Patient is doing well with PT/OT. However, Speech Therapy is recommending continued therapy. Patient does not have insurance right now so patient would have to private pay for outpatient therapy. Even if it is a discounted rate, patient's ex- said they would not be able to afford much. After having a Stroke it is known that the earlier the therapy the better the chances of recovering. KRIS and RN CHILO are concerned that patient will be discharged and not get therapy due to financial issues. KRIS did check with [facility] Acute Rehab and they may consider pending Medicaid. Georgiana checked with [facility] Acute Rehab and they also may consider pending Medicaid patients. This KRIS, KRIS Villegas, and RN CM first spoke with patient's Viviana alone. Viviana was agreeable to patient going to an Acute Rehab Unit if that would help. KRIS and RN CHILO then spoke with patient who stated he would be agreeable to going to an Acute Rehab Unit in [place] or [facility] in [place] if needed. Patient declined a list at this time. Patient was open to referrals being made. KRIS asked Georgiana to send a referral to [facility] Rehab. Mckenzie with [facility] Acute Rehab will review also. RN CM updated physician. Plan: Possibly Acute Rehab pending acceptance Lorena VALIENTE
--- NOTE | 2023-12-29 15:43 | CASEMGMT ---
Addendum entered by Gerogiana Nelson 12/30/23 08:39: Referral cancelled per pt request. Georgiana Nelson DC Planning Asst. Original Note: [facility]. Georgiana Nelson DC Planning Asst.
[2023-12-29 16:18] LABS: Bedside Glucose 297 mg/dL (74-106)
--- NOTE | 2023-12-29 20:05 | NURSING ---
PER DTR, ROSALIE GARZA, PT'S [facility] HAS PERMISSION TO OBTAIN MEDICAL INFORMATION. PT UNABLE TO PROVIDE CONSENT D/T CURRENT MENTATION.
[2023-12-29] MEDS: Atorvastatin Calcium 80 MG Tablet PO (20:36)
[2023-12-29] MEDS: Insulin Glargine-YFGN 100 UNIT/ML Pen 15 UNIT SC (20:41)
[2023-12-29 21:02] LABS: Bedside Glucose 226 mg/dL (74-106)
[2023-12-30 03:30] VITALS: BMI 42.7
[2023-12-30 04:30] VITALS: BP 143/73; PULSE 81; RESP 20; TEMP 36.4; O2SAT 96
[2023-12-30 06:15] LABS: Absolute Lymphocyte Count 3.08 X10^3/uL (0.83-4.51); Absolute Neutrophil Count 3.6 X10^3/uL (2.0-7.7); Basophil# 0.09 X10^3/uL; Basophil% 1.2 % (0-1); Eosinophil# 0.34 X10^3/uL; Eosinophils% 4.5 % (0-5); Hematocrit 43.2 % (40-54); Hemoglobin 15.5 g/dL (13.0-16.5); Lymphocyte # 3.08 X10^3/ul (0.83-4.51); Lymphocyte % 40.5 % (19-41); Mean Corp Hgb Conc 35.9 g/dL (32-36); Mean Corpuscular Hgb 30.5 pg (27.0-32.0); Mean Corpuscular Volume 84.9 fL (80-94); Mean Platelet Vol. 9.7 fl (6.2-12.0); Monocyte% 6.6 % (0-10); NRBC Flagged by Analyzer 0 % (0-5); Neutrophil # 3.57 X10^3/uL (2.7-7.7); Neutrophil % 46.8 % (47-70); Platelet Count 292 K/mm3 (150-450); RBC Distribution Width SD 37.2 fl (35.1-43.9); Red Blood Count 5.09 M/mm3 (4.6-6.2); White Blood Count 7.6 K/mm3 (4.4-11.0)
[2023-12-30 06:52] LABS: Anion Gap 7 (5-15); BUN 15 mg/dL (7-18); BUN/Creat Ratio 18.5 RATIO (10-20); Chloride 102 mmol/L (98-107); Creatinine, Serum 0.81 mg/dL (0.70-1.30); EST Glomerular Filtration Rate 107 mL/min (>60); Est Glom Filt Rate - Afr Amer 129 mL/min (>60); Estimated Creatinine Clearance 160.12 ml/min; Glucose 253 mg/dL (74-106); Potassium 3.7 mmol/L (3.5-5.1); Sodium Level 136 mmol/L (136-145)
[2023-12-30] MEDS: Insulin Lispro 100 UNIT/ML INSULN.PEN SC ×2 (06:52→11:02)
[2023-12-30 07:21] LABS: Bedside Glucose 251 mg/dL (74-106)
--- NOTE | 2023-12-30 09:35 | CASEMGMT ---
[facility] Acute Rehab Unit has accepted patient. This SW and KRIS Villegas went to patient's room. Patient's daughter and patient were present. SW let them know that [facility] Acute Rehab has accepted patient. SW provided them with Acute Rehab pamphlet. They were both in agreement and thankful. Plan: d/c to [facility] Acute Rehab Unit. Lorena VALIENTE
[2023-12-30 10:24] VITALS: BP 136/79; PULSE 79; RESP 16; TEMP 36.3; O2SAT 97
[2023-12-30 10:25] VITALS: PULSE 79
[2023-12-30] MEDS: Lisinopril 20 MG Tablet PO (10:25)
[2023-12-30] MEDS: Metoprolol Tartrate 25 MG Tablet PO (10:25)
[2023-12-30] MEDS: Aspirin 81 MG TAB.CHEW PO (10:25)
[2023-12-30] MEDS: Clopidogrel Bisulfate 75 MG Tablet PO (10:25)
[2023-12-30 11:21] LABS: Bedside Glucose 316 mg/dL (74-106)
--- NOTE | 2023-12-30 11:45 | TREXTCAR_ITS ---
Diet Diet Order/Speech Therapy: 12/28/23 10:16 Diet: Cardiac: Calorie-Controlled Food consistency:: Regular Liquid Consistency:: Regular/Thin Dietary Modifications:: Consistent Carbohydrate Diet Comments: 1:1 supervision and cut food into small pieces How many daily calories?: 2000 calorie Routine Orders/Code Status Enema Type: Fleetz Enema Frequency: Daily PRN Suppository Type: Dulcolax 10mg Suppository Frequency: Daily PRN O2 Frequency: PRN Keep PO Greater than or Equal to (%): 90 Wound(s) left 2nd toe: Wound Type: Abrasion Therapies Weight Bearing: Weight bearing as tolerated Physical Therapy: Eval and Treat Occupational Therapy: Eval and Treat Speech Therapy: Eval and Treat Problem/Diagnosis (1) Elevated troponin: Status: Acute Code(s): R77.8 - Other specified abnormalities of plasma proteins (2) Stroke-like symptoms: Status: Acute Code(s): R29.90 - Unspecified symptoms and signs involving the nervous system Plan #Altered mental status and right sided weakness with right facial droop due to acute CVA * CT of the brain showed no acute intracranial pathology * MRI of the brain showed an acute infarct of the anterior left lateral thalamus and posterior limb of the left internal capsule measuring about 2.4 cm and punctate 2 to 3 mm foci of restricted diffusion within the left caudate nucleus and left back radiata also concerning for acute infarcts. He had a chronic lacunar infarct in the right thalamus * CTA head and neck showed moderate 60% stenosis of the right carotid artery and mild 40% stenosis of the left carotid artery, with patent vertebral arteries bilaterally. * PO aspirin 81mg daily, PO plavix. * On high intensity statin. 2D echo done and pending. * Will resume BP meds. Patient has not been compliant with his medications for a year because he lost his insurance. * [facility] neurology on board. PT OT on board. * Speech therapy also on board. * initially failed swallow eval, but subsequently passed. NOw tolerating a diet. * #Elevated troponin * Patient denies any chest pain. EKG showed no acute ST changes * Initial troponin was 183 and trended downwards to 160. He does have a history of chronically elevated troponin from 2022. 2D echo ordered. He does admit to some mild chest pain but that has subsequently resolved. * Cardiology reviewed patient and thought this might be a peak troponin leak from his stroke. * 2D echo showed EF of 65% with no evidence of diastolic dysfunction and no regional wall abnormalities noted. * per cardiology, no need for further workup * #Type 2 diabetes mellitus * poorly controlled. Glucose is 378 on admission * has not been compliant with his meds in 1 year due to insurance issues * High-dose insulin sliding scale. * A1c is 11.2. Patient started on a diet today so we will place patient on Lantus 10 units twice daily. * Last A1c on 03/18/2022 per records was 11.8. * #Hypertension: * Has not been taking his meds for over a year because of loss of insurance. He does not remember which medications he takes. * Started on p.o. lisinopril 20 mg daily as well as p.o. metoprolol 25 mg twice daily. Will monitor BP and adjust meds as needed. IV hydralazine as needed * 2D echo as above * #Morbid obesity: BMI is 41.6. Complicates acute care, expected recovery and prognosis. #MEGAN: not compliant with his CPAP. CPAP qhs DVT prophylaxis: lovenox Code status: full code Disposition: Family stated wish for 1 more day to get things ready for him at home and make the house more accessible. Plan is for discharge tomorrow. Allergies/Procedures Done in Hospital Allergies cefadroxil hydrate (From Duricef) Allergy (Verified 08/07/22 12:57) Itching piperacillin (From Zosyn) Allergy (Verified 08/07/22 12:57) Hives tazobactam (From Zosyn) Allergy (Verified 08/07/22 12:57) Hives erythromycin base Adverse Reaction (Verified 08/07/22 12:57) Vomiting Procedures: 2-D Echocardiogram Type of Care/Length of Stay Estimated LOS: Convalescent Care Less Than 30 days Type of Care Needed: Skilled Rehab Potential: Fair Prognosis: Fair Additional Orders/Day of Discharge Day of Discharge: 12/30/23 Dietary and Speech Recommendations Dietitian Recommendations/Changes: Recommend diet advanced as tolerated to cardiac, 2000 calorie control diet. Will provide ONS, if appetite declines. Will provide further diet education, if pt request. Reviewed and approved by Kierra Randle RD, LD. Speech Linguistic Eval Summary: Orientation: pt. oriented to self (name and ) and place. Disoriented to age (off by 10 years). Required choice array of two to orient to current month and year. Orientation could be negatively affected by underlying aphasia. Auditory Comprehension: Pt. able to follow one step commands w/ 50% acc. Unable to complete 2 step commands despite several repetitions. Pt. able to answer ye s/no questions related to self w/ 100% acc. Able to answer general yes/no questions w/ 50% acc. however, pt. often refused to respond. Able to answer complex yes/no w/ given repetitions w/ 100% acc. Verbal Expression: Pt. presents w/ expressive language deficits s/p CVA. Pt. able to complete confrontation naming task w/ 80% acc. w/ noted semantic paraphasia Crocs for tennis shoes. Able to name two animals in 60 seconds time frame w/ noted phonemic paraphasia liger for tiger. Pt. also responded stuffed animals for animals w/ fluent jargon that was not able to be understood by evaluating SA[employer] FINISHER HAND. Pt. able to complete phrase completions (hot; cold) w/ 83% acc. Unable to complete responsive naming tasks despite SAIL FINISHER HAND providing several descriptions. Reading: Pt. able to read 2/3 sentences and able to execute the direction (make a fist) in 2/3 sentences. Overall pt. presents w/ severe cognitive-linguistic deficits following possible CVA. ST to continue to follow. ADMINISTERED BEST-2 ON 12/28/2023 Discharge Plan Admission Admit Date/Time: 12/27/23 17:19 Primary Reason for Your Visit: acute CVA Attending Provider: Loree Villalpando Primary Care Provider: Rocky Delgadillo Consulting Providers: Chester Juares; Felicity Rivera; Ansley Morrissey; Maryjo Reza; Olivia Cain; Hernando Persaud; Yanni Santos; Milton Travis; Nura Rossi; Francisco Walker; Debra Garcia; Santino Flowers; Any Cardenas; Ally Gonzalez; Matthew Suarez; Stephan Ye; Kaitlin Enriquez; Fredi Page; Renetta Ward; Avinash Otero; Arthur Jarrett Instructions Patient Instructions: Aphasia: Improving Communication, Booklet - Understanding Stroke Discharge Orders/Prescriptions Prescriptions: New atorvastatin 80 mg Tablet 80 mg PO QHS Qty: 30 2RF lisinopril 20 mg Tablet 20 mg PO DAILY Qty: 30 2RF clopidogrel 75 mg Tablet 75 mg PO DAILY Qty: 30 2RF aspirin 81 mg Tablet,Chewable 81 mg PO BREAKFAST Qty: 21 0RF metoprolol tartrate 25 mg Tablet 25 mg PO BID Qty: 60 2RF insulin glargine [Lantus Solostar U-100 Insulin] 100 unit/mL (3 mL) insulin pen 15 unit subcut QPM Qty: 15 0RF metformin 500 mg tablet 500 mg PO BID Qty: 60 2RF Discontinued aspirin 325 mg Tablet 325 mg PO DAILY No Action multivitamin [Daily Multi-Vitamin] Tablet 1 tab PO DAILY Referrals / Follow Up: Rocky Delgadillo MD [Primary Care Provider] - Within 1 Week Pedro Mancini MD [Med Staff - Courtesy Staff] - Within 1 Week Disposition Disposition (needs filled in before D/C Order can be placed): [facility]
--- NOTE | 2023-12-30 11:48 | PCM.DC.SUM ---
Providers Date of Admission: 12/27/23 Date of Discharge: 12/30/23 Primary Care Physician: Dr. Rocky Delgadillo MD Consultations 12/27/23 13:27 Consult: Tele-Neurology Routine Consulting Provider: [facility] Reason for Consult: Acute Ischemic Stroke/TIA EMERGENT Consult: No Notified: Yes Date Notified: 12/27/23 Time Notified: 14:05 Method of Notification: Answering Service Nursing Unit Staff Notify [facility] of Tele-Neurology Consult: Yes 12/27/23 17:16 Consult: Cardiology Routine Consulting Provider: Arthur Jarrett Reason for Consult: elevated troponins, chest pain EMERGENT Consult: No Notified: Yes Date Notified: 12/27/23 Time Notified: 17:16 Method of Notification: Text Reason For Visit: ACUTE CVA Diagnosis Discharge Diagnosis (1) Elevated troponin: Status: Acute Code(s): R77.8 - Other specified abnormalities of plasma proteins (2) Stroke-like symptoms: Status: Acute Code(s): R29.90 - Unspecified symptoms and signs involving the nervous system Plan #Altered mental status and right sided weakness with right facial droop due to acute CVA CT of the brain showed no acute intracranial pathology MRI of the brain showed an acute infarct of the anterior left lateral thalamus and posterior limb of the left internal capsule measuring about 2.4 cm and punctate 2 to 3 mm foci of restricted diffusion within the left caudate nucleus and left back radiata also concerning for acute infarcts. He had a chronic lacunar infarct in the right thalamus CTA head and neck showed moderate 60% stenosis of the right carotid artery and mild 40% stenosis of the left carotid artery, with patent vertebral arteries bilaterally. PO aspirin 81mg daily, PO plavix. On high intensity statin. 2D echo done and pending. Will resume BP meds. Patient has not been compliant with his medications for a year because he lost his insurance. [facility] neurology on board. PT OT on board. Speech therapy also on board. initially failed swallow eval, but subsequently passed. NOw tolerating a diet. #Elevated troponin Patient denies any chest pain. EKG showed no acute ST changes Initial troponin was 183 and trended downwards to 160. He does have a history of chronically elevated troponin from 2022. 2D echo ordered. He does admit to some mild chest pain but that has subsequently resolved. Cardiology reviewed patient and thought this might be a peak troponin leak from his stroke. 2D echo showed EF of 65% with no evidence of diastolic dysfunction and no regional wall abnormalities noted. per cardiology, no need for further workup #Type 2 diabetes mellitus poorly controlled. Glucose is 378 on admission has not been compliant with his meds in 1 year due to insurance issues High-dose insulin sliding scale. A1c is 11.2. Patient started on a diet today so we will place patient on Lantus 10 units twice daily. Last A1c on 03/18/2022 per records was 11.8. #Hypertension: Has not been taking his meds for over a year because of loss of insurance. He does not remember which medications he takes. Started on p.o. lisinopril 20 mg daily as well as p.o. metoprolol 25 mg twice daily. Will monitor BP and adjust meds as needed. IV hydralazine as needed 2D echo as above #Morbid obesity: BMI is 41.6. Complicates acute care, expected recovery and prognosis. #MEGAN: not compliant with his CPAP. CPAP qhs DVT prophylaxis: lovenox Code status: full code Disposition: Family stated wish for 1 more day to get things ready for him at home and make the house more accessible. Plan is for discharge tomorrow. Medications at Discharge Home Medications multivitamin (Daily Multi-Vitamin tablet) 1 tab PO DAILY suppplementation 12/27/23 aspirin 81 mg chewable tablet 81 mg PO BREAKFAST stroke #21 tabs 12/30/23 atorvastatin 80 mg tablet 80 mg PO QHS cholesterol #30 tabs 12/30/23 clopidogrel 75 mg tablet 75 mg PO DAILY stroke #30 tabs 12/30/23 insulin glargine 100 unit/mL (3 mL) subcutaneous pen (Lantus Solostar U-100 Insulin) 15 unit (0.15 mL) subcut QPM diabetes #15 mL 12/30/23 lisinopril 20 mg tablet 20 mg PO DAILY bp #30 tabs 12/30/23 metformin 500 mg tablet 500 mg PO BID diabetes #60 tabs 12/30/23 metoprolol tartrate 25 mg tablet 25 mg PO BID bp #60 tabs 12/30/23 Hospital Course Operations None Procedures 2-D Echocardiogram Summary of Care Provided Minutes Spent on Discharge: 45 Hospital Course: ELAINE STEVENSON, is a 48 M with a PMH as outlined who presents via the ED on 12/27/2023 with a complaint of altered mental status and right sided weakness. His last known was well ~ 7 hours prior to him coming in to the ED, at ~ 1am on 01/01/2024. He woke up confused on the day of presentation, with right sided weakness and a right sided facial droop. History was mainly taken from his daugther and his ex as patient was confused and had garbled speech. According to his ex-, she found him this morning confused. He said nothing he was saying was making sense. He also noted that he could not move his right arm and had some slight movement in his right leg. He therefore called the EMS due to concerns about a stroke and he was brought into the ED. His ex- and daughter had not noticed any shortness of breath, cough, chest pain, palpitations, dizziness, nausea vomiting or any other symptoms. He has a history of hypertension and type 2 diabetes mellitus. According to his ex- and daughter, he lost his insurance about a year ago and so had not been on any medications for his blood pressure and diabetes for the whole year. Review of systems otherwise negative. Vitals in the ED were BP of 153/85, OK of 96, RR of 24 and oxygen sats of 96% on room air. CBC was unremarkable. INR was 1. Chemistry was significant for glucose of 378 and initial troponin of 183. CXR showed no acute cardiopulmonary pathology. CTA head and neck showed moderate (60%) stenosis of the right carotid artery and mild (40%) stenosis of the left carotid artery, with patent vertebral arteries bilaterally. CT of the brain showed no acute intracranial pathology. [facility] telestroke neurologist reviewed patient and did not think he was a candidate for stroke. The neurologist had requested for stat MRI but this could not be done [facility]. He was admitted to be managed for probable acute stroke. He had MRI of the brain which showed an acute infarct involving the anterior lateral left thalamus and posterior limb of the left internal capsule measuring up to approximately 2.4 cm and punctate 2 to 3 mm foci of restricted diffusion within the left caudate nutrition clears and left back radiata consistent with acute infarcts. He had 2D echo which showed EF of 65% with no evidence of diastolic dysfunction and no regional wall motion abnormalities noted. Patient's A1c was elevated at 11.2. He he had not been on his diabetes medications and blood pressure medications for a year. He was started on Lantus 15 units nightly. Neurology reviewed patient and recommended that patient continue on dual antiplatelet therapy for 21 days and then to continue with Plavix 75 mg daily. He was also to be on high intensity statin. He was placed on p.o. metoprolol and p.o. lisinopril. Patient's right-sided weakness improved markedly and his speech also improved. Patient was hoping to go home but was recommended that he would benefit from acute rehab and he was agreeable to this. Patient was discharged to acute rehab facility on 12/30/2023. He is follow-up with his primary care doctor within 1 to 2 weeks. Of note, he did have mildly elevated troponins. Cardiology reviewed him and felt that it was all due to the stress of the stroke and there was no need for any further workup after echo was evaluated. Physical Exam Const alert and oriented x3 Constitutional Narrative: obese General Appearance: cooperative and comfortable Orientation / Consciousness: awake Exam Limitations: no limitations HEENT normocephalic, head/scalp atraumatic, hearing grossly normal bilaterally and moist oral mucous membranes Mouth: oral and palatal mucosa normal Eyes PERRL, EOMs intact bilaterally and conjunctivae normal Neck no lymphadenopathy and supple Resp normal respiratory effort, no retractions, no use of accessory muscles and clear to auscultation bilaterally Cardio regular rate, regular rhythm, S1 normal heart sound, S2 normal heart sound and no murmurs GI normal to inspection, nondistended, normoactive bowel sounds, soft to palpation, non-tender and non-distended Extremity normal to inspection and full ROM Extremity Narrative: Power in right upper and right lower extremity is 4/5 General Extremity: no tenderness to palpation of joints or extremities Skin no rashes or lesions noted General Skin Exam: no breakdown Neuro oriented x3, CN's II-XII intact bilaterally and moves all extremities Neuro Narrative: expressive aphasia has largely resolved. Sensorium / Orientation: awake and alert Psych affect normal Weight / BMI Weight Weight: 315 lb 4.176 oz Body Mass Index (BMI) 42.7 ABG / Lab / Microbiology Data 12/30/23 05:35 12/30/23 05:35 Laboratory: Laboratory Results - last 24 hr 12/29/23 15:53: POC Glucose 297 H 12/29/23 20:34: POC Glucose 226 H 12/30/23 05:35: WBC 7.6, RBC 5.09, Hgb 15.5, Hct 43.2, MCV 84.9, MCH 30.5, MCHC 35.9, RDW Std Deviation 37.2, RDW Coeff of Alysia 12.0, Plt Count 292, MPV 9.7, Immature Gran % (Auto) 0.400, Neut % (Auto) 46.8 L, Lymph % (Auto) 40.5, Kingfisher % (Auto) 6.6, Eos % (Auto) 4.5, Baso % (Auto) 1.2 H, Absolute Neuts (auto) 3.6, Absolute Lymphs (auto) 3.08, Nucleated RBC % 0, Sodium 136, Potassium 3.7, Chloride 102, Carbon Dioxide 27.0, Anion Gap 7, BUN 15, Creatinine 0.81, Estim Creat Clear Calc 160.12, Est GFR (MDRD) Af Amer 129, Est GFR (MDRD) Non-Af 107, BUN/Creatinine Ratio 18.5, Glucose 253 H, Calcium 9.0 12/30/23 06:51: POC Glucose 251 H 12/30/23 11:00: POC Glucose 316 H D/C Instructions Discharge Diet: Low fat / Low cholesterol Discharge Activity: Return to Normal Activity Weight Bearing Status: Weight bearing as tolerated Call your doctor if you observe: Fever of 101 or Higher, Shortness of breath, Dizziness, Swelling in the ankles and Chest pain Meaningful Use Info Meaningful Use Meaningful Use Diagnoses (Choose all that apply): Ischemic CVA CVA Therapy Assessed for PT,OT and/or ST?: Yes Ischemic Stroke Antithrombotic order at d/c?: Yes Dx of Atrial fib/flutter?: No Anticoagulant at discharge?: No Reason anticoagulant not ordered: Treatment not Indicated Statin Dosing Therapy Reference: STATIN DOSE THERAPY REFERENCE: * Patients > 75 years receive moderate or high dose statin therapy. * Patients 75 years or YOUNGER should receive HIGH intensity statin dose unless contraindicated. You will be required to document reason for non-treatment if statin daily dose does not meet guidelines. HIGH DOSE STATIN THERAPY DAILY Atorvastatin > than or = to 40 mg Rosuvastatin > than or = to 20 mg Amlodipine + Atorvastatin > than or = to 2.5/40 mg Ezetimibe + Simvastatin 10/80 mg Simvastatin 80mg Statins at discharge?: Yes If patient is 75 or younger, pt will be discharged on HIGH intensity statin.: Yes Primary Dx Acute Ischemic CVA?: Yes IV thrombolytic ordered during stay?: No Reason IV thrombolytic not ordered: Treatment not Indicated Discharge Plan Admission Admit Date/Time: 12/27/23 17:19 Primary Reason for Your Visit: acute CVA Attending Provider: Loree Villalpando Primary Care Provider: Rocky Delgadillo Consulting Providers: Chester Juares; Felicity Rivera; Ansley Morrissey; Maryjo Reza; Olivia Cain; Hernando Persaud; Yanni Santos; Milton Travis; Nura Rossi; Francisco Walker; Debra Garcia; Santino Flowers; Any Cardenas; Ally Gonzalez; Matthew Suarez; Stephan Ye; Kaitlin Enriquez; Fredi Page; Renetta Ward; Avinash Otero; Arthur Jarrett Instructions Patient Instructions: Aphasia: Improving Communication, Booklet - Understanding Stroke Discharge Orders/Prescriptions Prescriptions: New atorvastatin 80 mg Tablet 80 mg PO QHS Qty: 30 2RF lisinopril 20 mg Tablet 20 mg PO DAILY Qty: 30 2RF clopidogrel 75 mg Tablet 75 mg PO DAILY Qty: 30 2RF aspirin 81 mg Tablet,Chewable 81 mg PO BREAKFAST Qty: 21 0RF metoprolol tartrate 25 mg Tablet 25 mg PO BID Qty: 60 2RF insulin glargine [Lantus Solostar U-100 Insulin] 100 unit/mL (3 mL) insulin pen 15 unit subcut QPM Qty: 15 0RF metformin 500 mg tablet 500 mg PO BID Qty: 60 2RF Discontinued aspirin 325 mg Tablet 325 mg PO DAILY No Action multivitamin [Daily Multi-Vitamin] Tablet 1 tab PO DAILY Referrals / Follow Up: Rocky Delgadillo MD [Primary Care Provider] - Within 1 Week Pedro Mancini MD [Med Staff - Courtesy Staff] - Within 1 Week Disposition Disposition (needs filled in before D/C Order can be placed): [facility] Charges/Coding Visit Charges Inpatient E&M: 91748 Disch Hosp >30min
[2023-12-30 12:29] VITALS: BMI 42.7
--- NOTE | 2023-12-30 13:46 | NURSING ---
Report called to [facility]. Patient to go to room 404
== END 2023-12-30 13:52 | DRG 45 ==
LOC: ED 10:16 → PCU 12-28 07:50
PROVIDERS: Admitting Provider Student in an Organized Health Care Education/Training Program; Emergency Provider Emergency Medicine; PCP Family Medicine; Visit Provider Student in an Organized Health Care Education/Training Program
DX: I63.89 Other cerebral infarction (principal); G81.91 Hemiplegia, unspecified affecting right dominant side; Z68.41 Body mass index [BMI] 40.0-44.9, adult; E11.65 Type 2 diabetes mellitus with hyperglycemia; I10 Essential (primary) hypertension; I65.23 Occlusion and stenosis of bilateral carotid arteries; E78.5 Hyperlipidemia, unspecified; E66.01 Morbid (severe) obesity due to excess calories; Z79.4 Long term (current) use of insulin; G47.33 Obstructive sleep apnea (adult) (pediatric); I25.10 Atherosclerotic heart disease of native coronary artery without angina pectoris; R47.01 Aphasia; R47.1 Dysarthria and anarthria; R29.810 Facial weakness; R29.714 NIHSS score 14; T46.5X6A Underdosing of other antihypertensive drugs, initial encounter; T38.3X6A Underdosing of insulin and oral hypoglycemic [antidiabetic] drugs, initial encounter; Z91.141 Patient's other noncompliance with medication regimen due to financial hardship; Z91.199 Patient's noncompliance with other medical treatment and regimen due to unspecified reason; R79.89 Other specified abnormal findings of blood chemistry; R29.707 NIHSS score 7; Z79.82 Long term (current) use of aspirin; Z79.02 Long term (current) use of antithrombotics/antiplatelets; Z87.891 Personal history of nicotine dependence; Z86.73 Personal history of transient ischemic attack (TIA), and cerebral infarction without residual deficits
CPT/HCPCS: 36415; 70450; 70496; 70498; 70551; 71045; 80048; 80061; 82962; 83036; 84484; 85025; 85610; 85730; 92507; 92523; 92526; 92610; 93005; 93306; 94762; 97110; 97129; 97130; 97162; 97166; 97535; 97802; 99285; Q9957; Q9967; A4216; C8929

== ENCOUNTER 2023-12-30 14:05 | Inpatient (IN) | payer MEDICAID, SELFPAY ==
[2023-12-30 14:26] VITALS: BP 141/95; PULSE 72; RESP 16; TEMP 36.4; O2SAT 98; BMI 42.4
[2023-12-30 17:06] LABS: Bedside Glucose 280 mg/dL (74-106)
[2023-12-30] MEDS: Insulin Lispro 100 UNIT/ML INSULN.PEN SC ×2 (17:22→21:44)
[2023-12-30] MEDS: metFORMIN HCl 500 MG Tablet PO (17:23)
[2023-12-30 17:38] VITALS: BP 149/92; PULSE 74; RESP 16; TEMP 35.5; O2SAT 94
[2023-12-30 19:15] VITALS: O2SAT 99
[2023-12-30 20:23] VITALS: BP 159/96; PULSE 79
[2023-12-30] MEDS: Metoprolol Tartrate 25 MG Tablet PO (20:23)
[2023-12-30] MEDS: Atorvastatin Calcium 80 MG Tablet PO (20:23)
[2023-12-30] MEDS: Senna/Docusate Sodium 1 Tablet 2 TABLET PO (20:23)
[2023-12-30] MEDS: Insulin Glargine-YFGN 100 UNIT/ML Pen 15 UNIT SC (21:44)
[2023-12-30 22:09] LABS: Bedside Glucose 260 mg/dL (74-106)
[2023-12-31] VITALS (8 sets, daily range): BP systolic 108–151; BP diastolic 64–97; PULSE 77–88; RESP 16–17; TEMP 36.6; O2SAT 97–98; BMI 42.4
[2023-12-31] MEDS: Enoxaparin 40 MG/0.4 ML Syringe SC (05:15)
[2023-12-31 06:21] LABS: Hematocrit 44.4 % (40-54); Hemoglobin 15.8 g/dL (13.0-16.5); Mean Corp Hgb Conc 35.6 g/dL (32-36); Mean Corpuscular Hgb 30.4 pg (27.0-32.0); Mean Corpuscular Volume 85.4 fL (80-94); Mean Platelet Vol. 9.9 fl (6.2-12.0); Platelet Count 316 K/mm3 (150-450); RBC Distribution Width CV 12.2 % (11.6-14.6); RBC Distribution Width SD 37.5 fl (35.1-43.9); White Blood Count 7.8 K/mm3 (4.4-11.0)
[2023-12-31 06:57] LABS: Bedside Glucose 256 mg/dL (74-106)
[2023-12-31 07:08] LABS: AST(SGOT) 15 U/L (15-37); Alanine Aminotransfer ALT/SGPT 23 U/L (16-61); Albumin, Serum 3.3 g/dL (3.2-5.0); Alkaline Phosphatase 46 U/L (45-117); Anion Gap 7 (5-15); BUN 16 mg/dL (7-18); BUN/Creat Ratio 18.7 RATIO (10-20); Calcium,Total 9.3 mg/dL (8.5-10.1); Chloride 105 mmol/L (98-107); Creatinine, Serum 0.86 mg/dL (0.70-1.30); EST Glomerular Filtration Rate 101 mL/min (>60); Est Glom Filt Rate - Afr Amer 122 mL/min (>60); Estimated Creatinine Clearance 150.23 ml/min; Globulin 3.4 g/dL (2.2-4.2); Glucose 240 mg/dL (74-106); Magnesium 1.9 mg/dL (1.6-2.6); Phosphorus 4.3 mg/dL (2.5-4.9); Potassium 3.9 mmol/L (3.5-5.1); Protein, Total 6.7 g/dL (6.4-8.2); Sodium Level 137 mmol/L (136-145)
[2023-12-31] MEDS: metFORMIN HCl 500 MG Tablet PO ×2 (07:40→17:39)
[2023-12-31] MEDS: Clopidogrel Bisulfate 75 MG Tablet PO (07:40)
[2023-12-31] MEDS: Lisinopril 20 MG Tablet PO (07:40)
[2023-12-31] MEDS: Aspirin 81 MG TAB.CHEW PO (07:40)
[2023-12-31] MEDS: Multivitamins,Therapeutic Tablet 1 TABLET PO (07:40)
[2023-12-31] MEDS: Senna/Docusate Sodium 1 Tablet 2 TABLET PO (07:40)
[2023-12-31] MEDS: Metoprolol Tartrate 25 MG Tablet PO ×2 (07:41→20:18)
[2023-12-31] MEDS: Insulin Lispro 100 UNIT/ML INSULN.PEN SC ×3 (07:43→17:38)
[2023-12-31 12:17] LABS: Bedside Glucose 322 mg/dL (74-106)
[2023-12-31 16:32] LABS: Bedside Glucose 292 mg/dL (74-106)
--- NOTE | 2023-12-31 17:13 | EX.PCM.HP.RE ---
HPI - General General Date of Admission: 12/30/23 Date of Service: 12/31/23 Chief Complaint: Post stroke debility HPI Narrative NÉSTOR STEVENSON, is a 48 YO M with a PMH of diabetes mellitus type 2 on insulin, hypertension, hyperlipidemia, obstructive sleep apnea (uses CPAP), atrial flutter, depression, chronic back pain, tobacco dependence in remission and morbid obesity who presented to the emergency department at [facility] on 12/27/2023 with complaint of right-sided weakness, right facial droop and altered mental status. The last known well was approximately 7 hours prior to arriving in the emergency department. Stat noncontrast CT of the brain showed no acute intracranial pathology. CTA of the head and neck showed moderate stenosis of the right common carotid artery and mild stenosis of the left carotid artery with patent vertebral arteries bilaterally. The [facility] teleneurologist was consulted and he did not feel the patient was a candidate for TNK since he was 7 hours since the last known well. He was admitted to the progressive care unit on telemetry and started on aspirin and Plavix. He was also started on a high intensity statin and MRI and transthoracic echocardiogram were ordered. Brain MRI showed an acute infarct involving the anterior lateral left thalamus and the posterior limb of the left internal capsule measuring up to approximately 2.4 cm. There were punctate foci of restricted diffusion within the left caudate nucleus and the left back radiata consistent with acute infarcts. Transthoracic echocardiogram showed a normal ejection fraction of 65% with no evidence for diastolic dysfunction and no regional wall motion abnormalities. The left and right atria were of normal size and there was no Doppler evidence for an ASD. There was no significant valvular heart disease. A follow-up neurology consult was obtained and his NIHSS score on that date was 5 for LOC (1 of 2 questions answered correctly), partial hemianopia, limb ataxia present in 1 limb, mild to moderate aphasia and mild to moderate dysarthria. Dual antiplatelet agents for 21 days was recommended and then decreased to Plavix only. High intensity statin was continued. He was transferred to the acute inpatient rehab unit at [facility] on 12/30/2023 for 3 hours of therapy daily to restore function/independence at or near his level prior to the stroke. Family tells me that he lost his Medicaid insurance approximately 1 year ago and stopped taking all his medications at that time. They feel that he is getting worse with regards to depression. They are not able to tell me what antidepressant Néstor was taking in the past. His PCP is Dr. Rocky Delgadillo so we will request records. Hemoglobin A1c was 11.2 at admission to the hospital. Blood sugars have been uncontrolled since then. In the past his daughters tell me he was taking a long-acting insulin and short acting insulin with all meals. He was also on metformin in the past but had intolerable GI side effects. Total cholesterol was 225 with an LDL of 155 and a low HDL of 38. Triglycerides were 161. Medication list in EMR were reviewed. [facility] Medical History (Updated 12/31/23 @ 18:[address] Sabina Swain, ) Diabetes mellitus type 2, uncontrolled, with complications Tobacco dependence in remission Laceration of left ring finger w/o foreign body w/o damage to nail HNP (herniated nucleus pulposus), lumbar Acute sinusitis Stroke/cerebrovascular accident Acute sinusitis, unspecified Pharyngitis URI (upper respiratory infection) Arthritis HTN (hypertension) Atrial flutter Congenital anomaly of coronary artery Chest pain Essential hypertension MSSA (methicillin susceptible Staphylococcus aureus) septicemia MEGAN (obstructive sleep apnea) Radicular pain of right lower extremity Hyponatremia Super obese Intertrigo Sepsis Depression Hyperlipidemia Type II diabetes mellitus Hypertension Home Medications ?Medication ?Instructions ?Recorded ?Last Taken ?Type multivitamin (Daily Multi-Vitamin 1 tab PO DAILY suppplementation 12/27/23 12/26/23 History tablet) aspirin 81 mg chewable tablet 81 mg PO BREAKFAST stroke #21 tabs 12/30/23 Unknown Rx atorvastatin 80 mg tablet 80 mg PO QHS cholesterol #30 tabs 12/30/23 Unknown Rx clopidogrel 75 mg tablet 75 mg PO DAILY stroke #30 tabs 12/30/23 Unknown Rx insulin glargine 100 unit/mL (3 15 unit (0.15 mL) subcut QPM 12/30/23 Unknown Rx mL) subcutaneous pen (Lantus diabetes #15 mL Solostar U-100 Insulin) lisinopril 20 mg tablet 20 mg PO DAILY bp #30 tabs 12/30/23 Unknown Rx metformin 500 mg tablet 500 mg PO BID diabetes #60 tabs 12/30/23 Unknown Rx metoprolol tartrate 25 mg tablet 25 mg PO BID bp #60 tabs 12/30/23 Unknown Rx Allergy/AdvReac Type Severity Reaction Status Date / Time cefadroxil hydrate (From Allergy Itching Verified 08/07/22 12:57 Duricef) piperacillin (From Zosyn) Allergy Hives Verified 08/07/22 12:57 tazobactam (From Zosyn) Allergy Hives Verified 08/07/22 12:57 erythromycin base AdvReac Vomiting Verified 08/07/22 12:57 Family History Grandmother Heart disease Grandfather CVA (cerebral vascular accident) Other Arthritis Cancer Hypertension Surgical History History of foot surgery History of tonsillectomy and adenoidectomy History of left heart catheterization (LHC) (~06/23/12) Social History (Updated 12/31/23 @ 18:[address] Sabina Swain DO) household members: family housing: house current occupational status: unemployed Smoking Status: Former smoker how long ago did patient quit smokin years alcohol intake: current alcohol intake frequency: a few times a month Alcohol type: hard liquor ROS ROS Narrative Review of systems is somewhat difficult due to aphasia and dysarthria. It is limited. Constitutional Constitutional: Reports daytime sleepiness; Denies anorexia, difficulty sleeping or headache(s) Eyes Eyes: Reports change in vision; Denies erythema, eye pain, itchy eyes or loss of central vision ENT HEENT: Reports systems reviewed and no addt'l complaints, except as documented Cardiovascular Cardiovascular: Reports systems reviewed and no addt'l complaints, except as documented; Denies chest pain, dizziness, dyspnea or lightheadedness Respiratory/Chest Respiratory/Chest: Reports systems reviewed and no addt'l complaints, except as documented and change in mental status; Denies cough, dyspnea, portable oxygen @ home or productive cough Gastrointestinal Gastrointestinal: Reports systems reviewed and no addt'l complaints, except as documented and other Details: Appetite is good ; Denies nausea or odynophagia Genitourinary Genitourinary: Reports systems reviewed and no addt'l complaints, except as documented; Denies difficulty urinating, dysuria or urinary incontinence Musculoskeletal Musculoskeletal: Denies back pain or extremity pain Integumentary Integumentary: Denies jaundice or rash Neurologic Neurologic: Reports systems reviewed and no addt'l complaints, except as documented, abnormal speech, confusion, disequilibrium and focal weakness; Denies dizziness, headache(s), numbness, seizures or vertigo Psychiatric Psychiatric: Reports anhedonia, confusion and depression Endocrine Endocrinology: Reports systems reviewed and no addt'l complaints, except as documented Hematologic/Lymphatic Hematologic/Lymphatic: Denies anemia Allergic/Immunologic Allergic/Immunologic: Denies hives, eczemia or asthma Vital Signs Vital Signs Vital Signs: 12/30/23 17:38 12/30/23 19:15 12/30/23 20:10 Temperature 96 F L Temperature Source Temporal Pulse Rate 74 Respiratory Rate 16 Respiratory Effort Normal Non-Labored Respiratory Depth Normal Respiratory Pattern Normal Blood Pressure 149/92 H Blood Pressure Mean 111 Blood Pressure Source Monitor Blood Pressure Position Semi-Fowlers Blood Pressure Location Right Arm Pulse Ox 94 99 Oxygen Delivery Method Room Air Room Air Room Air 12/30/23 20:23 12/31/23 05:18 12/31/23 07:41 Temperature Temperature Source Pulse Rate 79 78 88 Respiratory Rate 16 Respiratory Effort Respiratory Depth Respiratory Pattern Blood Pressure 159/96 H 115/65 129/83 H Blood Pressure Mean 81 Blood Pressure Source Monitor Blood Pressure Position Supine Blood Pressure Location Left Arm Pulse Ox 98 Oxygen Delivery Method Room Air 12/31/23 08:46 Temperature Temperature Source Pulse Rate Respiratory Rate Respiratory Effort Respiratory Depth Respiratory Pattern Blood Pressure Blood Pressure Mean Blood Pressure Source Blood Pressure Position Blood Pressure Location Pulse Ox 98 Oxygen Delivery Method Room Air Weight Weight: 313 lb 0.902 oz Body Mass Index (BMI) 42.4 Indicators for Scoring Admitted with or Primary Diagnosis of CVA/Stroke: Yes Hx of CVA/Stroke: Yes Modified Mansfield Score MRS Score at time of Evaluation: 4-Moderate/severe disability NIHSS NIHSS 1a. Level of Consciousness: Alert; keenly responsive 1b. LOC Questions: Answers one question correctly. 1c. LOC Commands: Performs both tasks correctly. 2. Best Gaze: Normal 3. Visual: No visual loss 4. Facial Palsy: Normal symmetrical movements 5a. Left Arm: No drift; arm holds 90 (or 45) degrees for full 10 seconds 5b. Right Arm: No drift; arm holds 90 (or 45) degrees for full 10 seconds 6a. Left Leg: No drift; leg holds 30-degree position for full 5 seconds 6b. Right Leg: No drift; leg holds 30-degree position for full 5 seconds 7. Limb Ataxia: Present in 1 limb (Right upper extremity) 8. Sensory: Normal; no sensory loss 9. Best Language: [id number] aphasia; 10. Dysarthria: [id number] dysarthria; 11. Extinction and Inattention: No abnormality Total: 4 Stroke Questions Stroke Team Activated: No Physical Exam Const alert and no apparent distress Constitutional Narrative: Voice is soft and he has dysarthria. does not make good eye contact with me. He is cooperative. Nutritional Appearance: morbidly obese HEENT normocephalic, head/scalp atraumatic, hearing grossly normal bilaterally and moist oral mucous membranes HEENT Narrative: No thrush Eyes PERRL, EOMs intact bilaterally, conjunctivae normal and no scleral icterus Eyes Narrative: No discharge from the eyes General Eye: normal appearance of both eyes Neck supple and no carotid bruits Neck Narrative: Carotids have brisk upstroke with good pulse volume bilaterally. General: trachea midline Chest Chest: symmetrical chest wall rise Resp normal respiratory effort, no use of accessory muscles and clear to auscultation bilaterally Resp Narrative: Diminished breath sounds throughout, suspect secondary to body habitus. Effort and Inspection: able to speak in complete sentences Cardio regular rate, regular rhythm, S1 normal heart sound, S2 normal heart sound, no murmurs and no gallops Cardio Narrative: No ectopy GI GI Narrative: Morbidly obese. The abdomen is soft and nondistended. Bowel sounds were present in all 4 quadrants and he had no guarding with palpation. no CVA tenderness Back/Spine Back/Spine Narrative: Denies back pain. Extremity no calf tenderness and no pedal edema Skin no wounds and no jaundice General Skin Exam: no breakdown Rashes: no rashes Neuro Neuro Narrative: Oriented to person. Cannot tell me where he is. He did tell me he lives in [place]. Could not tell me the date or the day of the week. He could not tell me his daughter's name. Pupils are equal round and reactive to light. Extraocular muscles are intact. No visual field cuts. No facial asymmetry. Tongue protrudes on the midline. No drift of the upper extremities or lower extremities. Intact sensation throughout. Extinction was difficult to determine as he kept saying left forearm wherever I would touch him. no foot drop. Ataxia with the R UE - mild. + dysarthria and aphasia - mild to moderate of both. Psych Attitude: calm Activity / Motor Behavior: Negative for appropriate eye contact or hyperactive Speech: other Would not talk with his dtrs but, he answered my questions. They feel he is getting more withdrawn and seems more confused. Mood & Affect: depressed Insight: poor Judgement: poor Results Lab / Micro Data 12/31/23 05:09 12/31/23 05:09 Labs: Laboratory Results - last 24 hr 12/30/23 21:43: POC Glucose 260 H 12/31/23 05:09: WBC 7.8, RBC 5.20, Hgb 15.8, Hct 44.4, MCV 85.4, MCH 30.4, MCHC 35.6, RDW Std Deviation 37.5, RDW Coeff of Alysia 12.2, Plt Count 316, MPV 9.9, Sodium 137, Potassium 3.9, Chloride 105, Carbon Dioxide 26.0, Anion Gap 7, BUN 16, Creatinine 0.86, Estim Creat Clear Calc 150.23, Est GFR (MDRD) Af Amer 122, Est GFR (MDRD) Non-Af 101, BUN/Creatinine Ratio 18.7, Glucose 240 H, Calcium 9.3, Phosphorus 4.3, Magnesium 1.9, Total Bilirubin 2.00 H, AST 15, ALT 23, Alkaline Phosphatase 46, Total Protein 6.7, Albumin 3.3, Globulin 3.4, Albumin/Globulin Ratio 1.0 12/31/23 06:38: POC Glucose 256 H 12/31/23 11:57: POC Glucose 322 H 12/31/23 16:11: POC Glucose 292 H Assessment & Plan Assessment/Plan (1) Debility: (2) Ischemic cerebrovascular accident (CVA): (3) Ataxia: (4) Dysarthria: (5) Aphasia: (6) Partial hemianopia: (7) Right hemiparesis: (8) Diabetes mellitus type 2, uncontrolled, with complications: (9) Depression: (10) Super obese: (11) MEAGN (obstructive sleep apnea): PLAN: Plan PLAN PT for gait stability OT for ADL's ST for evaluation Analgesics as needed Bowel protocol Fall precautions Assess for Anxiety/Depression -start Cymbalta 30 mg p.o. every morning. Obtain records from Dr. Rocky Delgadillo including a med list and problem list. GI prophylaxis -not necessary at this time. He denies nausea, epigastric pain, history of peptic ulcer disease, heartburn. DVT prophylaxis with enoxaparin 40 mg subcu daily and GAIL ch Follow up with Dr. Delgadillo, Dr. Mancini and neurology following DC from [facility] lab including CMP, CBC, Mag and Phos - all personally reviewed Needs a lipid panel and a liver profile in 6 weeks event monitor at [place]. Has a hx of AFLUTTER Dual antiplatelet agents for 21 days and then discontinue aspirin and continue Plavix 75 mg daily Adjust glargine and lispro to get all blood sugars less than 180 with no hypoglycemia Discontinue metformin as he has had GI intolerance in the past Start Jardiance 10 mg p.o. daily Weight loss advised. Will have him follow-up with Dr. Mancini. Would consider using Ozempic or Mounjaro going forward to assist with weight loss. Would like to see his BMI less than 29 to start. Add hydralazine 10 mg every 4 hours as needed systolic greater than 170 or diastolic greater than 90. Allow permissive hypertension for the next few days and then goal for blood pressure control is less than 130/80. Goal for LDL is 70 or less Hemoglobin A1c goal is 7 or less Discussed plan of care with his daughters Cristine and Marleni Charges/Coding Visit Charges Inpatient E&M: 22503 Init Hosp L3
[2023-12-31] MEDS: Atorvastatin Calcium 80 MG Tablet PO (20:18)
[2023-12-31] MEDS: hydrALAZINE 10 MG Tablet PO (20:19)
[2023-12-31] MEDS: Insulin Glargine-YFGN 100 UNIT/ML Pen 22 UNIT SC (20:28)
[2023-12-31 20:48] LABS: Bedside Glucose 222 mg/dL (74-106)
[2024-01-01] VITALS (8 sets, daily range): BP systolic 117–152; BP diastolic 73–100; PULSE 67–85; RESP 17; TEMP 36.4–36.9; O2SAT 96–98; BMI 42.4
[2024-01-01 00:07] LABS: Bacteria 0 SEEN /hpf (None Seen); Mucous, Urine 0 SEEN /hpf (<or=2+); Red Blood Cells-Urine 0 SEEN /hpf (0-5); Squamous Epithelial Cells - UA 0 SEEN /hpf (0-5); White Blood Cells 0 SEEN /hpf (0-5)
[2024-01-01 00:25] LABS: Color, Urine Yellow (Yellow); Glucose, Dipstick 1000 mg/dl (Normal); Ketone-Dipstick Negative (Negative); Leukocyte Esterase-Dipstick Negative /ul (Negative); Nitrite-Dipstick Negative (Negative); Occult Blood-Urine Negative /ul (Negative); Protein-Dipstick Negative (Negative); Specific Gravity, Urine 1.015 (1.002-1.030); Urine Bilirubin Dipstick Negative (Negative); Urine Clarity Clear (Clear); Urine Urobilinogen Normal (Normal)
[2024-01-01 01:02] LABS: Microalbumin,Random Urine 13.4 mg/L (NO RANGE EST.); Microalbumin:Creatinine Ratio 20.2 mg/g CRE (<30 mg/g CRE)
[2024-01-01] MEDS: Enoxaparin 40 MG/0.4 ML Syringe SC (05:02)
[2024-01-01 06:26] LABS: Bedside Glucose 226 mg/dL (74-106)
[2024-01-01] MEDS: DULoxetine Hcl 30 MG Capsule PO (07:49)
[2024-01-01] MEDS: Empagliflozin 10 MG Tablet PO (07:50)
[2024-01-01] MEDS: Multivitamins,Therapeutic Tablet 1 TABLET PO (07:50)
[2024-01-01] MEDS: Aspirin 81 MG TAB.CHEW PO (07:50)
[2024-01-01] MEDS: Metoprolol Tartrate 25 MG Tablet PO (07:50)
[2024-01-01] MEDS: Clopidogrel Bisulfate 75 MG Tablet PO (07:50)
[2024-01-01] MEDS: Lisinopril 20 MG Tablet PO (07:51)
[2024-01-01] MEDS: hydrALAZINE 10 MG Tablet PO (07:51)
[2024-01-01] MEDS: Insulin Lispro 100 UNIT/ML INSULN.PEN 9 UNIT SC ×3 (07:52→17:13)
[2024-01-01] MEDS: Insulin Lispro 100 UNIT/ML INSULN.PEN SC ×2 (07:54→12:24)
[2024-01-01] MEDS: Senna/Docusate Sodium 1 Tablet 2 TABLET PO (07:56)
[2024-01-01 12:07] LABS: Bedside Glucose 179 mg/dL (74-106)
[2024-01-01 16:56] LABS: Bedside Glucose 145 mg/dL (74-106)
[2024-01-01] MEDS: Atorvastatin Calcium 80 MG Tablet PO (20:37)
[2024-01-01] MEDS: Insulin Glargine-YFGN 100 UNIT/ML Pen 22 UNIT SC (20:38)
[2024-01-01] MEDS: Metoprolol(XL)Succ 50 MG Tablet PO (20:39)
[2024-01-01 20:50] LABS: Bedside Glucose 184 mg/dL (74-106)
[2024-01-02 06:43] VITALS: BP 113/73; PULSE 80; RESP 18; TEMP 36.7; O2SAT 98
[2024-01-02] MEDS: Enoxaparin 40 MG/0.4 ML Syringe SC (06:46)
[2024-01-02 06:55] LABS: Bedside Glucose 138 mg/dL (74-106)
[2024-01-02 07:52] VITALS: BP 135/91; PULSE 76
[2024-01-02] MEDS: Multivitamins,Therapeutic Tablet 1 TABLET PO (07:52)
[2024-01-02] MEDS: Lisinopril 20 MG Tablet PO (07:52)
[2024-01-02] MEDS: Empagliflozin 10 MG Tablet PO (07:52)
[2024-01-02] MEDS: Clopidogrel Bisulfate 75 MG Tablet PO (07:52)
[2024-01-02] MEDS: hydrALAZINE 10 MG Tablet PO (07:52)
[2024-01-02] MEDS: Aspirin 81 MG TAB.CHEW PO (07:52)
[2024-01-02] MEDS: DULoxetine Hcl 30 MG Capsule PO (07:52)
[2024-01-02] MEDS: Insulin Lispro 100 UNIT/ML INSULN.PEN 9 UNIT SC ×3 (07:53→17:20)
[2024-01-02 09:09] VITALS: BP 118/80; PULSE 87; RESP 16
[2024-01-02 11:35] LABS: Bedside Glucose 134 mg/dL (74-106)
[2024-01-02 15:55] VITALS: BMI 42.4
[2024-01-02 16:45] LABS: Bedside Glucose 154 mg/dL (74-106)
[2024-01-02] MEDS: Insulin Lispro 100 UNIT/ML INSULN.PEN SC (17:20)
[2024-01-02 18:00] VITALS: BP 140/88; PULSE 80; RESP 17; O2SAT 96
[2024-01-02 20:14] VITALS: BMI 42.4
[2024-01-02 21:57] VITALS: BP 120/81; PULSE 76
[2024-01-02] MEDS: Insulin Glargine-YFGN 100 UNIT/ML Pen 22 UNIT SC (22:00)
[2024-01-02 22:01] VITALS: PULSE 76
[2024-01-02] MEDS: Atorvastatin Calcium 80 MG Tablet PO (22:01)
[2024-01-02] MEDS: Metoprolol(XL)Succ 50 MG Tablet PO (22:01)
[2024-01-02 22:25] LABS: Bedside Glucose 161 mg/dL (74-106)
[2024-01-03] MEDS: Enoxaparin 40 MG/0.4 ML Syringe SC (05:32)
[2024-01-03 05:37] VITALS: BP 136/87; PULSE 72; RESP 18; TEMP 36.8; O2SAT 99
[2024-01-03 06:09] LABS: Bedside Glucose 148 mg/dL (74-106)
[2024-01-03] MEDS: Empagliflozin 10 MG Tablet PO (07:46)
[2024-01-03] MEDS: DULoxetine Hcl 30 MG Capsule PO (07:46)
[2024-01-03] MEDS: Aspirin 81 MG TAB.CHEW PO (07:46)
[2024-01-03] MEDS: Multivitamins,Therapeutic Tablet 1 TABLET PO (07:46)
[2024-01-03] MEDS: Clopidogrel Bisulfate 75 MG Tablet PO (07:46)
[2024-01-03] MEDS: Lisinopril 20 MG Tablet PO (07:46)
[2024-01-03 08:21] VITALS: O2SAT 96
--- NOTE | 2024-01-03 08:31 | PCM.PROGNOTE ---
Subjective Subjective Afebrile VSS -blood pressure over the past 24 hours has ranged from 113/73 to 140/88. Heart rate is within normal limit Maintaining appropriate oxygen saturation on RA. Pliant with CPAP at night. Oral intake - FOOD good FLUIDS good Blood sugar record was reviewed. Blood sugars since the fasting sugar on 01/01/2024 have all been less than 200 and mostly less than 180 with no hypoglycemia. Discussed with nursing - no problems that need addressed Reviewed the THERAPY notes Medication list reviewed. Denies DOUGLAS, lightheadedness, back pain, CP, SOB, cough. Sleeping well at night. Objective Data Objective Data Vital Signs: Vital Signs Temp Pulse Resp BP Pulse Ox O2 Del Method 98.2 F 72 18 136/87 H 96 Room Air 01/03/24 05:37 01/03/24 05:37 01/03/24 05:37 01/03/24 05:37 01/03/24 08:21 01/03/24 08:21 Oxygen Delivery Method Room Air Weight: 313 lb 0.902 oz Body Mass Index (BMI) 42.4 Intake & Output: Intake and Output for Last 24 Hours 01/01/24 01/02/24 01/03/24 23:59 23:59 23:59 Intake Total 1680 / 1680 2242 / 2242 500 / 500 Output Total 2800 / 2800 2325 / 2325 600 / 600 Balance -1120 / -1120 -83 / -83 -100 / -100 Lab / Micro Data 12/31/23 05:09 12/31/23 05:09 Labs: Laboratory Results - last 24 hr 01/02/24 11:09: POC Glucose 134 H 01/02/24 16:21: POC Glucose 154 H 01/02/24 21:59: POC Glucose 161 H 01/03/24 05:44: POC Glucose 148 H Physical Exam Const no apparent distress Constitutional Narrative: sitting in the recliner at the bedside. Oriented to person but, can not tell me the month, year, where he is at. Followed 1 of 2 commands correctly. General Appearance: cooperative Nutritional Appearance: morbidly obese HEENT moist oral mucous membranes Eyes PERRL, EOMs intact bilaterally, conjunctivae normal and no scleral icterus Eyes Narrative: No discharge from the eyes General Eye: normal appearance of both eyes Neck supple and no carotid bruits Neck Narrative: Carotids have brisk upstroke with good pulse volume bilaterally. General: trachea midline Chest Chest: symmetrical chest wall rise Resp clear to auscultation bilaterally Resp Narrative: Diminished breath sounds throughout, suspect secondary to body habitus. Effort and Inspection: Negative for tachypneic or respiratory distress Cardio regular rate, regular rhythm and no gallops Cardio Narrative: No ectopy GI normal to inspection, nondistended, normoactive bowel sounds, soft to palpation and non-tender GI Narrative: No guarding with palpation no CVA tenderness Back/Spine Back/Spine Narrative: Denies back pain. Extremity no calf tenderness General Extremity: Negative for edema Skin no wounds and no jaundice General Skin Exam: no breakdown Rashes: no rashes Neuro Neuro Narrative: Voice does not project well. He is difficult to understand......due to dysarthria and aphasia (receptive and expressive) Sometimes able to follow simple commands. Making better eye contact with me today. Psych Appearance: appropriate Attitude: No agitated Activity / Motor Behavior: Negative for appropriate eye contact or hyperactive Speech: other Would not talk with his dtrs but, he answered my questions. They feel he is getting more withdrawn and seems more confused. Mood & Affect: flat affect; Negative for anxious Insight: poor Judgement: poor Assessment & Plan Assessment/Plan (1) Debility: (2) Ischemic cerebrovascular accident (CVA): (3) Ataxia: (4) Dysarthria: (5) Aphasia: (6) Diabetes mellitus type 2, uncontrolled, with complications: (7) Depression: PLAN: Plan 1. Continue therapy 2. Increase the mealtime insulin at supper to 10 units daily 3. Discontinue sliding scale insulin 4. Continue blood sugars before meals and at bedtime for another 24 to 48 hours and if blood sugars remain well-controlled with no hypoglycemia we will decrease to twice daily. Charges/Coding Visit Charges Inpatient E&M: 39938 Subs Hosp L1
[2024-01-03 10:11] VITALS: BMI 42.4
--- NOTE | 2024-01-03 10:46 | PCM.RU.PYE ---
Admission Information Primary Diagnosis:: Post stroke debility Status Changes from Prescreening?: No changes Identified Actual Problem List:: Cognitve Impr/Memory Loss, Depression, Mobility Impaired, Self Care Deficit, Know.Dfct/Disease Process, Know.Dfct of Medicaitons, Diabetes, Hyperglycemia, BP, Hypertension and Alteration-Leisure Activ. Potential Problem List:: DVT, Bleeding, Infection, UTI, Aspiration, Falls, Skin Integrity and Depression Risk of Complications DVT: LMWH and GAIL Hose Bleeding: Monitor Lab Values, Nursing to Teach Precautions for anti-coagulation therapy., Wound, if applicable, to be assessed every shift. and Stroke patients assessed for lethargy or change in status. Infection: Clinical Staff to Monitor for S/S of infection: and S/S of infection include fever, redness, warmth, etc. Urinary Tract Infection: Monitor for frequency, burning, discomfort, or incontinence. and Nursing will obtain urine sample for urinalysis and C&S when ordered. Aspiration: Clinical staff will monitor for coughing, drooling, congestion., Speech will evaluate swallowing and dsyphasia. and Nursing will monitor patient swallowing during meals. Falls: Patient will be evaluated for Fall Precautions and Patient will be placed on Fall Precautions as indicated per protocol. Skin Breakdown: Nursing will assess skin daily using assessment tool. and Nursing will place on Skin Breakdown Precautions as indicated. Pain: Clinical staff will assess patient's pain level per protocol., Medications will be given, if needed, and the pain level reassessed. and Other methods: Massage, distraction, decrease stimulus, etc. used PRN. Plan of Care Patient requires physician specializing in physical medicine and rehab oversight to provide close medical supervision of rehab issues including: Pain Management, Sleep Problems, Bowel and Bladder, Medical and co-morbidity Management, DVT prophylaxis, Rehabilitation Leadership and Coordination of treatment team Patient needs Physical Therapy: For a minimum of 1 hour and At least 5 out of 7 days Patient needs Physical Therapy to improve:: Mobility, Strengthening, Transfers, Stretching, ROM, Endurance, Stairs, Gait and Balance Patient needs Occupational Therapy: For a minimum of 1 hour and At least 5 out of 7 days Patient needs Occupational Therapy to improve ADL's incl.: Eating, Grooming, Bathing, Dressing, Toileting, Toilet transfers, Community Reintegration, Higher functioning activities, Household tasks, Adaptive Equipment, Splinting and Other activities as determined Patient requires speech therapy: For a minimum of 1 hour and At least 5 out of 7 days Patient requires speech therapy for: Swallowing, Cognition, Language Skills and Compensatory Strategies Patient requires 24/ Rehabilitation Nursing for: Pain Issues, Identifying and preventing risk factors, Monitoring and reporting current medical conditions, Assisting with ambulation, transfer, and all ADL's, Teaching patients about disease process and medications, Family teaching, Providing safe environment, Bowel and Bladder Issues, Skin integrity and Medication Management Patient needs Staff Development Coordinator/ Case Management for: Discharge Planning, Arranging Home Equipment or Services and Family Interventions Patient needs Dietary and Nutrition Services for: Adequate Nutrition, Nutritional Supplements and Nutritional Education Goals Goals Patient will remain: free from falls Patient will perform eating at: MOD I level of assist. Patient will perform bed mobility at: MOD I level of assist. Patient will complete transfers from bed to chair at: MOD I level of assist. Patient will ambulate: - (500 ft + using a map to find various lacations) Patient will complete upper body dressing at: MOD I level of assist. Patient will complete lower body dressing at: MOD I level of assist. (with AE as needed) Patient will complete toilet transfer at: MOD I level of assist. Patient will complete toileting at: MOD I level of assist. Patient will perform bathing at: MOD I level of assist. Patient will perform Tub/Shower transfer at: - (Supervision) Patient will complete grooming at: MOD I level of assist. Patient will achieve: - (4 steps with 1 HR at SBA) Patient will have pain level of: of 3 or less Patient's skin will: remain intact Patient will receive: adequate nutrition. Discharge Planning Pt Prognosis for Sig. Practical Improv. w/in Reasonable Time: Good Estimated Length of stay (days): 21 Anticipated D/C Destination: Home with Outpt Therapy Was Preadmission Assessment Accurate?: Yes
[2024-01-03] MEDS: Insulin Lispro 100 UNIT/ML INSULN.PEN 9 UNIT SC (11:29)
[2024-01-03] MEDS: Insulin Lispro 100 UNIT/ML INSULN.PEN SC ×2 (11:29→17:05)
[2024-01-03 11:44] LABS: Bedside Glucose 236 mg/dL (74-106)
--- NOTE | 2024-01-03 12:44 | CASEMGMT ---
Social Work IDT met with patient, ex-, and dtr for Team meeting. Discussed patient's progress in PT/OT/ST/SN. Educated to Medicaid pending insurance coverage. KRIS spoke with Adan rome this date and no new communication from [facility]. KRIS will assist with DC planning. IDT noted pt worsening overall. ordered another CT and will determine any other interventions. KRIS clarified baseline and home set up and emergency contacts. Dtr is primary contact and ex- to be secondary contact. Dtr denied having her or pt's mother listed as a contact. SW updated pt's chart. Pt and ex- live in dtr and SILs home, with their 7 and 9 year old grandchildren. ELENA is the working person providing the income. Pt has not worked for at least 8 years d/t chronic back pain, per dtr. Ex- is a nurse by [employer] but had back and knee surgery leaving her disable and unable to lift. Dtr cares for parents and her children. Dtr explained to prior concern for pt having untreated depression. plans to address with medication. KRIS will continue to follow and intervene with support and DC planning. Will ReTeam next week. RODGER Cochran
--- NOTE | 2024-01-03 14:40 | CT_ITS ---
STUDY: CT BRAIN WITHOUT CONTRAST REASON FOR EXAM: Male, 48 years old. Mental status change in pt with recent CVA RADIATION DOSAGE (If Supplied By Facility): CTDIvol = ( 44.99 ) mGy, DLP = ( 829.85 ) mGycm TECHNIQUE: Transaxial CT imaging of the brain was performed without administration of intravenous contrast material. Individualized dose optimization techniques were used for this CT. COMPARISON: Comparison is made with prior study dated December 27, 2023. FINDINGS: Normal soft tissue structures. Normal calvarium. There is mild cerebral atrophy with widening of the extra-axial spaces and ventricular dilatation. Normal white matter tracts of the cerebral hemispheres. There is evidence of a progressive decreased attenuation in the left thalamus as well as the posterior limb of the left internal capsule consistent with a left thalamic infarct. Normal brainstem. Normal cerebellum. There is no intracranial hemorrhage. There are no findings of an acute ischemic infarction. Normal visualized paranasal sinuses. CT/Brain/Head without Contrast IMPRESSION: Findings in keeping with a left thalamic and left posterior limb of the internal capsule infarct. Electronically Signed: Parth Yoon MD at 15:22 EDT ,
[2024-01-03 17:02] LABS: Bedside Glucose 152 mg/dL (74-106)
[2024-01-03] MEDS: Insulin Lispro 100 UNIT/ML INSULN.PEN 10 UNIT SC (17:06)
[2024-01-03 17:38] VITALS: BP 126/84; PULSE 71; RESP 18; TEMP 36.3; O2SAT 99
[2024-01-03 20:46] VITALS: BP 136/82; PULSE 74
[2024-01-03 20:49] VITALS: BMI 42.4
[2024-01-03] MEDS: Insulin Glargine-YFGN 100 UNIT/ML Pen 22 UNIT SC (20:51)
[2024-01-03 20:54] VITALS: PULSE 74
[2024-01-03] MEDS: Metoprolol(XL)Succ 50 MG Tablet PO (20:54)
[2024-01-03] MEDS: Senna/Docusate Sodium 1 Tablet 2 TABLET PO (20:54)
[2024-01-03] MEDS: Atorvastatin Calcium 80 MG Tablet PO (20:55)
[2024-01-03 21:37] LABS: Bedside Glucose 135 mg/dL (74-106)
[2024-01-03 22:00] VITALS: PULSE 71; RESP 16
[2024-01-04] MEDS: Enoxaparin 40 MG/0.4 ML Syringe SC (04:55)
[2024-01-04 06:15] VITALS: BP 126/76; PULSE 66; RESP 16; TEMP 36.7; O2SAT 97
[2024-01-04 06:46] LABS: Bedside Glucose 116 mg/dL (74-106)
[2024-01-04] MEDS: Aspirin 81 MG TAB.CHEW PO (08:29)
[2024-01-04] MEDS: Empagliflozin 10 MG Tablet PO (08:29)
[2024-01-04] MEDS: Clopidogrel Bisulfate 75 MG Tablet PO (08:29)
[2024-01-04] MEDS: Lisinopril 20 MG Tablet PO (08:29)
[2024-01-04] MEDS: Multivitamins,Therapeutic Tablet 1 TABLET PO (08:29)
[2024-01-04] MEDS: DULoxetine Hcl 30 MG Capsule PO (08:29)
[2024-01-04] MEDS: Insulin Lispro 100 UNIT/ML INSULN.PEN 9 UNIT SC ×3 (08:29→17:19)
[2024-01-04 09:44] VITALS: BMI 42.4
--- NOTE | 2024-01-04 10:03 | PCM.PROGNOTE ---
Subjective Subjective Afebrile VSS - Maintaining appropriate oxygen saturation on RA Oral intake - FOOD good FLUIDS good The blood sugar record was reviewed. Blood sugar was elevated at 236 at lunchtime yesterday but all remaining blood sugars are less than 180 with no hypoglycemia. Blood sugar at at bedtime last night was 135 and the fasting today was 116. Discussed with nursing - no problems that need addressed Reviewed the THERAPY notes -speech therapy reported to me today that he is doing much better. He is better able to attend to what is being said to him and he is making much better eye contact. Medication list reviewed. Repeat CT brain yesterday shows no intracranial hemorrhage. Findings were consistent with progressive decreased attenuation in the left thalamus as well as the posterior limb of the left internal capsule consistent with recent ischemic CVA. Records were requested from his PCP, Dr. Rocky Delgadillo, yesterday but have not been received yet. Néstor is more alert today and his voice is projecting much better. I can now understand what he is says and dysarthria has improved significantly. He denies lightheadedness, cephalgia, chest pain, shortness of breath, nausea/vomiting/abdominal pain, calf tenderness, dysuria. He also denies back pain or radicular pain into his legs. Objective Data Objective Data Vital Signs: Vital Signs Temp Pulse Resp BP Pulse Ox O2 Del Method 98.1 F 66 16 126/76 H 97 Room Air 01/04/24 06:15 01/04/24 06:15 01/04/24 06:15 01/04/24 06:15 01/04/24 06:15 01/04/24 06:15 Oxygen Delivery Method Room Air Weight: 313 lb 0.902 oz Body Mass Index (BMI) 42.4 Intake & Output: Intake and Output for Last 24 Hours 01/02/24 01/03/24 01/04/24 23:59 23:59 23:59 Intake Total 2242 / 2242 3270 / 3270 250 / 250 Output Total 2325 / 2325 4075 / 4075 800 / 800 Balance -83 / -83 -805 / -805 -550 / -550 Lab / Micro Data 12/31/23 05:09 12/31/23 05:09 Labs: Laboratory Results - last 24 hr 01/03/24 11:26: POC Glucose 236 H 01/03/24 16:43: POC Glucose 152 H 01/03/24 20:51: POC Glucose 135 H 01/04/24 06:28: POC Glucose 116 H Radiography Diagnostic Testing: Radiology Impression Brain CT 01/03/24 14:40 IMPRESSION: Findings in keeping with a left thalamic and left posterior limb of the internal capsule infarct. Electronically Signed: Parth Yoon MD at 15:22 EDT , Physical Exam Const no apparent distress General Appearance: cooperative HEENT moist oral mucous membranes Resp clear to auscultation bilaterally Resp Narrative: Diminished breath sounds throughout, suspect secondary to body habitus. Effort and Inspection: Negative for tachypneic or respiratory distress Cardio regular rate, regular rhythm and no gallops Cardio Narrative: No ectopy GI normal to inspection, nondistended, normoactive bowel sounds, soft to palpation and non-tender Extremity no calf tenderness General Extremity: Negative for edema Psych Psych Narrative: Affect is better today. He is speaking with better volume and he is making good eye contact with me today. Dysarthria has improved and he is enunciating much better. He is better able to attend to what is being asked of him. cooperative with therapy. Appearance: appropriate Attitude: No agitated Assessment & Plan Assessment/Plan (1) Debility: (2) Ischemic cerebrovascular accident (CVA): (3) Ataxia: (4) Dysarthria: (5) Aphasia: (6) Diabetes mellitus type 2, uncontrolled, with complications: (7) Depression: QUALIFIERS: Depression Type: reactive depression Qualified Code(s): F32.9 - Major depressive disorder, single episode, unspecified PLAN: Plan 1. Continue therapy 2. Blood sugars are starting to trend down. The blood sugar at lunch was 86 today, down from 116 at breakfast. Will need to adjust the insulin today. 3. Continue Cymbalta - affect is improving and he is doing better in therapy now. 4. BP's are trending down. Continue the PRN Hydralazine. Continue Lisinopril and Metoprolol. If BP's are not less than 130/80 consistently by the end of the week will need to adjust the antihypertensives. Charges/Coding Visit Charges Inpatient E&M: 16598 Subs Hosp L1
[2024-01-04 12:07] LABS: Bedside Glucose 86 mg/dL (74-106)
[2024-01-04 16:26] LABS: Bedside Glucose 102 mg/dL (74-106)
[2024-01-04 17:13] VITALS: BP 143/96; PULSE 73; RESP 15; TEMP 36.9; O2SAT 100
[2024-01-04 19:23] VITALS: BMI 42.4
[2024-01-04 19:34] VITALS: RESP 16
[2024-01-04 20:30] VITALS: BP 134/82; PULSE 70
[2024-01-04 20:36] VITALS: PULSE 70
[2024-01-04] MEDS: Atorvastatin Calcium 80 MG Tablet PO (20:36)
[2024-01-04] MEDS: Senna/Docusate Sodium 1 Tablet 2 TABLET PO (20:36)
[2024-01-04] MEDS: Metoprolol(XL)Succ 50 MG Tablet PO (20:36)
[2024-01-04] MEDS: Insulin Glargine-YFGN 100 UNIT/ML Pen 20 UNIT SC (20:37)
[2024-01-04 20:58] LABS: Bedside Glucose 171 mg/dL (74-106)
[2024-01-05] MEDS: Enoxaparin 40 MG/0.4 ML Syringe SC (04:55)
[2024-01-05 06:00] VITALS: BP 104/69; PULSE 76; RESP 16; TEMP 36.8; O2SAT 93
[2024-01-05 06:47] LABS: Bedside Glucose 139 mg/dL (74-106)
[2024-01-05] MEDS: Clopidogrel Bisulfate 75 MG Tablet PO (07:50)
[2024-01-05] MEDS: Aspirin 81 MG TAB.CHEW PO (07:50)
[2024-01-05] MEDS: Lisinopril 20 MG Tablet PO (07:50)
[2024-01-05] MEDS: Senna/Docusate Sodium 1 Tablet 2 TABLET PO ×2 (07:50→20:23)
[2024-01-05] MEDS: Insulin Lispro 100 UNIT/ML INSULN.PEN 8 UNIT SC ×2 (07:50→12:33)
[2024-01-05] MEDS: DULoxetine Hcl 30 MG Capsule PO (07:51)
[2024-01-05] MEDS: Multivitamins,Therapeutic Tablet 1 TABLET PO (07:51)
[2024-01-05] MEDS: Empagliflozin 10 MG Tablet PO (07:51)
[2024-01-05 08:38] LABS: Bedside Glucose 192 mg/dL (74-106)
[2024-01-05 09:13] VITALS: BMI 42.4
--- NOTE | 2024-01-05 10:49 | EX.PCM.PN.RE ---
Subjective Subjective Afebrile VSS -blood pressure is somewhat erratic. Over the past 24 hours it has ranged from 104/69 to 143/96. Heart rate is within normal limits. Seems to peak in the late afternoon......end of dose failure? Maintaining appropriate oxygen saturation on RA Oral intake - FOOD good FLUIDS good The blood sugar record was reviewed. At bedtime blood sugar was 171 and the fasting today was 139. No hypoglycemia. Discussed with nursing - no problems that need addressed Reviewed the THERAPY notes Medication list reviewed. Objective Data Objective Data Vital Signs: Vital Signs Temp Pulse Resp BP Pulse Ox O2 Del Method 98.3 F 76 16 104/69 93 Room Air 01/05/24 06:00 01/05/24 06:00 01/05/24 06:00 01/05/24 06:00 01/05/24 06:00 01/04/24 19:34 Oxygen Delivery Method Room Air Weight: 313 lb 0.902 oz Body Mass Index (BMI) 42.4 Intake & Output: Intake and Output for Last 24 Hours 01/03/24 01/04/24 01/05/24 23:59 23:59 23:59 Intake Total 3270 / 3270 2660 / 2660 400 / 400 Output Total 4075 / 4075 3850 / 3850 700 / 700 Balance -805 / -805 -1190 / -1190 -300 / -300 Lab / Micro Data 12/31/23 05:09 12/31/23 05:09 Labs: Laboratory Results - last 24 hr 01/04/24 11:48: POC Glucose 86 01/04/24 16:06: POC Glucose 102 01/04/24 20:32: POC Glucose 171 H 01/05/24 06:29: POC Glucose 139 H 01/05/24 08:20: POC Glucose 192 H Indicators for Scoring Admitted with or Primary Diagnosis of CVA/Stroke: Yes Hx of CVA/Stroke: Yes Modified Niles Score MRS Score at time of Evaluation: 4-Moderate/severe disability Physical Exam Const no apparent distress General Appearance: cooperative HEENT moist oral mucous membranes Resp clear to auscultation bilaterally Resp Narrative: Diminished breath sounds throughout, suspect secondary to body habitus. Effort and Inspection: Negative for tachypneic or respiratory distress Cardio regular rate, regular rhythm and no gallops Cardio Narrative: No ectopy GI normal to inspection, nondistended, normoactive bowel sounds, soft to palpation and non-tender Extremity no calf tenderness General Extremity: Negative for edema Psych Psych Narrative: Very cooperative with therapy. Appearance: appropriate Attitude: No agitated Assessment & Plan Assessment/Plan (1) Debility: (2) Ischemic cerebrovascular accident (CVA): (3) Ataxia: (4) Dysarthria: (5) Aphasia: (6) Diabetes mellitus type 2, uncontrolled, with complications: (7) Depression: QUALIFIERS: Depression Type: reactive depression Qualified Code(s): F32.9 - Major depressive disorder, single episode, unspecified PLAN: Plan 1. Continue therapy 2. Change the metoprolol XL to 25 mg p.o. twice daily and change lisinopril to 10 mg twice daily. 3. No changes to the insulin regimen at this time. Charges/Coding Visit Charges Inpatient E&M: 92353 Subs Hosp L1
[2024-01-05 11:34] LABS: Bedside Glucose 132 mg/dL (74-106)
[2024-01-05] MEDS: Insulin Lispro 100 UNIT/ML INSULN.PEN 9 UNIT SC (17:05)
[2024-01-05] MEDS: Insulin Lispro 100 UNIT/ML INSULN.PEN SC (17:08)
[2024-01-05 17:28] LABS: Bedside Glucose 166 mg/dL (74-106)
[2024-01-05 17:45] VITALS: BP 137/81; PULSE 78; RESP 20; TEMP 36.2; O2SAT 97
[2024-01-05 20:20] VITALS: PULSE 78; RESP 20; O2SAT 97; BMI 42.4
[2024-01-05 20:23] VITALS: BP 137/81; PULSE 78
[2024-01-05] MEDS: Metoprolol(XL)Succ 25 MG Tablet PO (20:23)
[2024-01-05] MEDS: Atorvastatin Calcium 80 MG Tablet PO (20:24)
[2024-01-05] MEDS: Lisinopril 10 MG Tablet PO (20:24)
[2024-01-05] MEDS: Insulin Glargine-YFGN 100 UNIT/ML Pen 20 UNIT SC (20:30)
[2024-01-05 21:56] LABS: Bedside Glucose 163 mg/dL (74-106)
[2024-01-06] MEDS: Enoxaparin 40 MG/0.4 ML Syringe SC (05:16)
[2024-01-06 05:19] VITALS: BP 107/74; PULSE 79; RESP 18; TEMP 37; O2SAT 98
[2024-01-06 07:25] LABS: Bedside Glucose 146 mg/dL (74-106)
[2024-01-06 08:24] VITALS: PULSE 79
[2024-01-06] MEDS: Aspirin 81 MG TAB.CHEW PO (08:24)
[2024-01-06] MEDS: Metoprolol(XL)Succ 25 MG Tablet PO ×2 (08:24→20:15)
[2024-01-06] MEDS: DULoxetine Hcl 30 MG Capsule PO (08:24)
[2024-01-06] MEDS: Empagliflozin 10 MG Tablet PO (08:24)
[2024-01-06] MEDS: Clopidogrel Bisulfate 75 MG Tablet PO (08:24)
[2024-01-06] MEDS: Multivitamins,Therapeutic Tablet 1 TABLET PO (08:24)
[2024-01-06] MEDS: Lisinopril 10 MG Tablet PO ×2 (08:24→20:14)
[2024-01-06] MEDS: Insulin Lispro 100 UNIT/ML INSULN.PEN 8 UNIT SC (08:25)
--- NOTE | 2024-01-06 14:20 | CASEMGMT ---
Social Work IDT discussed pt's progress and planning for DC. Medicare days were 9 days, EDC 01/08. IDT agreeable to follow through with DC planning for early next week. SW phoned dtr to discuss above information. Dtr agreeable pt cannot return home and will need a SNF. SW offered to provide/send list of SNFs to review. Dtr requested text link. SW sent link of [facility] SNFs with quality and resource data via [facility] link. Encouraged dtr select choices for this worker to place referrals tomorrow, 01/06. Dtr expressed understanding. SW will continue to follow. RODGER CochranW
[2024-01-06 15:31] VITALS: BMI 42.4
[2024-01-06 16:47] LABS: Bedside Glucose 152 mg/dL (74-106)
[2024-01-06] MEDS: Insulin Lispro 100 UNIT/ML INSULN.PEN 9 UNIT SC (16:52)
[2024-01-06] MEDS: Insulin Lispro 100 UNIT/ML INSULN.PEN SC (16:53)
[2024-01-06 18:00] VITALS: BP 148/91; PULSE 76; RESP 17; TEMP 36.8; O2SAT 98
[2024-01-06 20:15] VITALS: BP 148/91; PULSE 76
[2024-01-06] MEDS: Atorvastatin Calcium 80 MG Tablet PO (20:15)
[2024-01-06] MEDS: Insulin Glargine-YFGN 100 UNIT/ML Pen 20 UNIT SC (20:16)
[2024-01-06 20:20] VITALS: PULSE 76; RESP 17; O2SAT 98
[2024-01-06 20:23] VITALS: BMI 42.4
[2024-01-07] VITALS (7 sets, daily range): BP systolic 102–136; BP diastolic 59–89; PULSE 73–75; RESP 16–17; TEMP 36.4–36.7; O2SAT 98–99; BMI 41.6
[2024-01-07] MEDS: Enoxaparin 40 MG/0.4 ML Syringe SC (06:30)
[2024-01-07 07:06] LABS: Bedside Glucose 140 mg/dL (74-106)
[2024-01-07] MEDS: Metoprolol(XL)Succ 25 MG Tablet PO ×2 (07:56→20:10)
[2024-01-07] MEDS: Aspirin 81 MG TAB.CHEW PO (07:56)
[2024-01-07] MEDS: Empagliflozin 10 MG Tablet PO (07:56)
[2024-01-07] MEDS: Clopidogrel Bisulfate 75 MG Tablet PO (07:56)
[2024-01-07] MEDS: Lisinopril 10 MG Tablet PO ×2 (07:56→20:10)
[2024-01-07] MEDS: Multivitamins,Therapeutic Tablet 1 TABLET PO (07:56)
[2024-01-07] MEDS: DULoxetine Hcl 30 MG Capsule PO (07:56)
[2024-01-07] MEDS: Insulin Lispro 100 UNIT/ML INSULN.PEN 8 UNIT SC (07:57)
[2024-01-07 16:50] LABS: Bedside Glucose 196 mg/dL (74-106)
[2024-01-07] MEDS: Insulin Lispro 100 UNIT/ML INSULN.PEN SC (17:15)
[2024-01-07] MEDS: Insulin Lispro 100 UNIT/ML INSULN.PEN 9 UNIT SC (17:15)
[2024-01-07] MEDS: Atorvastatin Calcium 80 MG Tablet PO (20:10)
[2024-01-07] MEDS: Insulin Glargine-YFGN 100 UNIT/ML Pen 20 UNIT SC (20:11)
[2024-01-08] MEDS: Enoxaparin 40 MG/0.4 ML Syringe SC (05:49)
[2024-01-08 06:00] VITALS: BP 125/59; PULSE 81; RESP 16; TEMP 36.6; O2SAT 96
[2024-01-08 07:09] LABS: Bedside Glucose 144 mg/dL (74-106)
[2024-01-08] MEDS: Insulin Lispro 100 UNIT/ML INSULN.PEN 8 UNIT SC (07:56)
[2024-01-08] MEDS: Aspirin 81 MG TAB.CHEW PO (07:57)
[2024-01-08] MEDS: Multivitamins,Therapeutic Tablet 1 TABLET PO (07:58)
[2024-01-08] MEDS: Empagliflozin 10 MG Tablet PO (07:59)
[2024-01-08] MEDS: DULoxetine Hcl 30 MG Capsule PO (07:59)
[2024-01-08] MEDS: Clopidogrel Bisulfate 75 MG Tablet PO (08:00)
[2024-01-08 08:01] VITALS: BP 118/68; PULSE 68
[2024-01-08] MEDS: Lisinopril 10 MG Tablet PO ×2 (08:01→20:12)
[2024-01-08] MEDS: Metoprolol(XL)Succ 25 MG Tablet PO ×2 (08:01→19:45)
--- NOTE | 2024-01-08 13:30 | PN_ITS ---
Subjective Subjective Afebrile VSS - Maintaining appropriate oxygen saturation on RA Oral intake - FOOD good FLUIDS good Discussed with nursing - no problems that need addressed. Incontinent of urine Reviewed the THERAPY notes Medication list reviewed. The blood sugar record was reviewed. With the exception of the 4 PM BS yesterday all sugars are less than 180 and there has been no hypoglycemia. Refused HS care last night and did not sleep well last night. He is cooperative but, has no initiation to complete tasks without being told.....like washing his hands after using the toilet. No complaints. Denies pain. Objective Data Objective Data Vital Signs: Vital Signs Temp Pulse Resp BP Pulse Ox O2 Del Method 97.9 F 68 16 118/68 96 CPAP 01/08/24 06:00 01/08/24 08:01 01/08/24 06:00 01/08/24 08:01 01/08/24 06:00 01/08/24 06:00 Oxygen Delivery Method CPAP Weight: 307 lb 8.717 oz Body Mass Index (BMI) 41.6 Intake & Output: Intake and Output for Last 24 Hours 01/06/24 01/07/24 01/08/24 23:59 23:59 23:59 Intake Total 1500 / 1500 2850 / 2850 1450 / 1450 Output Total 4425 / 4925 4800 / 4800 1800 / 1800 Balance -2925 / -3425 -1950 / -1950 -350 / -350 Lab / Micro Data 12/31/23 05:09 12/31/23 05:09 Labs: Laboratory Results - last 24 hr 01/07/24 16:32: POC Glucose 196 H 01/08/24 05:53: POC Glucose 144 H Physical Exam Const no apparent distress General Appearance: cooperative Resp clear to auscultation bilaterally Resp Narrative: Diminished breath sounds throughout, suspect secondary to body habitus. Effort and Inspection: Negative for tachypneic or respiratory distress Cardio regular rate, regular rhythm and no gallops Cardio Narrative: No ectopy GI normal to inspection, nondistended, normoactive bowel sounds, soft to palpation and non-tender Extremity no calf tenderness General Extremity: Negative for edema Psych Psych Narrative: gets a little agitated at times and refuses care Assessment & Plan Assessment/Plan (1) Debility: (2) Ischemic cerebrovascular accident (CVA): (3) Ataxia: (4) Dysarthria: (5) Aphasia: (6) Diabetes mellitus type 2, uncontrolled, with complications: (7) Depression: QUALIFIERS: Depression Type: reactive depression Qualified Code(s): F32.9 - Major depressive disorder, single episode, unspecified PLAN: Plan 1. Continue therapy 2. Continue the current insulin regimen and calorie controlled diet 3. Add trazodone 100 mg nightly to his current drug regimen. BP tends to be mildly increased in the evening prior to the 8 PM dose of lisinopril and metoprolol. The antihypertensive regimen was reviewed. He is currently taking metoprolol XL 25 mg twice daily and lisinopril 10 mg every 12 hours....... will change the metoprolol to 50 mg of the XL at 0800 4. Consider increasing Cymbalta to 40 mg daily early next week Charges/Coding Visit Charges Inpatient E&M: 27995 [facility] Hosp L1
[2024-01-08 13:52] VITALS: BMI 41.6
[2024-01-08 16:36] LABS: Bedside Glucose 191 mg/dL (74-106)
[2024-01-08] MEDS: Insulin Lispro 100 UNIT/ML INSULN.PEN 9 UNIT SC (17:01)
[2024-01-08] MEDS: Insulin Lispro 100 UNIT/ML INSULN.PEN SC (17:01)
[2024-01-08 18:00] VITALS: BP 111/71; PULSE 78; RESP 17; TEMP 36.8; O2SAT 97
[2024-01-08 19:42] VITALS: BP 129/75; PULSE 65
[2024-01-08 19:45] VITALS: BP 129/75; PULSE 65
[2024-01-08 19:53] VITALS: BMI 41.6
[2024-01-08 19:55] VITALS: PULSE 65; RESP 16; O2SAT 97
[2024-01-08] MEDS: Atorvastatin Calcium 80 MG Tablet PO (20:12)
[2024-01-08] MEDS: traZODone 100 MG Tablet PO (20:12)
[2024-01-08] MEDS: Insulin Glargine-YFGN 100 UNIT/ML Pen 20 UNIT SC (20:12)
[2024-01-08 21:45] LABS: Bedside Glucose 146 mg/dL (74-106)
[2024-01-09] MEDS: Enoxaparin 40 MG/0.4 ML Syringe SC (05:00)
[2024-01-09 06:26] VITALS: BP 103/66; PULSE 84; RESP 15; TEMP 36.3; O2SAT 97
[2024-01-09 07:08] LABS: Bedside Glucose 140 mg/dL (74-106)
[2024-01-09] MEDS: Lisinopril 10 MG Tablet PO ×2 (08:58→20:18)
[2024-01-09] MEDS: Empagliflozin 10 MG Tablet PO (08:59)
[2024-01-09] MEDS: Insulin Lispro 100 UNIT/ML INSULN.PEN 8 UNIT SC (08:59)
[2024-01-09] MEDS: Clopidogrel Bisulfate 75 MG Tablet PO (08:59)
[2024-01-09] MEDS: Multivitamins,Therapeutic Tablet 1 TABLET PO (08:59)
[2024-01-09] MEDS: Aspirin 81 MG TAB.CHEW PO (08:59)
[2024-01-09] MEDS: DULoxetine Hcl 30 MG Capsule PO (08:59)
[2024-01-09 09:01] VITALS: BP 126/70; PULSE 76
[2024-01-09] MEDS: Metoprolol(XL)Succ 50 MG Tablet PO (09:01)
[2024-01-09 09:15] VITALS: BMI 41.6
[2024-01-09 16:27] LABS: Bedside Glucose 182 mg/dL (74-106)
[2024-01-09] MEDS: Insulin Lispro 100 UNIT/ML INSULN.PEN 9 UNIT SC (17:06)
[2024-01-09] MEDS: Insulin Lispro 100 UNIT/ML INSULN.PEN SC (17:07)
[2024-01-09 18:00] VITALS: BP 135/77; PULSE 69; RESP 17; TEMP 36.8; O2SAT 98
[2024-01-09 19:57] VITALS: BMI 41.6
[2024-01-09 20:00] VITALS: PULSE 69; RESP 16; O2SAT 96
[2024-01-09 20:10] VITALS: BP 104/67; PULSE 73
[2024-01-09 20:14] VITALS: PULSE 73
[2024-01-09] MEDS: Metoprolol(XL)Succ 25 MG Tablet PO (20:14)
[2024-01-09] MEDS: Atorvastatin Calcium 80 MG Tablet PO (20:17)
[2024-01-09] MEDS: Insulin Glargine-YFGN 100 UNIT/ML Pen 20 UNIT SC (20:18)
[2024-01-09] MEDS: traZODone 100 MG Tablet PO (20:18)
[2024-01-09 21:25] LABS: Bedside Glucose 187 mg/dL (74-106)
[2024-01-10] MEDS: Enoxaparin 40 MG/0.4 ML Syringe SC (05:11)
[2024-01-10] MEDS: Insulin Lispro 100 UNIT/ML INSULN.PEN SC ×2 (05:16→17:05)
[2024-01-10 06:10] VITALS: BP 124/68; PULSE 66; RESP 16; TEMP 36.5; O2SAT 98
[2024-01-10 06:34] LABS: Bedside Glucose 180 mg/dL (74-106)
[2024-01-10] MEDS: Insulin Lispro 100 UNIT/ML INSULN.PEN 8 UNIT SC (08:13)
[2024-01-10 08:15] VITALS: BP 124/68; PULSE 66
[2024-01-10] MEDS: Metoprolol(XL)Succ 50 MG Tablet PO (08:15)
[2024-01-10] MEDS: Clopidogrel Bisulfate 75 MG Tablet PO (08:15)
[2024-01-10] MEDS: Multivitamins,Therapeutic Tablet 1 TABLET PO (08:15)
[2024-01-10] MEDS: Lisinopril 10 MG Tablet PO ×2 (08:15→19:55)
[2024-01-10] MEDS: DULoxetine Hcl 30 MG Capsule PO (08:15)
[2024-01-10] MEDS: Empagliflozin 10 MG Tablet PO (08:15)
[2024-01-10] MEDS: Aspirin 81 MG TAB.CHEW PO (08:15)
--- NOTE | 2024-01-10 10:47 | PCM.PROGNOTE ---
Subjective Subjective Néstor was seen on team rounds today. His daughter Cristine and his ex- were present in the room. They both deny giving him snacks. Afebrile VSS - Maintaining appropriate oxygen saturation on RA Oral intake - FOOD good FLUIDS good Blood sugar record was reviewed. Fasting today is 180. Nursing reports that the family is feeding him pudding and darryl crackers and his blood sugars are higher than they were previously. Will need to reinforce strict adherence to the diet no hypoglycemia. Discussed with nursing - no problems that need addressed Reviewed the THERAPY notes - He had a FEES today and ST tells me that one of the vocal cords is not completely closing, but, he is compensating for this. Medication list reviewed. Néstor has no complaints. Denies pain. He is making good eye contact with whomever is speaking with him and he is attentive to what is being said. He had no questions for me. Family had no questions for me. No CP, SOB, cough, NH/V/abd pain, back pain or calf pain. Has been incontinent of urine. Objective Data Objective Data Vital Signs: Vital Signs Temp Pulse Resp BP Pulse Ox O2 Del Method 97.7 F L 66 16 124/68 H 98 Room Air 01/10/24 06:10 01/10/24 08:15 01/10/24 06:10 01/10/24 08:15 01/10/24 06:10 01/10/24 06:10 Oxygen Delivery Method Room Air Weight: 307 lb 8.717 oz Body Mass Index (BMI) 41.6 Intake & Output: Intake and Output for Last 24 Hours 01/08/24 01/09/24 01/10/24 23:59 23:59 23:59 Intake Total 2860 / 2860 2060 / 2060 400 / 400 Output Total 3400 / 3400 2880 / 2880 1300 / 1300 Balance -540 / -540 -820 / -820 -900 / -900 Lab / Micro Data 12/31/23 05:09 12/31/23 05:09 Labs: Laboratory Results - last 24 hr 01/09/24 16:06: POC Glucose 182 H 01/09/24 20:12: POC Glucose 187 H 01/10/24 05:13: POC Glucose 180 H Physical Exam Const no apparent distress Constitutional Narrative: Making better eye contact with TEAM on rounds and he is more attentive. General Appearance: cooperative Resp clear to auscultation bilaterally Effort and Inspection: Negative for tachypneic or respiratory distress Cardio regular rate, regular rhythm and no gallops Cardio Narrative: No ectopy GI normal to inspection, nondistended, normoactive bowel sounds, soft to palpation and non-tender Extremity no calf tenderness General Extremity: Negative for edema Assessment & Plan Assessment/Plan (1) Debility: (2) Ischemic cerebrovascular accident (CVA): (3) Ataxia: (4) Dysarthria: (5) Aphasia: (6) Diabetes mellitus type 2, uncontrolled, with complications: (7) Depression: QUALIFIERS: Depression Type: reactive depression Qualified Code(s): F32.9 - Major depressive disorder, single episode, unspecified PLAN: Plan 1. Continue therapy 2. Reinforced with the patient and the family that he is not to snack on pudding and darryl crackers. Communicated to family that is very important to control BS's in a post stroke patient and also that the goal for the HGBA1C is to keep it 7 or less. Will continue to monitor the BS's AC and HS and see if they improve with this information about snacking. 3. We discussed that he is not yet ready to go home because we do not think it is safe. Tried to put a spoon in the microwave today. He needs constant supervision at this time. They are agreeable to SNF at [facility] and family was given a list of SNF possibilities for them to pick where they would like him to go. Charges/Coding Visit Charges Inpatient E&M: 13397 Subs Hosp L2
[2024-01-10 11:23] LABS: Bedside Glucose 141 mg/dL (74-106)
--- NOTE | 2024-01-10 12:52 | CASEMGMT ---
Addendum entered by Rylee Clinton 01/10/24 16:11: SW received call from dtr with SNF choices: [facility], [facility], [facility]. SW placed referrals via [facility]. Original Note: Social Work IDT met with patient, dtr, and ex- for Team meeting. Discussed patient's progress in PT/OT/ST/SN. IDT confirmed pt is at a LOC that is appropriate to transfer to fpc for more therapy. Requested list of SNF choices from dtr. Dtr reports to not have received the list. SW provided printed list and handed to dtr to make selections. SW will continue to follow. Rylee Clinton, RODGER LEPEW
[2024-01-10 13:16] VITALS: BMI 41.6
--- NOTE | 2024-01-10 14:03 | SP.FEES_ITS ---
FEES Patient Information Date of Evaluation: 01/10/24 Time of Evaluation: 11:00 Diagnosis: CVA; Mild Oropharyngeal Dysphagia Referring Physician: NOEL Staff Providing this Care/Treatment:: KIM Direct Billable Minutes: 120 History: Past Medical History:: Per H&P: NÉSTOR STEVENSON, is a 48 YO M with a PMH of diabetes mellitus type 2 on insulin, hypertension, hyperlipidemia, obstructive sleep apnea (uses CPAP), atrial flutter, depression, chronic back pain, tobacco dependence in remission and morbid obesity who presented to the emergency department at [facility] on 12/27/2023 with complaint of right- sided weakness, right facial droop and altered mental status. The last known well was approximately 7 hours prior to arriving in the emergency department. Stat noncontrast CT of the brain showed no acute intracranial pathology. CTA of the head and neck showed moderate stenosis of the right common carotid artery and mild stenosis of the left carotid artery with patent vertebral arteries bilaterally. Following teleneuro consult, Pt determined not to be a candidate for TNK. Pt was admitted to the progressive care unit. Brain MRI was remarkable for an acute infarct involving the anterior lateral left thalamus and the posterior limb of the left internal capsule measuring up to approximately 2.4 cm. There were punctate foci of restricted diffusion within the left caudate nucleus and the left back radiata consistent with acute infarcts. A follow-up neurology consult was obtained and his NIHSS score on that date was 5 for LOC (1 of 2 questions answered correctly), partial hemianopia, limb ataxia present in 1 limb, mild to moderate aphasia and mild to moderate dysarthria. Pt was transferred to the acute inpatient rehab unit at [facility] on 12/30/2023 for 3 hours of therapy daily to restore function/independence at or near his level prior to the stroke. Following participation in speech therapy, it was deemed appropriate that he participate in an objective instrumental evaluation with FEES due to dysphonia and signs/symptoms of penetration/aspiration during PO intake. TX/DX History:: No Subjective: Subjective:: Néstor was seen sitting upright in his bedside chair. He was informed about the procedure and consented. Current Diet: Drinks/Liquids:: Thin Foods:: Regular Medication Administration:: orally Respiratory Status Observation:: Room Air Dentition/Oral Hygiene: Observations:: Natural Vocal Quality: Observations:: Breathy Comments:: Intermittently Cognition: Observations:: WFL Position During FEES: Position During FEES:: Upright Location: In Chair Fiberoptic Endoscope: Size: 3.4 mm Nare Used:: Right Anatomical Findings: Anatomical Findings:: Pt?s oropharynx and hypopharynx presented w/ moderate cobblestoning. Per medical hx, Pt does have a previous dx of pharyngitis. Cobblestoning may also be indicative of gastrointestinal reflux. Aryepiglottic folds, epiglottis, and laryngeal vestibule are pink and moist. Arytenoid cartilages appearing with mild edema. Mildly decreased pharyngeal contraction evident during vocal glides. Pt participated in vocal tasks such as sustained phonation, pitch glides, and he he he he. During phonations, Pt's right vocal fold with mildly decreased movement to midline. Appearing the left vocal fold is compensating to beyond midline to assist with voicing. This may explain his intermittent breathy vocal quality. During breath hold tasks, Pt with complete closure of airway. This was also observed during sequential cup and straw sips where the vocal folds were observed in between swallows. Secretions: Description:: Thin and Clear Comment:: At the beginning of the study, ST offering ice chips with Pt triggering his swallow while the bolus was located in the pyriform sinus. There was ~20% residue in the bilateral pyriform sinus post deglutition. ST cueing second and third swallows which mitigated half of the residue. Cued a cough with Pt presenting with a weak, non-productive cough. Then cued a fourth swallow which cleared all remaining residue. Penetration-Aspiration Scale Penetration-Aspiration Scale Thin Liquids by Teaspoon Food/Drink Provided:: Water x2 trials Swallow Onset Location:: Pyriform Sinuses PAS Score: PAS Score *1 Visual Analysis of Swallowing Efficiency and Safety (VASES) after the swallow: Oropharynx and Hypopharynx VASES Comments:: Residue -- Vallecula 15%; Bilateral Pyriform Sinus 5% Weak Pharyngeal Constriction evidenced by green out, where WNL would be visualized as a pink out. Strategies Trialed:: Liquid Wash = not effective Thin Liquids by Single Cup Food/Drink Provided:: Water -- large Swallow Onset Location:: Aryepiglottic Folds Comments:: Observed complete airway closure prior to swallow onset PAS Score: PAS Score *1 Visual Analysis of Swallowing Efficiency and Safety (VASES) after the swallow: Oropharynx and Hypopharynx Comments:: Residue -- Vallecula 5%; Bilateral Pyriform Sinus 10% Weak Pharyngeal Constriction evidenced by green out, where WNL would be visualized as a pink out. Strategies Trialed:: Cued Second Swallow = EFFECTIVE Thin Liquids by Single Straw Food/Drink Provided:: Water Swallow Onset Location:: Aryepiglottic Folds PAS Score: PAS Score *1 Visual Analysis of Swallowing Efficiency and Safety (VASES) after the swallow: Oropharynx and Hypopharynx Comments:: Residue -- Vallecula 5%; Bilateral Pyriform Sinus 10% Weak Pharyngeal Constriction evidenced by green out, where WNL would be visualized as a pink out. Thin Liquids by Sequential Straw Food/Drink Provided:: Water Swallow Onset Location:: Aryepiglottic Folds PAS Score: PAS Score *1 Visual Analysis of Swallowing Efficiency and Safety (VASES) after the swallow: Oropharynx and Hypopharynx Comments:: Residue -- Vallecula 10%; Bilateral Pyriform Sinus 15% Weak Pharyngeal Constriction evidenced by green out, where WNL would be visualized as a pink out. Strategies Trialed:: Cued Second Swallow = EFFECTIVE Regular Textures Food/Drink Provided:: [place] Swallow Onset Location:: Vallecula and Pyriform Sinuses Comments:: First bite trigger was in vallecula, Second trial triggered Left Pyriform PAS Score: PAS Score *1 Visual Analysis of Swallowing Efficiency and Safety (VASES) after the swallow: Oropharynx and Hypopharynx Comments:: Residue -- Vallecula 0%; Bilateral Pyriform Sinus 0% Strategies Trialed:: Liquid Wash = EFFECTIVE Diagnosis/Impressions Diagnosis: Mild Oropharyngeal Dysphagia Recommendations Diet: Regular Textures and Thin Liquids Medication Administration:: Whole with liquids Comments: Pt preference Compensatory Strategies: Small Sips, No Straws and Multiple Swallows Supervision: 1:1 Distant Supervision Recommend Repeat Instrumental Swallow Assessment: No Need for Skilled Speech Therapy Services: Yes Recommended Referrals: ENT Consult Education Completed: 1. Described result of evaluation. and 2. Pt understands evaluation & agrees with goals and treatment plan. Comments: Recommending ENT consult pending rehab of vocal quality following speech therapy Frequency Frequency: 4-5x /Week Duration: 2 Weeks Goals that are Established Goal #1: Néstor will tolerate least restrictive diet with no overt s/sx of penetration/aspiration with at least 90% of PO intake. Goal #2: Néstor will participate in oropharyngeal strengthening exercises to improve pharyngeal constriction, tongue base retraction, and hyolaryngeal elevation with 10 reps for 2x/day with up to min cues. Goal #3: Néstor will participate in vocal adduction exercises via sustained phonation and pitch glides for 10 reps, 2x/day with min cues.
[2024-01-10 17:03] VITALS: BP 152/92; PULSE 67
[2024-01-10] MEDS: hydrALAZINE 10 MG Tablet PO (17:03)
[2024-01-10] MEDS: Insulin Lispro 100 UNIT/ML INSULN.PEN 9 UNIT SC (17:04)
[2024-01-10 17:24] LABS: Bedside Glucose 167 mg/dL (74-106)
[2024-01-10 18:00] VITALS: BP 152/92; PULSE 86; RESP 18; TEMP 36.6; O2SAT 98
[2024-01-10 19:45] VITALS: PULSE 71; RESP 18; O2SAT 98; BMI 41.6
[2024-01-10 19:54] VITALS: BP 120/71; PULSE 71
[2024-01-10] MEDS: Metoprolol(XL)Succ 25 MG Tablet PO (19:54)
[2024-01-10] MEDS: traZODone 100 MG Tablet PO (19:54)
[2024-01-10] MEDS: Atorvastatin Calcium 80 MG Tablet PO (19:55)
[2024-01-10] MEDS: Insulin Glargine-YFGN 100 UNIT/ML Pen 20 UNIT SC (20:02)
[2024-01-10 22:07] LABS: Bedside Glucose 184 mg/dL (74-106)
[2024-01-11] VITALS (7 sets, daily range): BP systolic 99–183; BP diastolic 44–99; PULSE 68–76; RESP 18; TEMP 36.3–36.9; O2SAT 97–99; BMI 41.6
[2024-01-11] MEDS: Enoxaparin 40 MG/0.4 ML Syringe SC (05:59)
[2024-01-11 06:25] LABS: Bedside Glucose 146 mg/dL (74-106)
[2024-01-11] MEDS: Clopidogrel Bisulfate 75 MG Tablet PO (07:42)
[2024-01-11] MEDS: DULoxetine Hcl 30 MG Capsule PO (07:42)
[2024-01-11] MEDS: Aspirin 81 MG TAB.CHEW PO (07:42)
[2024-01-11] MEDS: Metoprolol(XL)Succ 50 MG Tablet PO (07:42)
[2024-01-11] MEDS: Lisinopril 10 MG Tablet PO ×2 (07:42→21:08)
[2024-01-11] MEDS: Multivitamins,Therapeutic Tablet 1 TABLET PO (07:42)
[2024-01-11] MEDS: Insulin Lispro 100 UNIT/ML INSULN.PEN 8 UNIT SC (07:43)
[2024-01-11] MEDS: Empagliflozin 10 MG Tablet PO (07:43)
--- NOTE | 2024-01-11 13:35 | PCM.PROGNOTE ---
Subjective Subjective Afebrile VSS -blood pressure yesterday ranged from 124/68 to 152/92 at 6 PM. The blood pressure at 8 PM was 120/71 and the blood pressure this a.m. was 116/76. He had 1 dose of hydralazine 10 mg at 5 PM yesterday. Current antihypertensives include Toprol-XL 50 mg at 0800 and 25 mg at 2000. He is also getting Lisinopril 10 mg BID. Heart rate yesterday ranged from 66-86. He denies lightheadedness. Maintaining appropriate oxygen saturation on RA Oral intake - FOOD good FLUIDS good Blood sugar record was. Blood sugar at at bedtime was 184 and the fasting today was 146. He is getting scheduled Lispro with breakfast and supper. Rarely getting any coverage. Discussed with nursing - Refused HS care again last night. Reviewed the THERAPY notes Medication list reviewed. Néstor denies lightheadedness, vertigo, CP, SOB at rest, SOB with exertion, cough, nausea, vomiting, abd pain, diarrhea, constipation, dysuria, calf pain and ankle swelling. Also denies back pain and pain radiating into his legs. Results from the fees yesterday were reviewed. Objective Data Objective Data Vital Signs: Vital Signs Temp Pulse Resp BP Pulse Ox O2 Del Method 97.4 F L 74 18 116/76 97 Room Air 01/11/24 05:50 01/11/24 07:42 01/10/24 19:45 01/11/24 05:50 01/11/24 05:50 01/11/24 05:50 Oxygen Delivery Method Room Air Weight: 307 lb 8.717 oz Body Mass Index (BMI) 41.6 Intake & Output: Intake and Output for Last 24 Hours 01/09/24 01/10/24 01/11/24 23:59 23:59 23:59 Intake Total 2060 / 2060 1600 / 1600 845 / 845 Output Total 2880 / 2880 3400 / 3400 1750 / 1750 Balance -820 / -820 -1800 / -1800 -905 / -905 Lab / Micro Data 12/31/23 05:09 12/31/23 05:09 Labs: Laboratory Results - last 24 hr 01/10/24 17:03: POC Glucose 167 H 01/10/24 20:01: POC Glucose 184 H 01/11/24 05:56: POC Glucose 146 H Physical Exam Const no apparent distress General Appearance: cooperative Resp clear to auscultation bilaterally Effort and Inspection: Negative for tachypneic or respiratory distress Cardio regular rate, regular rhythm and no gallops Cardio Narrative: No ectopy GI normal to inspection, nondistended, normoactive bowel sounds, soft to palpation and non-tender Extremity no calf tenderness General Extremity: Negative for edema Assessment & Plan Assessment/Plan (1) Debility: (2) Ischemic cerebrovascular accident (CVA): (3) Ataxia: (4) Dysarthria: (5) Aphasia: (6) Diabetes mellitus type 2, uncontrolled, with complications: (7) Depression: QUALIFIERS: Depression Type: reactive depression Qualified Code(s): F32.9 - Major depressive disorder, single episode, unspecified (8) Unilateral vocal cord paralysis: PLAN: R vocal cord is not completely paralyzed but the right vocal cord has mildly decreased movement to midline. The left vocal cord is able to compensate. PLAN: Plan 1. Continue therapy 2. Check a CBC with no differential, CMP and lipid panel in the AM. 3. Discontinue sliding scale insulin. We are trying to get him on a medication schedule where he takes meds no more often than BID to improve compliance. Continue BID Lispro but, change the dosing to 9 units BID. Continue the same dose of glargine. 4. Increase lisinopril to 20 mg at 8 AM and continue 10 mg at 8 PM. 5. SNF at [place] 6. Increase the Cymbalta to 40 mg daily......still with a lack of initiation of self care.......needs much encouragement. Charges/Coding Visit Charges Inpatient E&M: 56007 Subs Hosp L1
[2024-01-11 16:29] LABS: Bedside Glucose 155 mg/dL (74-106)
[2024-01-11] MEDS: Insulin Lispro 100 UNIT/ML INSULN.PEN 9 UNIT SC (16:57)
[2024-01-11] MEDS: traZODone 100 MG Tablet PO (21:07)
[2024-01-11] MEDS: Senna/Docusate Sodium 1 Tablet 2 TABLET PO (21:07)
[2024-01-11] MEDS: Atorvastatin Calcium 80 MG Tablet PO (21:07)
[2024-01-11] MEDS: Insulin Glargine-YFGN 100 UNIT/ML Pen 20 UNIT SC (21:08)
[2024-01-11] MEDS: Metoprolol(XL)Succ 25 MG Tablet PO (21:09)
[2024-01-11] MEDS: hydrALAZINE 10 MG Tablet PO (21:10)
[2024-01-11 22:32] LABS: Bedside Glucose 215 mg/dL (74-106)
[2024-01-12 03:07] VITALS: BMI 41.6
[2024-01-12] MEDS: Enoxaparin 40 MG/0.4 ML Syringe SC (05:06)
[2024-01-12 05:24] LABS: Bedside Glucose 130 mg/dL (74-106)
[2024-01-12 05:42] VITALS: BP 107/73; PULSE 68; RESP 17; TEMP 36.7; O2SAT 97
[2024-01-12 06:14] LABS: Hematocrit 41.8 % (40-54); Hemoglobin 14.3 g/dL (13.0-16.5); Mean Corp Hgb Conc 34.2 g/dL (32-36); Mean Corpuscular Hgb 29.5 pg (27.0-32.0); Mean Corpuscular Volume 86.2 fL (80-94); Mean Platelet Vol. 10.7 fl (6.2-12.0); Platelet Count 265 K/mm3 (150-450); RBC Distribution Width CV 12.4 % (11.6-14.6); Red Blood Count 4.85 M/mm3 (4.6-6.2); White Blood Count 7.8 K/mm3 (4.4-11.0)
[2024-01-12 06:43] LABS: ALB/GLOB Ratio 0.9 RATIO (0.9-2.4); AST(SGOT) 16 U/L (15-37); Alanine Aminotransfer ALT/SGPT 34 U/L (16-61); Albumin, Serum 3.1 g/dL (3.2-5.0); Alkaline Phosphatase 41 U/L (45-117); Anion Gap 5 (5-15); BUN 13 mg/dL (7-18); BUN/Creat Ratio 15.4 RATIO (10-20); Calcium,Total 8.9 mg/dL (8.5-10.1); Chloride 106 mmol/L (98-107); Cholesterol 96 mg/dL (200); Creatinine, Serum 0.84 mg/dL (0.70-1.30); EST Glomerular Filtration Rate 102 mL/min (>60); Est Glom Filt Rate - Afr Amer 124 mL/min (>60); Estimated Creatinine Clearance 152.32 ml/min; Globulin 3.3 g/dL (2.2-4.2); Glucose 134 mg/dL (74-106); High Density Lipoprotein 31 mg/dL; Potassium 3.7 mmol/L (3.5-5.1); Protein, Total 6.4 g/dL (6.4-8.2); Sodium Level 138 mmol/L (136-145); Triglycerides 95 mg/dL; Very Low Density Lipoprotein 19 mg/dL (5-40)
[2024-01-12] MEDS: Multivitamins,Therapeutic Tablet 1 TABLET PO (07:46)
[2024-01-12] MEDS: Aspirin 81 MG TAB.CHEW PO (07:46)
[2024-01-12 07:47] VITALS: BP 116/74; PULSE 91
[2024-01-12] MEDS: Metoprolol(XL)Succ 50 MG Tablet PO (07:47)
[2024-01-12] MEDS: Lisinopril 20 MG Tablet PO (07:48)
[2024-01-12] MEDS: DULoxetine Hcl 20 MG Capsule 40 MG PO (07:48)
[2024-01-12] MEDS: Clopidogrel Bisulfate 75 MG Tablet PO (07:49)
[2024-01-12] MEDS: Senna/Docusate Sodium 1 Tablet 2 TABLET PO (07:49)
[2024-01-12] MEDS: Empagliflozin 10 MG Tablet PO (07:49)
[2024-01-12] MEDS: Insulin Lispro 100 UNIT/ML INSULN.PEN 9 UNIT SC ×2 (08:26→16:04)
--- NOTE | 2024-01-12 10:04 | CASEMGMT ---
Social Work [facility] can accept. [facility] does not have a bed. Awaiting outcome on CC. Adan Chiu Rep, provided update on approval for pt's Medicaid: Fer Colby is showing eligible now in [facility].? Billing # [id number] RODGER Cochran
--- NOTE | 2024-01-12 11:18 | CASEMGMT ---
Social Work Phone call placed to [facility] and spoke with Irlanda who states [facility] is unable to accept pt at this time. MARQUES Castillo
--- NOTE | 2024-01-12 12:46 | CASEMGMT ---
Social Work [facility] can accept. [facility] denied. [facility] does not have any beds. SW phoned dtr; left VM, updating on above and to discuss DC for 01/13. SW updated [facility] and IDT. 7000 started. SW will continue to follow. Rylee Clinton, RODGER LEPEW
[2024-01-12 16:24] LABS: Bedside Glucose 196 mg/dL (74-106)
[2024-01-12 16:39] VITALS: BMI 41.6
[2024-01-12 18:00] VITALS: BP 119/76; PULSE 68; RESP 16; TEMP 36.6; O2SAT 97
[2024-01-12 19:30] VITALS: PULSE 84; RESP 16; O2SAT 95; BMI 41.6
[2024-01-12 19:40] VITALS: BP 119/76; PULSE 68
[2024-01-12] MEDS: Metoprolol(XL)Succ 25 MG Tablet PO (19:40)
[2024-01-12] MEDS: Atorvastatin Calcium 80 MG Tablet PO (19:41)
[2024-01-12] MEDS: Insulin Glargine-YFGN 100 UNIT/ML Pen 20 UNIT SC (19:41)
[2024-01-12] MEDS: traZODone 100 MG Tablet PO (19:41)
[2024-01-12] MEDS: Lisinopril 10 MG Tablet PO (19:44)
--- NOTE | 2024-01-13 03:47 | NURSING ---
Reviewed and agree with LPN. Karen Hoover, documentation and assessment charting.
[2024-01-13] MEDS: Enoxaparin 40 MG/0.4 ML Syringe SC (05:36)
[2024-01-13 05:43] VITALS: BP 100/66; PULSE 70; RESP 16; TEMP 36.5; O2SAT 98
[2024-01-13 07:28] LABS: Bedside Glucose 136 mg/dL (74-106)
[2024-01-13] MEDS: Lisinopril 20 MG Tablet PO (07:59)
[2024-01-13 08:00] VITALS: PULSE 70
[2024-01-13] MEDS: Multivitamins,Therapeutic Tablet 1 TABLET PO (08:00)
[2024-01-13] MEDS: Empagliflozin 10 MG Tablet PO (08:00)
[2024-01-13] MEDS: DULoxetine Hcl 20 MG Capsule 40 MG PO (08:00)
[2024-01-13] MEDS: Aspirin 81 MG TAB.CHEW PO (08:00)
[2024-01-13] MEDS: Metoprolol(XL)Succ 50 MG Tablet PO (08:00)
[2024-01-13] MEDS: Clopidogrel Bisulfate 75 MG Tablet PO (08:00)
[2024-01-13] MEDS: Insulin Lispro 100 UNIT/ML INSULN.PEN 9 UNIT SC (08:01)
--- NOTE | 2024-01-13 09:47 | PN_ITS ---
Subjective Subjective Afebrile VSS - Maintaining appropriate oxygen saturation on RA Oral intake - FOOD [] FLUIDS [] Discussed with nursing - no problems that need addressed Reviewed the THERAPY notes Medication list reviewed. All lab from this morning was personally reviewed. CBC is normal. Electrolytes are within normal limits. The total bilirubin is mildly increased at 1.5 but the other LFTs are within normal limits. Calcium is normal. Triglycerides are 95 and the total cholesterol is 96 with an HDL of 31 and an LDL of 46 which is now within goal. Objective Data Objective Data Vital Signs: Vital Signs Temp Pulse Resp BP Pulse Ox O2 Del Method 97.7 F L 70 16 100/66 98 CPAP 01/13/24 05:43 01/13/24 08:00 01/13/24 05:43 01/13/24 05:43 01/13/24 05:43 01/13/24 05:43 Oxygen Delivery Method CPAP Weight: 307 lb 8.717 oz Body Mass Index (BMI) 41.6 Intake & Output: Intake and Output for Last 24 Hours 01/11/24 01/12/24 01/13/24 23:59 23:59 23:59 Intake Total 1740 / 1740 1600 / 1600 760 / 760 Output Total 3000 / 3000 3100 / 3100 Balance -1260 / -1260 -1500 / -1500 760 / 760 Lab / Micro Data 01/12/24 05:25 01/12/24 05:25 Labs: Laboratory Results - last 24 hr 01/12/24 16:03: POC Glucose 196 H 01/13/24 05:40: POC Glucose 136 H Physical Exam Const no apparent distress General Appearance: cooperative HEENT moist oral mucous membranes Eyes PERRL and EOMs intact bilaterally Resp clear to auscultation bilaterally Effort and Inspection: Negative for tachypneic or respiratory distress Cardio regular rate, regular rhythm and no gallops Cardio Narrative: No ectopy GI normal to inspection, nondistended, normoactive bowel sounds, soft to palpation and non-tender Extremity no calf tenderness General Extremity: Negative for edema Assessment & Plan Assessment/Plan (1) Debility: (2) Ischemic cerebrovascular accident (CVA): (3) Ataxia: (4) Dysarthria: (5) Aphasia: (6) Diabetes mellitus type 2, uncontrolled, with complications: (7) Depression: QUALIFIERS: Depression Type: reactive depression Qualified Code(s): F32.9 - Major depressive disorder, single episode, unspecified (8) Unilateral vocal cord paralysis: PLAN: Plan 1. Plan discharge to care home tomorrow 2. Prescribe co-Q10 at discharge and continue atorvastatin 3. Check blood sugars today before meals and at bedtime -increase the lispro at supper to 10 units. Charges/Coding Visit Charges Inpatient E&M: 51033 Subs Hosp L1
[2024-01-13 11:40] LABS: Bedside Glucose 149 mg/dL (74-106)
--- NOTE | 2024-01-13 14:32 | CASEMGMT ---
Addendum entered by Rylee Clinton 01/14/24 09:23: 7000 completed and DC paperwork sent to [facility] via [employer]. Original Note: Social Work SW phoned dtr - confirmed DC 01/13 to [facility]. Dtr agreeable and can transport pt about 1230. SW spoke with pt and pt nodded in understanding. Plan: DC 01/13, [facility], skilled, Medicaid Rylee Clinton, EMPLOYEE RELATIONS SPECIALIST NON LICENSED [employer]UCLE[employer] EQUIPMENT OPERATOR
[2024-01-13 16:08] VITALS: BMI 41.6
--- NOTE | 2024-01-13 16:49 | TREXTCAR_ITS ---
Diet Diet Order/Speech Therapy: 12/30/23 14:30 Diet: Cardiac: Calorie-Controlled Dietary Modifications:: Consistent Carbohydrate Diet Comments: 1:1 supervision meals, cut food into small pieces How many daily calories?: 2000 calorie Routine Orders/Code Status Enema Type: Fleetz Enema Frequency: Daily PRN Suppository Type: Dulcolax 10mg Suppository Frequency: Daily PRN Change Cancino Catheter: N/A O2 Liters per Minute: 1-2 O2 Frequency: PRN Keep PO Greater than or Equal to (%): 93 Code Status: Full Code Wound(s) 2nd toe lt foot: Wound Type: Abrasion rt great toe: Wound Type: Abrasion Therapies Weight Bearing: Full weight bearing Physical Therapy: Eval and Treat Occupational Therapy: Eval and Treat Speech Therapy: Eval and Treat Problem/Diagnosis (1) Debility: Status: Acute Code(s): R53.81 - Other malaise Plan: Due to ischemic CVA. (2) Ischemic cerebrovascular accident (CVA): Status: Acute Code(s): I63.9 - Cerebral infarction, unspecified Comment: Anterior and lateral left thalamus and the posterior limb of the left internal capsule. Also with punctate foci of restricted diffusion within the left cau date nucleus and the left back radiata. (3) Ataxia: Status: Acute Code(s): R27.0 - Ataxia, unspecified Comment: Right upper extremity (4) Dysarthria: Status: Acute Code(s): R47.1 - Dysarthria and anarthria (5) Aphasia: Status: Acute Code(s): R47.01 - Aphasia (6) Right hemiparesis: Status: Resolved Code(s): G81.91 - Hemiplegia, unspecified affecting right dominant side (7) Partial hemianopia: Status: Resolved Code(s): H53.47 - Heteronymous bilateral field defects (8) Cognitive dysfunction: Status: Acute Code(s): F09 - Unspecified mental disorder due to known physiological condition (9) Oropharyngeal dysphagia: Status: Acute Code(s): R13.12 - Dysphagia, oropharyngeal phase (10) Unilateral vocal cord paralysis: Status: Acute Code(s): J38.01 - Paralysis of vocal cords and larynx, unilateral Plan: He is able to compensate for this and has an effective cough. (11) Diabetes mellitus type 2, uncontrolled, with complications: Status: Acute Plan: Continue glargine at at bedtime, lispro with breakfast and supper and Jardiance 10 mg daily. Has had no metabolic acidosis with Jardiance. Would consider increasing the dose to 25 mg daily going forward. Will likely need to decrease insulin at that time. Consider referral to Dr. Pedro Mancini post DC to manage the DM. Comment: Stressed to Néstor and his family that if we are going to prevent further CV events he will need to be strictly compliant with diet, wt loss, medications and follow up with physicians. He will need to follow up with neurology post DC. (12) Noncompliance: Status: Chronic Code(s): Z91.199 - Patient's noncompliance with other medical treatment and regimen due to unspecified reason (13) Depression: Status: Chronic Code(s): F32.9 - Major depressive disorder, single episode, unspecified Plan: This is a long standing problem and he was not on an antidepressant at presentation to the hospital. He was started on duloxetine and I have seen some improvement. He was increased to 40 mg daily on 01/12 24. Recommended follow up with psychiatry post DC. (14) Hyperlipidemia: Status: Chronic Code(s): E78.5 - Hyperlipidemia, unspecified Plan: Continue Atorvastatin 80 mg daily. AST, AP and ALT all normal at DC from rehab. Bili is elevted at 1.5 but, this is chronic. Possible Gilbert's disease. (15) MEGAN (obstructive sleep apnea): Status: Chronic Code(s): G47.33 - Obstructive sleep apnea (adult) (pediatric) Comment: Family states compliant with CPAP (16) Essential hypertension: Status: Chronic Code(s): I10 - Essential (primary) hypertension Plan: Blood pressure is at goal prior to discharge from rehab and he has no lightheadedness and no hypotension. Heart rate at discharge ranges from 68-91. (17) Morbid obesity with BMI of 40.0-44.9, adult: Status: Chronic Code(s): E66.01 - Morbid (severe) obesity due to excess calories; Z68.41 - Body mass index [BMI] 40.0-44.9, adult Plan: Weight loss was recommended. May benefit from Ozempic or Mounjaro going forward to assist in wt loss. Would defer to endocrinology. (18) Hyperbilirubinemia: Status: Chronic Code(s): E80.6 - Other disorders of bilirubin metabolism Plan 1. Plan discharge to residential tomorrow 2. Prescribe co-Q10 at discharge and continue atorvastatin 3. Check blood sugars today before meals and at bedtime -increase the lispro at supper to 10 units. 4. Order a 30-day event monitor at discharge and follow-up with [facility]. 5. Refer to Dr. Mancini for follow up of DM II Allergies/Procedures Done in Hospital Allergies cefadroxil hydrate (From Duricef) Allergy (Verified 08/07/22 12:57) Itching piperacillin (From Zosyn) Allergy (Verified 08/07/22 12:57) Hives tazobactam (From Zosyn) Allergy (Verified 08/07/22 12:57) Hives erythromycin base Adverse Reaction (Verified 08/07/22 12:57) Vomiting Procedures: Transthoracic Echo (Normal EF of 65%. No wall motion abnormality. No evidence for diastolic dysfunction. No significant valvular heart disease. No bubble contrast study was done.) Type of Care/Length of Stay Estimated LOS: Convalescent Care Less Than 30 days Type of Care Needed: Skilled Rehab Potential: Good Prognosis: Good Additional Orders/Day of Discharge Day of Discharge: 01/14/24 Dietary and Speech Recommendations Dietitian Recommendations/Changes: Continue cardiac, 2000 calorie controlled diet. If changes occur in nutrition status, consult RD. Reviewed and approved by Kierra Randle RD, LD. Speech Linguistic Eval Summary: Pt. fluctuating alertness and cooperation during BEST-2. Orientation- pt. needed max phonemic cueing and the use of two choices to answer questions related to self and place. Pt. stated that his name was Shaji and LEAD BUSINESS SYSTEMS ANALYST gave pt. phonemic cue and pt. answered Néstor. Asked pt. birthday and pt. acc. stated birthday w/ phonemic cueing. Pt. needed two choices to correctly state place and name of hospital. Completed an informal voice assessment due to noticeable vocal deficits observed by speech therapy likely related to a CVA. Pt. was whispering with low vocal intensity and had decreased breath support during conversations with the LEAD BUSINESS SYSTEMS ANALYST. Attention to the task was very poor, with the patient frequently looking away instead of focusing on the assessment. Attention span was less than 30-60 seconds. /puh/ - 1.6 syllables per second (norm 6.5 syllables per second) IMPAIRED needed ST model, several attempts. /tuh/ - 1.8 syllables per second (norm 6.5 syllables per second) IMPAIRED /kuh/ - 1.8 syllables per second (norm 6.1 syllables per second) IMPAIRED /puh-tuh-kuh/ -1.4 syllables per second (norm 7.5 syllables per second) IMPAIRED Pt. unable to complete sustained /s/ or /z/ sounds due to difficulty following commands. The LEAD BUSINESS SYSTEMS ANALYST modeled the sustained /s/ sound with no success. Instead, the pt. repeatedly fixated on the word snake, which was used as an example by the LEAD BUSINESS SYSTEMS ANALYST (?say /s/ like a snake?). The attempt to produce the /z/ sound yielded similar results as with the /s/, making it impossible to assess any deficits accurately. Sustained /ah/ -2.25 seconds (median 28.5 seconds, min 22.6 seconds) IMPAIRED The voice is characterized by low vocal intensity, decreased breath support, reduced clarity, and difficulty with articulation, as evidenced by the findings from informal voice assessments. Auditory Comprehension- Pt. tasked to answer general yes/no questions w/ 42% acc. Pt. repeatedly answered yes to most questions and to rule out answers d/t pt. being repeatedly fixted on the word yes, LEAD BUSINESS SYSTEMS ANALYST wrote down yes and no and had pt. point to what he thought the answer was. This didn't seem to help the acc. of his answers. Administration of the Bedside Evaluation Screening Test for Aphasia, Second Edition (BEST-2). Results of the BEST-2 are as follows: Conversational Expression Raw Score 13 (which is 1 less than previous assessment score on 12/27/2023). Percentile 16% Standard Score 7 Severity MODERATE IMPAIRMENT Naming Objects Raw Score 12 (which is 14 less than previous assessment score on12/27/2023) Percentile 16% Standard Score 7 Severity MODERATE IMPAIRMENT Describing Objects Raw Score 19 (which is 9 less than previous assessment score on 12/27/2023) Percentile 25% Standard Score 8 Severity MODERATE IMPAIRMENT Repeating Sentences Raw Score 30 (which is consistent with previous assessment score on 12/27/2023) Percentile 75% Standard Score 12 Severity MILD/NO IMPAIRMENT Pointing to Objects Raw Score 21 (which is 3 less than previous assessment score on 12/27/2023) Percentile 25% Standard Score 8 Severity MODERATE IMPAIRMENT Pointing to Parts of a Picture Raw Score 25 (which is 1 less than previous assessment score on 12/27/2023) Percentile 37% Standard Score 9 Severity MODERATE IMPAIRMENT Reading Raw Score 26 (which is 2 more than previous assessment score on 12/27/2023) Percentile 75% Standard Score 12 Severity MILD/ NO IMPAIRMENT Quotient (Sum of Standard Scores) - 63 (which is 7 less than previous assessment score on 12/27/2023) Percentile 32% Severity SEVERE IMPAIRMENT<85 Follow Up Care Please follow up with your Primary Care Physician in: Dr. Rocky Delgadillo following DC from [facility] Please Follow Up With: Pedro Mancini MD Please Follow Up With: DE PUTNAM MD Discharge Plan Admission Admit Date/Time: 12/30/23 14:05 Primary Reason for Your Visit: Post stroke debility Attending Provider: Sabina Swain Primary Care Provider: Rocky Delgadillo Discharge Orders/Prescriptions Prescriptions: New acetaminophen 500 mg Tablet 1,000 mg PO Q8H PRN PRN (Reason: Pain 1-10 Or Fever) Qty: 1 0RF bisacodyl 10 mg Suppository 10 mg WA X1 PRN (Reason: Constipation) Qty: 1 0RF metoprolol succinate 50 mg Tablet Extended Release 24 Hr 50 mg PO 0800 Qty: 1 0RF lisinopril 20 mg Tablet 20 mg PO 0800 Qty: 1 0RF magnesium hydroxide 400 mg/5 mL Suspension 30 ml PO X1 PRN (Reason: Constipation) Qty: 1 0RF trazodone 100 mg Tablet 100 mg PO QHS Qty: 1 0RF lisinopril 10 mg Tablet 10 mg PO 2000 Qty: 1 0RF metoprolol succinate 25 mg Tablet Extended Release 24 Hr 25 mg PO 2000 Qty: 1 0RF insulin lispro [Humalog KwikPen Insulin] 100 unit/mL Insulin Pen 9 unit subcut 0800 Qty: 1 0RF duloxetine 20 mg Capsule,Delayed Release(Dr/Ec) 40 mg PO DAILY Qty: 1 0RF Jardiance 10 mg Tablet 10 mg PO DAILY Qty: 1 0RF insulin glargine-yfgn 100 unit/mL (3 mL) Insulin Pen 20 unit subcut QPM Qty: 1 0RF insulin lispro 100 unit/mL insulin pen 12 unit subcut .supper Qty: 15 0RF Rx Instructions: 12 units with supper daily Continued multivitamin [Daily Multi-Vitamin] Tablet 1 tab PO DAILY atorvastatin 80 mg Tablet 80 mg PO QHS Qty: 30 2RF clopidogrel 75 mg Tablet 75 mg PO DAILY Qty: 30 2RF aspirin 81 mg Tablet,Chewable 81 mg PO BREAKFAST Qty: 21 0RF Rx Instructions: DC after the dose on 01/20/24 and continue Plavix 75 mg daily. Discontinued metoprolol tartrate 25 mg Tablet 25 mg PO BID Qty: 60 2RF metformin 500 mg tablet 500 mg PO BID Qty: 60 2RF No Action lisinopril 20 mg Tablet 20 mg PO DAILY Qty: 30 2RF insulin glargine [Lantus Solostar U-100 Insulin] 100 unit/mL (3 mL) insulin pen 15 unit subcut QPM Qty: 15 0RF Referrals / Follow Up: [place], Neurology [Other] (Referral Sent) Heart, Monitor [Other] (a 30 day event monitor was ordered for you. It will be mailed to your house with directions for use.) Alex Tovar MD [Med Staff - Active Staff] - () Rocky Delgadillo MD [Primary Care Provider] - Pedro Mancini MD [Med Staff - Courtesy Staff] - (Referral sent. The office will call to set up appointment ) Disposition Disposition (needs filled in before D/C Order can be placed): Senior Care Facility (13) Depression Qualifiers: Depression Type: reactive depression Qualified Code(s): F32.9 - Major depressive disorder, single episode, unspecified (14) Hyperlipidemia Qualifiers: Hyperlipidemia type: unspecified Qualified Code(s): E78.5 - Hyperlipidemia, unspecified
[2024-01-13 17:07] LABS: Bedside Glucose 127 mg/dL (74-106)
[2024-01-13] MEDS: Insulin Lispro 100 UNIT/ML INSULN.PEN 10 UNIT SC (17:15)
--- NOTE | 2024-01-13 17:27 | EX.DISCHREH ---
Providers Date of Admission: 12/30/23 Date of Discharge: 01/14/24 Primary Care Physician: Dr. Rocky Delgadillo MD Reason For Visit: STROKE Diagnosis Discharge Diagnosis (1) Debility: Status: Acute Code(s): R53.81 - Other malaise Plan: Due to ischemic CVA. Transfer to [facility] for additional PT/OT/ST prior to returning home. (2) Ischemic cerebrovascular accident (CVA): Status: Acute Code(s): I63.9 - Cerebral infarction, unspecified Plan: Cryptogenic stroke. 30 day event monitor ordered at [place] and then will follow up with [facility]. (3) Ataxia: Status: Acute Code(s): R27.0 - Ataxia, unspecified Plan: Still with R side neglect and some ataxia although it is improving. (4) Dysarthria: Status: Acute Code(s): R47.1 - Dysarthria and anarthria (5) Aphasia: Status: Acute Code(s): R47.01 - Aphasia Plan: Expressive and receptive aphasia. Will need ongoing speech therapy. (6) Right hemiparesis: Status: Resolved Code(s): G81.91 - Hemiplegia, unspecified affecting right dominant side (7) Partial hemianopia: Status: Resolved Code(s): H53.47 - Heteronymous bilateral field defects (8) Cognitive dysfunction: Status: Acute Code(s): F09 - Unspecified mental disorder due to known physiological condition Plan: Not safe to be left alone. Poor safety awareness and he is impulsive. (9) Oropharyngeal dysphagia: Status: Acute Code(s): R13.12 - Dysphagia, oropharyngeal phase Plan: Has partial paralysis of the R vocal cord......he is compensating for this and he has an effective cough to clear the hypopharynx. (10) Unilateral vocal cord paralysis: Status: Acute Code(s): J38.01 - Paralysis of vocal cords and larynx, unilateral Plan: He is able to compensate for this and has an effective cough. (11) Diabetes mellitus type 2, uncontrolled, with complications: Status: Acute Plan: Continue glargine at at bedtime, lispro with breakfast and supper and Jardiance 10 mg daily. Has had no metabolic acidosis with Jardiance. Would consider increasing the dose to 25 mg daily going forward. Will likely need to decrease insulin at that time. Consider referral to Dr. Pedro Mancini post [facility] to manage the DM. (12) Noncompliance: Status: Chronic Code(s): Z91.199 - Patient's noncompliance with other medical treatment and regimen due to unspecified reason (13) Depression: Status: Chronic Code(s): F32.9 - Major depressive disorder, single episode, unspecified Qualifiers: Depression Type: reactive depression Qualified Code(s): F32.9 - Major depressive disorder, single episode, unspecified Plan: This is a long standing problem and he was not on an antidepressant at presentation to the hospital. He was started on duloxetine and I have seen some improvement. He was increased to 40 mg daily on 01/12 24. Recommended follow up with psychiatry post [facility]. (14) Hyperlipidemia: Status: Chronic Code(s): E78.5 - Hyperlipidemia, unspecified Qualifiers: Hyperlipidemia type: unspecified Qualified Code(s): E78.5 - Hyperlipidemia, unspecified Plan: Continue Atorvastatin 80 mg daily. AST, AP and ALT all normal at DC from rehab. Bili is elevted at 1.5 but, this is chronic. Possible Gilbert's disease. (15) MEGAN (obstructive sleep apnea): Status: Chronic Code(s): G47.33 - Obstructive sleep apnea (adult) (pediatric) (16) Essential hypertension: Status: Chronic Code(s): I10 - Essential (primary) hypertension Plan: Blood pressure is at goal prior to discharge from rehab and he has no lightheadedness and no hypotension. Heart rate at discharge ranges from 68-91. (17) Morbid obesity with BMI of 40.0-44.9, adult: Status: Chronic Code(s): E66.01 - Morbid (severe) obesity due to excess calories; Z68.41 - Body mass index [BMI] 40.0-44.9, adult Plan: Weight loss was recommended. May benefit from Ozempic or Mounjaro going forward to assist in wt loss. Would defer to endocrinology. (18) Hyperbilirubinemia: Status: Chronic Code(s): E80.6 - Other disorders of bilirubin metabolism Plan 1. Plan discharge to senior living tomorrow 2. Prescribe co-Q10 at discharge and continue atorvastatin 3. Check blood sugars today before meals and at bedtime -increase the lispro at supper to 10 units. 4. Order a 30-day event monitor at discharge and follow-up with [facility]. 5. Refer to Dr. Mancini for follow up of DM II Medications at Discharge Home Medications multivitamin (Daily Multi-Vitamin tablet) 1 tab PO DAILY suppplementation 12/27/23 atorvastatin 80 mg tablet 80 mg PO QHS cholesterol #30 tabs 12/30/23 clopidogrel 75 mg tablet 75 mg PO DAILY stroke #30 tabs 12/30/23 insulin glargine 100 unit/mL (3 mL) subcutaneous pen (Lantus Solostar U-100 Insulin) 15 unit (0.15 mL) subcut QPM diabetes #15 mL 12/30/23 lisinopril 20 mg tablet 20 mg PO DAILY bp #30 tabs 12/30/23 acetaminophen 500 mg tablet 1,000 mg (2 x 500 mg) PO Q8H PRN PRN Pain 1-10 Or Fever #1 TAB 01/13/24 aspirin 81 mg chewable tablet 81 mg PO BREAKFAST stroke #21 tabs 01/13/24 bisacodyl 10 mg rectal suppository 10 mg MN X1 PRN Constipation #1 ea 01/13/24 duloxetine 20 mg capsule,delayed release 40 mg (2 x 20 mg) PO DAILY #1 cap 01/13/24 empagliflozin 10 mg tablet (Jardiance) 10 mg PO DAILY #1 TAB 01/13/24 insulin glargine-yfgn 100 unit/mL (3 mL) subcutaneous pen 20 unit (0.2 mL) subcut QPM #1 mL 01/13/24 insulin lispro 100 unit/mL subcutaneous pen (Humalog KwikPen (U-100) Insulin) 9 unit (0.09 mL) subcut 0800 #1 mL 01/13/24 lisinopril 10 mg tablet 10 mg PO 2000 #1 TAB 01/13/24 lisinopril 20 mg tablet 20 mg PO 0800 #1 TAB 01/13/24 magnesium hydroxide 400 mg/5 mL oral suspension 30 ml PO X1 PRN Constipation #1 mL 01/13/24 metoprolol succinate 25 mg tablet,extended release 24 hr 25 mg PO 2000 #1 TAB 01/13/24 metoprolol succinate 50 mg tablet,extended release 24 hr 50 mg PO 0800 #1 TAB 01/13/24 trazodone 100 mg tablet 100 mg PO QHS #1 TAB 01/13/24 coenzyme Q10 100 mg capsule (CoQ-10) 100 mg PO DAILY #1 cap 01/14/24 insulin lispro 100 unit/mL subcutaneous pen 12 unit (0.12 mL) subcut .supper #15 mL 01/14/24 Hospital Course Operations None Procedures Transthoracic echo (No bubble study was done. EF is 65% with no diastolic dysfunction and no wall motion abnormalities. No significant valvular heart disease.) Summary of Care Provided Minutes Spent on Discharge: 42 Hospital Course: NÉSTOR STEVENSON, is a 48 YO M with a PMH of diabetes mellitus type 2 on insulin, hypertension, hyperlipidemia, obstructive sleep apnea (uses CPAP), atrial flutter (not on meds), depression, chronic back pain, tobacco dependence in remission and morbid obesity who presented to the emergency department at [facility] on 12/27/2023 with complaint of right-sided weakness, right facial droop and altered mental status. The last known well was approximately 7 hours prior to arriving in the emergency department. Stat noncontrast CT of the brain showed no acute intracranial pathology. CTA of the head and neck showed moderate stenosis of the right common carotid artery and mild stenosis of the left carotid artery with patent vertebral arteries bilaterally. The [facility] teleneurologist was consulted and he did not feel the patient was a candidate for TNK since he was 7 hours since the last known well. He was admitted to the progressive care unit on telemetry and started on aspirin and Plavix. He was also started on a high intensity statin and MRI and transthoracic echocardiogram were ordered. Brain MRI showed an acute infarct involving the anterior lateral left thalamus and the posterior limb of the left internal capsule measuring up to approximately 2.4 cm. There were punctate foci of restricted diffusion within the left caudate nucleus and the left back radiata consistent with acute infarcts. Transthoracic echocardiogram showed a normal ejection fraction of 65% with no evidence for diastolic dysfunction and no regional wall motion abnormalities. The left and right atria were of normal size and there was no Doppler evidence for an ASD. There was no significant valvular heart disease. A follow-up neurology consult was obtained and his NIHSS score on that date was 5 for LOC (1 of 2 questions answered correctly), partial hemianopia, limb ataxia present in 1 limb, mild to moderate aphasia and mild to moderate dysarthria. Dual antiplatelet agents for 21 days was recommended and then decreased to Plavix only. High intensity statin was continued. He was transferred to the acute inpatient rehab unit at [facility] on 12/30/2023 for 3 hours of therapy daily to restore function/independence at or near his level prior to the stroke. Néstor has a long hx of depression and had not been on any medication for the preceding year. He was withdrawn and mostly non-verbal. He was started on Duloxetine and he is more responsive at the time of DC from rehab with increased verbalization and cooperation with therapy. Still not initiating ADL's without verbal cuing. Unsure if this is due to depression, the CVA or both. Cymbalta was increased to 40 mg daily prior to DC from rehab. BS's were not adequately controlled at admission to rehab. Jardiance was added to the drug regimen due to the stroke (no metabolic acidosis and he is tolerating well) and insulin was adjusted. BS's are in good control at DC without any hypoglycemia. BP is variable but, BP is mostly < 130/80 with no hypotension or lightheadedness. BP the morning of DC from rehab is 113/72. LFT's and a lipid panel were checked 1 day prior to DC and the bilirubin was mildly elevated at 1.5 but, AST/ALT and AP are all normal. Bili is chronically elevated. With Atorvastatin 80 mg the TG are normal with an LDL of 46 and an HDL of 31. His goals for tx are BP<130/80, HGBA1C of 7 or less and LDL of 70 or less. I have recommended weight loss....current BMI is 41.8. He may benefit from Ozempic or Mounjaro going forward. He is being referred to endocrinology for management of DM II. At the time of discharge from rehab he is supervision/set up with eating, grooming, bathing, Upper body dressing, lower body dressing, toileting and toilet transfer. He is supervision with tub/shower transfer. He is able to do 11 sit to stands using his bilateral upper extremities to rise at light contact-guard assist. He has ambulated up to 750 feet with no assistive device at contact-guard assist. He can a send/descend 20 steps with 1 handrail at contact-guard assist/min assist. Néstor has poor safety awareness and he is impulsive. He has cognitive dysfunction. He is not safe to be by himself at this time. He was transferred to [facility] on 01/14/2024 for additional therapy prior to returning home. The importance of taking his medication exactly as directed was discussed multiple times with Néstor and his family. Néstor will follow up with Dr. Rocky Delgadillo for primary care following discharge from [facility]. A referral has been made to Dr. Aranda in [place] for neurology follow-up. A 30-day event monitor was ordered at discharge. He does have a history of a flutter in the EMR but has not been on any anticoagulation in the past. He will follow-up with [facility] at the conclusion of the 30-day event monitor to discuss the results and treatment if necessary. A referral was made to Dr. Pedro Mancini's office for management of diabetes mellitus type 2. Physical Exam Const alert and no apparent distress Constitutional Narrative: making good eye contact with me. Voice is normal and is projecting well. No dysarthria. He is attnetive and able to follow commands. General Appearance: cooperative HEENT moist oral mucous membranes HEENT Narrative: No thrush Eyes PERRL, EOMs intact bilaterally, conjunctivae normal and no scleral icterus Eyes Narrative: No discharge from the eyes. No mattering of the eyelashes. No visual field cuts. General Eye: normal appearance of both eyes Neck supple, No nodes and no carotid bruits Chest Chest: symmetrical chest wall rise Resp normal respiratory effort and clear to auscultation bilaterally Effort and Inspection: able to speak in complete sentences; Negative for tachypneic or respiratory distress Cardio regular rate, regular rhythm, no murmurs, no rub and no gallops Cardio Narrative: No ectopy GI normal to inspection, nondistended, normoactive bowel sounds, soft to palpation and non-tender GI Narrative: No guarding with palpation. Having regular bowel movements. Back/Spine Back/Spine Narrative: Denies back pain and radiation of pain into his legs. Extremity no calf tenderness General Extremity: Negative for edema Skin General Skin Exam: no breakdown Rashes: no rashes Neuro Neuro Narrative: Oriented to person. Could not tell me the month, the year or how old he is. Did poorly at naming objects and telling me what is happening in a picture but, can read and pronounce words and sentences with no errors. 5/5 strength in all extremities. No sensory loss. Cranial nerves II through XII are grossly intact. No extinction. No ataxia. Able to follow simple commands. Psych denies homicidal ideation and denies suicidal ideation Appearance: grossly normal and appropriate Attitude: calm Activity / Motor Behavior: appropriate eye contact and psychomotor slowing; Negative for psychomotor agitation Speech: No slurred Weight / BMI Weight Weight: 307 lb 8.717 oz Body Mass Index (BMI) 41.6 ABG / Lab / Microbiology Data 01/12/24 05:25 01/12/24 05:25 Laboratory: Laboratory Results - last 24 hr 01/13/24 05:40: POC Glucose 136 H 01/13/24 11:15: POC Glucose 149 H 01/13/24 16:47: POC Glucose 127 H Indicators for Scoring Admitted with or Primary Diagnosis of CVA/Stroke: Yes Hx of CVA/Stroke: Yes Modified Coleman Score MRS Score at time of Evaluation: 3-Moderate disability (Down from 4 at admission.) NIHSS NIHSS 1a. Level of Consciousness: Alert; keenly responsive 1b. LOC Questions: Answers neither question correctly. 1c. LOC Commands: Performs both tasks correctly. 2. Best Gaze: Normal 3. Visual: No visual loss 4. Facial Palsy: Normal symmetrical movements 5a. Left Arm: No drift; arm holds 90 (or 45) degrees for full 10 seconds 5b. Right Arm: No drift; arm holds 90 (or 45) degrees for full 10 seconds 6a. Left Leg: No drift; leg holds 30-degree position for full 5 seconds 6b. Right Leg: No drift; leg holds 30-degree position for full 5 seconds 7. Limb Ataxia: Absent 8. Sensory: Normal; no sensory loss 9. Best Language: Hjhg-dy-haabfocr aphasia; 10. Dysarthria: Normal 11. Extinction and Inattention: No abnormality Total: 3 (NIH was 4 at admission to rehab and at admission to the hospitalist service the NIHSS was 14. ) Stroke Questions Stroke Team Activated: No D/C Instructions Please Follow Up With: Pedro Mancini MD Meaningful Use Info Meaningful Use Meaningful Use Diagnoses (Choose all that apply): Ischemic CVA CVA Therapy Assessed for PT,OT and/or ST?: Yes Ischemic Stroke Antithrombotic order at d/c?: Yes Dx of Atrial fib/flutter?: No Anticoagulant at discharge?: No Reason anticoagulant not ordered: Treatment not Indicated (Has a reported hx of A FLUTTER but, no AF or Futter while on telemetry. 30 day event monitor ordered at [facility]. No dysrhythmia while on rehab. ) Statin Dosing Therapy Reference: STATIN DOSE THERAPY REFERENCE: * Patients > 75 years receive moderate or high dose statin therapy. * Patients 75 years or YOUNGER should receive HIGH intensity statin dose unless contraindicated. You will be required to document reason for non-treatment if statin daily dose does not meet guidelines. HIGH DOSE STATIN THERAPY DAILY Atorvastatin > than or = to 40 mg Rosuvastatin > than or = to 20 mg Amlodipine + Atorvastatin > than or = to 2.5/40 mg Ezetimibe + Simvastatin 10/80 mg Simvastatin 80mg Statins at discharge?: Yes If patient is 75 or younger, pt will be discharged on HIGH intensity statin.: Yes Primary Dx Acute Ischemic CVA?: Yes IV thrombolytic ordered during stay?: No Reason IV thrombolytic not ordered: Procedure not Indicated Discharge Plan Admission Admit Date/Time: 12/30/23 14:05 Primary Reason for Your Visit: Post stroke debility Attending Provider: Sabina Swain Primary Care Provider: Rocky Delgadillo Discharge Orders/Prescriptions Prescriptions: New acetaminophen 500 mg Tablet 1,000 mg PO Q8H PRN PRN (Reason: Pain 1-10 Or Fever) Qty: 1 0RF bisacodyl 10 mg Suppository 10 mg MN X1 PRN (Reason: Constipation) Qty: 1 0RF metoprolol succinate 50 mg Tablet Extended Release 24 Hr 50 mg PO 0800 Qty: 1 0RF lisinopril 20 mg Tablet 20 mg PO 0800 Qty: 1 0RF magnesium hydroxide 400 mg/5 mL Suspension 30 ml PO X1 PRN (Reason: Constipation) Qty: 1 0RF trazodone 100 mg Tablet 100 mg PO QHS Qty: 1 0RF lisinopril 10 mg Tablet 10 mg PO 2000 Qty: 1 0RF metoprolol succinate 25 mg Tablet Extended Release 24 Hr 25 mg PO 1999 Qty: 1 0RF insulin lispro [Humalog KwikPen Insulin] 100 unit/mL Insulin Pen 9 unit subcut 0800 Qty: 1 0RF duloxetine 20 mg Capsule,Delayed Release(Dr/Ec) 40 mg PO DAILY Qty: 1 0RF Jardiance 10 mg Tablet 10 mg PO DAILY Qty: 1 0RF insulin glargine-yfgn 100 unit/mL (3 mL) Insulin Pen 20 unit subcut QPM Qty: 1 0RF insulin lispro 100 unit/mL insulin pen 12 unit subcut .supper Qty: 15 0RF Rx Instructions: 12 units with supper daily coenzyme Q10 [CoQ-10] 100 mg capsule 100 mg PO DAILY Qty: 1 0RF Continued multivitamin [Daily Multi-Vitamin] Tablet 1 tab PO DAILY atorvastatin 80 mg Tablet 80 mg PO QHS Qty: 30 2RF clopidogrel 75 mg Tablet 75 mg PO DAILY Qty: 30 2RF aspirin 81 mg Tablet,Chewable 81 mg PO BREAKFAST Qty: 21 0RF Rx Instructions: DC after the dose on 01/20/24 and continue Plavix 75 mg daily. Discontinued metoprolol tartrate 25 mg Tablet 25 mg PO BID Qty: 60 2RF metformin 500 mg tablet 500 mg PO BID Qty: 60 2RF No Action lisinopril 20 mg Tablet 20 mg PO DAILY Qty: 30 2RF insulin glargine [Lantus Solostar U-100 Insulin] 100 unit/mL (3 mL) insulin pen 15 unit subcut QPM Qty: 15 0RF Referrals / Follow Up: [facility], Neurology [Other] (Referral Sent) Heart, Monitor [Other] (a 30 day event monitor was ordered for you. It will be mailed to your house with directions for use.) Alex Tovar MD [Med Staff - Active Staff] - () Rocky Delgadillo MD [Primary Care Provider] - Pedro Mancini MD [Med Staff - Courtesy Staff] - (Referral sent. The office will call to set up appointment ) Disposition Disposition (needs filled in before D/C Order can be placed): [facility] Facility Charges/Coding Visit Charges Inpatient E&M: 48898 Disch Hosp >30min
[2024-01-13 18:00] VITALS: BP 139/89; PULSE 64; RESP 17; TEMP 36.7; O2SAT 98
[2024-01-13] MEDS: traZODone 100 MG Tablet PO (20:15)
[2024-01-13 20:16] VITALS: BP 139/89; PULSE 64
[2024-01-13] MEDS: Lisinopril 10 MG Tablet PO (20:16)
[2024-01-13] MEDS: Atorvastatin Calcium 80 MG Tablet PO (20:16)
[2024-01-13] MEDS: Metoprolol(XL)Succ 25 MG Tablet PO (20:16)
[2024-01-13 20:20] VITALS: PULSE 64; RESP 17; BMI 41.6
[2024-01-13] MEDS: Insulin Glargine-YFGN 100 UNIT/ML Pen 20 UNIT SC (20:26)
[2024-01-13 22:55] LABS: Bedside Glucose 186 mg/dL (74-106)
--- NOTE | 2024-01-14 02:19 | NURSING ---
Reviewed and agree with Karen WASHINGTON, documentation and assessment charting.
[2024-01-14 04:25] VITALS: BMI 41.8
[2024-01-14] MEDS: Enoxaparin 40 MG/0.4 ML Syringe SC (04:38)
[2024-01-14 04:48] VITALS: BP 113/72; PULSE 65; RESP 17; TEMP 36.3; O2SAT 97
[2024-01-14 07:11] LABS: Bedside Glucose 169 mg/dL (74-106)
[2024-01-14] MEDS: Lisinopril 20 MG Tablet PO (08:07)
[2024-01-14] MEDS: Multivitamins,Therapeutic Tablet 1 TABLET PO (08:07)
[2024-01-14] MEDS: Aspirin 81 MG TAB.CHEW PO (08:07)
[2024-01-14] MEDS: Insulin Lispro 100 UNIT/ML INSULN.PEN 9 UNIT SC (08:08)
[2024-01-14 08:09] VITALS: PULSE 62
[2024-01-14] MEDS: Metoprolol(XL)Succ 50 MG Tablet PO (08:09)
[2024-01-14] MEDS: Clopidogrel Bisulfate 75 MG Tablet PO (09:40)
[2024-01-14] MEDS: Senna/Docusate Sodium 1 Tablet 2 TABLET PO (09:40)
[2024-01-14] MEDS: Empagliflozin 10 MG Tablet PO (09:40)
[2024-01-14] MEDS: DULoxetine Hcl 20 MG Capsule 40 MG PO (09:40)
[2024-01-14 11:56] VITALS: BMI 41.8
[2024-01-14 12:31] LABS: Bedside Glucose 124 mg/dL (74-106)
--- NOTE | 2024-01-14 13:00 | NURSING ---
DC to SNF with family. Daughter aware to call Dr. Mancini office to check on appointment status. All other appts made. Daughter transporting patient in car. Report given to SNF.
== END 2024-01-14 13:02 | disposition skilled nursing facility (03) | DRG 58 ==
PROVIDERS: Admitting Provider Internal Medicine; PCP Family Medicine; Referring Provider Internal Medicine; Visit Provider Internal Medicine
DX: G81.91 Hemiplegia, unspecified affecting right dominant side (principal); H53.47 Heteronymous bilateral field defects; J38.01 Paralysis of vocal cords and larynx, unilateral; E11.65 Type 2 diabetes mellitus with hyperglycemia; Z68.41 Body mass index [BMI] 40.0-44.9, adult; F32.9 Major depressive disorder, single episode, unspecified; I10 Essential (primary) hypertension; I69.322 Dysarthria following cerebral infarction; E80.4 Gilbert syndrome; G47.33 Obstructive sleep apnea (adult) (pediatric); E78.5 Hyperlipidemia, unspecified; E66.01 Morbid (severe) obesity due to excess calories; Z79.4 Long term (current) use of insulin; I69.320 Aphasia following cerebral infarction; I69.398 Other sequelae of cerebral infarction; I69.393 Ataxia following cerebral infarction; I69.992 Facial weakness following unspecified cerebrovascular disease; F09 Unspecified mental disorder due to known physiological condition; Z87.891 Personal history of nicotine dependence; Z79.82 Long term (current) use of aspirin; Z79.02 Long term (current) use of antithrombotics/antiplatelets; Z79.899 Other long term (current) drug therapy
CPT/HCPCS: 36415; 70450; 80053; 80061; 81001; 82043; 82570; 82962; 83735; 84100; 85027; 92507; 92523; 92610; 92612; 94668; 97110; 97112; 97116; 97129; 97130; 97162; 97166; 97530; 97535; 97802; 99406

== ENCOUNTER → 2024-01-17 | Outpatient (REF) | payer MEDICAID, SELFPAY ==
[2024-01-17 09:42] LABS: Absolute Lymphocyte Count 2.97 X10^3/uL (0.83-4.51); Absolute Neutrophil Count 3.9 X10^3/uL (2.0-7.7); Basophil# 0.08 X10^3/uL; Eosinophils% 5.1 % (0-5); Hematocrit 41.4 % (40-54); Hemoglobin 14.6 g/dL (13.0-16.5); Lymphocyte # 2.97 X10^3/ul (0.83-4.51); Lymphocyte % 37.8 % (19-41); Mean Corp Hgb Conc 35.3 g/dL (32-36); Mean Corpuscular Hgb 30.5 pg (27.0-32.0); Mean Corpuscular Volume 86.6 fL (80-94); Mean Platelet Vol. 10.9 fl (6.2-12.0); Monocyte# 0.51 X10^3/uL; Monocyte% 6.5 % (0-10); NRBC Flagged by Analyzer 0 % (0-5); Neutrophil # 3.87 X10^3/uL (2.7-7.7); Neutrophil % 49.2 % (47-70); Platelet Count 235 K/mm3 (150-450); RBC Distribution Width CV 12.8 % (11.6-14.6); Red Blood Count 4.78 M/mm3 (4.6-6.2); White Blood Count 7.9 K/mm3 (4.4-11.0)
[2024-01-17 09:59] LABS: Anion Gap 6 (5-15); BUN 14 mg/dL (7-18); BUN/Creat Ratio 14.8 RATIO (10-20); Calcium,Total 9.1 mg/dL (8.5-10.1); Chloride 106 mmol/L (98-107); Creatinine, Serum 0.95 mg/dL (0.70-1.30); EST Glomerular Filtration Rate 89 mL/min (>60); Est Glom Filt Rate - Afr Amer 108 mL/min (>60); Glucose 117 mg/dL (74-106); Magnesium 2.2 mg/dL (1.6-2.6); Potassium 3.6 mmol/L (3.5-5.1); Sodium Level 141 mmol/L (136-145)
[2024-01-17 10:00] LABS: Vitamin B12 757 pg/mL (211-911); Vitamin D,25 Hydroxy 27.6 ng/mL
[2024-01-17 11:51] LABS: Hemoglobin A1c 10.4 % (3.8-5.6)
== END | disposition home or self-care (01) ==
LOC: OLS.SW 04:00
PROVIDERS: PCP Family Medicine; Referring Provider Internal Medicine; Visit Provider Internal Medicine
DX: I48.91 Unspecified atrial fibrillation (principal); E11.9 Type 2 diabetes mellitus without complications; I10 Essential (primary) hypertension; E78.5 Hyperlipidemia, unspecified; Z86.73 Personal history of transient ischemic attack (TIA), and cerebral infarction without residual deficits
CPT/HCPCS: 36415; 80048; 82306; 82607; 83036; 83735; 85025

== ENCOUNTER → 2024-01-24 | Outpatient (REF) | payer MEDICAID, SELFPAY ==
[2024-01-24 08:18] LABS: Absolute Lymphocyte Count 2.29 X10^3/uL (0.83-4.51); Absolute Neutrophil Count 3.6 X10^3/uL (2.0-7.7); Basophil# 0.05 X10^3/uL; Basophil% 0.8 % (0-1); Eosinophil# 0.25 X10^3/uL; Eosinophils% 3.8 % (0-5); Hematocrit 43.6 % (40-54); Hemoglobin 15.3 g/dL (13.0-16.5); Lymphocyte # 2.29 X10^3/ul (0.83-4.51); Lymphocyte % 34.7 % (19-41); Mean Corp Hgb Conc 35.1 g/dL (32-36); Mean Corpuscular Hgb 30.5 pg (27.0-32.0); Mean Corpuscular Volume 86.9 fL (80-94); Mean Platelet Vol. 10.5 fl (6.2-12.0); Monocyte# 0.38 X10^3/uL; Monocyte% 5.8 % (0-10); NRBC Flagged by Analyzer 0 % (0-5); Neutrophil # 3.61 X10^3/uL (2.7-7.7); Neutrophil % 54.6 % (47-70); Platelet Count 248 K/mm3 (150-450); RBC Distribution Width CV 13.2 % (11.6-14.6); RBC Distribution Width SD 40.6 fl (35.1-43.9); Red Blood Count 5.02 M/mm3 (4.6-6.2); White Blood Count 6.6 K/mm3 (4.4-11.0)
[2024-01-24 08:59] LABS: ALB/GLOB Ratio 1.1 RATIO (0.9-2.4); AST(SGOT) 22 U/L (15-37); Alanine Aminotransfer ALT/SGPT 40 U/L (16-61); Albumin, Serum 3.5 g/dL (3.2-5.0); Alkaline Phosphatase 40 U/L (45-117); Anion Gap 5 (5-15); BUN 15 mg/dL (7-18); BUN/Creat Ratio 15.1 RATIO (10-20); Calcium,Total 9.2 mg/dL (8.5-10.1); Chloride 106 mmol/L (98-107); Creatinine, Serum 0.99 mg/dL (0.70-1.30); EST Glomerular Filtration Rate 85 mL/min (>60); Est Glom Filt Rate - Afr Amer 102 mL/min (>60); Globulin 3.2 g/dL (2.2-4.2); Glucose 134 mg/dL (74-106); Potassium 3.9 mmol/L (3.5-5.1); Protein, Total 6.7 g/dL (6.4-8.2); Sodium Level 141 mmol/L (136-145)
== END | disposition home or self-care (01) ==
LOC: OLS.SW 06:45
PROVIDERS: PCP Family Medicine; Visit Provider Internal Medicine
DX: E11.9 Type 2 diabetes mellitus without complications (principal); I69.351 Hemiplegia and hemiparesis following cerebral infarction affecting right dominant side
CPT/HCPCS: 36415; 80053; 85025

== ENCOUNTER 2024-07-24 14:00 | Outpatient (RCR) | payer MEDICAID, SELFPAY ==
--- NOTE | 2024-01-31 14:45 | HP.PTEVAL ---
Patient's Visit Information Visit Information Visit Information: BUBBA STEVENSON is a 48 year old M referred to Physical Therapy by Dr. Brinda Lambert MD with a diagnosis of CVA with R sided effect. Date of Evaluation: 01/31/24 Physical Therapist: Farhan Livingston DPT Visit Plan Frequency: 1x/Week Duration: 1 Week Plan: After testing today Pt. does not need formal PT at this point in time. Pt. will be DC to walking program. He is going to see speech and is to talk to his doctor about having an OT assessment. Subjective Subjective: Pt. is here today for his initial evaluation with diagnosis of of CVA. Pt. had some some R sided weakness initially, but this has basically resolved. He has been back home for a ~1 week and has been doing well. No falls or imbalance. Pt. reports no pain either. Pt. is sleeping well. He is not back to driving. Daughter reports he is having more issues with his memory and with coginition compared to everything else. Pt. was actually wondering about why he had PT order. They were under the impression it was going to be from OT and speech. Objective Objective: POSTURE: Pt. has slight flexed posture. PALPATION: No pain with palpation of BLEs. NEURO: normal throughout BLEs ROM: normal knee and hip ROM. Tightness noted in B calves and HS. MMT: 5/5 throughout BLEs. 30sec sit to stand test 15 reps without use of UEs TUG 10.1sec without AD GAIT: pt. ambulates with fairly normal gait pattern. No AD needed. Pt. had normal SHILPA and normal step length. STAIRS: pt. completed reciprocally with out HR both ascending and descending. Balance/Special Test Scores Functional Gait Assessment Score: 28 % Disability: 6.6700 Lower Extremity Functional Score: 63 Rehabilitation Potential Physical Therapy Diagnosis: Pt. has signs and symptoms of a CVA. He is doing very well physically and will not need formal PT at this point in time. Rehabilitation Potential: Excellent Anticipated Interventions Text: Thank you for the opportunity to evaluate your patient. For Medicare and Medicare HMO plans, please review the plan of care and approve it. It will need to be FAXED BACK to us at [phone] for Medicare purposes. For Medicare only, by signing this I certify the plan of care. Please let me know if there are questions or concerns regarding this plan of care. Physician Signature: Date:
--- NOTE | 2024-01-31 18:33 | HP.SP.EVAL ---
Visit History Visit Info Date of Eval: 01/31/24 Visit: 1 Patient's Approved Number of Visits: 30 Radiology Orderly: ANA LAURA History Attending Doctor: Referring Doctor: Reason for Referral: HEMIPLEGIA/HEMIPARESIS. APHASIA. RX HERE Medical Diagnosis: CVA Date of Onset of Diagnosis: 12/27/2023 Previous speech therapy: Yes Smoking Status: Former smoker Pain Is pain an issue with your current prescribed condition?: No Personal Preferred language: [place] Patient Allergies Allergies Allergies: Allergies cefadroxil hydrate (From Duricef) Allergy (Verified 01/26/24 10:02) Itching piperacillin (From Zosyn) Allergy (Verified 01/26/24 10:02) Hives tazobactam (From Zosyn) Allergy (Verified 01/26/24 10:02) Hives erythromycin base Adverse Reaction (Verified 01/26/24 10:02) Vomiting CLQT CLQT CLQT Administered: Yes CLQT: Cognitive Linguistic Quick Test (CLQT) is a criterion - referenced assessment designed for adults between the ages of 18 and 89 with known or suspected neurological dysfuntions. The CLQT is to assess strength and weaknesses in five cognitive domains. Severity ratings are within normal limits, mild, moderate, severe deficits. The subtests are as follows: Date: 01/31/24 Attention Attention: Mild Memory Memory: Severe Executive Functions Executive Functions: Moderate Language Language: Severe Visuospatial Skills Visuospatial Skills: WNL Composite Severity Rating Composite Severity Rating: Moderate Clock Drawing Severity Rating Clock Drawing Severity Rating: Mild CLQT Comments Comments: -: Attention: 178 Memory: 109 Executive Function: 19 Language: 17 Visuospatial Skills: 87 Reference: Neuro-QoL instrument Radiation Oncology Patient Plan Plan Plan: At this time it is recommended that Néstor received skilled speech therapy to target the areas of language, executive functioning, and memory, as he scored in the moderate to severe ranges on the CLQT+. Recommendations Treatment Warranted: Yes Treatment Warranted: Receptive/ Expressive Language and Cognition Progress Prognosis: Good Frequency Frequency: 1x/Week Duration: Indefinite Visits in this POC: 30 Patient/Family Goal Patient/Family Goal: Increase language and memory skills. Goals that are Established Determination:: Goals will be added/modified as deemed necessary and appropriate. Therapy will be discontinued when results of re-evaluation indicate therapy is no longer needed or lack of progress has been documented. Goal #1-5 Goal #1: Néstor will demonstrate use of word finding strategies to complete concrete convergent and divergent naming tasks with 80% acc independently across 3 measured opportunities to improve word retrieval. Goal #2: Néstor will complete basic to mod complex planning, organizing, and sequencing tasks with 80% acc independently across 3 measured opportunities. Goal #3: Néstor will complete basic to mod complex immediate, short-term, and working memory tasks with 80% acc independently across 3 measured opportunities. Goal #4: Néstor will complete basic to mod complex functional math, money, and time tasks with 80% acc independently across 3 measured opportunities. Education Patient has Indicated that the Following Identified Educational Needs: None The Patient has indicated that they have no educational or learning abilities that may effect their care.: Yes Patient Instruction Patient Education: Treatment Plan and Goals Person Taught: Patient and Family Teaching Method: Discussion Response to teaching: Verbalize Understanding
--- NOTE | 2024-02-21 12:46 | HP.OTEVAL ---
Patient's Visit Information Visit Information Visit Information: BUBBA STEVENSON is a 48 year old M, referred to Occupational Therapy by Dr. Brinda Lambert MD, with a diagnosis of cva / right UE weakness. Date of Evaluation: 02/21/24 Occupational Therapist: Georgette Sanchez, ANNM ARIE/Juanis, CHT Subjective Subjective: This 48 year old male was seen for OT eval with dx of CVA. Pt is with his dtr. states CVA happened middle of Dec. and was in rehab at [facility]. Pt was evaluated in outpatient PT and ST about 20 days ago. Pt does not do much communication due to CVA. PLOF pt was IND with ADLs and home mtg. tasks. Pt had hobby of making large concert statues and would lift them when completed- dtr states up to 150lbs. Dtr states pt has no interest in returning to making the statues at this time. Pt would go to [employer] at 3am and workout with lifting weights and has recently loss 200lbs. pt states he would like to return to his exercise. ADLs Comments: pts dtr states prior to the stroke - pt was IND with driving- home mtg- dtr did the shopping and laundry and cooking. pt was a member at [employer]- pts dtr states they have not been back since the stroke. pt is right handed Dtr lives with both her parents and now is taking care of them as her mother is not well. Dtr. states her dad does get tired faster now- states she took him to the store and he could only tolerate being there about 10 min. ROM ROM Comments: pt demo with full bilateral ROM Strength Shoulder: flexion right 14# left 20.3# Elbow: ext R30# left 29# biceps right 32 left 27.7 Aix System Administrator: right 70# left 85# Lateral Pinch: right 14# left 18# Tripod Pinch: right 14# left 18# Strength Comments: pt right handed Stroke Specific Quality of Life Total SS-QOL Score: 152 Goals Goal:: pt will demo a increase in fet 2 peak force by 8# or greater to return pt to pLOF with ADLs by d/c pt will demo a increase in right planting machine crewman strength by 15# or greater to increase IND with ADLS by d/c Goal:: pt will report transition into his gym eq. in 6 weeks Goal:: SSQOL % below 30% indication of improvement in pts functional ADLs by d/c Rehabilitation General Assessment: Pt demo with a decrease in right UE strength limiting pts return to his PLOF. Pt would benefit from skilled OT services 2-3x week for next 4-6 weeks to improve pts strength to return pt to his PLOF. Today therapist ed. pt on UB strengthening and gave pt handout- pt and pts dtr. demo understanding and agree to POC. Rehabilitation Potential: Good Anticipated Interventions Anticipated Interventions: A/AAROM/PROM, Strengthening, Fine Motor Coord/Shant, Neuro Reeducation, Caregiver Training and Home Program Visit Plan Frequency: 1-2x /Week Duration: 2 Months TEXT: Thank you for the opportunity to evaluate your patient. For Medicare and Medicare HMO plans, please review the plan of care and approve it. It will need to be FAXED BACK to us at [phone] for Medicare purposes. Please let me know if there are questions or concerns regarding this plan of care. Physician Signature: Date:
--- NOTE | 2024-03-27 13:35 | HP.OTDCSUM_ITS ---
Discharge Summary D/C Summary: It has been my pleasure to treat BUBBA STEVENSON under orders from Dr. Brinda Lambert MD, for the diagnosis of cva / right UE weakness for a total of 7 visit(s). Please see the following information for a summary of their discharge status. Overall Improvement % Improvement: 90 Objective Objective/Function: Shoulder: flexion right 14# left 20.3# Elbow: ext R30# left 29# biceps right 24 left 29.7 Telegraphic Typewriter Mechanic: right 85 # left 85# Lateral Pinch: right 20# left 20# Tripod Pinch: right 20# left 22# pt demo with BUE full ROM pt demo understanding of his UB strengthening program. Goals Patient Goals: Regain Strength Goal:: pt will demo a increase in fet 2 peak force by 8# or greater to return pt to pLOF with ADLs by d/c ( progressing pt will cont. with HEP) pt will demo a increase in right tar worker strength by 15# or greater to increase IND with ADLS by d/c ( pt increased tar worker strength to 85# from 75#) equal to unaffected side. - goal met Goal:: pt will report transition into his gym eq. in 6 weeks Goal:: SSQOL % below 30% indication of improvement in pts functional ADLs by d/c Plan Plan: D/C D/C Information Discharge Comments: pt has made good gains with strength and endurance with UB. Pt reports he is performing all ADLs and IADLs at WILLIE level- feels most concerns- are more with cognitive and feels he is having difficulty with processing. pt will cont with his HEP- and out patient speech therapy- pt agrees with D/C from OT. d/c sentence: If there are questions or concerns regarding this patient's occupational health physiotherapist apy, please fell free to call me at [phone]. Thank you for the referral of this patient. Sincerely, Georgette Sanchez, OTR/L, CHT
--- NOTE | 2024-05-29 17:54 | HP.SP.REEV ---
Visit History Visit Info Date of Eval: 01/31/24 Visit: 1 Patient's Approved Number of Visits: 30 Information Director: ANA LAURA History Attending Doctor: Referring Doctor: Reason for Referral: HEMIPLEGIA/HEMIPARESIS. APHASIA. RX HERE Medical Diagnosis: CVA Date of Onset of Diagnosis: 12/27/2023 Previous speech therapy: Yes Smoking Status: Former smoker Diagnosis Diagnosis: CVA Pain Is pain an issue with your current prescribed condition?: No Personal Preferred language: [place] Patient Allergies Allergies Allergies: Allergies cefadroxil hydrate (From Duricef) Allergy (Verified 05/25/24 10:49) Itching piperacillin (From Zosyn) Allergy (Verified 05/25/24 10:49) Hives tazobactam (From Zosyn) Allergy (Verified 05/25/24 10:49) Hives erythromycin base Adverse Reaction (Verified 05/25/24 10:49) Vomiting Previous/Current Goals Goals 1-5 Previous Goal #1: Néstor will demonstrate use of word finding strategies to complete concrete convergent and divergent naming tasks with 80% acc independently across 3 measured opportunities to improve word retrieval. Goal 1 Status: Néstor is currently making adequate progress toward this goal, but has not met it yet. He is sitting at an average accuracy of approximately 65% when given moderate verbal cues. Will continue to target this goal and monitor progress. Previous Goal #2: Néstor will complete basic to mod complex planning, organizing, and sequencing tasks with 80% acc independently across 3 measured opportunities. Goal 2 Status: Néstor has met this goal. Previous Goal #3: Néstor will complete basic to mod complex immediate, short-term, and working memory tasks with 80% acc independently across 3 measured opportunities. Goal 3 Status: Néstor is currently making adequate progress toward this goal, but has not met it yet. He is sitting at an average accuracy of approximately 70% when given moderate verbal cues. Will continue to target this goal and monitor progress. Previous Goal #4: Néstor will complete basic to mod complex functional math, money, and time tasks with 80% acc independently across 3 measured opportunities. Goal 4 Status: Néstor has met this goal. CLQT CLQT CLQT Administered: Yes CLQT: Cognitive Linguistic Quick Test (CLQT) is a criterion - referenced assessment designed for adults between the ages of 18 and 89 with known or suspected neurological dysfuntions. The CLQT is to assess strength and weaknesses in five cognitive domains. Severity ratings are within normal limits, mild, moderate, severe deficits. The subtests are as follows: Date: 01/31/24 Attention Attention: Mild Memory Memory: Severe Executive Functions Executive Functions: Moderate Language Language: Severe Visuospatial Skills Visuospatial Skills: WNL Composite Severity Rating Composite Severity Rating: Moderate Clock Drawing Severity Rating Clock Drawing Severity Rating: Mild CLQT Comments Comments: -: Attention: 178 Memory: 109 Executive Function: 19 Language: 17 Visuospatial Skills: 87 CLQT Re-Eval Testing Results CLQT Test Comparison: - Initial Evaluation: Attention: 178 (WNL) Memory: 109 (Moderate) Executive Function: 19 (WNL) Language: 17 (Moderate) Visuospatial Skills: 87 (WNL) - Re-Evaluation: Attention: 189 (WNL) Memory: 141 (Mild) Executive Function: 28 (WNL) Language: 25 (Mild) Visuospatial Skills: 95 (WNL) There has been progress made within all domains of this evaluation, especially in the areas of memory and language (moved from moderate to mild). Reference: Neuro-QoL instrument Radiation Oncology Patient Plan Plan Plan: At this time, it is recommended that Néstor continue with skilled speech therapy, as there has been progress made within all domains assessed during his initial and re-evaluations (all scored increased, but memory and language moved from moderate to mild severity). Recommendations Treatment Warranted: Yes Treatment Warranted: Receptive/ Expressive Language and Cognition Progress Prognosis: Good Frequency Frequency: 1x/Week Duration: Indefinite Visits in this POC: 30 Patient/Family Goal Patient/Family Goal: Néstor stated that he would like to continue to see progress with his language skills, especially with word finding. Goals that are Established Determination:: Goals will be added/modified as deemed necessary and appropriate. Therapy will be discontinued when results of re-evaluation indicate therapy is no longer needed or lack of progress has been documented. Goal #1-5 Goal #1: Néstor will demonstrate use of word finding strategies to complete concrete convergent and divergent naming tasks with 80% acc independently across 3 measured opportunities to improve word retrieval. Goal #2: Néstor will complete basic to mod complex immediate, short-term, and working memory tasks with 80% acc independently across 3 measured opportunities. Goal #3: Néstor will complete basic to mod complex immediate, short-term, and working memory tasks with 80% acc independently across 3 measured opportunities. Goal #4: Néstor will complete basic to mod complex functional math, money, and time tasks with 80% acc independently across 3 measured opportunities. Education Patient has Indicated that the Following Identified Educational Needs: Cognitively Impaired Other Educational Needs: CVA will need handouts The Patient has indicated that they have no educational or learning abilities that may effect their care.: No Patient Instruction Patient Education: Treatment Plan and Goals Person Taught: Patient and Family Teaching Method: Discussion Response to teaching: Verbalize Understanding
== END 2024-07-24 19:00 | disposition home or self-care (01) ==
LOC: SP 14:00
PROVIDERS: PCP Family Medicine; Referring Provider Internal Medicine; Visit Provider Internal Medicine
DX: I69.351 Hemiplegia and hemiparesis following cerebral infarction affecting right dominant side (principal); R47.01 Aphasia
CPT/HCPCS: 92507; 92523; 97110; 97161; 97166; 97530

== ENCOUNTER 2024-11-27 14:00 | Outpatient (RCR) | payer MEDICAID, SELFPAY ==
--- NOTE | 2024-12-04 10:11 | HP.SP.DC_ITS ---
ST Discharge Summary Discharged: Discharge: Patient is being discharged from [facility] speech therapy services at this time. Patient attended initial evaluation on 01/31/24 and attended weekly sessions until 11/27/24. Patient with improved scores during re-evaluation showing a composite severity rating for cognition WNL range. Patient and ST discussed continued use of learned compensatory strategies as needed. Thank you for allowing me to participate in the care of this patient.
== END 2024-11-27 19:00 | disposition home or self-care (01) ==
LOC: SP 14:00
PROVIDERS: PCP Family Medicine; Referring Provider Internal Medicine; Visit Provider Internal Medicine
DX: I69.351 Hemiplegia and hemiparesis following cerebral infarction affecting right dominant side (principal); R47.01 Aphasia
CPT/HCPCS: 92507

== ENCOUNTER → 2024-12-21 | Outpatient (CLI) | payer MEDICAID, SELFPAY ==
[2024-12-21 11:14] LABS: Hematocrit 47.6 % (40-54); Hemoglobin 16.6 g/dL (13.0-16.5); Immature Granulocytes Count 0.020 X10^3/uL (0.0-0.0); Mean Corp Hgb Conc 34.9 g/dL (32-36); Mean Corpuscular Volume 88.1 fL (80-94); Mean Platelet Vol. 9.5 fl (6.2-12.0); NRBC Flagged by Analyzer 0 % (0-5); Platelet Count 280 K/mm3 (150-450); RBC Distribution Width CV 13.2 % (11.6-14.6); RBC Distribution Width SD 42.2 fl (35.1-43.9); Red Blood Count 5.40 M/mm3 (4.6-6.2); White Blood Count 9.8 K/mm3 (4.4-11.0)
[2024-12-21 11:54] LABS: Creatinine, Urine (random) 90.20 mg/dL (39.00-259.00); Microalbumin,Random Urine < 12.0 mg/L (<20 mg/L)
[2024-12-21 12:13] LABS: Cholesterol 121 mg/dL (<=200); Low Density Lipoprotein Calc. 59 mg/dL; Triglycerides 51 mg/dL; Very Low Density Lipoprotein 10 mg/dL (5-40); Vitamin D,25 Hydroxy 27.2 ng/mL (30-100); cholesterol:hdl ratio screen 2.32
[2024-12-21 12:16] LABS: AST(SGOT) 24 U/L (<=37); Alanine Aminotransfer ALT/SGPT 35 U/L (<=46); Albumin, Serum 4.5 g/dL (3.5-5.0); Alkaline Phosphatase 65 U/L (40-129); Anion Gap 11 (5-15); BUN 16 mg/dL (4-19); BUN/Creat Ratio 18.2 RATIO (10-20); Calcium,Total 9.8 mg/dL (7.6-11.0); Carbon Dioxide 26.2 mmol/L (21.0-32.0); Chloride 103 mmol/L (98-108); Globulin 3.3 g/dL (2.2-4.2); Glucose 150 mg/dL (70-99); Potassium 4.1 mmol/L (3.3-5.1)
== END | disposition home or self-care (01) ==
LOC: LAB 10:46
PROVIDERS: PCP Family Medicine; Referring Provider Nurse Practitioner Family; Visit Provider Nurse Practitioner Family
DX: E11.65 Type 2 diabetes mellitus with hyperglycemia (principal)
CPT/HCPCS: 36415; 80053; 80061; 82043; 82306; 82570; 84443; 85025